=== PATIENT | female | born 1945 | race Caucasian/White ===

== ENCOUNTER → 2017-08-08 13:13 | Outpatient (CLI) | payer MEDICARE, OTHER, SELFPAY ==
--- NOTE | 2017-08-08 13:45 | MRI_ITS ---
STUDY: MRI LUMBAR SPINE WITHOUT CONTRAST REASON FOR EXAM: Female, 71 years old. Low back pain radiating into the left hip TECHNIQUE: Standardized fat and water weighted pulse sequences were obtained in the sagittal and axial planes. COMPARISON: None FINDINGS: T12-L1: Normal endplates. Normal disc height, hydration and morphology. Normal bilateral facet joints. Normal central canal and bilateral lateral recesses. Normal bilateral intervertebral neural foramina. Normal lumbar lordosis. There is no substantial scoliosis. Normal conus medullaris that terminates at the L1 level. L1-2: Bulging annulus with bilateral facet and ligamentum flavum hypertrophy. Mild central canal and bilateral foraminal stenoses. L2-3: Bulging annulus with bilateral facet and ligamentum flavum hypertrophy. Moderate central canal and bilateral foraminal stenoses. L3-4: Bulging annulus and bilateral facet and ligamentum flavum hypertrophy with superimposed left paracentral disc protrusion. Severe left lateral recess stenosis, severe central canal stenosis, and moderate bilateral foraminal stenoses. L4-5: Bulging annulus and bilateral facet and ligamentum flavum hypertrophy. Moderate to severe central canal stenosis with severe left lateral recess stenosis and moderate bilateral foraminal stenoses. L5-S1: Bulging annulus and bilateral facet hypertrophy with moderate bilateral foraminal stenoses. Normal visualized sacral ala. Normal visualized paraspinous soft tissue structures. MRI/Spine Lumbar (Routine) IMPRESSION: Diffuse degenerative disc and facet disease as described. Severe central canal and left lateral recess stenoses at the L3-4 level. Severe left lateral recess stenosis at the L4-5 level. Electronically Signed: Greg Forde MD at 0:36 EDT Tel , Service support ,
--- NOTE | 2017-08-08 14:45 | RAD_ITS ---
STUDY: X-RAY - LUMBAR SPINE REASON FOR EXAM: Female, 71 years old. Stabbing and shooting pain in lower back that radiates down all the way down to the toes on left side, started in April 2017 TECHNIQUE: 5 view(s) of the lumbar spine were obtained. COMPARISON: None FINDINGS: Normal lumbar lordosis. There is no substantial scoliosis. There is a normal alignment of the vertebrae. There are multiple metallic clips in the right upper quadrant. This is consistent for a cholecystectomy. Loss of intervertebral disc height at L5-S1. Vacuum disc phenomenon at L5-S1. Grade 1 anterolisthesis of L4 on L5. There is multilevel endplate spondylosis of the lumbar vertebrae. There is multi-level degenerative disc disease with multi-level disc space narrowing. There are atherosclerotic vascular calcifications. The soft tissue structures are unremarkable. RAD/L/S Spine Min 4 Views IMPRESSION: Degenerative changes of the spine, as detailed above. Grade 1 anterolisthesis of L4 on L5. Electronically Signed: Kashmir Gutiérrez MD at 21:13 EDT , Service support ,
== END ==
PROVIDERS: Family Provider Family Medicine; PCP Family Medicine; Visit Provider Family Medicine
DX: M51.26 Other intervertebral disc displacement, lumbar region (principal)
CPT/HCPCS: 72110; 72148

== ENCOUNTER → 2018-01-22 12:25 | Outpatient (CLI) | payer MEDICARE, OTHER, SELFPAY ==
[2018-01-22 11:03] VITALS: BMI 25.9
--- NOTE | 2018-01-22 12:55 | RAD_ITS ---
STUDY: X-RAY CHEST REASON FOR EXAM: Female, 72 years old. Left-sided anterior lateral chest pain and shortness of breath. TECHNIQUE: PA and lateral views of the chest. COMPARISON: None. FINDINGS: Hyperinflation. Scattered calcified granulomas. No acute abnormality is seen. There is no demonstrated pleural abnormality. Normal size heart. Normal mediastinum and nando. Normal visualized pulmonary arteries. There is atherosclerotic tortuosity of the aortic arch and descending thoracic aorta. There are diffuse degenerative changes of the visualized thoracic spine. Normal visualized ribs, clavicles, and shoulders. Surgical clips are seen in the right upper quadrant most likely representing cholecystectomy. RAD/Chest PA and Lateral IMPRESSION: Hyperinflation. The lungs are clear. Electronically Signed: Parish Gutierrez MD at 13:18 EST Tel [phone], Service support ,
[2018-01-22 14:14] LABS: Anion Gap 5 (5-15); BUN 20 mg/dL (7-18); BUN/Creat Ratio 12.7 RATIO (10-20); Calcium,Total 9.3 mg/dL (8.5-10.1); Chloride 103 mmol/L (98-107); Creatinine, Serum 1.57 mg/dL (0.55-1.02); EST Glomerular Filtration Rate 35 mL/min (>60); Est Glom Filt Rate - Afr Amer 42 mL/min (>60); Glucose 155 mg/dL (74-106); Potassium 3.4 mmol/L (3.5-5.1); Sodium Level 141 mmol/L (136-145)
--- OUTSIDE RECORDS SUMMARY | 2018-03-19 15:51 | XMS RPT_ITS ---
:1945 Author Organization OHIP Care Team Providers Name Role Phone Kapil Kauffman ROD CUP FILLER-C Attending Unavailable Brown, Antonia Referring Unavailable Brown, Antonia Attending Unavailable Brown, Antonia Referring Unavailable Brown, Antonia Attending Unavailable Brown, Antonia Referring Unavailable Brown, Antonia Primary Care Unavailable Lizabeth Hall Attending Unavailable Brown, Antonia Referring Unavailable Brown, Antonia Attending Unavailable Brown, Antonia Referring Unavailable Brown, Antonia Primary Care Unavailable Brown, Antonia Attending Unavailable Brown, Antonia Referring Unavailable Brown, Antonia Primary Care Unavailable Brown, Antonia Attending Unavailable Brown, Antonia Referring Unavailable Brown, Antonia Attending Unavailable Brown, Antonia Referring Unavailable Brown, Antonia Primary Care Unavailable Brown, Antonia Attending Unavailable Brown, Antonia Referring Unavailable Brown, Antonia Primary Care Unavailable Jose Armando Rincon Attending Unavailable Brown, Antonia Referring Unavailable Brown, Antonia Primary Care Unavailable Dallin Cole Attending Unavailable Referred, Self Attending Unavailable Brown, Antonia Primary Care Unavailable ALEXANDR ANTONIA Primary Care Unavailable ALEXANDR ANTONIA Attending Unavailable JOSUE MANNING DO Attending Unavailable ANTONIA STRANGE Primary Care Unavailable PROBLEMS PROBLEMS DATE TYPE CONDITION / CODE ATTENDING STATUS SOURCE 01/26/2018 Unknown S16.1XXA - Strain of Jose Armando Rincon Active [facility] muscle, fascia and Community tendon at neck Hospital level, initial Repository encounter / S16.1XXA(ICD-10) 01/22/2018 Unknown Z87.891 - Personal Antonia Strange Active [facility] history of nicotine Community dependence / Hospital Z87.891(ICD-10) Repository 01/22/2018 Unknown R10.9 - Unspecified Antonia Strange Active [facility] abdominal pain / Community R10.9(ICD-10) Hospital Repository 01/22/2018 Unknown I10 - Essential Antonia Strange Active [facility] (primary) Community hypertension / Hospital I10(ICD-10) Repository 08/19/2017 Unknown 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, lumbar Hospital region / Repository M51.26(ICD-10) 02/21/2017 Admitting Diarrhea, ANTONIA STRANGE Active [facility] Diagnosis unspecified / Foundation R19.7(ICD-10) Repository PROCEDURES PROCEDURES No Procedure Records FoundRESULTS RESULTS EMERGENCY DEPARTMENT Observed: 01/28/2018 Status: F Source: CLIO SUMMARY 12:52 PM [facility] REPOSITORY [facility] Medical Records Department [address] [facility] [place] [address] Emergency Department Summary 01/28/18 1042 MR#: [id number] Acct: [id number] Name: ROSEMARY HELMS Rep #: [id number] : 1945 72 From: Dallin Cole DO PCP: Antonia Strange DO Status: REG ER - ER Visit Summary Date of Service: 01/28/18 Chief Complaint: Tongue swelling History of Present Illness: The patient is a 72 F who presents with swelling of her tongue that began this morning. Patient states she woke up at approximately 3 AM today and felt like she had a sore throat. Patient went back to sleep and woke up again at 5:30 AM today. Patient felt like her tongue was swelling at that time. Patient states she has been having some trouble swallowing due to the swelling of her tongue. Patient denies any shortness of breath however. Patient is able to talk. Patient denies any fevers or chills. Patient had a CT scan with oral and IV contrast done yesterday. Patient denies any prior allergic reactions to CT dye. Physical Examination: Vital signs are stable except for mildly elevated blood pressure 163/75. Patient is afebrile. Patient is in no acute distress. Oral mucosa is pink and moist. There is edema of the right half of the tongue. Oropharynx is clear. Airway is patent. Neck is supple. Trachea is midline. There is no sublingual edema or erythema. There is no lymphadenopathy appreciated. Heart was regular rate and rhythm. Lungs are clear and equal bilaterally. Good respiratory effort noted. Abdomen soft. Bowel sounds are normal. There is no tenderness. Cranial nerves II through XII are intact. There are no focal motor or sensory deficits noted. The remaining physical exam is within normal limits. Emergency Department Course and Treatment: Patient was given Solu-Medrol, Benadryl, and Pepcid IV here. Patient was observed in the emergency department for 2 hours. Swelling has improved. Patient was also given her normal dose of Paxil here in the emergency department. Patient was given a prescription for prednisone. Patient was instructed to follow-up with her primary care physician in 5-7 days. Patient understood and was agreeable with the plan. All questions were answered. Disposition: Discharged home Impression: Angioedema This note was generated with [employer] dictation software. It may contain incorrect words, spelling, and punctuation that were not noted in review of the chart prior to signing ED Disposition - Plan for ED Patient: Disposition: Home or Assisted Living Chief Complaint: Edema Diagnosis: Allergic angioedema Instructions: ED Angioedema Prescriptions: Prednisone [Deltasone] 60 mg PO DAILY #15 tab Referrals: Antonia Strange, DO [Primary Care Provider] - What to do if you have Problems For any increased pain, shortness of breath, bleeding, nausea or vomiting, chest pain, or any unexpected problems, contact your Primary Care Provider. Call [facility] ([phone]) or report to the closest Emergency Room. Call 911 if necessary. 01/28/18 1252 <Electronically signed by Dallin Cole DO> Date Dallin Cole DO Cosigner Signature (If Indicated): Date CC: Antonia Strange DO ABDOMEN WITH ORAL Observed: 01/27/2018 Status: F Source: [place] CONT ONLY 3:03 PM [facility] REPOSITORY [facility] Imaging Services [address] [place] [address] Abdomen WITH ORAL Cont Only MR#: [id number] Acct: [id number] Name: ROSEMARY HELMS Rep #: [id number] : 1945 F 72 From: Lyubov Manning MD PCP: Antonia Strange DO Status: REG CLI Study: Abdomen WITH ORAL Cont Only Date of Exam: 01/27/18 Exam# [id number] Ordering Dr: Antonia Strange DO STUDY: CT ABDOMEN WITHOUT CONTRAST REASON FOR EXAM: Female, 72 years old. Left upper abdominal pain with weight loss and nausea. RADIATION DOSAGE (If Supplied By Facility): CTDIvol = ( 12.61 ) mGy, DLP = ( 388.47 ) mGycm TECHNIQUE: Transaxial images were obtained without intravenous contrast, and without oral contrast. Sagittal and coronal images were reconstructed. Individualized dose optimization techniques were used for this CT. COMPARISON: Prior comparison studies are not available for review at this time. FINDINGS: The visualized lung bases are unremarkable. The visualized portions of the heart are within normal limits. There is hepatomegaly with diffuse hepatic enlargement. Maximum cephalocaudal dimension measures 18.7 cm. There are surgical clips in the gallbladder fossa consistent with a prior cholecystectomy. Normal spleen. There is diffuse atrophy of the pancreas. Normal bilateral adrenal glands. There is moderate cortical atrophy of the right kidney, consistent with chronic medical renal disease. There is hypertrophic enlargement of the left kidney. Normal visualized stomach. There is no evidence for dilated bowel, ascites or pneumoperitoneum. Small bowel has a grossly normal appearance. Stool and/or enteric contrast is visible throughout the colon. There is non-visualization of the appendix. There is diffuse atherosclerotic calcification of the abdominal aorta, without a demonstrated aneurysm. Normal inferior vena cava. Normal retroperitoneum. Normal abdominal wall. The bones are osteopenic. There is mild anterolisthesis at L4-5. There is degenerative disc disease of the lower thoracic spine and L5-S1. Multilevel degenerative arthropathy of the thoracic and lumbar spine. CT/Abdomen WITH ORAL Cont Only IMPRESSION: 1. Hepatomegaly. 2. Sequela of chronic right-sided renal insufficiency. 3. Cholecystectomy. 4. No CT evidence of acute intra-abdominal disease. Electronically Signed: Lyubov Manning MD at 11:41 EST , Service support , CC: Antonia Strange DO Sales Center Associate: Signed URGENT CARE VISIT Observed: 01/26/2018 Status: F Source: CLIO REPORT 1:41 PM [facility] REPOSITORY [facility] [address] [place] [address] OFFICE VISIT Date of Service: 01/26/18 MR#: [id number] Acct: [id number] Name: ROSEMARY HELMS Rep #: [id number] : 1945 Provider: Jose Armando MANDUJANO Age/Sex: 72/F Location: [facility] Status: Signed Intake Vital Signs01/26/18 Body Mass Index (BMI) 25.9 01/26/18 Height 5 ft 4 in Intake Visit Reasons: NECK AND SHOULDER/HEADACHE Allergies No Known Allergies Allergy (Unverified 01/26/18 11:02) Medications hydrochlorothiazide 25 mg tablet 25 mg PO DAILY #90 tab 10/15/17 [Rx Confirmed 01/26/18] paroxetine 30 mg tablet 30 mg PO QAM #90 tab 10/15/17 [Rx Confirmed 01/26/18] amlodipine 5 mg tablet 5 mg PO QDAY #90 tab 10/29/17 [Rx Confirmed 01/26/18] metformin 500 mg tablet 500 mg PO QDAY #90 tab 01/20/18 [Rx Confirmed 01/26/18] lisinopril 20 mg tablet 20 mg PO QDAY #90 tab 01/23/18 [Rx Confirmed 01/26/18] PFSH Medical History History of stomach ulcers (Acute) IBS (irritable bowel syndrome) (Chronic) Hypertension (Chronic) Type 2 diabetes mellitus (Chronic) Pain in left leg (Acute) Diarrhea (Acute) Fatigue (Acute) Limb weakness (Acute) Migraines (Acute) Neck pain (Acute) Ruptured cervical disc (Acute) Shoulder pain (Acute) Surgical History History of cholecystectomy (Acute) Social History Smoking Status: Former smoker how long ago did patient quit smokin alcohol intake: never substance use type: does not use what type of physical activity do you participate in: walking frequency: daily HPI HPI Details: ROSEMARY HELMS, is a 72 F who presents to the office today for complaint of neck pain and headache for the past several days. Patient states that her neck/shoulder pain and headache keep her from a good night sleep due to the pain. She reports that she has not taken anything for the pain due to her history of gastric ulcers with a concern for a recurrent ulcer. She states that her PCP Dr. Strange advised her against taking pain medications or muscle relaxers. Patient does also admit to a great deal of life stress due to taking care of her . She denies any syncopal or near syncopal episodes. She has had no dizziness or intractable headaches. No previous injuries to the neck. No other associated symptoms or alleviating/aggravating factors. ROS Const Constitutional: Positive for headache(s); no chills, fever(s), fatigue or abnormal sleep pattern ENT ENT: Positive for neck pain and headache(s); no nasal discharge, nasal congestion, ear pain, abnormal hearing, dizziness/vertigo or sore throat Resp Respiratory: No shortness of breath or chest congestion Cardio Cardiology: No chest pain at rest, chest pain with exertion or shortness of breath Musc Musculoskeletal: Positive for neck pain; no limited range of motion, abnormal walking, back pain, radiating pain into limb, numbness, tingling or stiffness Skin Skin: No wounds or lesions Neuro Neurology: Positive for headache(s); no behavioral changes, confusion, abnormal hearing, abnormal walking, numbness or tingling Psych Psychiatric: No behavioral changes, No confusion, No abnormal sleep pattern Endo Endocrine: No fatigue Exam Const General: cooperative, healthy appearing [facility] Head: normocephalic, atraumatic Ears: hearing grossly normal bilaterally Nose: external nose normal Face and sinus: face symmetric, normal facial exam Mouth: oral mucosae normal Throat: posterior oropharynx normal Eyes General: appearance normal, both eyes and all related structures Pupils: PERRL Neck Neck: normal visual inspection, no lymphadenopathy, tender Resp Effort AND Inspection: normal respiratory effort Auscultation: Bilateral: Clear to Auscultation Cardio Palpation: normal PMI Rate: regular rate Rhythm: regular rhythm GI Inspection: normal to inspection Auscultation: normal bowel sounds Skin General: no rashes or lesions noted Neuro General: alert, CN's II-XI intact bilaterally Psych Appearance: grossly normal Mental Status: mental status grossly normal Assessment AND Plan Problems 1. Acute non intractable tension-type headache G44.209 Status Acute 2. Acute muscle stiffness of neck M54.2 Status Acute Plan Patient referred to [facility] point massage therapy for medical massage as well as advised to use heating pad to the neck multiple times daily as tolerated. Patient advised to follow her PCPs recommendation and to withhold from use of pain medications as much as possible and to follow-up with Dr. Strange for further evaluation and treatment in 5-7 days if no better sooner if worse. Patient advised of potential red flags and when appropriate to report to the ED. Patient verbalized understanding and agreement with all the above. Orders Referrals: Coding Level of Care Code Off vis,est,level 3 Diagnoses Acute non intractable tension-type headache G44.209 Headache chronicity pattern: acute headache Intractability: not intractable Acute muscle stiffness of neck M54.2 01/26/18 1341 <Electronically signed by Jose Armando MANDUJANO> Date Jose Armando MANDUJANO Cosigner Signature: Date (if applicable) CC: INTERNAL MEDICINE Observed: 01/22/2018 Status: F Source: [place] OFFICE VISIT 12:37 PM [facility] REPOSITORY [facility] [address] [address] [place] [address] OFFICE VISIT Date of Service: 01/22/18 MR#: [id number] Acct: [id number] Name: ROSEMARY HELMS Rep #: [id number] : 1945 Provider: Antonia Strange DO Age/Sex: 72/F Location: [facility] Status: Signed Intake Vital Signs01/22/18 Height 5 ft 6 in 01/22/18 Weight: 160 lb 6 oz Intake Visit Reasons: FU ER Chief Complaint: 2 WK FU Elevated BP Environmental Aide Required: No Accompanied by: None Is patient in pain?: Yes (chest) Pain scale (1-10): 2 Allergies No Known Allergies Allergy (Unverified 10/31/17 11:13) Medications lisinopril 20 mg tablet 20 mg PO QDAY #90 tab 09/19/17 [Rx Confirmed 10/31/17] hydrochlorothiazide 25 mg tablet 25 mg PO DAILY #90 tab 10/15/17 [Rx Confirmed 10/31/17] paroxetine 30 mg tablet 30 mg PO QAM #90 tab 10/15/17 [Rx Confirmed 10/31/17] amlodipine 5 mg tablet 5 mg PO QDAY #90 tab 10/29/17 [Rx Confirmed 10/31/17] omeprazole 20 mg capsule,delayed release 20 mg PO BID #60 cap 10/31/17 [Rx Confirmed 10/31/17] metformin 500 mg tablet 500 mg PO QDAY #90 tab 01/20/18 [Rx] PFSH Medical History History of stomach ulcers (Acute) IBS (irritable bowel syndrome) (Chronic) Hypertension (Chronic) Type 2 diabetes mellitus (Chronic) Pain in left leg (Acute) Surgical History History of cholecystectomy (Acute) Social History Smoking Status: Former smoker how long ago did patient quit smokin alcohol intake: never substance use type: does not use what type of physical activity do you participate in: walking frequency: daily HPI HPI Chief Complaint: 2 WK FU Elevated BP Details: ROSEMARY HELMS, is a 72 F who presents to the office today for follow-up from an emergency room visit where she was seen for elevated blood pressure more importantly severe epigastric and left upper quadrant pain. On this visit she also complains of chest discomfort more of a pressure to the chest when she touches but not exertional pain the pain is not there all the time and her epigastric pain is quite high. She has lost some weight says the spells come with increasing intensity and they are quite debilitating. She was also significantly hypokalemic in the emergency room and they just gave her 2 tablets of potassium and told her that her kidney function was off and indeed it is as her creatinine was 1.65. ROS Const Constitutional: No body ache, chills, fatigue, fever(s), frequent falls, headache(s), weight change, sleep problems, change in appetite, snoring, excessive sweating or weakness Eyes Eyes: No blurry vision, change in vision, eye pain or light sensitivity ENT ENT: No headache(s), abnormal hearing, ear pain, tinnitus, nasal congestion, nasal discharge, sore throat or neck pain Resp Respiratory: No snoring, cough, shortness of breath or wheezing Cardio Cardiology: Positive for chest pain at rest and lightheadedness; no excessive sweating, chest pain with exertion, shortness of breath, dyspnea on exertion, orthopnea or palpitations Gastro GI: Positive for abdominal pain; no change in bowel habits, diarrhea, constipation, vomiting, nausea/dyspepsia or cramping Genitourinary-Female: No difficulty urinating, burning urination, painful urination, urinary frequency, urinary urgency, urinary incontinence, blood in urine, urinary retention or urinary hesitancy Musc Musculoskeletal: Positive for back pain and muscle weakness (Legs); no neck pain, abnormal walking, joint pain, limited range of motion, numbness or tingling Skin Skin: No redness, dry skin, itching, lesions, wounds or rash Neuro Neurology: No frequent falls, headache(s), weakness, abnormal hearing, abnormal walking, numbness, tingling, abnormal speech, dizziness or memory loss Psych Psychiatric: No change in appetite, No memory loss, Positive for anxiety, Positive for depression, No Thoughts of harming yourself/Others Endo Endocrine: No fatigue, excessive sweating, cold intolerance, increased thirst/drinking, heat intolerance, increased hunger or flushing Aller/Imm Allergy/Immunologic: No wheezing, itchy eyes, seasonal allergy symptoms or hives Daren/Lymp Hematologic/Lymphatic: No easy bleeding, easy bruising or enlarged lymph nodes Exam Const General: healthy appearing, in distress mild Nutritional Appearance: average body habitus Chest Chest palpation AND inspection: normal inspection of the chest, tenderness costochondral junction Resp Effort AND Inspection: normal respiratory effort Auscultation: Bilateral: Clear to Auscultation Cardio Rate: regular rate Rhythm: regular rhythm GI Inspection: normal to inspection Auscultation: normal bowel sounds Percussion: normal to percussion Palpation: no hepatosplenomegaly, tender in the epigastrum and in the LUQ Musc Musculoskeletal: Yes muscle weakness (Legs) Thoracic/Lumbar Spine: thoraco-lumbar ROM limited, straight leg raise negative bilaterally Neuro Cranial Nerves: CN's II-XI intact bilaterally Motor: muscle tone normal throughout Sensory Exam: no sensory deficits noted Assessment AND Plan Problems 1. Hypertension I10 2. History of stomach ulcers Z87.19 3. IBS (irritable bowel syndrome) K58.9 Plan This patient was seen on an emergency room follow-up. She was a little upset with the emergency room as she said nobody actually touched her through the exam however they did do blood work showing she was hypokalemic and having some evidence of chronic kidney disease. She has had upper abdominal pain quite severe she knows she has a history of stomach ulcers and she has been taking NSAIDs which I told her to discontinue. I repeated the blood work to see what her potassium and kidney function was now that she is fully hydrated as she had been vomiting prior to the emergency room visit. Ordered a CT scan of the abdomen because of the severe recurrent epigastric pain but anticipate referring her for an EGD if this is negative. Chest x-ray was done simply because she is a smoker and has a chronic cough and some chest discomfort. Orders Orders: Medications Discontinued: ibuprofen Discontinued Reason: [id number] mg PO Q8H PRN 30 tabs 0RF fever or pain ed by PCP/other physicians Coding Level of Care Code Off vis,est,level 3 Diagnoses Hypertension I10 History of stomach ulcers Z87.19 IBS (irritable bowel syndrome) K58.9 01/22/18 1237 <Electronically signed by Antonia Strange DO> Date Antonia Claudette Alexandr DO Rulaigner Signature: Date (if applicable) CC: BASIC METABOLIC Collected: 01/22/2018 Status: F Source: [place] PROFILE (BMP) 12:37 PM [facility] REPOSITORY TYPE CODE TESTS RESULT OUT OF RANGE REFERENCE UNITS LAB L501.0100 74-106 mg/dL High GLU 155 Result Comment: Fasting Glucose result greater than or equal to 126 mg/dL suggests DIABETES MELLITUS per A.D.A. criteria. Please note revised GLUCOSE reference range effective 2017. LAB L501.1000 7-18 mg/dL High BUN 20 LAB L501.1100 0.55-1.02 mg/dL High CREAT,SERUM 1.57 Result Comment: The validity of the calculated GFR AND GFRAA in patients over 70 years has not been determined. Clinical correlation is essential. LAB L501.1110 >60 mL/min Low EST GFR 35 Result Comment: Non- GFR Calc LAB L501.1115 >60 mL/min Low EST GFR - AA 42 Result Comment: GFR Calc LAB L501.1300 10-20 RATIO Normal BUN/CRE 12.7 LAB L501.2200 8.5-10.1 mg/dL CA Normal 9.3 LAB L501.5300 136-145 mmol/L NA Normal 141 LAB L501.5600 3.5-5.1 mmol/L Low K 3.4 LAB L501.5900 98-107 mmol/L CL Normal 103 LAB L501.6100 21.0-32.0 mmol/L High CO2 33.0 LAB L501.6200 5-15 Normal GAP 5 Performed By: #### L500.2500 #### [facility] [address] [place], [address] CHEST PA AND LATERAL Observed: 01/22/2018 Status: F Source: [facility] 12[facility]32 [facility] Imaging Services [address] [place] [address] Chest PA and Lateral MR#: [id number] Acct: [id number] Name: ROSEMARY HELMS Rep #: [id number] : 1945 F 72 From: Parish Gutierrez MD PCP: Antonia Strange DO Status: REG CLI Study: Chest PA and Lateral Date of Exam: 01/22/18 Exam# [id number] Ordering Dr: Antonia Strange DO STUDY: X-RAY CHEST REASON FOR EXAM: Female, 72 years old. Left-sided anterior lateral chest pain and shortness of breath. TECHNIQUE: PA and lateral views of the chest. COMPARISON: None. FINDINGS: Hyperinflation. Scattered calcified granulomas. No acute abnormality is seen. There is no demonstrated pleural abnormality. Normal size heart. Normal mediastinum and nando. Normal visualized pulmonary arteries. There is atherosclerotic tortuosity of the aortic arch and descending thoracic aorta. There are diffuse degenerative changes of the visualized thoracic spine. Normal visualized ribs, clavicles, and shoulders. Surgical clips are seen in the right upper quadrant most likely representing cholecystectomy. RAD/Chest PA and Lateral IMPRESSION: Hyperinflation. The lungs are clear. Electronically Signed: Parish Gutierrez MD at 13:18 EST Tel [phone], Service support , CC: Antonia Strange DO Sales Center Associate: Signed CBC Collected: 01/16/2018 Status: F Source: [facility] 3:51 PM [facility] REPOSITORY TYPE CODE TESTS RESULT OUT OF REFERENCE UNITS RANGE LAB WBC(LOINC) 4.60-10.80 10 3/mcL High WBC 12.20 LAB RBCCT(LOINC 4.20-5.40 10 6/mcL ) RBC 4.78 LAB HGB(LOINC) 12.0-16.0 G/dL Hgb 14.7 LAB HCT(LOINC) 37.0-47.0 % Hct 43.0 LAB MCV(LOINC) 80.0-94.0 fL MCV 89.9 LAB MCH(LOINC) 27.0-31.2 pg MCH 30.8 LAB MCHC(LOINC) 33.0-37.0 G/dL MCHC 34.3 LAB RDW(LOINC) 11.5-14.5 % RDW 13.5 LAB PLT(LOINC) 130-400 10 3/mcL Platelet 265 LAB MPV(LOINC) 7.4-10.4 fL Low MPV 7.1 Performed By: #### ANEU, ADIFF, CBC #### [address] [address] #### LIP, GFR, TROP, CMP #### [address] [address] .AUTO DIFF Collected: 01/16/2018 Status: F Source: [facility] 3:51 PM [facility] REPOSITORY TYPE CODE TESTS RESULT OUT OF REFERENCE UNITS RANGE LAB JULIANE(LOINC) 37.0-80.0 % Neutrophil % 77.3 LAB LYM(LOINC) 10.0-50.0 % Lymphocyte % 14.8 LAB MON(LOINC) 1.7-13.0 % Monocyte % 7.0 LAB EO(LOINC) 0.0-7.0 % Eosinophil % 0.4 LAB BAS(LOINC) 0.0-2.5 % Basophil % 0.5 LAB ABLYM(LOIN 0.77-3.85 10 3/mcL C) Lymphocyte, 1.80 Absolute LAB ALEJANDRINA(LOINC 0.15-1.00 10 3/mcL ) Monocyte, 0.90 Absolute LAB AEOS(LOINC 0.00-0.40 10 3/mcL ) Eosinophil, 0.00 Absolute LAB ABAS(LOINC 0.00-0.19 10 3/mcL ) Basophil, 0.10 Absolute Performed By: #### ANEU, ADIFF, CBC #### [address] [address] #### LIP, GFR, TROP, CMP #### [address] [address] .NEUABS Collected: 01/16/2018 Status: F Source: [facility] 3:51 PM [facility] REPOSITORY TYPE CODE TESTS RESULT OUT OF REFERENCE UNITS RANGE LAB ANEU(LOINC) 2.85-6.16 10 3/mcL High Neutrophil, 9.40 Absolute Performed By: #### ANEU, ADIFF, CBC #### [address] [address] #### LIP, GFR, TROP, CMP #### [place] [address] TROP Collected: 01/16/2018 Status: F Source: [facility] 3:51 PM [facility] REPOSITORY TYPE CODE TESTS RESULT OUT OF REFERENCE UNITS RANGE LAB TROP(LOINC) 0.000-0.040 ng/mL Troponin <0.020 Result Comment: Troponin I reference range: 0.00-0.040 ng/mL Negative and non-diagnostic. >0.040 ng/mL Consistent with cardiac damage, increased clinical risk and possibility of myocardial infarction. Serial measurements, a rise & fall in test results, clinical history, appropriate symptoms and/or ECG changes may help assess possibility of KS. *Other non-acute coronary syndrome conditions such as CHF, myocarditis, pulmonary emboli, sepsis and cardiac surgery could result in myocardial damage and increased troponin levels. Performed By: #### ANEU, ADIFF, CBC #### [place] [address] #### LIP, GFR, TROP, CMP #### [place] [address] LIP Collected: 01/16/2018 Status: F Source: [facility] 3:51 PM [facility] REPOSITORY TYPE CODE TESTS RESULT OUT OF REFERENCE UNITS RANGE LAB LIP(LOINC) 73-393 U/L Lipase Level 325 Performed By: #### ANEU, ADIFF, CBC #### [place] [address] #### LIP, GFR, TROP, CMP #### [place] [address] CMP Collected: 01/16/2018 Status: F Source: [facility] 3:51 PM [facility] REPOSITORY TYPE CODE TESTS RESULT OUT OF REFERENCE UNITS RANGE LAB GLU(LOINC) 83-110 mg/dL Glucose High Level 130 LAB NA(LOINC) 136-145 mmol/L Low Sodium Level 135 LAB K(LOINC) 3.5-5.1 mmol/L Low Potassium Level 2.8 LAB CL(LOINC) 98-107 mmol/L Low Chloride 94 LAB CO2(LOINC) 23-31 mmol/L CO2 30 LAB EBAL(LOINC mEq/L ) Electrolyte Balance 11.0 LAB BUN(LOINC) 7-18 mg/dL BUN High 28 LAB CRE(LOINC) 0.55-1.02 mg/dL Creatinine High Lvl (s) 1.67 LAB BC(LOINC) 7-27 ratio BUN/Creatinine 17 Ratio LAB CA(LOINC) 8.4-10.2 mg/dL Calcium Lvl 9.3 LAB PROT(LOINC 6.4-8.2 G/dL ) Total Protein 7.5 LAB ALB(LOINC) 3.4-4.8 G/dL Albumin Level 4.0 LAB GLB(LOINC) G/dL Globulin 3.5 LAB AG(LOINC) 1.1-2.5 ratio A/G Ratio 1.1 LAB BILT(LOINC 0.2-1.0 mg/dL ) Bili Total 0.7 LAB AP(LOINC) 40-135 U/L Alk Phos 94 LAB AST(LOINC) 10-40 U/L AST/SGOT 17 LAB ALT(LOINC) 10-35 U/L ALT/SGPT 17 Performed By: #### ANEU, ADIFF, CBC #### [address] [address] #### LIP, GFR, TROP, CMP #### [address] [address] .GFR Collected: 01/16/2018 Status: F Source: [facility] 3:51 PM [facility] REPOSITORY TYPE CODE TESTS RESULT OUT OF REFERENCE UNITS RANGE LAB GFRAA(LOINC ml/min/1.73 ) sqm GFR 37 [place] Result Comment: GFR Population mean for , Non- Americans Ages 20-29 = 116 mL/min/1.73 sq.m. Ages 30-39 = 107 mL/min/1.73 sq.m. Ages 40-49 = 99 mL/min/1.73 sq.m. Ages 50-59 = 93 mL/min/1.73 sq.m. Ages 60-69 = 85 mL/min/1.73 sq.m. Ages 70+ = 75 mL/min/1.73 sq.m. Chronic Kidney Disease: Less than 60 mL/min/1.73 square meters End Stage Renal Disease: Less than 15 mL/min/1.73 square meters LAB GFRNO(LOINC) ml/min/1.73sqm GFR Non- 30 Result Comment: GFR Population mean for , Non- Americans Ages 20-29 = 116 mL/min/1.73 sq.m. Ages 30-39 = 107 mL/min/1.73 sq.m. Ages 40-49 = 99 mL/min/1.73 sq.m. Ages 50-59 = 93 mL/min/1.73 sq.m. Ages 60-69 = 85 mL/min/1.73 sq.m. Ages 70+ = 75 mL/min/1.73 sq.m. Chronic Kidney Disease: Less than 60 mL/min/1.73 square meters End Stage Renal Disease: Less than 15 mL/min/1.73 square meters Performed By: #### ANEU, ADIFF, CBC #### [address] [address] #### LIP, GFR, TROP, CMP #### [place] [address] INTERNAL MEDICINE Observed: 10/31/2017 Status: F Source: [place] OFFICE VISIT 12:12 PM [facility] Internal Medicine [address] [place] [address] [place] [address] OFFICE VISIT Date of Service: 10/31/17 MR#: [id number] Acct: [id number] Name: ROSEMARY HELMS Jose Rep #: [id number] : 1945 Provider: Antonia Strange DO Age/Sex: 72/F Location: [facility] Status: Signed Intake Vital Signs10/31/17 Height 5 ft 6 in 10/31/17 Weight: 166 lb 10/31/17 Body Mass Index (BMI) 26.8 10/31/17 Blood Pressure 172/72 Intake Visit Reasons: 2 WK FU Chief Complaint: 2 WK FU Elevated BP Is patient in pain?: Yes (Back) Pain scale (1-10): 6 Allergies No Known Allergies Allergy (Unverified 10/31/17 11:13) Medications ibuprofen 600 mg tablet 600 mg PO Q8H PRN #30 tab 05/20/17 [Rx Confirmed 10/31/17] metformin 500 mg tablet 500 mg PO QDAY #90 tab 06/25/17 [Rx Confirmed 10/31/17] lisinopril 20 mg tablet 20 mg PO QDAY #90 tab 09/19/17 [Rx Confirmed 10/31/17] hydrochlorothiazide 25 mg tablet 25 mg PO DAILY #90 tab 10/15/17 [Rx Confirmed 10/31/17] paroxetine 30 mg tablet 30 mg PO QAM #90 tab 10/15/17 [Rx Confirmed 10/31/17] amlodipine 5 mg tablet 5 mg PO QDAY #90 tab 10/29/17 [Rx Confirmed 10/31/17] nabumetone 500 mg tablet 500 mg PO BID 10/31/17 [History Confirmed 10/31/17] omeprazole 20 mg capsule,delayed release 20 mg PO BID #60 cap 10/31/17 [Rx Confirmed 10/31/17] [facility] Medical History History of stomach ulcers (Acute) IBS (irritable bowel syndrome) (Chronic) Hypertension (Chronic) Type 2 diabetes mellitus (Chronic) Pain in left leg (Acute) Surgical History History of cholecystectomy (Acute) Social History Smoking Status: Former smoker how long ago did patient quit smokin alcohol intake: never substance use type: does not use what type of physical activity do you participate in: walking frequency: daily HPI HPI Chief Complaint: 2 WK FU Elevated BP Details: ROSEMARY HELMS, is a 72 F who presents to the office today for a recheck on her blood pressure and discussion on her back pain. ROS Const Constitutional: No chills, fatigue, fever(s), frequent falls, malaise, weakness, sleep problems or change in appetite Eyes Eyes: No blurry vision, change in vision, double vision, discharge or visual disturbances ENT ENT: No abnormal hearing, ear pain, ear pressure, tinnitus or dizziness/vertigo Resp Respiratory: No cough, shortness of breath or wheezing Cardio Cardiology: No chest pain at rest, chest pain with exertion, shortness of breath, dyspnea on exertion, generalized swelling, irregular heart rhythm, lightheadedness, orthopnea, fast heart rate or palpitations Gastro GI: No abdominal pain, change in bowel habits, constipation, diarrhea, nausea/dyspepsia or vomiting Genitourinary-Female: No difficulty urinating, burning urination, painful urination, urinary incontinence, urinary frequency, urinary urgency, urinary hesitancy, urinary retention, Frequent nighttime urination/ nocturia, sexual problems, genital lesions, abnormal vaginal bleeding, pelvic pain, vaginal dryness, vaginal odor or Vaginal Itching Musc Musculoskeletal: Positive for back pain and muscle weakness (Legs); no joint pain, joint swelling, limited range of motion, numbness or tingling Skin Skin: No change in skin color, itching, rash or wounds Breast Breast: No breast lump or breast pain Neuro Neurology: No frequent falls, weakness, abnormal hearing, numbness, tingling, unsteady gait/balance, dizziness, loss of vision, memory loss or visual disturbances Psych Psychiatric: No memory loss, No anxiety, No change in appetite, No depression, No Thoughts of harming yourself/Others Endo Endocrine: No fatigue, heat intolerance, increased thirst/drinking, increased hunger or increased urination Aller/Imm Allergy/Immunologic: No wheezing, itchy eyes or seasonal allergy symptoms Daren/Lymp Hematologic/Lymphatic: No easy bleeding, easy bruising or enlarged lymph nodes Exam Const General: healthy appearing, no acute distress Nutritional Appearance: average body habitus Resp Effort AND Inspection: normal respiratory effort Auscultation: Bilateral: Clear to Auscultation Cardio Rate: regular rate Rhythm: regular rhythm Musc Musculoskeletal: Yes muscle weakness (Legs) Thoracic/Lumbar Spine: thoraco-lumbar ROM limited, straight leg raise negative bilaterally Neuro Cranial Nerves: CN's II-XI intact bilaterally Motor: muscle tone normal throughout Sensory Exam: no sensory deficits noted Assessment AND Plan Problems 1. Hypertension I10 2. Pain in left leg M79.605 3. History of stomach ulcers Z87.19 4. Type 2 diabetes mellitus E11.9 Plan Patient was here for blood pressure recheck. Her blood pressure when checked here is in good control and when evaluating her home blood pressure measurements that are also in good control with the exception of one low-pressure that I think was because because of blood pressure cuff failure. She is scheduled to see pain management for an epidural spinal injection her back pain does not seem to be bothering her all that much on physical examination or when she was walking in and out of the office. Follow-up will be in 6 months or as needed. Medications New: Plan Detail Follow Up 6 Months Coding Level of Care Code Off vis,est,level 3 Diagnoses Hypertension I10 Pain in left leg M79.605 History of stomach ulcers Z87.19 Type 2 diabetes mellitus E11.9 10/31/17 1212 <Electronically signed by Antonia Strange DO> Date Antonia Strange DO Cosigner Signature: Date (if applicable) CC: INTERNAL MEDICINE Observed: 10/16/2017 Status: F Source: [facility] OFFICE VISIT 8:33 AM [facility] Internal Medicine [facility] [address] [place] [address] OFFICE VISIT Date of Service: 10/15/17 MR#: [id number] Acct: [id number] Name: ROSEMARY HELMS Rep #: [id number] : 1945 Provider: Antonia Strange DO Age/Sex: 72/F Location: [facility] Status: Signed Intake Vital Signs10/15/17 Height 5 ft 6 in 10/15/17 Weight: 166 lb 10/15/17 Body Mass Index (BMI) 26.8 10/15/17 Blood Pressure 208/83 Intake Visit Reasons: ELEVATED BP Chief Complaint: Elevated BP Is patient in pain?: Yes (L hip) Pain scale (1-10): 6 Allergies No Known Allergies Allergy (Unverified 10/15/17 16:56) Medications ibuprofen 600 mg tablet 600 mg PO Q8H PRN #30 tab 05/20/17 [Rx Confirmed 10/15/17] metformin 500 mg tablet 500 mg PO QDAY #90 tab 06/25/17 [Rx Confirmed 10/15/17] amlodipine 5 mg tablet 5 mg PO QDAY #90 tab 09/09/17 [Rx Confirmed 10/15/17] lisinopril 20 mg tablet 20 mg PO QDAY #90 tab 09/19/17 [Rx Confirmed 10/15/17] hydrochlorothiazide 25 mg tablet 25 mg PO DAILY #90 tab 10/15/17 [Rx Confirmed 10/15/17] paroxetine 30 mg tablet 30 mg PO QAM #90 tab 10/15/17 [Rx Confirmed 10/15/17] PFSH Medical History History of stomach ulcers (Acute) IBS (irritable bowel syndrome) (Chronic) Hypertension (Chronic) Type 2 diabetes mellitus (Chronic) Pain in left leg (Acute) Surgical History History of cholecystectomy (Acute) Social History Smoking Status: Former smoker how long ago did patient quit smokin alcohol intake: never substance use type: does not use what type of physical activity do you participate in: walking frequency: daily HPI HPI Chief Complaint: Elevated BP Details: ROSEMARY HELMS, is a 72 F who presents to the office today for elavated blood pressure ROS Const Constitutional: No chills, fatigue, fever(s), frequent falls, malaise, weakness, sleep problems or change in appetite Eyes Eyes: No blurry vision, change in vision, double vision, discharge or visual disturbances ENT ENT: No abnormal hearing, ear pain, ear pressure, tinnitus or dizziness/vertigo Resp Respiratory: No cough, shortness of breath or wheezing Cardio Cardiology: No chest pain at rest, chest pain with exertion, shortness of breath, dyspnea on exertion, generalized swelling, irregular heart rhythm, lightheadedness, orthopnea, fast heart rate or palpitations Gastro GI: Positive for abdominal pain, nausea/dyspepsia and bloating; no change in bowel habits, constipation, diarrhea or vomiting Genitourinary-Female: No difficulty urinating, burning urination, painful urination, urinary incontinence, urinary frequency, urinary urgency, urinary hesitancy, urinary retention, Frequent nighttime urination/ nocturia, sexual problems, genital lesions, abnormal vaginal bleeding, pelvic pain, vaginal dryness, vaginal odor or Vaginal Itching Musc Musculoskeletal: Positive for joint pain (Hip), back pain and muscle cramps (Legs); no joint swelling, limited range of motion, muscle weakness, numbness or tingling Skin Skin: No change in skin color, itching, rash or wounds Breast Breast: No breast lump or breast pain Neuro Neurology: No frequent falls, weakness, abnormal hearing, numbness, tingling, unsteady gait/balance, dizziness, loss of vision, memory loss or visual disturbances Psych Psychiatric: No memory loss, No anxiety, No change in appetite, No depression, No Thoughts of harming yourself/Others Endo Endocrine: No fatigue, heat intolerance, increased thirst/drinking, increased hunger or increased urination Aller/Imm Allergy/Immunologic: No wheezing, itchy eyes or seasonal allergy symptoms Daren/Lymp Hematologic/Lymphatic: No easy bleeding, easy bruising or enlarged lymph nodes Exam Const General: cooperative, healthy appearing Nutritional Appearance: average body habitus Orientation: oriented x3 Neck Neck: normal visual inspection, no lymphadenopathy Resp Effort AND Inspection: normal respiratory effort Auscultation: Bilateral: Clear to Auscultation Cardio Rate: regular rate Rhythm: regular rhythm Musc Musculoskeletal: No muscle weakness Neuro Cranial Nerves: CN's II-XI intact bilaterally Speech: speech normal Extrem General: no clubbing, cyanosis or edema, normal gait Assessment AND Plan Problems 1. Hypertension I10 2. Type 2 diabetes mellitus E11.9 3. Herniated lumbar disc without myelopathy M51.26 Plan This is a patient who is been seen with a herniated disc. She is seeing an orthopedic surgeon Dr. Gilmore and he had placed her on high doses of NSAIDs. Because of this her blood pressure is increased I thought adding a diuretic would probably take care of the fluid overload she is getting because of the NSAID as well as lower some of the blood pressure readings that she is having. She was instructed to do daily blood pressures be rechecked in 2 weeks to see what the effect of the medication is. Medications New: Refilled: Plan Detail Follow Up 2 Weeks Coding Level of Care Code Off vis,est,level 3 Diagnoses Hypertension I10 Type 2 diabetes mellitus E11.9 Herniated lumbar disc without myelopathy M51.26 10/16/17 0833 <Electronically signed by Antonia Strange DO> Date Antonia Strange DO Cosigner Signature: Date (if applicable) CC: L/S SPINE MIN 4 Observed: 08/08/2017 Status: F Source: [place] VIEWS 2:19 PM [facility] REPOSITORY [facility] Imaging Services [address] [place] [address] L/S Spine Min 4 Views MR#: [id number] Acct: [id number] Name: ROSEMARY HELMS Rep #: [id number] : 1945 F 71 From: Kashmir Gutiérrez MD PCP: Antonia Strange DO Status: REG CLI Study: L/S Spine Min 4 Views Date of Exam: 08/08/17 Exam# [id number] Ordering Dr: Antonia Strange DO STUDY: X-RAY - LUMBAR SPINE REASON FOR EXAM: Female, 71 years old. Stabbing and shooting pain in lower back that radiates down all the way down to the toes on left side, started in April 2017 TECHNIQUE: 5 view(s) of the lumbar spine were obtained. COMPARISON: None FINDINGS: Normal lumbar lordosis. There is no substantial scoliosis. There is a normal alignment of the vertebrae. There are multiple metallic clips in the right upper quadrant. This is consistent for a cholecystectomy. Loss of intervertebral disc height at L5-S1. Vacuum disc phenomenon at L5-S1. Grade 1 anterolisthesis of L4 on L5. There is multilevel endplate spondylosis of the lumbar vertebrae. There is multi-level degenerative disc disease with multi-level disc space narrowing. There are atherosclerotic vascular calcifications. The soft tissue structures are unremarkable. RAD/L/S Spine Min 4 Views IMPRESSION: Degenerative changes of the spine, as detailed above. Grade 1 anterolisthesis of L4 on L5. Electronically Signed: Kashmir Gutiérrez MD at 21:13 EDT , Service support , CC: Antonia Strange DO Sales Center Associate: Signed SPINE LUMBAR Observed: 08/08/2017 Status: F Source: [place] (ROUTINE) 1:18 PM [facility] REPOSITORY [facility] Imaging Services [address] [place] [address] Spine Lumbar (Routine) MR#: [id number] Acct: [id number] Name: ROSEMARY HELMS Rep #: [id number] : 1945 F 71 From: Greg Forde MD PCP: Antonia Strange DO Status: REG CLI Study: Spine Lumbar (Routine) Date of Exam: 08/08/17 Exam# [id number] Ordering Dr: Antonia Strange DO STUDY: MRI LUMBAR SPINE WITHOUT CONTRAST REASON FOR EXAM: Female, 71 years old. Low back pain radiating into the left hip TECHNIQUE: Standardized fat and water weighted pulse sequences were obtained in the sagittal and axial planes. COMPARISON: None FINDINGS: T12-L1: Normal endplates. Normal disc height, hydration and morphology. Normal bilateral facet joints. Normal central canal and bilateral lateral recesses. Normal bilateral intervertebral neural foramina. Normal lumbar lordosis. There is no substantial scoliosis. Normal conus medullaris that terminates at the L1 level. L1-2: Bulging annulus with bilateral facet and ligamentum flavum hypertrophy. Mild central canal and bilateral foraminal stenoses. L2-3: Bulging annulus with bilateral facet and ligamentum flavum hypertrophy. Moderate central canal and bilateral foraminal stenoses. L3-4: Bulging annulus and bilateral facet and ligamentum flavum hypertrophy with superimposed left paracentral disc protrusion. Severe left lateral recess stenosis, severe central canal stenosis, and moderate bilateral foraminal stenoses. L4-5: Bulging annulus and bilateral facet and ligamentum flavum hypertrophy. Moderate to severe central canal stenosis with severe left lateral recess stenosis and moderate bilateral foraminal stenoses. L5-S1: Bulging annulus and bilateral facet hypertrophy with moderate bilateral foraminal stenoses. Normal visualized sacral ala. Normal visualized paraspinous soft tissue structures. MRI/Spine Lumbar (Routine) IMPRESSION: Diffuse degenerative disc and facet disease as described. Severe central canal and left lateral recess stenoses at the L3-4 level. Severe left lateral recess stenosis at the L4-5 level. Electronically Signed: Greg Forde MD at 0:36 EDT Tel , Service support , CC: Antonia Strange DO Sales Center Associate: Signed INTERNAL MEDICINE Observed: 05/21/2017 Status: F Source: [place] OFFICE VISIT 8:48 AM [facility] Internal Medicine [facility] [place] [address] [place] [address] OFFICE VISIT Date of Service: 05/20/17 MR#: [id number] Acct: [id number] Name: ROSEMARY HELMS Rep #: [id number] : 1945 Provider: Kapil Kauffman NP Age/Sex: 71/F Location: [facility] Status: Signed with Addenda ADDENDUM by Kapil Kauffman NP on 05/21/17 at 0848 Addendum entered and electronically signed by JAZMYN Brnuo 05/21/17 08:48: Addendum physical exam, patient does have a grade 2 systolic heart murmur heard best at right sternal border HPI Details: ROSEMARY HELMS, is a F who presents to the office today for 05/21/17 0848 <Electronically signed by Kapil ELDRIDGE> Date Kapil Kauffman cc: * Signed Intake Vital Signs05/20/17 Height 5 ft 6 in 05/20/17 Weight: 148 lb 05/20/17 Body Mass Index (BMI) 23.8 05/20/17 Blood Pressure 162/83 05/20/17 Blood Pressure Location Lt brachial Intake Visit Reasons: SCIATIC NERVE PAIN Chief Complaint: left leg pain Is patient in pain?: Yes (left leg pain) Pain scale (1-10): 10 Allergies No Known Allergies Allergy (Unverified 05/20/17 15:29) Medications amlodipine 5 mg tablet 5 mg PO QDAY tab 05/20/17 [History Confirmed 05/20/17] cyclobenzaprine 10 mg tablet 10 mg PO TID PRN #30 tab 05/20/17 [Rx Confirmed 05/20/17] ibuprofen 600 mg tablet 600 mg PO Q8H PRN #30 tab 05/20/17 [Rx Confirmed 05/20/17] lisinopril 20 mg tablet 20 mg PO QDAY 05/20/17 [History Confirmed 05/20/17] metformin 500 mg tablet 500 mg PO QDAY tab 05/20/17 [History Confirmed 05/20/17] paroxetine 30 mg tablet 30 mg PO QAM 05/20/17 [History Confirmed 05/20/17] PFSH Medical History History of stomach ulcers (Acute) IBS (irritable bowel syndrome) (Chronic) Hypertension (Chronic) Type 2 diabetes mellitus (Chronic) Pain in left leg (Acute) Surgical History History of cholecystectomy (Acute) Social History Smoking Status: Former smoker how long ago did patient quit smokin alcohol intake: never substance use type: does not use what type of physical activity do you participate in: walking frequency: daily HPI HPI Chief Complaint: left leg pain Details: ROSEMARY HELMS, is a F who presents to the office today for an acute visit of left low back pain and left thigh pain as well. She has a past medical history of hypertension type 2 diabetes mellitus. She is a patient of Dr. Shen. The patient states that her symptoms of left low back pain and left anterior and posterior thigh pain began shortly after she took a vacation to [place] and did 6 miles of walking per day. After she returned from [place] a week ago, she noticed the pain and has been seen by her chiropractor a couple times for adjustments. The patient states that she has had occurrences of similar pain like this in the past and has been treated with a muscle relaxant which is helped with her symptoms. She denies any numbness or tingling to the extremities. She denies any change in bowel or bladder dysfunction or any other caudal symptoms. She states that the pain is a 10 out of 10 intermittent pain that travels from her left low back to her left thigh which worsens with activity and is alleviated with rest, she has not tried taking any [id number] treatments for this. She denies any other alleviating or aggravating factors. The patient otherwise denies any fever, chills, nausea, vomiting, shortness of breath, chest pain or pressure, palpitations, orthopnea, lower extremity edema, syncope or presyncopal episodes. ROS Const Constitutional: Positive for fatigue and weakness; no body ache, chills, sleep problems, fever(s), change in appetite, snoring, frequent falls, headache(s) or excessive sweating Eyes Eyes: No change in vision, eye pain, light sensitivity or blurry vision ENT ENT: No headache(s), abnormal hearing, ear pain, tinnitus, nasal congestion, sore throat or neck pain Resp Respiratory: No snoring, cough, shortness of breath or wheezing Cardio Cardiology: No excessive sweating, chest pain at rest, chest pain with exertion, shortness of breath, dyspnea on exertion, palpitations, orthopnea or lightheadedness Gastro GI: Positive for diarrhea and nausea/dyspepsia; no abdominal pain, change in bowel habits, constipation, vomiting or cramping Musc Musculoskeletal: Positive for joint pain, back pain, joint swelling and other (left leg pain); no neck pain, abnormal walking, limited range of motion, numbness, tingling or muscle weakness Skin Skin: No redness, dry skin, itching, lesions, wounds or rash Neuro Neurology: Positive for weakness; no frequent falls, headache(s), abnormal hearing, abnormal walking, numbness, tingling, abnormal speech, dizziness or memory loss Psych Psychiatric: No change in appetite, No memory loss, Positive for anxiety, Positive for depression, No Thoughts of harming yourself/Others Endo Endocrine: Positive for fatigue; no excessive sweating, cold intolerance, increased thirst/drinking, heat intolerance, flushing or increased hunger Aller/Imm Allergy/Immunologic: No wheezing, itchy eyes, hives or seasonal allergy symptoms Daren/Lymp Hematologic/Lymphatic: No easy bleeding, easy bruising or enlarged lymph nodes Exam Const General: cooperative, comfortable, no acute distress Nutritional Appearance: average body habitus, well nourished Orientation: alert, oriented x3 Limitations: mental status not altered Resp Effort AND Inspection: normal respiratory effort, able to speak in complete sentences, normal respiratory pattern, symmetric chest movement, no audible wheezes, no cough Auscultation: Bilateral: Clear to Auscultation Cardio Palpation: normal PMI Rate: regular rate Heart Sounds: S1 normal, S2 normal, normal S1 and S2, no click, no gallops, no murmurs, no rubs Musc Musculoskeletal: No joint tenderness, decreased ROM or muscle weakness Other: Tenderness to palpation noted left lower lumbar region, tenderness left anterior and posterior thigh region, negative straight leg test bilaterally, strength intact bilaterally. Sensation intact as well. Neuro General: alert, awake, oriented x3, CN's II-XI intact bilaterally Speech: speech normal Gait: normal gait Motor: muscle tone normal throughout, strength 5/5 throughout Extrem General: normal to inspection, normal gait, no edema, no pedal edema Psych Appearance: grossly normal Mental Status: mental status grossly normal Affect: normal affect Attitude: cooperative Thought Process: normal Assessment AND Plan Problems 1. Low back pain M54.5 2. Muscle strain T14.8XXA Plan The patient's symptoms are consistent with low back pain with a muscle strain extending to her left upper leg/thigh most likely secondary to her repetitive walking that she recently did over her vacation to [place]. Did instruct her that she may continue following up with her chiropractor for adjustments. Will trial conservative therapy at this time of ibuprofen 600 3 times daily with food and a muscle relaxant. Educated patient on how and when to take the medications and potential red flag symptoms that require urgent medical attention. Patient verbalized understanding. Patient to follow-up with our office if her symptoms persist or worsen. No signs of sciatic nerve inflammation at this time. negative SLR Medications New: Plan Detail Follow Up as prev scheduled Coding Level of Care Code Off vis,new,level 3 Diagnoses Low back pain M54.5 Muscle strain T14.8XXA 05/20/17 6672 <Electronically signed by Kapil ELDRIDGE> Date Kapil ELDRIDGE Cosigner Signature: Date (if applicable) CC: Observed: 02/21/2017 Status: F Source: [facility] CDPCR 11:11 AM FOUNDATION REPOSITORY . MICRO - Microbiology PROCEDURE: Clostridium difficile PCR [1 *1] SOURCE: Stool BODY SITE: COLLECTED DATE/TIME: 02/21/2017 11:11 EST RECEIVED DATE/TIME: 02/21/2017 20:59 EST START DATE/TIME: 02/21/2017 20:59 EST FREE TEXT SOURCE: FINAL REPORTS Final Report [] Verified Date/Time/Personnel: 02/22/2017 14:11 EST NEGATIVE. No tcdB gene DNA detected. Negative test results may occur from improper collection, handling or storage of specimen, technical error, or number of organisms below the analytical sensitivity of the test. Interpretive Data 1: Clostridium difficile PCR As with all in vitro diagnostic tests, positive and negative predictive values are highly dependent on prevalence. [facility] C. difficile PCR Assay performance may vary depending on the prevalence and population tested. Performing Locations *1: This test was performed at: [facility], [address] [place] [address], [address] [place] [address] Performed By: #### CDPCR #### [place] [address] ALLERGIES ALLERGIES DATE TYPE / CODE NAME / CODE REACTION SEVERITY SOURCE 01/28/2018 Drug No Known Unknown [facility] Allergy/4160 Allergies/F00 [facility] [address](SNOMED 1210234(RXNOR Repository CT) M) ENCOUNTERS ENCOUNTERS ADMIT/DISCHARGE ACCOUNT NUMBER ADMITTING ENCOUNTER LOCATION SOURCE CLASS 01/29/[id number] [facility] ding:MASS Repository 01/28/2018/01/29/20 [id number] Emergency [address] ding:ED Repository 01/27/[id number] [facility] ding:CT Repository 01/26/2018/01/27/20 [id number] Ambulatory BMSBuilding: [address] Repository 01/22/[id number] [facility] ding:MTLAB Repository 01/22/2018/01/23/20 [id number] Ambulatory BMSBuilding: [place] 18 BMS.[facility] Repository 01/16/2018/01/17/20 [id number] Emergency BBuilding:ER [address] Repository 10/31/2017/11/01/19 [id number] Ambulatory BMSBuilding: [place] 18 BMS.[facility] Repository 10/15/2017/10/16/19 [id number] Ambulatory BMSBuilding: [place] 18 BMS.[facility] Repository 09/09/2017 [id number] Ambulatory BMSBuilding: [place] BMS.[facility] Repository 08/08/[id number] [facility] ding:MRI Repository 07/30/2017/07/31/19 [id number] Ambulatory BMSBuilding: [place] 18 BMS.[facility] Repository 05/20/2017/05/21/19 [id number] Ambulatory BMSBuilding: [place] 18 BMS.[facility] Repository 02/21/2017/02/25/19 [id number] Ambulatory [address] ding:[facility] Repository PAYERS PAYERS ENCOUNTER GUARANTOR PAYER SUBSCRIBER SOURCE 01/29/2018 ROSEMARY [id number] Primary NOT [facility] Insurance:SELF PAY [facility] [id number]: (330) Number: Effective Repository [phone] (HP) Date:2018-01-26 01/28/2018 ROSEMARY [id number] Primary ROSEMARY N ANALIADOB: [place]VISM Insurance[id number] [facility] [address]Bga: (330) Number: Repository [phone] (HP) [id number] Date:2018-01-28 01/28/2018 Secondary ROSEMARY N CLAYDOB: [place] Insurance[facility] [id number] Number: [facility] [id number] Repository Date:9121-69-22[address], [place] [address]TU: 01/28/2018 Tertiary NOT GIVENUNK [place] Insurance:SELF PAY [facility] Number: Effective Repository Date:2018-01-28 01/27/2018 ROSEMARY [id number] Primary ROSEMARY N CLAYDOB: [place] A[place]VISM Insurance:[place]IC[id number] [facility] [address]Sek: (330) Number: Repository [phone] () [id number] Date:2018-01-22 01/27/2018 Secondary ROSEMARY N ANALIADOB: [place] [facility] [id number] Community cy Number: Hospital [id number] Repository Date:8284-44-28BG [address], [place] [address]XQ: 01/27/2018 Tertiary NOT GIVENUNK [place] Insurance:SELF PAY [facility] Number: Effective Repository Date:2018-01-22 01/26/2018 ROSEMARY [id number] Primary ROSEMARY N ANALIADOB: [place] ALEVISM Insurance:MEDICARE [id number] [facility] [address]Rxw: (330) Number: Repository [phone] () [id number] Date:2018-01-26 01/26/2018 Secondary ROSEMARY HELMSDOB: [place] Insurance:[facility] [id number] Community cy Number: Hospital [id number] Repository Date:6390-16-03[address], [place] [address]IS: 01/26/2018 Tertiary NOT GIVENUNK [place] Insurance:SELF PAY [facility] Number: Effective Repository Date:2018-01-26 01/22/2018 ROSEMARY [id number] Primary ROSEMARY N ANALIADOB: [place] ALEVISM Insurance:MEDIC[id number] [facility] [address]Klb: (330) Number: Repository [phone] () [id number] Date:2018-01-22 01/22/2018 Secondary ROSEMARY N ANALIADOB: [place] Insurance:[facility] [id number] Community cy Number: Hospital [id number] Repository Date:9778-46-70KW [address], [place] [address]RW: 01/22/2018 Tertiary NOT GIVENUNK [place] Insurance:SELF PAY [facility] Number: Effective Repository Date:2018-01-22 01/22/2018 ROSEMARY [id number] Primary ROSEMARY GALLEGOSB: [place] Insurance:[place] [id number] [facility] [address]Sbk: (330) Number: Repository [phone] () [id number] Date:2018-01-19 01/22/2018 Secondary ROSEMARY HELMSDOB: [place] Insurance:[facility] [id number] Community cy Number: Hospital [id number] Repository Date:5758-69-20BU [address], [place] [address]MF: 01/22/2018 Tertiary NOT GIVENUNK [place] Insurance:SELF PAY [facility] Number: Effective Repository Date:2018-01-22 01/16/2018 ROSEMARYJOHN HELMSB: Primary ROSEMARY HELMSDOB: [facility] [id number] Insurance:MEDICARE [id number] [place] [address] [facility] [place] Repository [place], [place] Number: [place], [place] [address]Rxz: [phone] [id number]: Date:2018-01-16 [phone] ()Tel: [phone] (HP) (WP) Name:[facility] 000-0000 (WP) Administrators 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 ()Tel: [phone]) [phone], [place] 000-0000 () [address]GS: 10/31/2017 ROSEMARY Jose [id number] Primary ROSEMARY N CLAYDOB: [place] Insurance:MEDICARE [id number] [facility] [address]Vet: (330) Number: Repository [phone] () [id number] Date:2017-10-15 10/31/2017 Secondary ROSEMARY N CLAYDOB: [place] Insurance:[facility] [id number] Community cy Number: Hospital [id number] Repository Date:8390-58-70QX [address], [place] [address]YE: 10/31/2017 Tertiary NOT GIVENUNK [place] Insurance:SELF PAY [facility] Number: Effective Repository Date:2017-10-31 10/15/2017 ROSEMARY N [id number] Primary ROSEMARY N CLAYDOB: [place] Insurance:[place]ARE [id number] [facility] [address]Vvm: (330) Number: Repository [phone] () [id number] Date:2017-10-14 10/15/2017 Secondary ROSEMARY N CLAYDOB: [place] Insurance:[facility] [id number] Community cy Number: Hospital [id number] Repository Date:2946-64-95XB [address], [place] [address]RS: 10/15/2017 Tertiary NOT GIVENUNK [place] Insurance:SELF PAY [facility] Number: Effective Repository Date:2017-10-15 09/09/2017 ROSEMARY N [id number] Primary ROSEMARY N CLAYDOB: [place] Insurance:MEDICARE [id number] [facility] [address]Gal: (330) Number: Repository [phone] () [id number] Date:2017-08-15 09/09/2017 Secondary ROSEMARYJOHN HELMSDOB: [place] Insurance:[place] [id number] [facility] cy Number: Hospital [id number] Repository Date:1242-06-19VF [address], [place] [address]ZZ: 09/09/2017 Tertiary NOT GIVENUNK [place] Insurance:SELF PAY [facility] Number: Effective Repository Date:2017-08-15 08/08/2017 ROSEMARY [id number] Primary ROSEMARY N ANALIADOB: [place]LEVISM Insurance:MEDICARE [id number] [address]Djf: (330) Number: Repository [phone] () [id number] Date:2017-08-04 08/08/2017 Secondary ROSEMARY HELMSDOB: [place] Insurance:[place] [id number] Community cy Number: Hospital [id number] Repository Date:5688-54-39RS [address], [place] [address]PW: 08/08/2017 Tertiary NOT GIVENUNK [place] Insurance:SELF PAY [facility] Number: Effective Repository Date:2017-08-04 07/30/2017 ROSEMARY [id number] Primary ROSEMARY HELMSDOB: [place] ALEVISM Insurance:MEDICARE [id number] [address]Ayg: (330) Number: Repository [phone] () [id number] Date:2017-05-20 07/30/2017 Secondary ROSEMARY ANALIADOB: [place] Insurance:[place] [id number] Community cy Number: Hospital [id number] Repository Date:3544-14-08PR [address], [place] [address]SV: 07/30/2017 Tertiary NOT GIVENUNK [place] Insurance:SELF PAY [facility] Number: Effective Repository Date:2017-06-09 05/20/2017 ROSEMARY [id number] Primary ROSEMARY ANALIADOB: [place] Insurance:MEDICARE [id number] [place] PART A [facility] [address]Fnd: (330) Number: Repository [phone] () [id number] Date:2017-05-19 05/20/2017 Secondary ROSEMARY GALLEGOSB: [place] [id number] [facility] [id number] Repository Date:8664-50-11MKZ SERVICE [id number] [place], [place] [address]KD: [phone] 05/20/2017 Tertiary NOT GIVENUNK [place] Insurance:SELF PAY [facility] Number: Effective Repository Date:2017-05-20 02/21/2017 ROSEMARY GALLEGOSB: Primary ROSEMARY GALLEGOSB: [facility] Insurance:MEDICARE [id number] [place] [address] [facility] Number: 52 [address] Repository [place], [place] [id number] [place], [place] [address]Fro: (330) Date:2017-02-21Tel: [id number] [phone] ()Tel: [phone] Name:PCGS () (WP) Administrators LLCPO 000-0000 (WP) [address] [place] [address]DP: 02/21/2017 Secondary ROSEMARY HELMSB: [facility] Insurance:CHAMPVAPoli [id number] [place] [address] Number: 52 A[address] Repository [id number] [place], [place] Date:2017-02-2186109Uav: [phone] 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
== END ==
PROVIDERS: Family Provider Family Medicine; PCP Family Medicine; Referring Provider Family Medicine; Visit Provider Family Medicine
DX: I10 Essential (primary) hypertension (principal); Z87.891 Personal history of nicotine dependence
CPT/HCPCS: 36415; 71046; 80048

== ENCOUNTER → 2018-01-27 15:00 | Outpatient (CLI) | payer MEDICARE, OTHER, SELFPAY ==
[2018-01-22 11:03] VITALS: BMI 25.9
[2018-01-26 11:05] VITALS: BMI 25.9
--- NOTE | 2018-01-27 15:02 | CT_ITS ---
STUDY: CT ABDOMEN WITHOUT CONTRAST REASON FOR EXAM: Female, 72 years old. Left upper abdominal pain with weight loss and nausea. RADIATION DOSAGE (If Supplied By Facility): CTDIvol = ( 12.61 ) mGy, DLP = ( 388.47 ) mGycm TECHNIQUE: Transaxial images were obtained without intravenous contrast, and without oral contrast. Sagittal and coronal images were reconstructed. Individualized dose optimization techniques were used for this CT. COMPARISON: Prior comparison studies are not available for review at this time. FINDINGS: The visualized lung bases are unremarkable. The visualized portions of the heart are within normal limits. There is hepatomegaly with diffuse hepatic enlargement. Maximum cephalocaudal dimension measures 18.7 cm. There are surgical clips in the gallbladder fossa consistent with a prior cholecystectomy. Normal spleen. There is diffuse atrophy of the pancreas. Normal bilateral adrenal glands. There is moderate cortical atrophy of the right kidney, consistent with chronic medical renal disease. There is hypertrophic enlargement of the left kidney. Normal visualized stomach. There is no evidence for dilated bowel, ascites or pneumoperitoneum. Small bowel has a grossly normal appearance. Stool and/or enteric contrast is visible throughout the colon. There is non-visualization of the appendix. There is diffuse atherosclerotic calcification of the abdominal aorta, without a demonstrated aneurysm. Normal inferior vena cava. Normal retroperitoneum. Normal abdominal wall. The bones are osteopenic. There is mild anterolisthesis at L4-5. There is degenerative disc disease of the lower thoracic spine and L5-S1. Multilevel degenerative arthropathy of the thoracic and lumbar spine. CT/Abdomen WITH ORAL Cont Only IMPRESSION: 1. Hepatomegaly. 2. Sequela of chronic right-sided renal insufficiency. 3. Cholecystectomy. 4. No CT evidence of acute intra-abdominal disease. Electronically Signed: Lyubov Nelson MD at 11:41 EST , Service support ,
== END ==
PROVIDERS: Family Provider Family Medicine; PCP Family Medicine; Referring Provider Family Medicine; Visit Provider Family Medicine
DX: R10.9 Unspecified abdominal pain (principal)
CPT/HCPCS: 74150

== ENCOUNTER 2018-01-28 10:26 | Emergency (ER) | payer MEDICARE, OTHER, SELFPAY ==
[2018-01-26 11:05] VITALS: BMI 25.9
[2018-01-28 10:30] VITALS: BP 163/75; PULSE 103; RESP 19; TEMP 36.4; O2SAT 96; BMI 26.1
--- NOTE | 2018-01-28 10:42 | ED.VISSUMM ---
- ER Visit Summary Date of Service: 01/28/18 Chief Complaint: Tongue swelling History of Present Illness: The patient is a 72 F who presents with swelling of her tongue that began this morning. Patient states she woke up at approximately 3 AM today and felt like she had a sore throat. Patient went back to sleep and woke up again at 5:30 AM today. Patient felt like her tongue was swelling at that time. Patient states she has been having some trouble swallowing due to the swelling of her tongue. Patient denies any shortness of breath however. Patient is able to talk. Patient denies any fevers or chills. Patient had a CT scan with oral and IV contrast done yesterday. Patient denies any prior allergic reactions to CT dye. Physical Examination: Vital signs are stable except for mildly elevated blood pressure 163/75. Patient is afebrile. Patient is in no acute distress. Oral mucosa is pink and moist. There is edema of the right half of the tongue. Oropharynx is clear. Airway is patent. Neck is supple. Trachea is midline. There is no sublingual edema or erythema. There is no lymphadenopathy appreciated. Heart was regular rate and rhythm. Lungs are clear and equal bilaterally. Good respiratory effort noted. Abdomen soft. Bowel sounds are normal. There is no tenderness. Cranial nerves II through XII are intact. There are no focal motor or sensory deficits noted. The remaining physical exam is within normal limits. Emergency Department Course and Treatment: Patient was given Solu-Medrol, Benadryl, and Pepcid IV here. Patient was observed in the emergency department for 2 hours. Swelling has improved. Patient was also given her normal dose of Paxil here in the emergency department. Patient was given a prescription for prednisone. Patient was instructed to follow-up with her primary care physician in 5-7 days. Patient understood and was agreeable with the plan. All questions were answered. Disposition: Discharged home Impression: Angioedema This note was generated with [employer] dictation software. It may contain incorrect words, spelling, and punctuation that were not noted in review of the chart prior to signing ED Disposition - Plan for ED Patient: Disposition: Home or Assisted Living Chief Complaint: Edema Diagnosis: Allergic angioedema Instructions: ED Angioedema Prescriptions: Prednisone [Deltasone] 60 mg PO DAILY #15 tab Referrals: Tavo Strange DO [Primary Care Provider] -
--- NOTE | 2018-01-28 10:46 | ED.DCSUM_ITS ---
- ER Visit Summary Date of Service: 01/28/18 Chief Complaint: Tongue swelling History of Present Illness: The patient is a 72 F who presents with swelling of her tongue that began this morning. Patient states she woke up at approximately 3 AM today and felt like she had a sore throat. Patient went back to sleep and woke up again at 5:30 AM today. Patient felt like her tongue was swelling at that time. Patient states she has been having some trouble swallowing due to the swelling of her tongue. Patient denies any shortness of breath however. Patient is able to talk. Patient denies any fevers or chills. Patient had a CT scan with oral and IV contrast done yesterday. Patient denies any prior a llergic reactions to CT dye. Physical Examination: Vital signs are stable except for mildly elevated blood pressure 163/75. Patient is afebrile. Patient is in no acute distress. Oral mucosa is pink and moist. There is edema of the right half of the tongue. Oropharynx is clear. Airway is patent. Neck is supple. Trachea is midline. There is no sublingual edema or erythema. There is no lymphadenopathy appreciated. Heart was regular rate and rhythm. Lungs are clear and equal bilaterally. Good respiratory effort noted. Abdomen soft. Bowel sounds are normal. There is no tenderness. Cranial nerves II through XII are intact. There are no focal motor or sensory deficits noted. The remaining physical exam is within normal limits. Emergency Department Course and Treatment: Patient was given Solu-Medrol, Benadryl, and Pepcid IV here. Patient was observed in the emergency department for 2 hours. Swelling has improved. Patient was also given her normal dose of Paxil here in the emergency department. Patient was given a prescription for prednisone. Patient was instructed to follow-up with her primary care physician in 5-7 days. Patient understood and was agreeable with the plan. All questions were answered. Disposition: Discharged home Impression: Angioedema This note was generated with [employer] dictation software. It may contain incorrect words, spelling, and punctuation that were not noted in review of the chart prior to signing ED Disposition - Plan for ED Patient: Disposition: Home or Assisted Living Chief Complaint: Edema Diagnosis: Allergic angioedema Instructions: ED Angioedema Prescriptions: Prednisone [Deltasone] 60 mg PO DAILY #15 tab Referrals: Tavo Strange DO [Primary Care Provider] -
[2018-01-28] MEDS: DiphenhydrAMINE 50 MG/ML Syringe 25 MG IV (10:50)
[2018-01-28] MEDS: MethylPREDNISolone 125 MG/2 ML Vial IV (10:50)
[2018-01-28 11:33] VITALS: BP 157/79; PULSE 85; RESP 16; O2SAT 97
--- NOTE | 2018-01-28 11:34 | ED.RN ---
CALLED PTS AND GAVE HIM A UPDATE ON PTS CONDITION PER PT REQUEST.
[2018-01-28] MEDS: PARoxetine 10 MG Tablet 30 MG PO (12:12)
[2018-01-28 12:13] VITALS: BP 134/75; PULSE 90; RESP 19; O2SAT 95
[2018-01-28 12:57] VITALS: BP 105/74; PULSE 61; RESP 15; O2SAT 98
== END 2018-01-28 12:59 | disposition home or self-care (01) ==
PROVIDERS: Emergency Provider Emergency Medicine; Family Provider Family Medicine; PCP Family Medicine
DX: T78.3XXA Angioneurotic edema, initial encounter (principal); M54.2 Cervicalgia; R51 Headache; E11.9 Type 2 diabetes mellitus without complications; I10 Essential (primary) hypertension; F41.9 Anxiety disorder, unspecified; Z72.0 Tobacco use; Z79.899 Other long term (current) drug therapy; Z79.84 Long term (current) use of oral hypoglycemic drugs; Z79.52 Long term (current) use of systemic steroids
CPT/HCPCS: 99285; A4216; J3490

== ENCOUNTER → 2018-09-24 13:51 | Outpatient (CLI) | payer MEDICARE, OTHER, SELFPAY ==
[2018-09-24 13:12] VITALS: BMI 26.6
[2018-09-24 14:26] LABS: Absolute Lymphocyte Count 1.98 X10^3/uL (0.83-4.51); Absolute Neutrophil Count 6.5 X10^3/uL (2.0-7.7); Basophil# 0.04 X10^3/uL; Basophil% 0.4 % (0-1); Eosinophil# 0.07 X10^3/uL; Eosinophils% 0.8 % (0-5); Hematocrit 40.5 % (37-47); Hemoglobin 13.7 g/dL (12.0-15.0); Lymphocyte # 1.98 X10^3/ul (4.0); Lymphocyte % 21.6 % (19-41); Mean Corp Hgb Conc 33.8 g/dL (32-36); Mean Corpuscular Hgb 32.7 pg (27.0-32.0); Mean Corpuscular Volume 96.7 fL (81-99); Mean Platelet Vol. 8.7 fl (6.2-12.0); Monocyte# 0.55 X10^3/uL; NRBC Flagged by Analyzer 0 % (0-5); Neutrophil % 70.8 % (47-70); Platelet Count 215 K/mm3 (150-450); RBC Distribution Width CV 12.9 % (11.6-14.6); RBC Distribution Width SD 46.2 fl (35.1-43.9); Red Blood Count 4.19 M/mm3 (4.2-5.4); White Blood Count 9.2 K/mm3 (4.4-11.0)
[2018-09-24 14:31] LABS: Prothrombin Time (Protime)PT. 12.5 SECONDS (11.7-14.9)
== END ==
PROVIDERS: Family Provider Family Medicine; PCP Family Medicine; Referring Provider Family Medicine; Visit Provider Family Medicine
DX: R23.3 Spontaneous ecchymoses (principal)
CPT/HCPCS: 36415; 85025; 85610

== ENCOUNTER → 2019-09-29 13:34 | Outpatient (CLI) | payer MEDICARE, OTHER, SELFPAY ==
[2019-09-29 13:09] VITALS: BMI 26.6
[2019-09-29 15:40] LABS: AST(SGOT) 16 U/L (15-37); Alanine Aminotransfer ALT/SGPT 21 U/L (13-56); Albumin, Serum 3.8 g/dL (3.2-5.0); Alkaline Phosphatase 105 U/L (45-117); Anion Gap 5 (5-15); BUN 19 mg/dL (7-18); BUN/Creat Ratio 10.6 RATIO (10-20); Calcium,Total 9.6 mg/dL (8.5-10.1); Chloride 107 mmol/L (98-107); EST Glomerular Filtration Rate 29 mL/min (>60); Est Glom Filt Rate - Afr Amer 36 mL/min (>60); Globulin 3.9 g/dL (2.2-4.2); Glucose 135 mg/dL (74-106); Potassium 3.3 mmol/L (3.5-5.1); Protein, Total 7.7 g/dL (6.4-8.2); Sodium Level 142 mmol/L (136-145)
[2019-09-30 06:37] LABS: SARS-COV-2 TOTAL ABS Nonreactive (Nonreactive)
== END ==
PROVIDERS: PCP Family Medicine; Referring Provider Family Medicine; Visit Provider Family Medicine
DX: R55 Syncope and collapse (principal)
CPT/HCPCS: 36415; 80053; 86769

== ENCOUNTER → 2020-02-09 10:53 | Outpatient (CLI) | payer MEDICARE, OTHER, SELFPAY ==
[2019-11-03 16:03] VITALS: BMI 26.6
--- NOTE | 2020-02-09 10:55 | ECHOD_ITS ---
Reason For Study: Murmur Procedure This was a 2D Doppler, Color Flow transthoracic echocardiogram. Exam performed in department. Left Ventricle Normal LV size. The estimated ejection fraction is 70 %. Unable to assess diastolic dysfunction. No regional wall motion abnormalities noted. Right Ventricle Normal RV size. Normal systolic function. Atria Normal left atrium. Normal right atrium. No doppler evidence for ASD. Mitral Valve There is moderate to severe mitral annular calcification. There is no mitral valve stenosis. No mitral valve insufficiency. Tricuspid Valve There is no tricuspid stenosis. Unable to estimate RV systolic pressure due to inadequate jet, pulmonary artery pressure probably normal. Aortic Valve Trisinus/trileaflet aortic valve. Mild diffuse aortic valve thickening. Mild aortic stenosis. Trivial aortic valve insufficiency. Pulmonic Valve There is no pulmonic valvular stenosis. No pulmonic valve insufficiency. Great Vessels Normal aortic root. Pericardium/Pleural No pericardial effusion. MMode/2D Measurements & Calculations LVIDd: 4.2 cm IVSd: 1.2 cm LVOT diam: 2.0 cm LVIDs: 2.4 cm LVPWd: 1.1 cm LVOT area: 3.3 cm2 RVDd: 3.2 cm FS: 43.8 % Ao root diam: 3.7 cm LAV(MOD-bp): 54.7 ml LA A4 area: 19.9 cm2 LAV(MOD-bp) Indexed: 29.6 ml/m2 LAV(MOD-sp2): 35.9 ml LAV(MOD-sp4): 67.9 ml LA dimension(2D): 3.6 cm RA A4 area: 12.2 cm2 Doppler Measurements & Calculations MV E max bjorn: 91.2 cm/sec Lat Peak E' Bjorn: 3.2 cm/sec Med Peak E' Bjorn: 4.0 cm/sec MV A max bjorn: 161.9 cm/sec E/E' lat: 28.8 E/E' med: 22.8 MV E/A: 0.56 MV V2 max: 179.7 cm/sec MV P1/2t max bjorn: 116.0 cm/sec Ao V2 max: 251.7 cm/sec MV max P.9 mmHg MV P1/2t: 91.0 msec Ao max P.4 mmHg MV V2 mean: 101.6 cm/sec MV dec slope: 373.6 cm/sec2 Ao V2 mean: 168.5 cm/sec MV mean P.6 mmHg MVA(P1/2t): 2.4 cm2 Ao mean P.8 mmHg MV V2 VTI: 38.3 cm Ao V2 VTI: 52.9 cm MVA(VTI): 2.8 cm2 DOREEN(I,D): 2.0 cm2 DOREEN(V,D): 1.9 cm2 LV V1 max: 143.4 cm/sec SV(LVOT): 107.6 ml PA V2 max: 100.0 cm/sec LV V1 max P.3 mmHg LV V1 mean P.8 mmHg LV V1 mean: 103.9 cm/sec LV V1 VTI: 32.7 cm Interpretation Summary The estimated ejection fraction is 70 %. Unable to assess diastolic dysfunction. Mild aortic stenosis. Trivial aortic valve insufficiency. Ordering Physician: Tavo Strange Referring Physician: Tavo Strange Performed By: Amy Espino RDCS
== END ==
PROVIDERS: PCP Family Medicine; Referring Provider Family Medicine; Visit Provider Family Medicine
DX: R01.1 Cardiac murmur, unspecified (principal)
CPT/HCPCS: 93306

== ENCOUNTER → 2020-03-13 14:49 | Outpatient (CLI) | payer MEDICARE, OTHER, SELFPAY ==
[2019-11-03 16:03] VITALS: BMI 26.6
--- NOTE | 2020-03-13 14:52 | RAD_ITS ---
STUDY: X-RAY - SACRUM/COCCYX REASON FOR EXAM: Female, 74 years old. PAIN X4 YRS S/P FALL TECHNIQUE: 3 view(s) of the sacrum and coccyx were obtained. COMPARISON: None. FINDINGS: Normal bilateral sacroiliac joints. Normal visualized sacral ala and fused sacral bodies. Normal sacrococcygeal junction with a normal angulation. Normal coccygeal segments. The presacral soft tissue structures are unremarkable. RAD/Sacrum-Coccyx min 2 Views IMPRESSION: Normal x-rays of the sacrum and coccyx. Electronically Signed: Max Wright MD at 15:08 EST Tel , Service support ,
--- NOTE | 2020-03-13 14:52 | RAD_ITS ---
STUDY: X-RAY - LUMBAR SPINE REASON FOR EXAM: Female, 74 years old. PAIN X4 YRS S/P FALL TECHNIQUE: 2 view(s) of the lumbar spine were obtained. COMPARISON: 08/08/2017 FINDINGS: Normal lumbar lordosis. There is no substantial scoliosis. 5 mm of anterolisthesis of L4 on L5 which is unchanged. There is multilevel endplate spondylosis of the lumbar vertebrae. There is multi-level degenerative disc disease with multi-level disc space narrowing. The soft tissue structures are unremarkable. RAD/Lumbar Spine 2 or 3 Views IMPRESSION: Mild diffuse degenerative disc disease with 5 mm of anterolisthesis of L4 on L5. Electronically Signed: Max Wright MD at 15:08 EST Tel , Service support ,
== END ==
PROVIDERS: PCP Family Medicine; Referring Provider Anesthesiology Pain Medicine; Visit Provider Anesthesiology Pain Medicine
DX: Z04.3 Encounter for examination and observation following other accident (principal); M54.9 Dorsalgia, unspecified
CPT/HCPCS: 72100; 72220

== ENCOUNTER → 2020-03-20 11:01 | Outpatient (CLI) | payer MEDICARE, OTHER, SELFPAY ==
[2019-11-03 16:03] VITALS: BMI 26.6
--- NOTE | 2020-03-20 11:26 | EKG12_ITS ---
Test Reason : Blood Pressure : / mmHG Vent. Rate : 075 BPM Atrial Rate : 075 BPM P-R Int : 136 ms QRS Dur : 086 ms QT Int : 384 ms P-R-T Axes : 052 059 074 degrees QTc Int : 428 ms Normal sinus rhythm Normal ECG Confirmed by SUREKHA RUTH, SUZANNA ([id number]), supervising editor news reel AFUA PALACIOS ([id number]) on 03/21/2020 10:55:49 AM Referred By: Aura Berger Confirmed By:SUZANNA IRBY MD
--- NOTE | 2020-03-20 11:45 | RAD_ITS ---
STUDY: X-RAY CHEST REASON FOR EXAM: Female, 74 years old. blood pressure instability, back pain -- no chest complaints TECHNIQUE: PA and lateral views of the chest. COMPARISON: 01/22/2018 FINDINGS: The lungs are clear and expanded. There is no demonstrated pleural abnormality. Normal size heart. Normal mediastinum and nando. Normal visualized pulmonary arteries. Normal visualized aortic arch and descending thoracic aorta. Normal visualized thoracic spine. Normal visualized ribs, clavicles, and shoulders. There is no demonstrated abnormality of the visualized soft tissue structures of the upper abdomen. RAD/Chest PA and Lateral IMPRESSION: Normal x-ray examination of the chest. Electronically Signed: Mxa Wright MD at 16:53 EST Tel , Service support ,
[2020-03-20 12:43] LABS: Absolute Lymphocyte Count 1.74 X10^3/uL (0.83-4.51); Absolute Neutrophil Count 3.8 X10^3/uL (2.0-7.7); Basophil# 0.05 X10^3/uL; Basophil% 0.8 % (0-1); Eosinophil# 0.05 X10^3/uL; Eosinophils% 0.8 % (0-5); Hematocrit 43.2 % (37-47); Lymphocyte # 1.74 X10^3/ul (4.0); Lymphocyte % 28.7 % (19-41); Mean Corp Hgb Conc 32.4 g/dL (32-36); Mean Corpuscular Hgb 30.8 pg (27.0-32.0); Mean Corpuscular Volume 94.9 fL (81-99); Mean Platelet Vol. 9.7 fl (6.2-12.0); Monocyte# 0.45 X10^3/uL; Monocyte% 7.4 % (0-10); NRBC Flagged by Analyzer 0 % (0-5); Neutrophil # 3.75 X10^3/uL (2.7-7.7); Platelet Count 208 K/mm3 (150-450); RBC Distribution Width CV 12.8 % (11.6-14.6); RBC Distribution Width SD 44.8 fl (35.1-43.9); Red Blood Count 4.55 M/mm3 (4.2-5.4); White Blood Count 6.1 K/mm3 (4.4-11.0)
[2020-03-20 14:01] LABS: ALB/GLOB Ratio 0.9 RATIO (0.9-2.4); AST(SGOT) 17 U/L (15-37); Alanine Aminotransfer ALT/SGPT 15 U/L (13-56); Albumin, Serum 3.5 g/dL (3.2-5.0); Alkaline Phosphatase 113 U/L (45-117); Anion Gap 9 (5-15); BUN 22 mg/dL (7-18); BUN/Creat Ratio 14.5 RATIO (10-20); Calcium,Total 9.5 mg/dL (8.5-10.1); Chloride 104 mmol/L (98-107); Creatinine, Serum 1.52 mg/dL (0.55-1.02); EST Glomerular Filtration Rate 36 mL/min (>60); Est Glom Filt Rate - Afr Amer 43 mL/min (>60); Glucose 112 mg/dL (74-106); Potassium 4.1 mmol/L (3.5-5.1); Protein, Total 7.5 g/dL (6.4-8.2); Sodium Level 138 mmol/L (136-145); Thyroid Stim Hormone (TSH) 1.85 uIU/mL (0.358-3.74)
== END ==
PROVIDERS: PCP Family Medicine; Referring Provider Internal Medicine; Visit Provider Internal Medicine
DX: I35.0 Nonrheumatic aortic (valve) stenosis (principal); R01.1 Cardiac murmur, unspecified; I10 Essential (primary) hypertension; I99.8 Other disorder of circulatory system; M79.641 Pain in right hand; M79.642 Pain in left hand
CPT/HCPCS: 36415; 71046; 80053; 84443; 85025; 93005

== ENCOUNTER → 2020-05-16 10:56 | Outpatient (CLI) | payer MEDICARE, OTHER, SELFPAY ==
[2020-05-16 09:52] VITALS: BMI 26.8
== END ==
PROVIDERS: PCP Family Medicine; Visit Provider Internal Medicine
DX: M79.605 Pain in left leg (principal)
CPT/HCPCS: 93971

== ENCOUNTER → 2020-09-29 14:01 | Outpatient (CLI) | payer MEDICARE, OTHER, SELFPAY ==
[2020-09-13 13:21] VITALS: BMI 26.8
--- NOTE | 2020-09-29 14:03 | ART_ITS ---
Reason For Study: Decreased Pulses Procedure A bilateral lower extremity continuous wave Doppler with analog waveform analysis,segmental pressures,and ankle brachial indexes without exercise. Left Segmental Pressures Left brachial= 125mmHg. Left thigh = 75mmHg. Left calf = 86mmHg. Left posterior tibial artery = 71mmHg. Left dorsalis pedis artery = 61mmHg. Right Segmental Pressures Right brachial= 131mmHg. Right thigh = 122mmHg. Right calf = 124mmHg. Right posterior tibial artery = 62mmHg. Right dorsalis pedis artery = 109mmHg. Right digit = 26 mmHg. Indices The right ankle brachial index by the posterior tibial artery is 0.47. The right ankle brachial index by the dorsalis pedis is 0.83. The left ankle brachial index by the posterior tibial artery is 0.54. The left ankle brachial index by the dorsalis pedis is 0.47. VL/Lower Ext Art Exam w/o Exercis Interpretation Summary Moderately severe bilateral lower extremity arterial occlusive disease. Based u haylee borderline ankle- brachial indices and monophasic waveforms located at the right posterior tibial and left posterior tibial and dorsalis pedis waveforms the degree of occlusive disease would be cl oser to severe. Abnormal right digital brachial index at 0.2. Left digital brachial index Not o btained secondary to flattened waveform Ordering Physician: Tavo Strange Referring Physician: Tavo Strange Performed By: Vandana Alicea RDCS/RVT
== END ==
PROVIDERS: PCP Family Medicine; Referring Provider Family Medicine; Visit Provider Family Medicine
DX: I73.9 Peripheral vascular disease, unspecified (principal)
CPT/HCPCS: 93923

== ENCOUNTER → 2020-12-26 14:52 | Outpatient (CLI) | payer MEDICARE, OTHER, SELFPAY ==
[2020-12-26 16:34] LABS: BUN 24 mg/dL (7-18); Creatinine, Serum 1.66 mg/dL (0.55-1.02); EST Glomerular Filtration Rate 32 mL/min (>60); Est Glom Filt Rate - Afr Amer 39 mL/min (>60)
== END ==
PROVIDERS: PCP Family Medicine; Visit Provider Surgery Vascular Surgery
DX: I70.213 Atherosclerosis of native arteries of extremities with intermittent claudication, bilateral legs (principal); I77.1 Stricture of artery; I10 Essential (primary) hypertension; E11.9 Type 2 diabetes mellitus without complications; I83.811 Varicose veins of right lower extremity with pain; M79.89 Other specified soft tissue disorders; M79.604 Pain in right leg; K76.9 Liver disease, unspecified; F41.8 Other specified anxiety disorders; Z87.891 Personal history of nicotine dependence
CPT/HCPCS: 36415; 82565; 84520

== ENCOUNTER → 2020-12-29 13:21 | Outpatient (CLI) | payer MEDICARE, OTHER, SELFPAY ==
--- NOTE | 2020-12-29 13:27 | CT_ITS ---
STUDY: CTA OF THE ABDOMINAL AORTA AND BILATERAL LOWER EXTREMITIES REASON FOR EXAM: Female, 75 years old. STRICTURE OF ARTERY RADIATION DOSAGE (If Supplied By Facility): CTDIvol = ( 6.76 ) mGy, DLP = ( 1142.99 ) mGycm TECHNIQUE: Axial CT angiography multi-detector data acquisition was obtained from the dome of the liver to the level of the ankles following intravenous administration of IV 75mL Isovue-370. Axial images and MIP images were reconstructed from the axial data set. Post-processing of the angiographic images was performed, with multiplanar reformation and 3D reconstruction. Individualized dose optimization techniques were used for this CT. TECHNICAL QUALITY: Good COMPARISON: None. Descriptors of Narrowing: None (0%) Mild (< 50%) Moderate (50-70%) Severe (70-90%) Subtotal/Total Occlusion (90-100%) Non-Evaluable (technically non-diagnostic FINDINGS: The patient is status post cholecystectomy. Coronary artery calcification. Calcified fibroid uterus. Abdominal aorta: Atherosclerotic calcific plaques. Celiac and superior mesenteric arteries: Atherosclerotic plaque at the origin of the superior mesenteric artery and celiac artery. Inferior mesenteric artery: No demonstrated narrowing. Right renal artery(arteries): No demonstrated narrowing. Left renal artery(arteries): No demonstrated narrowing. Right common iliac artery: Nonstenotic atherosclerotic plaques. Right external iliac artery: Nonstenotic atherosclerotic plaques. Right internal iliac artery: No demonstrated narrowing. Left common iliac artery: Nonstenotic atherosclerotic plaques. Left external iliac artery: Nonstenotic atherosclerotic plaques. Left internal iliac artery: No demonstrated narrowing. RIGHT LOWER EXTREMITY Right common femoral artery: Atherosclerotic plaque formation. There is evidence of stenosis. Right profundus femoris: No demonstrated narrowing. Right superficial femoral: Scattered nonocclusive atherosclerotic plaques. Right popliteal artery: Scattered nonocclusive atherosclerotic plaques. Right tibioperoneal trunk: Atherosclerotic plaques in the midportion of the tibioperoneal trunk. Right anterior tibial artery: Occlusion in its proximal portion. Right posterior tibial artery: No demonstrated narrowing. Right peroneal artery: No demonstrated narrowing. LEFT LOWER EXTREMITY Left common femoral artery: Atherosclerotic plaques. Left profundus femoris: No demonstrated narrowing. Left superficial femoral: Occlusion of the superficial femoral artery at its origin. Left popliteal artery: Reconstitution of the distal portion of the superficial femoral artery. The popliteal artery is patent. Left tibioperoneal trunk: No demonstrated narrowing. Left anterior tibial artery: Nonvisualization. Left posterior tibial artery: No demonstrated narrowing. Left peroneal artery: No demonstrated narrowing. 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 Electronically Signed: Parish Gutierrez MD at 14:37 EDT , Service support ,
== END ==
PROVIDERS: PCP Family Medicine; Referring Provider Surgery Vascular Surgery; Visit Provider Surgery Vascular Surgery
DX: I70.213 Atherosclerosis of native arteries of extremities with intermittent claudication, bilateral legs (principal); I77.1 Stricture of artery; I10 Essential (primary) hypertension; E11.9 Type 2 diabetes mellitus without complications; I83.811 Varicose veins of right lower extremity with pain; M79.89 Other specified soft tissue disorders; M79.604 Pain in right leg; F41.8 Other specified anxiety disorders; K76.9 Liver disease, unspecified; Z87.891 Personal history of nicotine dependence
CPT/HCPCS: 75635; Q9967

== ENCOUNTER → 2022-01-10 | Outpatient (CLI) | payer MEDICARE, OTHER, SELFPAY ==
--- NOTE | 2022-01-10 12:46 | ART_ITS ---
Reason For Study: PVD Procedure A bilateral lower extremity continuous wave Doppler with analog waveform analysis,segmental pressures,and ankle brachial indexes without exercise. Left Segmental Pressures Left brachial= 154mmHg. Left thigh = 79mmHg. Left calf = 80mmHg. Left posterior tibial artery = 66mmHg. Left dorsalis pedis artery = 72mmHg. The left dorsalis pedis waveforms are monophasic. The left posterior tibial artery waveforms are monophasic. Right Segmental Pressures Right brachial= 154mmHg. Right thigh = 77mmHg. Right calf = 81mmHg. Right posterior tibial artery = 55mmHg. Right dorsalis pedis artery = 81mmHg. The right dorsalis pedis waveforms are monophasic. The right posterior tibial artery waveforms are monophasic. Indices The right ankle brachial index by the dorsalis pedis is 0.53. The right ankle brachial index by the posterior tibial artery is 0.43. The left ankle brachial index by the dorsalis pedis is 0.47. The left ankle brachial index by the posterior tibial artery is 0.43. . Preliminary report to nurse mancia. VL/Lower Ext Art Exam w/o Exercis Interpretation Summary Right HUBERT 0.53, moderate arterial insufficiency. Doppler/PVR waveforms of the r ight leg reveal jhnad-efavp-ewvwcwud femoral disease Left HUBERT 0.47, severe arterial insufficiency. Doppler/PVR waveforms of the left leg reveal aorto- iliac-proximal femoral disease Ordering Physician: Dallin Knutson Referring Physician: Addison Strange M.D. Performed By: Sari Howard RVT
--- NOTE | 2022-01-10 12:46 | CDU_ITS ---
Reason For Study: Carotid bruit Rt. Velocities/BP Lt. Velocities/BP Prox CCA 101.4/11.3 cm/sec. Prox CCA 66.4/14.5 cm/sec. Mid CCA 88.3/11.3 cm/sec. Mid CCA 83.4/18.2 cm/sec. Dist CCA 67.4/15.7 cm/sec. Dist CCA 81.5/16.3 cm/sec. Prox ICA 200.4/42.2 cm/sec. Bulb, 134.6/35.8 cm/sec. Mid ICA 154/26.1 cm/sec. Prox ICA 141.2/22.6 cm/sec. Dist ICA 69.6/21.2 cm/sec. Mid ICA 101.6/22.6 cm/sec. Rt. ICA/CCA = 2.27. Dist ICA 71.6/15.1 cm/sec. Prox ECA 210.7/31.9 cm/sec. Lt. ICA/CCA = 1.73. Rt. Vert. 20.1/5.2 cm/sec. Prox ECA 185.1/11.6 cm/sec. Lt. Vert. 48.3/13.9 cm/sec. Right Extracranial There is homogeneous, smooth atherosclerotic plaque noted in the right common carotid artery. There is heterogeneous, irregular atherosclerotic plaque noted in the right internal carotid artery. There is heterogeneous, irregular atherosclerotic plaque noted in the right external carotid artery. Antegrade flow is noted in the right vertebral artery. Left Extracranial There is heterogeneous, irregular atherosclerotic plaque noted in the left common carotid artery. There is heterogeneous, irregular atherosclerotic plaque noted in the left internal carotid artery. There is heterogeneous, irregular atherosclerotic plaque noted in the left external carotid artery. Antegrade flow is noted in the left vertebral artery. Procedure Carotid Duplex 99856. This is a Carotid Duplex examination using B-mode, color flow and specral Doppler. Exam performed in department. VL/Carotid Duplex Ultrasound Interpretation Summary Moderate (50-69%) stenosis right extracranial internal carotid. Moderate (50-69%) stenosis left extracranial internal carotid. Patent and antegrade vertebrals bilaterally. Ordering Physician: Dallin Knutson Referring Physician: Addison Strange M.D. Performed By: Sari Howard RVT
[2022-01-10 12:53] LABS: ALB/GLOB Ratio 0.9 RATIO (0.9-2.4); AST(SGOT) 20 U/L (15-37); Alanine Aminotransfer ALT/SGPT 22 U/L (13-56); Albumin, Serum 3.6 g/dL (3.2-5.0); Alkaline Phosphatase 118 U/L (45-117); Anion Gap 7 (5-15); BUN 32 mg/dL (7-18); BUN/Creat Ratio 18.5 RATIO (10-20); Calcium,Total 9.5 mg/dL (8.5-10.1); Chloride 104 mmol/L (98-107); Cholesterol 163 mg/dL (200); Creatinine, Serum 1.73 mg/dL (0.55-1.02); EST Glomerular Filtration Rate 31 mL/min (>60); Est Glom Filt Rate - Afr Amer 37 mL/min (>60); Glucose 139 mg/dL (74-106); High Density Lipoprotein 76 mg/dL; Potassium 4.3 mmol/L (3.5-5.1); Protein, Total 7.6 g/dL (6.4-8.2); Sodium Level 138 mmol/L (136-145); Triglycerides 87 mg/dL; Very Low Density Lipoprotein 17 mg/dL (5-40)
== END | disposition home or self-care (01) ==
LOC: CVS 11:00
PROVIDERS: PCP Family Medicine; Referring Provider Surgery Trauma Surgery; Visit Provider Surgery Trauma Surgery
DX: I73.9 Peripheral vascular disease, unspecified (principal); E11.9 Type 2 diabetes mellitus without complications; R55 Syncope and collapse
CPT/HCPCS: 36415; 80053; 80061; 93880; 93923

== ENCOUNTER → 2022-02-05 | Outpatient (CLI) | payer MEDICARE, OTHER, SELFPAY ==
[2022-02-05 17:08] LABS: Albumin, Serum 3.7 g/dL (3.2-5.0); BUN 50 mg/dL (7-18); BUN/Creat Ratio 25.9 RATIO (10-20); Calcium,Total 9.2 mg/dL (8.5-10.1); Chloride 109 mmol/L (98-107); Creatinine, Serum 1.93 mg/dL (0.55-1.02); EST Glomerular Filtration Rate 27 mL/min (>60); Est Glom Filt Rate - Afr Amer 33 mL/min (>60); Glucose 104 mg/dL (74-106); Phosphorus 4.7 mg/dL (2.5-4.9); Potassium 5.1 mmol/L (3.5-5.1); Sodium Level 139 mmol/L (136-145)
== END | disposition home or self-care (01) ==
LOC: BIMLAB 14:49
PROVIDERS: PCP Family Medicine; Referring Provider Family Medicine; Visit Provider Family Medicine
DX: N18.30 Chronic kidney disease, stage 3 unspecified (principal)
CPT/HCPCS: 36415; 80069

== ENCOUNTER 2022-02-22 11:58 | Emergency (ER) | payer MEDICARE, OTHER, SELFPAY ==
[2022-02-22 11:59] VITALS: BP 130/73; PULSE 106; RESP 16; TEMP 36.8; O2SAT 95; BMI 24.5
--- NOTE | 2022-02-22 12:05 | EKG12_ITS ---
Test Reason : Blood Pressure : / mmHG Vent. Rate : 104 BPM Atrial Rate : 104 BPM P-R Int : 118 ms QRS Dur : 080 ms QT Int : 348 ms P-R-T Axes : -17 059 083 degrees QTc Int : 457 ms Sinus tachycardia with Premature atrial complexes Otherwise normal ECG Confirmed by QUYEN RUTH, MAYURI ([id number]), publishing editor SUDARSHAN DAVIES ([id number]) on 02/26/2022 10:50:17 AM Referred By: PRECIOUS Confirmed By:MAYURI NAPIER MD
[2022-02-22 14:00] VITALS: BP 124/78; PULSE 66; RESP 16; O2SAT 99
[2022-02-22 14:23] LABS: Hematocrit 41.8 % (37-47); Hemoglobin 14.3 g/dL (12.0-15.0); Mean Corp Hgb Conc 34.2 g/dL (32-36); Mean Corpuscular Hgb 31.7 pg (27.0-32.0); Mean Corpuscular Volume 92.7 fL (81-99); Platelet Count 218 K/mm3 (150-450); RBC Distribution Width CV 12.6 % (11.6-14.6); RBC Distribution Width SD 43.1 fl (35.1-43.9); Red Blood Count 4.51 M/mm3 (4.2-5.4); White Blood Count 8.2 K/mm3 (4.4-11.0)
[2022-02-22] MEDS: 0.9% Normal Saline 1,000 ML 1000 ML IV (14:24)
[2022-02-22] MEDS: Morphine 2 MG/ML Syringe IV (14:24)
[2022-02-22 14:35] LABS: ALB/GLOB Ratio 0.7 RATIO (0.9-2.4); AST(SGOT) 31 U/L (15-37); Alanine Aminotransfer ALT/SGPT 31 U/L (13-56); Albumin, Serum 3.2 g/dL (3.2-5.0); Alkaline Phosphatase 94 U/L (45-117); Anion Gap 5 (5-15); BUN 29 mg/dL (7-18); BUN/Creat Ratio 18.7 RATIO (10-20); Calcium,Total 9.4 mg/dL (8.5-10.1); Chloride 98 mmol/L (98-107); Creatinine, Serum 1.55 mg/dL (0.55-1.02); EST Glomerular Filtration Rate 35 mL/min (>60); Est Glom Filt Rate - Afr Amer 42 mL/min (>60); Estimated Creatinine Clearance 29.36 ml/min; Globulin 4.3 g/dL (2.2-4.2); Glucose 188 mg/dL (74-106); Potassium 3.5 mmol/L (3.5-5.1); Protein, Total 7.5 g/dL (6.4-8.2); Sodium Level 134 mmol/L (136-145)
[2022-02-22 14:35] LABS: Mucous, Urine 0 SEEN /hpf (<or=2+)
[2022-02-22 14:45] LABS: Color, Urine Yellow (Yellow); Glucose, Dipstick Normal (Normal); Ketone-Dipstick Negative (Negative); Leukocyte Esterase-Dipstick 25 /ul (Negative); Nitrite-Dipstick Negative (Negative); Occult Blood-Urine 10 /ul (Negative); Protein-Dipstick 30 mg/dl (Negative); Urine Bilirubin Dipstick Negative (Negative); Urine Clarity Sl. Cloudy (Clear); Urine Urobilinogen 1 mg/dl (Normal)
[2022-02-22 14:53] LABS: Bacteria 1+ /hpf (None Seen); Red Blood Cells-Urine 0-5 SEEN /hpf (0-5); Squamous Epithelial Cells - UA 5-10 SEEN /hpf (5-10); White Blood Cells 0-5 SEEN /hpf (0-5)
--- NOTE | 2022-02-22 15:25 | EDS_ITS ---
HPI History of Present Illness Chief Complaint: Back Informant: patient Onset/Context/Timing Onset: Weeks (1) Context: Gradual Onset Timing: Continuous Quality: Hurting Location: Generalized Worsened by: Nothing Relieved by: Nothing Narrative Narrative: Patient presents with body aches that have been getting worse over the past week. Patient describes her pain as hurting. Patient states it is all over. Patient states nothing makes it better and nothing makes it worse. Patient states she has been having some chest pain with this. Patient states her recently and she is under a lot of stress. Patient thinks that most of her pain is related to her stress. Patient states her primary care physician prescribed her Valium which has not been helping. Patient denies any fevers or chills. [facility] Medical History (Updated 02/22/22 @ 15:[address] Dallin Cole, ) Cataracts, bilateral Diarrhea Fatigue History of stomach ulcers Hypertension IBS (irritable bowel syndrome) Limb weakness Migraines Neck pain Pain in left leg Retinal tear of left eye Ruptured cervical disc Shoulder pain Syncope and collapse Type 2 diabetes mellitus Home Medications omeprazole 20 mg capsule,delayed release 20 mg PO DAILY #90 caps 12/24/19 [Rx Last Taken Unknown] metformin 500 mg tablet 500 mg PO QDAY #90 tabs 11/22/20 [Rx Last Taken Unknown] blood sugar diagnostic #50 ea 05/30/21 [Rx Last Taken Unknown] blood-glucose meter #1 ea 05/30/21 [Rx Last Taken Unknown] lisinopril 20 mg tablet 20 mg PO DAILY #90 tabs 10/31/21 [Rx Last Taken Unknown] atorvastatin 40 mg tablet 40 mg PO QHS #90 tabs 12/20/21 [Rx Last Taken Unknown] cilostazol 100 mg tablet 100 mg PO BID #60 tabs 12/20/21 [Rx Last Taken Unknown] triamterene 37.5 mg-hydrochlorothiazide 25 mg capsule 1 cap PO DAILY #90 caps 12/25/21 [Rx Last Taken Unknown] paroxetine HCl 30 mg tablet (Paxil) 30 mg PO QAM #90 tabs 02/07/22 [Rx Last Taken Unknown] diazepam 5 mg tablet 5 mg PO Q8H PRN muscle spasm #30 tabs 02/20/22 [Rx Last Taken Unknown] Allergy/AdvReac Type Severity Reaction Status Date / Time Iodinated Contrast Media Allergy Severe tongue Verified 02/22/22 11:59 [Iodinated Contrast- Oral swelled and IV Dye] Surgical History History of cholecystectomy Social History Smoking Status: Current every day smoker tobacco type: cigarettes alcohol intake: never substance use type: does not use what type of physical activity do you participate in: walking frequency: daily ROS ROS ED Constitutional Constitutional ED: Denies chills or fever(s) Eyes Eyes: Denies blurry vision or change in vision ENT ENT ED: Denies rhinorrhea or sore throat Cardiovascular Cardiovascular: Reports chest pain; Denies palpitations Respiratory/Chest Respiratory/Chest: Denies cough or dyspnea Gastrointestinal Gastrointestinal: Denies nausea or vomiting Genitourinary Genitourinary ED: Denies dysuria or hematuria Musculoskeletal Musculoskeletal: Reports back pain, myalgias and neck pain Integumentary Denies abscess or rash Neurologic Neurologic: Reports headache(s); Denies weakness Allergic/Immunologic Allergic/Immunologic ED: Denies mouth swelling or urticaria EXAM Physical Exam Const Vital Signs: 02/22/22 11:59 02/22/22 14:00 Temperature 98.3 F Temperature Source Temporal Pulse Rate 106 H 66 Respiratory Rate 16 16 Blood Pressure 130/73 H 124/78 H Blood Pressure Mean 92 93 Pulse Ox 95 99 Oxygen Delivery Method Room Air Room Air Positive well nourished and well developed General Appearance ED: well developed HEENT Reports moist mucous membranes Neck supple and no JVD Resp normal respiratory effort and clear to auscultation bilaterally Cardio regular rate, regular rhythm and no murmurs GI normal to inspection, nondistended, normoactive bowel sounds and non-tender Palpation: soft Extremity normal to inspection General Extremety ED: Negative for edema or tenderness General Extremity: Negative for edema Neuro oriented x3, CN's II-XII intact bilaterally and no sensory deficits noted Sensorium / Orientation: alert Motor Exam: strength 5/5 throughout Psych mental status grossly normal Skin no rashes or lesions noted MDM MDM MDM Narrative Medical decision making narrative: Patient was given IV fluids and morphine here. CBC was within normal limits. Comprehensive metabolic profile shows a BUN of 29 creatinine 1.55. These are consistent with prior results. Glucose was slightly elevated at 188. Urinalysis does not show any evidence of urinary tract infection or hematuria. Patient is feeling slightly better on reevaluation. Patient was advised of her findings. Patient was instructed to drink plenty of fluids. Patient was instructed to take Tylenol as needed for any pain or fevers. Patient was instructed to follow-up with her primary care physician in 5 to 7 days for reevaluation. Patient understood and was agreeable with the plan. All questions were answered. Lab Data Attestation: I reviewed the patient's lab results. Labs: Laboratory Results - last 24 hr 02/22/22 02/22/22 02/22/22 14:12 14:12 14:20 WBC 8.2 RBC 4.51 Hgb 14.3 Hct 41.8 MCV 92.7 MCH 31.7 MCHC 34.2 RDW Std Deviation 43.1 RDW Coeff of Cherise 12.6 Plt Count 218 MPV 9.0 Sodium 134 L Potassium 3.5 Chloride 98 Carbon Dioxide 31.0 Anion Gap 5 BUN 29 H Creatinine 1.55 H Estim Creat Clear Calc 29.36 Est GFR (MDRD) Af Amer 42 L Est GFR (MDRD) Non-Af 35 L BUN/Creatinine Ratio 18.7 Glucose 188 H Calcium 9.4 Total Bilirubin 0.80 AST 31 ALT 31 Alkaline Phosphatase 94 Total Protein 7.5 Albumin 3.2 Globulin 4.3 H Albumin/Globulin Ratio 0.7 L Urine Color Yellow Urine Clarity Sl. Cloudy Urine pH 5.0 Ur Specific [place] 1.020 Urine Protein 30 H Urine Glucose (UA) Normal Urine Ketones Negative Urine Occult Blood 10 H Urine Nitrite Negative Urine Bilirubin Negative Urine Urobilinogen 1 H Ur Leukocyte Esterase 25 H Urine RBC 0-5 SEEN Urine WBC 0-5 SEEN Ur Squamous Epith Cells 5-10 SEEN Urine Bacteria 1+ Urine Mucus 0 SEEN Discharge Plan Triage Chief Complaint: Back ED Provider: Dallin Cole Dx/Rx/DC Orders Clinical Impression: Myalgia, CKD (chronic kidney disease) stage 3, GFR 30-59 ml/min Instructions: ED Myalgias Prescriptions: No Action (DME) blood sugar diagnostic Strip See Rx Instructions .ROUTE .MEDSUPPLY Qty: 50 2RF Rx Instructions: USE DIRECTED TO CHECK BLOOD GLUCOSE ONCE DAILY FOR TYPE 2 DM (DME) blood-glucose meter Misc See Rx Instructions .ROUTE .MEDSUPPLY Qty: 1 0RF Rx Instructions: USE TO CHECK BLOOD GLUCOSE ONCE DAILY FOR TYPE 2 DM atorvastatin 40 mg tablet 40 mg PO QHS Qty: 90 3RF cilostazol 100 mg tablet 100 mg PO BID Qty: 60 5RF diazepam 5 mg tablet 5 mg PO Q8H PRN (Reason: muscle spasm) Qty: 30 1RF omeprazole 20 mg capsule,delayed release(DR/EC) 20 mg PO DAILY Qty: 90 1RF metformin 500 mg tablet 500 mg PO QDAY Qty: 90 1RF lisinopril 20 mg tablet 20 mg PO DAILY Qty: 90 3RF triamterene-hydrochlorothiazid 37.5-25 mg capsule 1 cap PO DAILY Qty: 90 0RF paroxetine HCl [Paxil] 30 mg tablet 30 mg PO QAM Qty: 90 3RF Primary Care Provider: Tavo Strange Referrals: Tavo Strange DO [Primary Care Provider] - 3-5 Days Disposition Disposition: Home, Self Care
== END 2022-02-22 15:49 | disposition home or self-care (01) ==
PROVIDERS: Emergency Provider Emergency Medicine; PCP Family Medicine; Visit Provider Emergency Medicine
DX: N18.30 Chronic kidney disease, stage 3 unspecified (principal); E11.65 Type 2 diabetes mellitus with hyperglycemia; E11.22 Type 2 diabetes mellitus with diabetic chronic kidney disease; I12.9 Hypertensive chronic kidney disease with stage 1 through stage 4 chronic kidney disease, or unspecified chronic kidney disease
CPT/HCPCS: 80053; 81001; 85027; 93005; 99284; J7030; A4216

== ENCOUNTER → 2022-03-14 | Outpatient (CLI) | payer MEDICARE, OTHER, SELFPAY ==
[2022-03-14 16:21] LABS: Erythrocyte Sedimentation Rate 27 mm/hr (0-30)
== END | disposition home or self-care (01) ==
LOC: BIMLAB 14:24
PROVIDERS: PCP Family Medicine; Visit Provider Family Medicine
DX: M35.3 Polymyalgia rheumatica (principal)
CPT/HCPCS: 36415; 85652

== ENCOUNTER → 2022-03-27 | Outpatient (CLI) | payer MEDICARE, OTHER, SELFPAY ==
[2022-03-27 16:41] LABS: Erythrocyte Sedimentation Rate 6 mm/hr (0-30)
== END | disposition home or self-care (01) ==
LOC: BIMLAB 14:03
PROVIDERS: PCP Family Medicine; Referring Provider Family Medicine; Visit Provider Family Medicine
DX: M35.3 Polymyalgia rheumatica (principal)
CPT/HCPCS: 36415; 85652

== ENCOUNTER 2022-10-10 09:20 | Emergency (ER) | payer MEDICARE, OTHER, SELFPAY ==
[2022-10-10 09:22] VITALS: BP 167/99; PULSE 97; RESP 14; TEMP 36.5; O2SAT 95; BMI 22.8
--- NOTE | 2022-10-10 10:17 | VDLE_ITS ---
Reason For Study: RLE Pain RIGHT LEFT GSV is normal. CFV is compressible, spontaneous, phasic, CFV is compressible, spontaneous, phasic, competent, and demonstrates normal competent and demonstrates normal augmentation. augmentation. FV is compressible, spontaneous, phasic, competent and demonstrates normal augmentation. POP V is compressible, spontaneous, phasic, competent and demonstrates normal augmentation. T/P Trunk is compressible. PTV is compressible. RT PerV is compressible. Incidental finding: Rt WIRING TECHNICIAN shows heterogenous irregular plaque with a PSV of 274.2 cm/s Rt SFA shows extensive heterogenous irregular plaque. Unable to acquire pulsed wave or color doppler information within the vessel. Artery appears to be occluded. Procedure This is a venous duplex using B-mode, color flow and spectral Doppler. Exam performed portable in ED. The exam was diagnostic. A preliminary report was called and/or faxed to [facility] - RN. VL/Venous Duplex US, Unilateral Interpretation Summary Deep veins of the right lower extremity are patent and compressible segmentally . There is no evidence of right lower extremity deep vein thrombosis. Valvular competence caleb ears intact within the proximal deep venous system on the right . The right great saphenous vein a ppears patent and compressible segmentally. The left common femoral vein is patent and compressib le . Incidental note is made of extensive atherosclerotic plaque in the right common femoral artery and superficial femoral artery. Systolic velocities within the right common femoral artery are elevated, suggestive of luminal stenosis. The right superficial femoral artery appears to be occlude d. Ordering Physician: Salvador Muller Referring Physician: Tavo Strange Performed By: Parish Holly RVT
--- NOTE | 2022-10-10 10:20 | ED.VIS.LOWEX ---
HPI History of Present Illness Chief Complaint: Lower Extremity Injury Informant: patient Narrative Narrative: 77-year-old female presenting with pain in the right thigh. Patient states that 2 weeks ago she was trimming a langley. She went to break a branch and it caused abrasions to the anterior right lower leg. The next day she woke up pain in the lateral right hip extending down towards the knee. She subsequently has developed a burning pain over the medial aspect of the thigh. Yesterday she noted a erythematous circular lesion which has decreased in size today. She notes that she has now developed for other lesions just distal to this lesion over the anterior medial aspect of the thigh. She denies any leg swelling. She notes pain in the lateral aspect of the hip and thigh is improved. She notes that the skin is very sensitive to touch. She notes that she had chickenpox as a child but has never had shingles. She denies any bug bites. No prior history of DVT. 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 She has not taken anything for pain as she states she was advised not to take anything for pain due to her chronic kidney disease. [facility] and was [facility] here. She is concerned about a DVT. 2 weeks ago she traveled to [place]. [facility] Medical History (Updated 10/10/22 @ 11:[address] Salvador Muller DO) Cataracts, bilateral Diarrhea Fatigue History of stomach ulcers Hypertension IBS (irritable bowel syndrome) Limb weakness Migraines Neck pain Pain in left leg Retinal tear of left eye Ruptured cervical disc Shoulder pain Syncope and collapse Type 2 diabetes mellitus Home Medications blood sugar diagnostic #50 ea 05/30/21 [Rx Last Taken Unknown] blood-glucose meter #1 ea 05/30/21 [Rx Last Taken Unknown] lisinopril 20 mg tablet 20 mg PO DAILY #90 tabs 10/31/21 [Rx Last Taken Unknown] amlodipine 5 mg tablet 5 mg PO QDAY #90 tabs 06/07/22 [Rx Last Taken Unknown] cilostazol 100 mg tablet 100 mg PO BID #60 tabs 06/07/22 [Rx Last Taken Unknown] metformin 500 mg tablet 500 mg PO QDAY #90 tabs 06/07/22 [Rx Last Taken Unknown] omeprazole 20 mg capsule,delayed release 20 mg PO DAILY #90 caps 06/07/22 [Rx Last Taken Unknown] paroxetine HCl 30 mg tablet (Paxil) 30 mg PO QAM #90 tabs 06/07/22 [Rx Last Taken Unknown] triamterene 37.5 mg-hydrochlorothiazide 25 mg capsule 1 cap PO DAILY #90 caps 06/07/22 [Rx Last Taken Unknown] disability placard ##1 08/13/22 [Rx Last Taken Unknown] fezolinetant 45 mg tablet (Veozah) 45 mg PO DAILY #30 tabs 08/13/22 [Rx Last Taken Unknown] prednisone 5 mg tablet 5 mg PO DAILY #90 tabs 08/14/22 [Rx Last Taken Unknown] acyclovir 800 mg tablet 800 mg PO 5X/DAY #35 TABLETS 10/10/22 [Rx Last Taken Unknown] oxycodone-acetaminophen 5 mg-325 mg tablet (Endocet) 1 tab PO TID PRN pain 3 days #9 tabs 10/10/22 [Rx Last Taken Unknown] Allergy/AdvReac Type Severity Reaction Status Date / Time Iodinated Contrast Media Allergy Severe tongue Verified 08/13/22 13:06 [Iodinated Contrast- Oral swelled and IV Dye] Surgical History History of cholecystectomy Social History Smoking Status: Current every day smoker tobacco type: cigarettes alcohol intake: never substance use type: does not use what type of physical activity do you participate in: walking frequency: daily ROS ROS ED Constitutional Constitutional ED: Denies chills, fever(s) or weight loss Eyes Eyes: Denies change in vision or diplopia ENT ENT ED: Denies ear pain, rhinorrhea or sore throat Cardiovascular Cardiovascular: Denies chest pain, orthopnea, palpitations or racing heartbeat Respiratory/Chest Respiratory/Chest: Denies cough, dyspnea or orthopnea Gastrointestinal Gastrointestinal: Denies abdominal pain, diarrhea, nausea or vomiting Genitourinary Genitourinary ED: Denies dysuria, hematuria or urinary frequency Musculoskeletal Musculoskeletal: Reports other Details: Right thigh leg pain ; Denies arthralgias or myalgias Integumentary Reports rash; Denies abscess or Abrasions Neurologic Neurologic: Reports paresthesias; Denies headache(s) or weakness Psychiatric Psychiatric: Denies anxiety, depression, suicidal ideation or suicidal thoughts Endocrine Endocrinology: Denies polydipsia, polyphagia or polyuria Allergic/Immunologic Allergic/Immunologic ED: Denies mouth swelling, tongue swelling or urticaria EXAM Physical Exam Const Vital Signs: 10/10/22 09:22 Temperature 97.7 F L Temperature Source Temporal Pulse Rate 97 Respiratory Rate 14 Blood Pressure 167/99 H Blood Pressure Mean 121 Pulse Ox 95 Oxygen Delivery Method Room Air Positive well nourished and well developed General Appearance ED: well developed HEENT Reports normocephalic, head/scalp atraumatic and moist mucous membranes Eyes PERRL and EOMs intact bilaterally Neck no lymphadenopathy, supple and no JVD Resp normal respiratory effort and clear to auscultation bilaterally Cardio regular rate, regular rhythm and no murmurs GI normal to inspection, nondistended, normoactive bowel sounds and non-tender Palpation: soft Back/Spine no CVA tenderness and normal ROM Extremity Extremity Narrative: Patient has exquisite skin sensitivity over the right medial thigh. Located over the distal third of the medial right thigh are several discrete erythematous lesions with a central small vesicle. The largest lesions of these measures approximately three fourths of a centimeter in diameter. There is no palpable cords. There is no calf tenderness. There is no swelling of the leg. General Extremety ED: Negative for edema General Extremity: Negative for edema Neuro oriented x3 and CN's II-XII intact bilaterally Sensorium / Orientation: alert Motor Exam: strength 5/5 throughout Psych mental status grossly normal Mood & Affect: Negative for depressed or tearful Skin no rashes or lesions noted and no wounds MDM MDM MDM Narrative Medical decision making narrative: Duplex ultrasound was obtained and reviewed by myself. This is negative for DVT. There is evidence of peripheral artery disease. Patient was informed of the results. She notes that she has seen 2 vascular surgeons in the past does not remember their names. She states they placed her on a blood thinner but does not know what it is. She states that she continues to smoke. She describes symptoms of claudication and would like to revisit with a surgeon. I can refer her to one locally. As far as the medial burning thigh pain and lesions I think this very well could be zoster. Placed her on acyclovir as well as a few Percocet. Would advise follow-up with primary care in addition to the vascular surgeon. Patient and her daughter note understanding of the plan. Discharge Plan Triage Chief Complaint: Lower Extremity Injury ED Provider: Salvador Muller Dx/Rx/DC Orders Clinical Impression: Shingles, Peripheral arterial disease, Muscle strain of right thigh Instructions: Shingles (Herpes Zoster), Smoking and PAD Prescriptions: New acyclovir 800 mg tablet 800 mg PO 5X/DAY Qty: 35 0RF oxycodone-acetaminophen [Endocet] 5-325 mg tablet 1 tab PO TID PRN (Reason: pain) 3 Days Qty: 9 0RF No Action (DME) blood sugar diagnostic Strip See Rx Instructions .ROUTE .MEDSUPPLY Qty: 50 2RF Rx Instructions: USE DIRECTED TO CHECK BLOOD GLUCOSE ONCE DAILY FOR TYPE 2 DM (DME) blood-glucose meter Misc See Rx Instructions .ROUTE .MEDSUPPLY Qty: 1 0RF Rx Instructions: USE TO CHECK BLOOD GLUCOSE ONCE DAILY FOR TYPE 2 DM Veozah 45 mg tablet 45 mg PO DAILY Qty: 30 3RF (DME) disability placard 0 .Route .MEDSUPPLY Qty: 1 0RF Rx Instructions: Duration 5 years. lisinopril 20 mg tablet 20 mg PO DAILY Qty: 90 3RF amlodipine 5 mg tablet 5 mg PO QDAY Qty: 90 0RF cilostazol 100 mg tablet 100 mg PO BID Qty: 60 5RF metformin 500 mg tablet 500 mg PO QDAY Qty: 90 1RF omeprazole 20 mg capsule,delayed release(DR/EC) 20 mg PO DAILY Qty: 90 1RF paroxetine HCl [Paxil] 30 mg tablet 30 mg PO QAM Qty: 90 3RF triamterene-hydrochlorothiazid 37.5-25 mg capsule 1 cap PO DAILY Qty: 90 3RF prednisone 5 mg tablet 5 mg PO DAILY Qty: 90 1RF Primary Care Provider: Tavo Strange Referrals: Tavo Strange, DO [Primary Care Provider] - 10-14 Days if not better Dallin Knutson MD [Med Staff - Active Staff] - As soon as possible Disposition Disposition: Home, Self Care
== END 2022-10-10 11:46 | disposition home or self-care (01) ==
LOC: ED 11:36
PROVIDERS: Emergency Provider Emergency Medicine; PCP Family Medicine; Visit Provider Emergency Medicine
DX: E11.51 Type 2 diabetes mellitus with diabetic peripheral angiopathy without gangrene (principal); I73.9 Peripheral vascular disease, unspecified; I10 Essential (primary) hypertension; S76.911A Strain of unspecified muscles, fascia and tendons at thigh level, right thigh, initial encounter; B02.9 Zoster without complications; Z79.899 Other long term (current) drug therapy; Z79.02 Long term (current) use of antithrombotics/antiplatelets; Z79.84 Long term (current) use of oral hypoglycemic drugs; Z90.49 Acquired absence of other specified parts of digestive tract; F17.210 Nicotine dependence, cigarettes, uncomplicated; X58.XXXA Exposure to other specified factors, initial encounter; Y93.H2 Activity, gardening and landscaping
CPT/HCPCS: 93971; 99282

== ENCOUNTER → 2022-11-04 | Outpatient (CLI) | payer OTHER, MEDICARE, SELFPAY ==
[2022-11-04 17:00] LABS: Creatinine, Serum 1.66 mg/dL (0.55-1.02); EST Glomerular Filtration Rate 32 mL/min (>60); Est Glom Filt Rate - Afr Amer 39 mL/min (>60)
== END | disposition home or self-care (01) ==
PROVIDERS: PCP Family Medicine; Visit Provider Surgery Trauma Surgery
DX: I70.219 Atherosclerosis of native arteries of extremities with intermittent claudication, unspecified extremity (principal)
CPT/HCPCS: 36415; 82565

== ENCOUNTER → 2022-11-14 | Outpatient (CLI) | payer OTHER, MEDICARE, SELFPAY ==
--- NOTE | 2022-11-14 14:14 | CT_ITS ---
STUDY: CTA OF THE ABDOMINAL AORTA AND BILATERAL LOWER EXTREMITIES REASON FOR EXAM: Female, 77 years old. Atherosclerosis with claudication bilateral RADIATION DOSAGE (If Supplied By Facility): CTDIvol = ( 8.23 ) mGy, DLP = ( 1116.41 ) mGycm TECHNIQUE: Axial CT angiography multi-detector data acquisition was obtained from the dome of the liver to the ankle joints following intravenous administration of IV 100mL Isovue-370. Axial images and MIP images were reconstructed from the axial data set. Post-processing of the angiographic images was performed, with multiplanar reformation and 3D reconstruction. Individualized dose optimization techniques were used for this CT. TECHNICAL QUALITY: Good COMPARISON: Comparison is made with prior study. #15 2020. Descriptors of Narrowing: None (0%) Mild (< 50%) Moderate (50-70%) Severe (70-90%) Subtotal/Total Occlusion (90-100%) Non-Evaluable (technically non-diagnostic FINDINGS: Coronary artery calcification. Mild degree of increased linear markings at the lung bases suggestive of linear atelectasis and/or scarring. Small hiatal hernia. Fatty infiltration of the liver. The patient is status post cholecystectomy. Atrophy of the right kidney. Abdominal aorta: Nonstenotic atherosclerotic plaque formation of the abdominal aorta. No evidence of aneurysm. Celiac and superior mesenteric arteries: Mild calcific plaque at the origin of the superior mesenteric artery. Inferior mesenteric artery: No demonstrated narrowing. Right renal artery(arteries): No demonstrated narrowing. Left renal artery(arteries): No demonstrated narrowing. Right common iliac artery: Nonstenotic calcific plaques. Right external iliac artery: Nonstenotic calcified plaques. Right internal iliac artery: No demonstrated narrowing. Left common iliac artery: Nonstenotic calcific plaque. Left external iliac artery: Nonstenotic calcific plaques. Left internal iliac artery: No demonstrated narrowing. RIGHT LOWER EXTREMITY Right common femoral artery: Nonstenotic calcific plaques. Right profundus femoris: No demonstrated narrowing. Right superficial femoral: There is occlusion of the superficial femoral artery at its origin. Right popliteal artery: Reconstitution of the popliteal artery just proximal to the knee joint. Scattered calcific plaques. Right tibioperoneal trunk: No demonstrated narrowing. Right anterior tibial artery: No demonstrated narrowing. Right posterior tibial artery: Patency of the posterior tibial artery with focal stenotic plaques throughout its distal portion. Right peroneal artery: Not visualized. LEFT LOWER EXTREMITY Left common femoral artery: No demonstrated narrowing. Left profundus femoris: No demonstrated narrowing. Left superficial femoral: There is occlusion of the superficial femoral artery at its origin. Left popliteal artery: There is reconstitution of the popliteal artery just proximal to its origin. Left tibioperoneal trunk: No demonstrated narrowing. Left anterior tibial artery: Nonvisualization. Left posterior tibial artery: Patent with multiple areas of stenosis. Left peroneal artery: Nonvisualization. CT/CTA Abd w/Runoff W/WO Contrast IMPRESSION: Occlusion of the superficial femoral arteries bilaterally with reconstitution of the popliteal artery just proximal to its origin. Poor runoff bilaterally. Electronically Signed: Parish Gutierrez MD at 12:37 EDT ,
== END | disposition home or self-care (01) ==
LOC: CT 14:13
PROVIDERS: PCP Family Medicine; Referring Provider Surgery Trauma Surgery; Visit Provider Surgery Trauma Surgery
DX: I73.9 Peripheral vascular disease, unspecified (principal); I25.10 Atherosclerotic heart disease of native coronary artery without angina pectoris; Z90.49 Acquired absence of other specified parts of digestive tract; K44.9 Diaphragmatic hernia without obstruction or gangrene; N26.1 Atrophy of kidney (terminal); J98.11 Atelectasis
CPT/HCPCS: 75635; Q9967

== ENCOUNTER → 2022-12-20 | Outpatient (CLI) | payer MEDICARE, OTHER, SELFPAY ==
--- NOTE | 2022-12-20 10:36 | STRESSREP_ITS ---
Stress Test Report Date: 12/20/2022 Procedure: Pharmacologic stress nuclear imaging study Indications: Preop evaluation Consent: Per the patient Procedure: The patient underwent pharmacologic (Regadenoson 0.4mg ) evaluation with a peak heart rate of 114 beats per minute (79%predicted maximal heart rate) and a peak blood pressure of 180/84 mmHg. The baseline ECG demonstrated sinus. The peak pharmacologic ECG demonstrated sinus tachycardia with no ischemic changes. There were no cardiac dysrhythmias pretest, during pharmacologic infusion, or recovery. There was no complaint of chest discomfort during pharmacologic infusion or recovery. The patient was injected with 10.0 millicuries of technetium 99m Cardiolite and subsequently rest SPECT Cardiolite nuclear imaging was obtained in the horizontal long, vertical long, and short axis views. The patient underwent pharmacologic (Regadenoson) evaluation. The patient was injected with 35.0 millicuries of technetium 99m Cardiolite and subsequently stress SPECT Cardiolite nuclear imaging was obtained in the horizontal long, vertical long, and short axis views. A gated Cardiolite study at peak stress was obtained. The examination was stopped secondary to completion of protocol. Rest and stress SPECT Cardiolite nuclear imaging status post realignment, normalization, and attenuation correction demonstrate no fixed or reversible perfusion defects. There is end systolic thickening and brightening. The gated Cardiolite study demonstrates myocardial thickening and inward wall motion. The reported LVEF is 78%. Impression: 1. Pharmacologic (Regadenoson) evaluation 2. Peak pharmacologic ECG with no ischemic changes. 3. There were no cardiac dysrhythmias pretest, during pharmacologic infusion, or recovery. 5. Rest and stress SPECT Cardiolite nuclear imaging demonstrate relative uniform tracer uptake and myocardial perfusion appearing within normal limits. 6. The gated Cardiolite study reports an LVEF of 78%. This note was generated with [employer] software. It may contain incorrect words, spelling, and punctuation that were not noted in checking the note before signing.
== END | disposition home or self-care (01) ==
PROVIDERS: PCP Family Medicine; Referring Provider Surgery Trauma Surgery; Visit Provider Surgery Trauma Surgery
DX: Z01.810 Encounter for preprocedural cardiovascular examination (principal); Z01.818 Encounter for other preprocedural examination
CPT/HCPCS: 78452; 93017; A9500; A4216; J2785

== ENCOUNTER 2023-01-14 12:28 | Inpatient (IN) | payer MEDICARE, OTHER, SELFPAY ==
--- NOTE | 2023-01-06 09:20 | EKG12_ITS ---
Test Reason : PREOP Blood Pressure : / mmHG Vent. Rate : 070 BPM Atrial Rate : 070 BPM P-R Int : 132 ms QRS Dur : 086 ms QT Int : 418 ms P-R-T Axes : 043 059 088 degrees QTc Int : 451 ms Normal sinus rhythm Normal ECG Confirmed by CARISSA UGALDE ([id number]), society editor SUDARSHAN DAVIES ([id number]) on 01/06/2023 11:25:01 AM Referred By: Dallin Knutson Confirmed By:CARISSA UGALDE
[2023-01-06 10:30] LABS: Hematocrit 40.8 % (37-47); Hemoglobin 13.4 g/dL (12.0-15.0); Mean Corp Hgb Conc 32.8 g/dL (32-36); Mean Corpuscular Volume 97.4 fL (81-99); Mean Platelet Vol. 9.4 fl (6.2-12.0); Platelet Count 195 K/mm3 (150-450); RBC Distribution Width CV 13.9 % (11.6-14.6); RBC Distribution Width SD 49.9 fl (35.1-43.9); Red Blood Count 4.19 M/mm3 (4.2-5.4); White Blood Count 6.8 K/mm3 (4.4-11.0)
[2023-01-06 10:48] LABS: Anion Gap 5 (5-15); BUN 28 mg/dL (7-18); BUN/Creat Ratio 18.7 RATIO (10-20); Chloride 106 mmol/L (98-107); EST Glomerular Filtration Rate 36 mL/min (>60); Est Glom Filt Rate - Afr Amer 43 mL/min (>60); Glucose 111 mg/dL (74-106); Potassium 4.1 mmol/L (3.5-5.1); Sodium Level 139 mmol/L (136-145)
[2023-01-06 11:07] LABS: Hemoglobin A1c 6.7 % (3.8-5.6)
--- NOTE | 2023-01-13 | PLAQ_PTH ---
PATIENT: ROSEMARY HELMS LOC: ICU U#:[id number] AGE/SX: 77/F ROOM: [place] [address] RE01/14/[address]: Dr. Dallin Knutson MD : 1945 BED: 1 DIS: 01/15/2023 SPEC #: [id number] RECD: 01/14/23 13:41 STATUS: SOUNaldo REQ #: [id number] JEFFREY: 01/13/23 00:[address]: Dallin Knutson DEPT: SURGICAL PATHOLOGY RECD BY: Rhiannon Braun ENTERED: 01/14/23 13:41 SP TYPE: PLAQUE OTHR DR: Dr. Tavo Strange, DO Tissues: PLAQUE Procedures: Decalcification bone/plaque Surgery Specimen Level III HEADER OPERATION: Endarterectomy right femoral artery PRE-OP DIAGNOSIS: Right femoral artery plaque TISSUE SUBMITTED: Right femoral artery plaque MICROSCOPIC DIAGNOSIS Right femoral artery plaque, endarterectomy: Severe calcific atherosclerotic plaque consistent with stenosis. AM:riri 01/22/2023 GROSS DESCRIPTION Received in fixative is one container labeled with the patient's name and designated right femoral plaque. The specimen consists of multiple irregular fragments of gritty, yellow-chavez plaque-like material that in aggregate measure 4.0 x 2.0 x 1.0 cm. Beef Cattle Farm Worker portions are submitted in one cassette after decalcification. / AM:riri 01/14/2023 TC:5 CPT: 70689, 31101
[2023-01-14] VITALS (18 sets, daily range): BP systolic 65–151; BP diastolic 33–75; PULSE 71–101; RESP 10–22; TEMP 36.2–36.3; O2SAT 92–100; BMI 24.5
[2023-01-14] MEDS: Lactated Ringers 1,000 ML 15 ML IV (06:14)
[2023-01-14 06:33] LABS: Bedside Glucose 98 mg/dL (74-106)
--- NOTE | 2023-01-14 08:22 | PCM.HP.STD ---
HPI - General HPI Narrative ROSEMARY HELMS, is a 77 F who presents bilateral leg claudication, refractory to conservative tx. [facility] Medical History (Updated 12/31/22 @ 10:29 by Diane Loyola) Alcohol use Anxiety Back pain Cataracts, bilateral Diabetes Diarrhea Fatigue Former smoker Gastric reflux History of echocardiogram History of edema History of pain when walking History of steroid therapy History of stomach ulcers History of stress test History of ulceration Hoarseness Hypertension IBS (irritable bowel syndrome) Ingrowing nail, right great toe Leg cramps Limb weakness Migraines Neck pain Pain in left leg Polio Post-menopausal Retinal tear of left eye Ruptured cervical disc Shoulder pain Syncope and collapse Type 2 diabetes mellitus Wears dentures Home Medications blood sugar diagnostic #50 ea 05/30/21 [Rx Last Taken Unknown] blood-glucose meter #1 ea 05/30/21 [Rx Last Taken Unknown] paroxetine HCl 30 mg tablet (Paxil) 30 mg PO QAM #90 tabs 06/07/22 [Rx Last Taken 01/14/23] triamterene 37.5 mg-hydrochlorothiazide 25 mg capsule 1 cap PO DAILY #90 caps 06/07/22 [Rx Last Taken Unknown] disability placard ##1 08/13/22 [Rx Last Taken Unknown] prednisone 5 mg tablet 5 mg PO DAILY #90 tabs 08/14/22 [Rx Last Taken Unknown] oxycodone-acetaminophen 5 mg-325 mg tablet (Endocet) 1 tab PO TID PRN pain 3 days #9 tabs 10/10/22 [Rx Last Taken Unknown] lisinopril 20 mg tablet 20 mg PO DAILY #90 tabs 10/31/22 [Rx Last Taken Unknown] metformin 500 mg tablet 500 mg PO QDAY #90 tabs 12/11/22 [Rx Last Taken 01/14/23] omeprazole 20 mg capsule,delayed release 20 mg PO DAILY #90 caps 12/11/22 [Rx Last Taken Unknown] ticagrelor 90 mg tablet (Brilinta) 90 mg PO BID #60 tabs 12/11/22 [Rx Last Taken 01/14/23] amlodipine 5 mg tablet 5 mg PO DAILY 12/31/22 [History Last Taken 01/14/23] Allergy/AdvReac Type Severity Reaction Status Date / Time Iodinated Contrast Media Allergy Severe tongue Verified 01/14/23 05:45 [Iodinated Contrast- Oral swelled and IV Dye] Surgical History History of cholecystectomy Social History Smoking Status: Former smoker alcohol intake: never substance use type: does not use what type of physical activity do you participate in: walking frequency: daily ROS Constitutional Constitutional: Denies chills, fever(s), frequent falls, lethargy or weakness Eyes Eyes: Denies blind spots, change in vision or loss of vision ENT HEENT: Denies bleeding gums, hoarseness or sore throat Cardiovascular Cardiovascular: Denies abdominal pain, bluish discoloration of hand/feet, chest pain with activity, claudication, cold extremities, cyanosis, dyspnea on exertion, erythema on extremities, irregular heart rhythm, leg edema, leg ulcers, numbness in extremities or weakness in extremities Respiratory/Chest Respiratory/Chest: Denies cough, excessive phlegm production, shortness of breath at rest, shortness of breath with exertion or wheezing Gastrointestinal Gastrointestinal: Denies anorexia, change in stool character, constipation, diarrhea, melena or rectal bleeding Genitourinary Genitourinary: Denies dysuria or hematuria Musculoskeletal Musculoskeletal: Denies abnormal gait Integumentary Integumentary: Reports other Details: ; Denies erythema, non-healing lesions or wounds Neurologic Neurologic: Denies abnormal speech, focal weakness, headache(s), loss of vision, numbness, paresthesias or sensory deficit Hematologic/Lymphatic Hematologic/Lymphatic: Denies easy bleeding, easy bruising or lymphadenopathy Vital Signs Vital Signs Vital Signs: 01/14/23 05:58 01/14/23 05:58 Temperature 97.3 F L Temperature Source Temporal Pulse Rate 76 Respiratory Rate 16 Respiratory Pattern Normal Blood Pressure 151/75 H Blood Pressure Mean 100 Blood Pressure Source Monitor Blood Pressure Position Semi-Fowlers Blood Pressure Location Left Arm Pulse Ox 100 Oxygen Delivery Method Room Air Weight Weight: 152 lb 1.903 oz Body Mass Index (BMI) 24.5 Physical Exam Const alert, oriented x3, no apparent distress and healthy appearing General Appearance: cooperative; Negative for combative or lethargic Orientation / Consciousness: awake Exam Limitations: no limitations HEENT Head and Scalp: normocephalic and atraumatic Eyes EOMs intact bilaterally General Eye: normal appearance of both eyes Neck full ROM, no lymphadenopathy, thyroid normal and No no carotid bruits General: trachea midline; Negative for lymphadenopathy or tenderness Thyroid: thyroid normal Lymph Lymphatic: Negative for no lymphadenopathy noted Resp normal respiratory effort, no use of accessory muscles and clear to auscultation bilaterally Effort and Inspection: Negative for labored, stridor or audible wheezes Cardio regular rate, regular rhythm and no murmurs Peripheral Pulses: brachial pulses present, radial pulses present, femoral pulses present, popliteal pulses present, posterior tibial pulses present and dorsalis pedis pulses present GI non-tender and non-distended; Negative for hepatosplenomegaly Back/Spine Cervical Spine: cervical ROM normal Extremity full ROM, normal capillary refill and no clubbing, cyanosis or edema Skin no rashes or lesions noted and no wounds Neuro oriented x3, CN's II-XII intact bilaterally, no focal motor deficits and no sensory deficits noted Psych thought process normal, cooperative, affect normal, speech normal and activity/motor behavior normal Results Lab / Micro Data 01/06/23 09:46 01/06/23 09:46 Labs: Laboratory Results - last 24 hr 01/14/23 06:09: POC Glucose 98 Assessment & Plan Assessment/Plan (1) 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
--- NOTE | 2023-01-14 12:38 | PCM.OPRPT ---
Report of Operation Date of Procedure: 01/14/23 Pre-Operative Diagnosis: atherosclerosis with rest pain right lower extremity, claudication left lower extremity Post-Operative Diagnosis: same Surgery/Procedure Performed:: right common femoral endarterectomy, modifier 22 aortogram, bilateral external iliac stents IVUS aorta, bilateral common iliac arteries, bilateral external iliac arteries right sartorius flap Surgeon: Dallin Knutson Type of Anesthesia: General Estimated Blood Loss (mL): 200 Description of Procedure: HPI: Patient is a 77-year-old female with progressive bilateral lower extremity atherosclerosis initially short distance claudication now with nocturnal rest pain in the right lower extremity. She had a previous CT scan which revealed highly diseased right common femoral artery into the profunda and SFA origins as well as diseased external iliacs bilaterally. She also has occluded SFA bilateral the hope is that with fixing her inflow that she will get out of rest pain and improve her claudication and potentially no further intervention. She is taken now for right femoral endarterectomy with bilateral external iliac stents. Given the extent of endarterectomy performed a modifier 22 will be applied as the common femoral artery down onto the secondary branch of the profunda had to be endarterectomized and patch placed. Also given the extensive dissection and her status as a diabetic and smoker a sartorius flap will be performed. Description of procedure: Upon obtaining informed consent and verification correct patient procedure site patient taken to the Nail Assembly Machine Operator where she was placed under general anesthesia. She was in position prepped and draped in usual sterile fashion and timeout was performed. Oblique incision was made over the common femoral artery and Bovie electrocautery was dissect down through subcutaneous tissue. Self-retaining retractors put in position and further dissection was carried down to the femoral sheath. The femoral sheath was then incised vertically up to the inguinal ligament. The inguinal ligament was freed along its inferior edge along better cephalad retraction. Sharp dissection was used to dissect free the common femoral artery up onto the distal external iliac artery above the lateral and medial circumflex vessels. Once a soft portion of the vessel was identified a right angle used to place a vessel loop. We then carried our dissection distally down onto the superficial femoral artery which was highly calcified and had appearance of acute thrombus visualized on the proximal segment. We dissected down distally several centimeters and a right angle used to place a vessel loop. Finally sharp dissection used to dissect free the profundofemoral artery several centimeters onto the performed on to tertiary branches before vessel without significant plaque was identified. A right angle was used to place a vessel loop and the patient was then heparinized and allowed circulate for 3 minutes. The distal external iliac artery, SFA, and profunda and its branches were occluded with Vesseloops. A longitudinal arteriotomy was created with 11 blade and extended with Hopkins scissors up to the external iliac artery beyond the area of plaque and then distally down on the profunda and ultimately a vessel lumen without significant plaque was encountered. We then performed an endarterectomy with a freer elevator with satisfactory endpoint distally onto the profunda. We then extended our arteriotomy down onto the superficial femoral artery in order to clear the origin of plaque. There was indeed subacute thrombus within the proximal superficial femoral artery beyond the area of high-grade stenosis from the calcified plaque. This was extracted and the lumen flushed with heparinized saline. The SFA arteriotomy was then repaired with 7-0 Prolene in a running fashion up to the bifurcation. A bovine pericardial patch was brought in the field and secured in position from the profunda up onto the common femoral and into the external iliac with a 5-0 Prolene in a running fashion. Prior to completing suture line the vessels were backbled and after completing suture line clamps removed and satisfactory stasis was noted. The proximal segment of patent SFA was then utilized for access with a micropuncture or sheath through which hand-injection iliofemoral angiogram was performed revealing position within the true lumen and the location of the proximal leading edge of the plaque from the endarterectomy. Bentson wire was then advanced in the micropuncture sheath exchanged for a KMP catheter in an attempt to navigate around the end of the proximal plaque. Ultimately using the KMP and a angled Glidewire were able to navigate in the true lumen traversing the iliac arteries into the aorta. The catheter was exchanged for a short 6 Nigerian sheath which was advanced into position in the common iliac artery. Using Omni Flush catheter and Bentson wire we navigated the contralateral iliac system and then exchanged the catheter and short 6 Nigerian sheath for a 6 Nigerian 40 Balkan sheath which was advanced and positioned in the contralateral external iliac artery. KMP catheter was then advanced and the Bentson wire exchanged for a BMW 014 wire over which in a intravascular ultrasound was advanced and recorded pullback of the left external iliac artery, left common iliac artery was performed. Revealed vessel disease from essentially the iliac bifurcation down to just above the acetabulum with multiple tandem lesions greater than 50% and reference vessel of 7.5 mm. A Cook Zilver PTX 8 x 100 was then advanced in position and deployed. This was then postdilated with a 7 x 80 angioplasty balloon inflated to nominal then deflated withdrawn. Completion angiogram revealed satisfactory stent expansion with brisk contrast transit no extravasation or dissection. Next the long 6 Nigerian sheath exchanged for short 6 Nigerian sheath and again intravascular sound probe was used to perform recorded pullback of the aorta, right common iliac, right external neck artery which confirmed that the majority of severe disease in the external carotid with only mild common iliac artery disease. Again reference vessel sizes were obtained with multiple tandem segments of greater than 50% stenosis. A Cook Zilver PTX 8 x 80 was then advanced in position deployed and postdilated to 7 x 80 angioplasty balloon. Completion angiogram confirmed satisfactory stent expansion no extravasation dissection and brisk contrast transit. The sheath was then withdrawn and the arteriotomy repaired. The patient was then reversed with protamine and attention turned to the sartorius flap. Dissection carried laterally over to below the anterior superior iliac spine and the fascia incised. Bovie dissection used to mobilize the lateral edge and sartorius up to the ASIS or was then freed also on its medial edge and then divided from its insertion. This was then mobilized with further dissection laterally until we could be transposed over the femoral vessels without tension. The vessel was then inspected for hemostasis and evaluated Doppler with patent low resistance signal in the profunda. Floseal topical hemostatic was then applied and the sartorius flap at anchored in position with a 2-0 Vicryl interrupted suture. The incision was then closed with 3-0 Vicryl, 4 Monocryl, Dermabond and Prevena for the skin. Patient then awake from anesthesia taken to the intensive care unit for hemodynamic and vascular monitoring. Grafts/Implants Used: right external iliac 8x80 Zilver PTX, left external iliac 8x100 zilver PTX
[2023-01-14] MEDS: 0.45% Normal Saline 1,000 ML 100 ML IV ×2 (14:01→23:47)
[2023-01-14] MEDS: Acetaminophen 500 MG Tablet 1000 MG PO ×2 (14:28→21:41)
[2023-01-14] MEDS: Insulin Lispro 100 UNIT/ML INSULN.PEN SC ×2 (16:56→21:42)
[2023-01-14] MEDS: Cefazolin 1 GM/50 ML BAG IV (16:57)
[2023-01-14 16:58] LABS: Bedside Glucose 182 mg/dL (74-106)
[2023-01-14 19:36] LABS: ACT Activated Clotting Time 275 sec (74-137)
[2023-01-14 19:37] LABS: ACT Activated Clotting Time 209 sec (74-137)
[2023-01-14 19:38] LABS: ACT Activated Clotting Time 233 sec (74-137)
[2023-01-14 19:38] LABS: ACT Activated Clotting Time 209 sec (74-137)
[2023-01-14 19:39] LABS: ACT Activated Clotting Time 221 sec (74-137)
[2023-01-14] MEDS: 0.9% Normal Saline (500mL Bag) 500 ML 999 ML IV (21:42)
[2023-01-14] MEDS: TICAGRELOR 90 MG TABLET PO (21:42)
[2023-01-14] MEDS: 0.9% Saline Lock 10 ML Syringe IV (21:43)
[2023-01-14 22:16] LABS: Bedside Glucose 153 mg/dL (74-106)
[2023-01-15] VITALS (13 sets, daily range): BP systolic 91–112; BP diastolic 52–70; PULSE 70–85; RESP 10–18; TEMP 36–36.9; O2SAT 90–98; BMI 25.2
[2023-01-15] MEDS: Cefazolin 1 GM/50 ML BAG IV (02:14)
[2023-01-15 04:15] LABS: Absolute Lymphocyte Count 1.32 X10^3/uL (0.83-4.51); Absolute Neutrophil Count 7.7 X10^3/uL (2.0-7.7); Basophil# 0.02 X10^3/uL; Basophil% 0.2 % (0-1); Eosinophil# 0.02 X10^3/uL; Eosinophils% 0.2 % (0-5); Hemoglobin 10.5 g/dL (12.0-15.0); Lymphocyte # 1.32 X10^3/ul (0.83-4.51); Lymphocyte % 13.5 % (19-41); Mean Corp Hgb Conc 31.8 g/dL (32-36); Mean Corpuscular Hgb 31.9 pg (27.0-32.0); Mean Corpuscular Volume 100.3 fL (81-99); Mean Platelet Vol. 8.9 fl (6.2-12.0); Monocyte# 0.65 X10^3/uL; Monocyte% 6.7 % (0-10); NRBC Flagged by Analyzer 0 % (0-5); Neutrophil # 7.69 X10^3/uL (2.7-7.7); Neutrophil % 78.9 % (47-70); Platelet Count 156 K/mm3 (150-450); RBC Distribution Width CV 14.3 % (11.6-14.6); RBC Distribution Width SD 51.9 fl (35.1-43.9); Red Blood Count 3.29 M/mm3 (4.2-5.4); White Blood Count 9.8 K/mm3 (4.4-11.0)
[2023-01-15 04:27] LABS: Anion Gap 9 (5-15); BUN 28 mg/dL (7-18); BUN/Creat Ratio 16.6 RATIO (10-20); Calcium,Total 7.8 mg/dL (8.5-10.1); Chloride 106 mmol/L (98-107); Creatinine, Serum 1.69 mg/dL (0.55-1.02); EST Glomerular Filtration Rate 31 mL/min (>60); Est Glom Filt Rate - Afr Amer 38 mL/min (>60); Estimated Creatinine Clearance 26.51 ml/min; Glucose 99 mg/dL (74-106); Potassium 3.8 mmol/L (3.5-5.1); Sodium Level 139 mmol/L (136-145)
[2023-01-15] MEDS: Acetaminophen 500 MG Tablet 1000 MG PO (05:23)
[2023-01-15] MEDS: Enoxaparin 40 MG/0.4 ML Syringe SC (07:40)
[2023-01-15] MEDS: TICAGRELOR 90 MG TABLET PO (07:40)
[2023-01-15] MEDS: predniSONE 5 MG Tablet PO (07:40)
[2023-01-15] MEDS: metFORMIN HCl 500 MG Tablet PO (07:40)
[2023-01-15] MEDS: PARoxetine 10 MG Tablet 30 MG PO (07:41)
[2023-01-15] MEDS: Triamterene 37.5MG/Hctz 25MG Capsule 1 CAP PO (07:42)
[2023-01-15 07:59] LABS: Bedside Glucose 66 mg/dL (74-106)
--- NOTE | 2023-01-15 08:59 | WOUNDNOTE ---
Was asked to assess the Prevena VAC to the right groin d/t the VAC being loud. leak alarm going off. pt states it was noisy all night. applied drape to the groin crease. good seal noted. pt denies further needs at this time.
[2023-01-15] MEDS: Pantoprazole Sodium 20 MG Tablet PO (10:22)
[2023-01-15 12:39] LABS: Bedside Glucose 163 mg/dL (74-106)
--- NOTE | 2023-01-15 12:45 | CASEMGMT ---
RN?CM?MECHANICAL ENGINEERING PROFESSOR?CM?to room to meet with patient for initial transition planning/care coordination?assessment.?RN?CM?introduced self and role at [facility].? Pt voices understanding and consents to?assessment?at this time.? Pt sitting up in chair in room in no distress at this time. Dtr, Myesha, present and pt agreeable to her remaining in room during assessment. ? Pt is A/O at this time and answers all questions appropriately.?? Care providers, pharmacy, and demographics verified/updated at this time. PCP: Dr Tavo Strange Specialists: Dr Richardson-vascular. Engineering Test Specialist Preferred [facility]acy: [facility] (Pt stated preferred to get new Rx's from [facility] retail pharmacy @ discharge, if possible. MICHELLE MONTANO placed call to them and is not contracted w/[facility] pharmacy. Pt made aware and states to send any new Rx's to [facility]) Insurance: [facility], [employer]. Prescription Benefit:?. Pt currently on Brilinta. She states she was on this prior to coming to the hospital and has this medication @ home already. Living Will/HPOA:?Has both LW and HCPOA, who is her daughter, Myesha MCGRATHOK: Dtr/JASON Myesha. Elizabeth Ordonez Living Arrangements: Lives alone in one-story home w/2 steps to enter. Independent w/ADL's and IADL's and manages her own medications. Transportation:?Pt states drives self and states no transportation concerns at this time.?Myesha will take her home @ discharge. DME: ?Pt has a functioning glucometer w/supplies. ?Pt states no need for further DME at this time.? HHC/SNF: No hx of either. Denies needs and no needs identified. Pt wishes to return home and states has no concerns with going home at time of discharge.??CM?to follow for any discharge planning/needs.? Pt and dtr voice no further concerns/needs at this time.? PLAN:??Home DGiarebecca BSN?RN?CM
--- NOTE | 2023-01-15 13:21 | DS.PCM_ITS ---
Providers Date of Admission: 01/14/23 Primary Care Physician: Dr. Tavo Strange, DO Reason For Visit: Right Femoral Endarterectomy, Bilateral Iliac Sten Diagnosis Discharge Diagnosis (1) Atherosclerosis of [place] arteries of extremities with rest pain, right leg: Status: Chronic Code(s): I70.221 - Atherosclerosis of [place] arteries of extremities with rest pain, right leg Plan: -right femoral endart, bilateral iliac stents Medications at Discharge Home Medications blood sugar diagnostic #50 ea 05/30/21 blood-glucose meter #1 ea 05/30/21 paroxetine HCl 30 mg tablet (Paxil) 30 mg PO QAM #90 tabs 06/07/22 triamterene 37.5 mg-hydrochlorothiazide 25 mg capsule 1 cap PO DAILY #90 caps 06/07/22 disability placard ##1 08/13/22 prednisone 5 mg tablet 5 mg PO DAILY #90 tabs 08/14/22 lisinopril 20 mg tablet 20 mg PO DAILY #90 tabs 10/31/22 metformin 500 mg tablet 500 mg PO QDAY #90 tabs 12/11/22 omeprazole 20 mg capsule,delayed release 20 mg PO DAILY #90 caps 12/11/22 ticagrelor 90 mg tablet (Brilinta) 90 mg PO BID #60 tabs 12/11/22 amlodipine 5 mg tablet 5 mg PO DAILY 12/31/22 oxycodone 5 mg tablet 5 mg PO Q8H PRN Pain Score 4-10 5 days #15 tabs 01/15/23 Hospital Course Operations - (right femoral endarterectomy, bilateral iliac stents, right sartorius flap ) Summary of Care Provided Hospital Course: Mrs. Haji presented on 01/14 for elective revascularization of her bilateral lower extremities and underwent right femoral endarterectomy, bilateral iliac stents. She tolerated the procedure well and was admitted to the ICU post op for hemodynamic and vascular monitoring. Overnight she had some mild hypotension that responded to IVF and her antihypertensives were held. On POD # 1 she was doing well, with improved BP, adeaute pain control, ambulating, voiding and tolerating diet. She was then discharged to home 01/15 in stable condition. Physical Exam Const alert, oriented x3, no apparent distress and healthy appearing General Appearance: cooperative; Negative for combative or lethargic Orientation / Consciousness: awake Exam Limitations: no limitations HEENT Head and Scalp: normocephalic and atraumatic Eyes EOMs intact bilaterally General Eye: normal appearance of both eyes Neck full ROM, no lymphadenopathy, thyroid normal and No no carotid bruits General: trachea midline; Negative for lymphadenopathy or tenderness Thyroid: thyroid normal Lymph Lymphatic: Negative for no lymphadenopathy noted Resp normal respiratory effort, no use of accessory muscles and clear to auscultation bilaterally Effort and Inspection: Negative for labored, stridor or audible wheezes Cardio regular rate, regular rhythm and no murmurs Peripheral Pulses: brachial pulses present, radial pulses present, femoral pulses present, popliteal pulses present, posterior tibial pulses present and dorsalis pedis pulses present GI non-tender and non-distended; Negative for hepatosplenomegaly Back/Spine Cervical Spine: cervical ROM normal Extremity full ROM, normal capillary refill and no clubbing, cyanosis or edema Skin no rashes or lesions noted and no wounds Neuro oriented x3, CN's II-XII intact bilaterally, no focal motor deficits and no sensory deficits noted Psych thought process normal, cooperative, affect normal, speech normal and activity/motor behavior normal Weight / BMI Weight Weight: 157 lb 3.033 oz Body Mass Index (BMI) 25.2 ABG / Lab / Microbiology Data 01/15/23 04:09 01/15/23 04:09 Laboratory: Laboratory Results - last 24 hr 01/14/23 09:15: Activated Clotting Time 275 H 01/14/23 09:45: Activated Clotting Time 209 H 01/14/23 10:20: Activated Clotting Time 233 H 01/14/23 10:50: Activated Clotting Time 209 H 01/14/23 11:30: Activated Clotting Time 221 H 01/14/23 16:41: POC Glucose 182 H 01/14/23 21:40: POC Glucose 153 H 01/15/23 04:09: WBC 9.8, RBC 3.29 L, Hgb 10.5 L, Hct 33.0 L, MCV 100.3 H, MCH 31.9, MCHC 31.8 L, RDW Std Deviation 51.9 H, RDW Coeff of Cherise 14.3, Plt Count 156, MPV 8.9, Immature Gran % (Auto) 0.500, Neut % (Auto) 78.9 H, Lymph % (Auto) 13.5 L, [place] % (Auto) 6.7, Eos % (Auto) 0.2, Baso % (Auto) 0.2, Absolute Neuts (auto) 7.7, Absolute Lymphs (auto) 1.32, Nucleated RBC % 0, Sodium 139, Potassium 3.8, Chloride 106, Carbon Dioxide 24.0, Anion Gap 9, BUN 28 H, Creatinine 1.69 H, Estim Creat Clear Calc 26.51, Est GFR (MDRD) Af Amer 38 L, Est GFR (MDRD) Non-Af 31 L, BUN/Creatinine Ratio 16.6, Glucose 99, Calcium 7.8 L 01/15/23 07:41: POC Glucose 66 L 01/15/23 12:07: POC Glucose 163 H D/C Instructions Discharge Diet: No restrictions Discharge Activity: - June shower in (days): 2 Lifting Restricted to (Lbs): 20 Lifting Restrictions: no lifting > 20 lbs for 3 weeks Call your doctor if your incision/area has: Sudden Increased Bleeding, Increased Pain/ Swelling, Increased Redness and Foul Smelling Discharge Remove Dressing in: 1 week Cleanse incision/area with: Soap & Water Meaningful Use Info Meaningful Use Diagnoses (Choose all that apply): None applicable Discharge Plan Admission Admit Date/Time: 01/14/23 12:28 Attending Provider: Dallin Knutson Primary Care Provider: Tavo Strange Discharge Orders/Prescriptions Prescriptions: New oxycodone 5 mg Tablet 5 mg PO Q8H PRN (Reason: Pain Score 4-10) 5 Days Qty: 15 0RF Continued (DME) blood sugar diagnostic Strip See Rx Instructions .ROUTE .MEDSUPPLY Qty: 50 2RF Rx Instructions: USE DIRECTED TO CHECK BLOOD GLUCOSE ONCE DAILY FOR TYPE 2 DM (DME) blood-glucose meter [facility] See Rx Instructions .ROUTE .MEDSUPPLY Qty: 1 0RF Rx Instructions: USE TO CHECK BLOOD GLUCOSE ONCE DAILY FOR TYPE 2 DM (DME) disability placard 0 .Route .MEDSUPPLY Qty: 1 0RF Rx Instructions: Duration 5 years. Brilinta 90 mg tablet 90 mg PO BID Qty: 60 2RF paroxetine HCl [Paxil] 30 mg tablet 30 mg PO QAM Qty: 90 3RF triamterene-hydrochlorothiazid 37.5-25 mg capsule 1 cap PO DAILY Qty: 90 3RF prednisone 5 mg tablet 5 mg PO DAILY Qty: 90 1RF metformin 500 mg tablet 500 mg PO QDAY Qty: 90 1RF omeprazole 20 mg capsule,delayed release(DR/EC) 20 mg PO DAILY Qty: 90 1RF Held amlodipine 5 mg tablet 5 mg PO DAILY Hold Instructions: Resume on 01/16/23. When blood pressure improves on home checks lisinopril 20 mg tablet 20 mg PO DAILY Qty: 90 3RF Hold Instructions: Resume on 01/16/23. When blood pressure improves on home checks Discontinued oxycodone-acetaminophen [Endocet] 5-325 mg tablet 1 tab PO TID PRN (Reason: pain) 3 Days Qty: 9 0RF Referrals / Follow Up: Tavo Strange, [Primary Care Provider] - Disposition Disposition (needs filled in before D/C Order can be placed): Home, Self Care
[2023-01-15 15:32] LABS: Bedside Glucose 95 mg/dL (74-106)
[2023-01-15 15:32] LABS: Bedside Glucose 55 mg/dL (74-106)
== END 2023-01-15 14:30 | disposition home or self-care (01) | DRG 254 ==
LOC: SDC 12:45 → ICU 12:45
PROVIDERS: Anesthesiology; Admitting Provider Surgery Trauma Surgery; PCP Family Medicine; Referring Provider Surgery Trauma Surgery; Visit Provider Surgery Trauma Surgery
PROC: 047H34Z Dilation of Right External Iliac Artery with Drug-eluting Intraluminal Device, Percutaneous Approach (ICD-10-PCS; principal; 2023-01-14 07:10)
DX: I70.221 Atherosclerosis of native arteries of extremities with rest pain, right leg (principal); E11.51 Type 2 diabetes mellitus with diabetic peripheral angiopathy without gangrene; I70.212 Atherosclerosis of native arteries of extremities with intermittent claudication, left leg; I10 Essential (primary) hypertension; I95.81 Postprocedural hypotension; Z87.891 Personal history of nicotine dependence
CPT/HCPCS: 15738; 34812; 35371; 36200; 36415; 37221; 37252; 37253; 75625; 80048; 82962; 83036; 85025; 85027; 85347; 86850; 86900; 86901; 88304; 88311; 93005; 94668; 97802; 99252; 99406; A4648; C1753; C1769; C1874; C1894; J7040; J7050; J7120; Q9967; A4216; C1725; C1757; G0463; J2405

== ENCOUNTER → 2023-01-24 | Outpatient (CLI) | payer MEDICARE, OTHER, SELFPAY ==
--- NOTE | 2023-01-24 10:20 | ADUL_ITS ---
Reason For Study: S/P right femoral endarectomy, new swelling Right Velocities RN PRODUCTION, 0.76 x 0.78 cm. RN PRODUCTION, 96.6 cm/sec. SFA prox, 0.58 x 0.58 cm. SFA prox, No flow. CFV and FV are compressible with normal venous flow noted. Large nonvascularized structure noted in the right groin. No Pseudoaneurysm noted. Preliminary report given to Nelda MANDUJANO. VL/US Art Duplex Unilat Lower Ext Interpretation Summary Patent femoral vessels with no pseudoaneurysm or fistula identified. Seroma visualized superficial to vessels, 3.26 x 8.32 cm Ordering Physician: Nelda Mancilla Referring Physician: Addison Strange M.D. Performed By: Sari Howard RVT
== END | disposition home or self-care (01) ==
LOC: CVS 10:20
PROVIDERS: PCP Family Medicine; Referring Provider Surgery Trauma Surgery; Visit Provider Surgery Trauma Surgery
DX: I70.221 Atherosclerosis of native arteries of extremities with rest pain, right leg (principal)
CPT/HCPCS: 93926

== ENCOUNTER → 2023-02-11 | Outpatient (CLI) | payer MEDICARE, OTHER, SELFPAY ==
[2023-02-11 12:18] LABS: Erythrocyte Sedimentation Rate 4 mm/hr (0-30)
[2023-02-11 12:21] LABS: Absolute Lymphocyte Count 1.33 X10^3/uL (0.83-4.51); Absolute Neutrophil Count 3.9 X10^3/uL (2.0-7.7); Basophil# 0.06 X10^3/uL; Eosinophil# 0.08 X10^3/uL; Eosinophils% 1.4 % (0-5); Hematocrit 38.2 % (37-47); Hemoglobin 12.5 g/dL (12.0-15.0); Lymphocyte # 1.33 X10^3/ul (0.83-4.51); Lymphocyte % 22.6 % (19-41); Mean Corp Hgb Conc 32.7 g/dL (32-36); Mean Corpuscular Volume 97.7 fL (81-99); Mean Platelet Vol. 9.4 fl (6.2-12.0); Monocyte# 0.54 X10^3/uL; Monocyte% 9.2 % (0-10); NRBC Flagged by Analyzer 0 % (0-5); Neutrophil # 3.86 X10^3/uL (2.7-7.7); Neutrophil % 65.5 % (47-70); Platelet Count 212 K/mm3 (150-450); RBC Distribution Width CV 13.4 % (11.6-14.6); RBC Distribution Width SD 47.8 fl (35.1-43.9); Red Blood Count 3.91 M/mm3 (4.2-5.4); White Blood Count 5.9 K/mm3 (4.4-11.0)
== END | disposition home or self-care (01) ==
LOC: BIMLAB 10:00
PROVIDERS: PCP Family Medicine; Referring Provider Family Medicine; Visit Provider Family Medicine
DX: M35.3 Polymyalgia rheumatica (principal); M79.605 Pain in left leg
CPT/HCPCS: 36415; 85025; 85652

== ENCOUNTER 2023-02-28 10:51 | Emergency (ER) | payer MEDICARE, OTHER, SELFPAY ==
[2023-02-28 10:53] VITALS: BP 127/81; PULSE 99; RESP 20; TEMP 37.2; O2SAT 95
[2023-02-28 10:54] VITALS: BMI 25.6
--- NOTE | 2023-02-28 11:23 | EX.ED.VIS.UR ---
HPI HPI - URI History of Present Illness Chief Complaint: Sore Throat Detail of Chief Complaint: URI symptoms. Family member with same. Informant: patient Onset/Context/Timing Onset: Days Context: Gradual Onset Timing: Continuous Current Severity: Mild Maximum Severity: Mild Associated Symptoms Associated Symptoms: Positive for Myalgias, Diarrhea and Nonproductive cough Narrative Narrative: 77-year-old female has a nonproductive cough mild sore throat for the last 3 days. Started on Friday. Mild loose stools. Headache and chills. No vomiting. No shortness of breath. Family member with recent similar symptoms. Prior similar symptoms: Yes Recent Illness/Hospitalization: No ROS ROS ED ROS Narrative Nonproductive cough. Body aches. Sore throat. Review of Systems ROS Unobtainable: Denies due to encephalopathy Constitutional Constitutional ED: Reports chills, fever(s) and subjective Eyes Eyes: Denies blurry vision ENT ENT ED: Reports sore throat; Denies ear pain or rhinorrhea Cardiovascular Cardiovascular: Denies chest pain or palpitations Respiratory/Chest Respiratory/Chest: Reports cough Gastrointestinal Gastrointestinal: Reports diarrhea; Denies abdominal pain, nausea or vomiting Genitourinary Genitourinary ED: Denies dysuria or hematuria Musculoskeletal Musculoskeletal: Reports myalgias; Denies arthralgias Integumentary Denies abscess Neurologic Neurologic: Denies headache(s) Psychiatric Psychiatric: Denies anxiety Endocrine Endocrinology: Denies cold intolerance Hematologic/Lymphatic Hematologic/Lymphatic: Denies easy bleeding, easy bruising or lymphadenopathy Allergic/Immunologic Allergic/Immunologic ED: Denies mouth swelling, tongue swelling or urticaria [facility] Medical History Alcohol use Anxiety Back pain Cataracts, bilateral Diabetes Diarrhea Fatigue Former smoker Gastric reflux History of echocardiogram History of edema History of pain when walking History of steroid therapy History of stomach ulcers History of stress test History of ulceration Hoarseness Hypertension IBS (irritable bowel syndrome) Ingrowing nail, right great toe Leg cramps Limb weakness Migraines Neck pain Pain in left leg Pol[place] Post-menopausal Retinal tear of left eye Ruptured cervical disc Shoulder pain Syncope and collapse Type 2 diabetes mellitus Wears dentures Home Medications blood sugar diagnostic #50 ea 05/30/21 [Rx Last Taken Unknown] blood-glucose meter #1 ea 05/30/21 [Rx Last Taken Unknown] paroxetine HCl 30 mg tablet (Paxil) 30 mg PO QAM #90 tabs 06/07/22 [Rx Last Taken 01/14/23] triamterene 37.5 mg-hydrochlorothiazide 25 mg capsule 1 cap PO DAILY #90 caps 06/07/22 [Rx Last Taken Unknown] disability placard ##1 08/13/22 [Rx Last Taken Unknown] lisinopril 20 mg tablet 20 mg PO DAILY #90 tabs 10/31/22 [Rx Last Taken Unknown] metformin 500 mg tablet 500 mg PO QDAY #90 tabs 12/11/22 [Rx Last Taken 01/14/23] omeprazole 20 mg capsule,delayed release 20 mg PO DAILY #90 caps 12/11/22 [Rx Last Taken Unknown] amlodipine 5 mg tablet 5 mg PO DAILY 12/31/22 [History Last Taken 01/14/23] amlodipine 5 mg tablet 5 mg PO DAILY #90 tabs 02/25/23 [Rx Last Taken Unknown] ticagrelor 90 mg tablet (Brilinta) 90 mg PO BID #60 tabs 02/26/23 [Rx Last Taken Unknown] Allergy/AdvReac Type Severity Reaction Status Date / Time Iodinated Contrast Media Allergy Severe tongue Verified 02/28/23 10:53 [Iodinated Contrast- Oral swelled and IV Dye] Family History no significant family his Surgical History History of cholecystectomy Social History household members: none Smoking Status: Former smoker alcohol intake: never substance use type: does not use what type of physical activity do you participate in: walking frequency: daily EXAM Physical Exam Narrative Exam Narrative: Well-appearing 77-year-old female. Vital signs stable afebrile. Pulse ox 95% on room air no signs hypoxia. H EENT exam atraumatic. Pupils round reactive light. Moist mucous membranes. Posterior pharynx unremarkable. Upper dentures in place. No lower dentures at this time. TMs normal bilaterally. Neck nontender. No lymphadenopathy. No meningismus. Trachea midline. Lungs clear to auscultation bilaterally. Heart regular rhythm no murmur. Rate about 95. Back nontender. Moving all 4 extremities. Nontender no edema. Normal strength. Neurologically awake and alert. Abdomen soft, nontender, normal bowel sounds without peritoneal signs. Const Vital Signs: 02/28/23 10:53 Temperature 99 F Temperature Source Temporal Pulse Rate 99 Respiratory Rate 20 H Blood Pressure 127/81 H Blood Pressure Mean 96 Pulse Ox 95 Oxygen Delivery Method Room Air Positive well nourished and well developed; Negative for obese, cachectic or contractures General Appearance ED: well developed and NAD; Negative for cachectic, contractures, cyanotic, diaphoretic or pallor Nutritional Appearance: Negative for cachectic or obese HEENT Reports moist mucous membranes; Denies dry mucous membranes normocephalic and atraumatic; Negative for scalp tenderness Face and Sinus: Negative for sinus tenderness Mouth ED: No dry mucous membranes Mouth: No dry mucous membranes Teeth and Gingiva: Negative for caries Throat: posterior oropharynx normal; Negative for tonsils abnormal or posterior oropharynx abnormal Eyes PERRL and EOMs intact bilaterally General Eye ED: Negative for pale conjunctiva or scleral icterus Neck no lymphadenopathy, supple, no meningeal signs and no JVD General: Negative for anterior neck swelling, lymphadenopathy or other Resp normal respiratory effort and clear to auscultation bilaterally Effort and Inspection: Negative for retractions Auscultation: Negative for rales, rhonchi or wheezes Cardio S1 normal heart sound, S2 normal heart sound and no murmurs Rate: regular rate Rhythm: regular rhythm GI non-tender, non-distended and no masses Inspection: Negative for abdominal distention Auscultation: normoactive bowel sounds Palpation: soft; Negative for tender or guarding Back/Spine no CVA tenderness and normal ROM General Back: Negative for CVA tenderness Cervical Spine: Negative for cervical spine tenderness Thoracic Spine / Upper Back: Negative for thoracic spinal tenderness Lumbar Spine / Lower Back: Negative for lumbar spinal tenderness Sacrum: Negative for tenderness Extremity normal to inspection and full ROM General Extremety ED: Negative for cyanosis or tenderness General Extremity: Negative for cyanosis Neuro oriented x3 and CN's II-XII intact bilaterally Sensorium / Orientation: alert, oriented to person, oriented to place and oriented to time; Negative for orientation impaired, lethargic or stuporous Sensory Exam: No sensory level loss detected Motor Exam: strength 5/5 throughout Psych mental status grossly normal Appearance: Negative for other Attitude: No agitated Mood & Affect: Negative for depressed, anxious or tearful Skin General Skin Exam: Negative for jaundice or pallor Lesions: no lesions Rashes: no rashes and No rashes noted Trauma: Negative for abrasion or laceration MDM MDM MDM Narrative Medical decision making narrative: 77-year-old female with viral URI symptoms. We discussed testing she deferred at this time. She does not need a chest x-ray her lungs are clear. Rest her exam is benign. Fluids and rest. Tylenol. Follow-up if not improving. Patient and family are comfortable with the plan. History & Record Review Discussion w/independent historian: Patient Additional record(s) reviewed:: Prior inpatient record, Prior outpatient record, Prior ED visit and Prior labs Discharge Plan Triage Chief Complaint: Sore Throat ED Provider: Larry Valencia Dx/Rx/DC Orders Clinical Impression: Viral syndrome Instructions: ED Viral Syndrome (Adult) Prescriptions: No Action (DME) blood sugar diagnostic Strip See Rx Instructions .ROUTE .MEDSUPPLY Qty: 50 2RF Rx Instructions: USE DIRECTED TO CHECK BLOOD GLUCOSE ONCE DAILY FOR TYPE 2 DM (DME) blood-glucose meter Misc See Rx Instructions .ROUTE .MEDSUPPLY Qty: 1 0RF Rx Instructions: USE TO CHECK BLOOD GLUCOSE ONCE DAILY FOR TYPE 2 DM (DME) disability placard 0 .Route .MEDSUPPLY Qty: 1 0RF Rx Instructions: Duration 5 years. amlodipine 5 mg tablet 5 mg PO DAILY Hold Instructions: Resume on 01/16/23. When blood pressure improves on home checks paroxetine HCl [Paxil] 30 mg tablet 30 mg PO QAM Qty: 90 3RF triamterene-hydrochlorothiazid 37.5-25 mg capsule 1 cap PO DAILY Qty: 90 3RF lisinopril 20 mg tablet 20 mg PO DAILY Qty: 90 3RF Hold Instructions: Resume on 01/16/23. When blood pressure improves on home checks metformin 500 mg tablet 500 mg PO QDAY Qty: 90 1RF omeprazole 20 mg capsule,delayed release(DR/EC) 20 mg PO DAILY Qty: 90 1RF amlodipine 5 mg tablet 5 mg PO DAILY Qty: 90 1RF Brilinta 90 mg tablet 90 mg PO BID Qty: 60 0RF Primary Care Provider: Tavo Strange Referrals: Tavo Strange, DO [Primary Care Provider] - 1 Week if not improving Activity Restrictions/Additional Instructions: Plenty of fluids and rest. Tylenol for body aches and fevers. Follow-up with your doctor if not improving. Disposition Disposition: Home, Self Care
== END 2023-02-28 11:34 | disposition home or self-care (01) ==
LOC: ED 11:34
PROVIDERS: Emergency Provider Emergency Medicine; PCP Family Medicine; Visit Provider Emergency Medicine
DX: B34.9 Viral infection, unspecified (principal); E11.9 Type 2 diabetes mellitus without complications; Z87.891 Personal history of nicotine dependence; I10 Essential (primary) hypertension; F41.9 Anxiety disorder, unspecified; Z79.899 Other long term (current) drug therapy; Z79.84 Long term (current) use of oral hypoglycemic drugs; K21.9 Gastro-esophageal reflux disease without esophagitis
CPT/HCPCS: 99282

== ENCOUNTER → 2023-03-12 | Outpatient (CLI) | payer MEDICARE, OTHER, SELFPAY ==
--- OUTSIDE RECORDS SUMMARY | 2023-03-12 15:34 | XMS RPT_ITS | CCD ---
Author Name Unknown Address [address] [place] [address] Organization [facility] Results Test Name Value Interpretation Reference Range Facil ity Summary Purpose Family History No Family History Records Found Advance Directives No Advanced Directives Records Found Additional Source Comments INFORMATION SOURCE (unrecogn ized section and content) FOR RECORDS PERTAINING TO PATIENTS WHO ARE OR HAVE BEEN ENROLLED IN A CHEMICAL DEPENDENCY/SUBSTANCEABUSE PROGRAM, SOME INFORMATION MAY BE OMITTED. This clinical summary was aggregated from multiple sources. Caution should be exercised in using it in the provision of clinical care. This summary normalizes information from multiple sources, and as a consequence, information in this document may materially change the coding, format and clinical context of patient data. In addition, data may be omitted in some cases. CLINICAL DECISIONS SHOULD BE BASED ON THE PRIMARY CLINICAL RECORDS. [employer] provides no warranty or guarantee of the accuracy or completeness of information in this document.
== END | disposition home or self-care (01) ==
PROVIDERS: PCP Family Medicine; Visit Provider Family Medicine
DX: J20.9 Acute bronchitis, unspecified (principal); J42 Unspecified chronic bronchitis
CPT/HCPCS: 87631

== ENCOUNTER → 2023-03-24 | Outpatient (CLI) | payer MEDICARE, OTHER, SELFPAY ==
--- NOTE | 2023-03-24 14:31 | ART_ITS ---
Reason For Study: S/P BLE Iliac Stents Procedure A bilateral lower extremity continuous wave Doppler with analog waveform analysis,segmental pressures,and ankle brachial indexes without exercise. Left Segmental Pressures Left brachial= 123mmHg. Left thigh = 98mmHg. Left calf = 72mmHg. Left posterior tibial artery = 63mmHg. Left dorsalis pedis artery = 60mmHg. Left digit = 24 mmHg. The left posterior tibial artery waveforms are monophasic. The left dorsalis pedis waveforms are monophasic. Right Segmental Pressures Right brachial= 115mmHg. Right thigh = 70mmHg. Right calf = 75mmHg. Right dorsalis pedis artery = 46mmHg. Unable to acquire WALL TAPER and Digit pressure. Absent waveform/pulse. The right dorsalis pedis waveforms are monophasic. Indices The right ankle brachial index by the posterior tibial artery is Absent. The right ankle brachial index by the dorsalis pedis is 0.37. The right digital-brachial index is Absent. The left ankle brachial index by the posterior tibial artery is 0.51. The left ankle brachial index by the dorsalis pedis is 0.49. The left digital-brachial index is 0.20. VL/Lower Ext Art Exam w/o Exercis Interpretation Summary Right HUBERT 0.37, severe arterial insufficiency. Doppler/PVR waveforms and segmen manuel pressures reveal [id number] femoral, infrapopliteal disease Left HUBERT 0.51, moderate arterial insufficiency. Doppler/PVR waveforms and segme ntal pressures reveal [id number] femoral, distal SFA/popliteal disease Ordering Physician: Nelda Mancilla Referring Physician: Addison Strange M.D. Performed By: Parish Holly RVT
--- OUTSIDE RECORDS SUMMARY | 2023-03-24 14:52 | XMS RPT_ITS | CCD ---
Author Name Unknown Address [address] [place] [address] Organization [facility] Results Test Name Value Interpretation [...] BE BASED ON THE PRIMARY CLINICAL RECORDS. Se[employer]. provides no warranty or guarantee of the accuracy or completeness of information in this document.
== END | disposition home or self-care (01) ==
LOC: CVS 14:29
PROVIDERS: PCP Family Medicine; Referring Provider Physician Assistant; Visit Provider Physician Assistant
DX: I73.9 Peripheral vascular disease, unspecified (principal)
CPT/HCPCS: 93923

== ENCOUNTER → 2023-04-28 | Outpatient (CLI) | payer MEDICARE, OTHER, SELFPAY ==
--- NOTE | 2023-04-28 14:54 | CT_ITS ---
CT angiogram of the abdominal aorta with bilateral lower extremity runoff with 3-dimensional reconstructions, with MIP reconstructions Clinical history: s/p R fem endary, bilat iliac stents Technique: Multiple helical CT images were obtained from the domes the diaphragms to level of feet after intravenous administration of iodinated contrast with transaxial, coronal and sagittal multiplanar reconstructions. On a separate workstation, 3-dimensional reconstructions were obtained of the arterial vasculature using volume rendering technique and maximal intensity projection technique as per departmental protocol. This CT exam has been performed using low dose vendor recommended protocols to limit radiation exposure to As Low As Reasonably Achievable. RADIATION DOSAGE (If Supplied By Facility): CTDIvol = ( 6.74 ) mGy, DLP = ( 1409.91 ) mGycm COMPARISON: Prior study dated: 11/14/2022 FINDINGS: ABDOMEN / PELVIS: Mild hepatic steatosis.. The visualized portions of the spleen and pancreas appear to be within normal limits. Status post cholecystectomy.. Atrophic right kidney. No evidence of hydronephrosis.. Distended stomach. No evidence of bowel obstruction. Unremarkable appendix. Mild diverticulosis without evidence of acute diverticulitis.. No pelvic mass is seen.. VASCULAR STRUCTURES: Atherosclerotic calcifications of the abdominal aorta without evidence of aneurysm.. Mild atherosclerotic calcifications at the origin of the SMA and celiac axis unchanged. Unremarkable left renal artery. Small right renal artery. There appears to be good opacification and patency noted of the inferior mesenteric artery. ARTERIAL STRUCTURES OF THE RIGHT LOWER EXTREMITY: Common iliac artery: New iliac stent extending from the proximal right common iliac artery to the origin of the right common femoral artery. External iliac artery: Stent is seen. Atherosclerotic calcifications distally. Internal iliac arteries: Diffuse atherosclerotic calcifications with mild to moderate spinal stenosis.. Common femoral artery: Patent with no significant stenosis. Superficial femoral arteries: Persistent occlusion of the superficial femoral artery from its origin. Popliteal artery: Reconstituted popliteal artery with scattered calcifications unchanged. Anterior tibial artery: The visualized anterior tibial artery scattered areas of significant narrowing. The dorsalis pedis artery is patent. Posterior tibial artery: Appears patent with good opacification. Peroneal artery: Not visualized. ARTERIAL STRUCTURES OF THE LEFT LOWER EXTREMITY: Common iliac artery: Left common iliac stent new since the previous exam appears to be patent. External iliac artery: Stent extends to the external iliac artery. Internal iliac arteries: Atherosclerotic calcifications with significant stenosis distally. Common femoral artery: Atherosclerotic calcifications and moderate stenosis. Superficial femoral arteries: Occluded left superficial femoral artery from its origin reconstituted distally just proximal to the popliteal artery. Popliteal artery: Atherosclerotic calcifications with moderate stenosis.. Anterior tibial artery: Visualization of the anterior tibial artery to the level of the dorsalis pedis. Posterior tibial artery: Only visualized proximally. Peroneal artery: Not visualized.. CT/CTA Abd w/Runoff W/WO Contrast IMPRESSION: 1. Status post bilateral iliac and right common femoral stents. 2. 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 3. Single vessel runoff to each lower leg as described above. Electronically Signed: Hiren Sanchez MD at 9:43 EST ,
[2023-04-28 16:58] LABS: CREATININE FINGERSTICK 1.6 mg/dL (0.55-1.02)
== END | disposition home or self-care (01) ==
LOC: CT 14:52
PROVIDERS: PCP Family Medicine; Referring Provider Physician Assistant; Visit Provider Physician Assistant
DX: I70.219 Atherosclerosis of native arteries of extremities with intermittent claudication, unspecified extremity (principal)
CPT/HCPCS: 75635; Q9967

== ENCOUNTER 2023-05-28 08:56 | Day surgery (SDC) | payer MEDICARE, OTHER, SELFPAY ==
[2023-05-15 09:25] VITALS: BMI 25.9
[2023-05-15 09:43] LABS: Hematocrit 35.8 % (37-47); Hemoglobin 11.9 g/dL (12.0-15.0); Mean Corp Hgb Conc 33.2 g/dL (32-36); Mean Corpuscular Hgb 30.4 pg (27.0-32.0); Mean Corpuscular Volume 91.3 fL (81-99); Mean Platelet Vol. 8.9 fl (6.2-12.0); Platelet Count 253 K/mm3 (150-450); RBC Distribution Width CV 13.2 % (11.6-14.6); RBC Distribution Width SD 43.8 fl (35.1-43.9); Red Blood Count 3.92 M/mm3 (4.2-5.4); White Blood Count 7.4 K/mm3 (4.4-11.0)
[2023-05-15 09:51] LABS: Anion Gap 9 (5-15); BUN 25 mg/dL (7-18); BUN/Creat Ratio 13.4 RATIO (10-20); Calcium,Total 9.6 mg/dL (8.5-10.1); Chloride 105 mmol/L (98-107); Creatinine, Serum 1.86 mg/dL (0.55-1.02); EST Glomerular Filtration Rate 28 mL/min (>60); Est Glom Filt Rate - Afr Amer 34 mL/min (>60); Estimated Creatinine Clearance 26.32 ml/min; Glucose 341 mg/dL (74-106); Potassium 4.5 mmol/L (3.5-5.1); Sodium Level 136 mmol/L (136-145)
--- NOTE | 2023-05-15 11:47 | NURSING ---
0930- Pt. arrived to facility for scheduled procedure with Dr. Knutson. Upon medication review Pt reported that she took her prescribed Metformin, MD notified. MD awaited results of creatinine and GFR. GFR results were 28ml/min and creatinine 1.86 mg/dL. MD cancelled procedure. RN notified and educated patient regarding need to reschedule. RN notified MD office that she needs to be rescheduled for a later date. RN educated patient on what medications not to take morning of procedure when rescheduled.
--- NOTE | 2023-05-28 11:58 | OP.PCM_ITS ---
Report of Operation Date of Procedure: 05/28/23 Pre-Operative Diagnosis: atherosclerosis platinum arteries with claudication, rig ht lower extremity Post-Operative Diagnosis: same Surgery/Procedure Performed:: aortogram, RLE runoff IVUS right common femoral, external iliac, common iliac Surgeon: Dallin Knutson Type of Anesthesia: Local and Sedation,Conscious Estimated Blood Loss (mL): 7 Description of Procedure: HPI: Patient is a 77-year-old female with lifestyle limiting lower extremity claudication bilaterally worse on the right than on the left. She previous underwent a right common femoral endarterectomy, profundoplasty, external iliac artery stenting. This temporarily improved her symptoms however she has had worsening claudication. Imaging suggested that her previous vascular interventions were intact however she did have a long SFA popliteal occlusion with distal popliteal reconstitution. She is taken now for angiogram with possible intervention. The tibial vessels were poorly visualized so in addition to revascularization efforts we will further assess the infrapopliteal vessels. Description of procedure: Upon obtaining form consent and verification correct patient procedure site patient was taken to the [facility] where she was positioned prepped and draped in usual sterile fashion. Time was performed and conscious sedation administered Versed and fentanyl. Skin overlying the left common femoral artery was anesthetized 1% lidocaine vessel accessed with a micropuncture needle wire and under ultrasound guidance. This was exchanged out for micropuncture sheath routine injection iliofemoral angiogram performed revealed satisfactory placement no extravasation dissection. Through the micropuncture sheath a Bentson wire is advanced into the abdominal aorta and the micro sheath exchanged for a short 6 Peruvian sheath. Through the 6 [place]uvian sheath and Omni Flush catheter advanced into the aorta and digital subtraction aortogram pelvic angiogram was performed. We then navigated into the contralateral iliac system advancing our cath into the distal external leg artery. From this position sequential subtraction angiography the right lower extremity is performed. Through the Omni Flush catheter a Bentson wire was advanced in the short 6 [place]uvian sheath exchanged out for a 6 [place]uvian Ansell sheath advanced in the position in the distal contralateral iliac artery. Patient was then heparinized and allowed to circulate for 3 minutes. Through the 6 [place]uvian sheath utilizing various combinations of wires and catheters we attempted to engage the proximal SFA and initiate crossing of the lesion. There was significant hard plaque which did not permit initiation of lesion crossing despite multiple efforts. Escalating wire stiffness we have made further efforts with no success. There was poor visualization of the iliac artery superficial to the previous stent so a 6 [place]uvian intravascular ultrasound probe was advanced over the wire and recorded pullback performed of the right common femoral, right external carotid, right common iliac artery. This revealed no stenosis at the leading edge of the stent so no intervention of the iliac was performed. A long 6 [place]uvian sheath and exchanged out for a short 6 [place]uvian sheath and a minx closure device deployed followed by 2 minutes of manual pressure. Patient was then taken the recovery room with anticipated discharged home. Radiograph interpretation: Aorta normal caliber with no stenosis mild scattered atherosclerosis. Left common and external iliac arteries patent with mild scattered atherosclerosis but no stenosis. Previous left external iliac artery stent patent left common femoral artery patent mild atherosclerosis but no stenosis. Profundofemoral artery normal caliber stenosis at origin. SFA occluded just beyond its ostia. Right common and external iliac arteries patent with no significant atherosclerosis or stenosis. Prior right external iliac artery stent patent. Right common femoral artery prior endarterectomy widely patent with no restenosis. Profundofemoral artery widely patent prior endarterectomy with no significant stenosis. Superficial femoral artery occlusion at ostia with reconstitution of the distal popliteal artery. Tibioperoneal trunk patent with no significant atherosclerosis or stenosis, posterior tibial artery occluded proximally with reconstitution at ankle, peroneal artery large-caliber vessel patent to the ankle where it terminated and gave rise to collateral branch to the anterior tibial at the ankle. Anterior tibial artery disease small caliber vessel proximally with occlusion in the mid lower leg.
== END 2023-05-28 15:48 | disposition home or self-care (01) ==
PROVIDERS: PCP Family Medicine; Referring Provider Family Medicine; Visit Provider Surgery Trauma Surgery
DX: I70.221 Atherosclerosis of native arteries of extremities with rest pain, right leg (principal); E11.9 Type 2 diabetes mellitus without complications; I70.213 Atherosclerosis of native arteries of extremities with intermittent claudication, bilateral legs; K21.9 Gastro-esophageal reflux disease without esophagitis; I10 Essential (primary) hypertension; Z87.891 Personal history of nicotine dependence; Z90.49 Acquired absence of other specified parts of digestive tract
CPT/HCPCS: 36200; 36245; 36415; 37252; 37253; 75625; 75710; 76937; 80048; 85027; 99152; 99153; C1760; C1769; C1894; J7040; Q9967; C1887

== ENCOUNTER → 2023-06-03 | Outpatient (CLI) | payer MEDICARE, OTHER, SELFPAY ==
--- NOTE | 2023-06-03 10:04 | VDLE_ITS ---
Reason For Study: PRE-OP BPG RIGHT LEFT GSV Prox Thigh - 0.60cm x 0.67cm GSV Prox Thigh - 0.53cm x 0.56cm GSV Mid Thigh- 0.61cm x 0.62cm GSV Mid Thigh- 0.53cm x 0.59cm GSV Dist Thigh - 0.57cm x 0.63cm GSV Dist Thigh - 0.52cm x 0.52cm GSV KNEE - 0.59cm x 0.64cm GSV KNEE - 0.46cm x 0.50cm GSV Prox Calf - 0.22cm x 0.25cm GSV Prox Calf - 0.43cm x 0.49cm GSV Mid Calf - 0.19cm x 0.23cm GSV Mid Calf - 0.22cm x 0.25cm GSV Dist Calf - 0.23cm x 0.29cm GSV Dist Calf - 0.19cm x 0.24cm ASV Prox Calf - 0.33cm x 0.36cm ASV Prox Calf - 0.32cm x 0.34cm ASV Mid Calf - 0.42cm x 0.44cm SSV Prox Calf - 0.11cm x 0.13cm SSV Prox Calf - 0.23cm x 0.24cm SSV Mid Calf - 0.24cm x 0.28cm SSV Mid Calf - 0.26cm x 0.30cm SSV Dist Calf - 0.22cm x 0.25cm SSV Dist Calf - 0.21cm x 0.25cm GSV/ASV/SSV appear patent and compressible. GSV/ASV/SSV appear patent and compressible. Procedure This is a venous duplex using B-mode, color flow and spectral Doppler. Exam performed in department. The exam was diagnostic. Patient was scanned in reverse Trendelenburg position during reflux assessment. VL/Saphenous Vein Mapping, Bilat Interpretation Summary Right great saphenous vein patent with measurements above. Accessory saphenous vein noted with measuremnts above Left great saphenous vein patent with measurements above. Accessory saphenous v ein noted with measuremnts above Right small saphenous vein patent with measurements above. Left small saphenous vein patent with measurements above. Ordering Physician: Nelda Mancilla Referring Physician: Tavo Strange Performed By: Parish Holly RVT
== END | disposition home or self-care (01) ==
LOC: CVS 10:03
PROVIDERS: PCP Family Medicine; Referring Provider Physician Assistant; Visit Provider Physician Assistant
DX: M79.605 Pain in left leg (principal); Z48.812 Encounter for surgical aftercare following surgery on the circulatory system; I70.219 Atherosclerosis of native arteries of extremities with intermittent claudication, unspecified extremity
CPT/HCPCS: 93970

== ENCOUNTER 2023-06-17 05:27 | Inpatient (IN) | payer MEDICARE, OTHER, SELFPAY ==
[2023-06-16 13:17] LABS: Hemoglobin A1c 7.4 % (3.8-5.6)
[2023-06-17] VITALS (20 sets, daily range): BP systolic 86–175; BP diastolic 44–122; PULSE 84–106; RESP 11–18; TEMP 36.2–37.2; O2SAT 92–99; BMI 26.9
[2023-06-17] MEDS: Lactated Ringers 1,000 ML 15 ML IV ×2 (06:14→16:31)
[2023-06-17 06:53] LABS: Bedside Glucose 155 mg/dL (74-106)
--- NOTE | 2023-06-17 07:33 | HP.PCM_ITS ---
History and Physical Allergies Iodinated Contrast Media [Iodinated Contrast- Oral and IV Dye] Allergy (Severe, Verified 06/11/23 10:45) tongue swelled Medications blood sugar diagnostic #50 ea 05/30/21 [Rx Confirmed 06/11/23] blood-glucose meter #1 ea 05/30/21 [Rx Confirmed 06/11/23] paroxetine HCl 30 mg tablet (Paxil) 30 mg PO QAM #90 tabs 06/07/22 [Rx Confirmed 06/11/23] triamterene 37.5 mg-hydrochlorothiazide 25 mg capsule 1 cap PO DAILY #90 caps 06/07/22 [Rx Confirmed 06/11/23] disability placard ##1 08/13/22 [Rx Confirmed 06/11/23] lisinopril 20 mg tablet 20 mg PO DAILY #90 tabs 10/31/22 [Rx Confirmed 06/11/23] metformin 500 mg tablet 500 mg PO QDAY #90 tabs 12/11/22 [Rx Confirmed 06/11/23] omeprazole 20 mg capsule,delayed release 20 mg PO DAILY #90 caps 12/11/22 [Rx Confirmed 06/11/23] amlodipine 5 mg tablet 5 mg PO DAILY #90 tabs 02/25/23 [Rx Confirmed 06/11/23] prednisone 10 mg tablet 10 mg PO DIRECTED #12 tabs 03/12/23 [Rx Confirmed 06/11/23] clopidogrel 75 mg tablet (Plavix) 75 mg PO DAILY #30 tabs 03/21/23 [Rx Confirmed 06/11/23] cilostazol 100 mg tablet 100 mg PO BID #60 tabs 05/06/23 [Rx Confirmed 06/11/23] nitroglycerin 2 % transdermal ointment (Nitro-Bid) 1 inch transdermal BID #30 grams 05/06/23 [Rx Confirmed 06/11/23] diphenhydramine HCl 50 mg capsule 50 mg PO ONCE #1 cap 05/15/23 [Rx Confirmed 06/11/23] prednisone 50 mg tablet 50 mg PO Q6H 3 doses #3 tabs 05/15/23 [Rx Confirmed 06/11/23] tramadol 50 mg tablet 50 mg PO Q6H PRN PRN pain 14 days #56 tabs 06/04/23 [Rx Confirmed 06/11/23] PFSH Medical History Alcohol use Anxiety Back pain Cataracts, bilateral Diabetes Diarrhea Fatigue Former smoker Gastric reflux History of echocardiogram History of edema History of pain when walking History of steroid therapy History of stomach ulcers History of stress test History of ulceration Hoarseness Hypertension IBS (irritable bowel syndrome) Ingrowing nail, right great toe Leg cramps Limb weakness Migraines Neck pain Pain in left leg [place] Post-menopausal Retinal tear of left eye Ruptured cervical disc Shoulder pain Syncope and collapse Type 2 diabetes mellitus Wears dentures Surgical History History of cholecystectomy Social History household members: none Smoking Status: Former smoker alcohol intake: never substance use type: does not use what type of physical activity do you participate in: walking frequency: daily HPI HPI HPI: ROSEMARY HELMS, is a 77 F who presents to the office today for follow-up after diagnostic angiogram on 05/28/23. The angiogram was performed secondary to her lifestyle-limiting claudication R>L. She previously had R common femoral endarterectomy, profundoplasty, and external iliac artery stenting which only temporarily improved her symptoms. Imaging prior to the angiogram had shown these interventions to be intact, but also showed a known SFA/pop occlusion with distal popliteal reconstitution and poorly visualized the tibial vessels. Angiogram confirmed widely patent R femoral artery and profundofemoral artery without re-stenosis, SFA occlusion with reconstitution of the distal popliteal artery, patent TP trunk, PT occluded proximally with reconsitution at the ankle, patent peroneal, and some stenosis of the AT. The SFA/pop lesion was not able to be crossed so no intervention was achieved. Patient reports that her LLE has continued to worsen and is now present at times of rest, especially at night. She cannot lie flat in bed, she has to sleep in a chair so her leg can dangle. She is having difficulty managing the pain. She is taking pletal and tramadol as prescribed to manage. She tried the nitro paste for her toes but it didn't seem to help. She does get some relief with heat ap plication. She does not have any wounds or areas of skin breakdown. No issues at the groin access site. ROS General General: Yes weight change and weakness; No appetite, fatigue, colon cancer or breast cancer HEENT HEENT: No difficulty swallowing, eye injury, eye surgery, swollen glands or hoarseness Endo Endocrine: Yes diabetes mellitus; No thyroid disease, thyroid cancer, Hair loss, heat intolerance or cold intolerance Skin Skin: No rash or changing moles Musc Musculoskeletal: Yes back problems; No arthritis, rheumatoid arthritis, gout or joint pain Cardio Cardiovascular: Yes murmur and high blood pressure; No pacemaker, heart disease, atrial fibrillation, heart attack, heart stent, palpitations, shortness of breat with exertion or chest pain Psych Psychiatric: Yes anxiety; No depression or hearing voices Resp Respiratory: No shortness of breath, No sleep apnea, No cough, No COPD, No asthma, No emphysema and No wheezing Gastro Gastrointestinal: No abdominal pain, No nausea or vomiting, No diarrhea, No constipation, No blood in stool, No acid reflux, No hemorrhoids, No ulcers, No gallbladder problem and No black,tarry stools Daren Hematologic: Yes blood thinners, No blood disorders, No bleeding, No anemia and No blood clots Neuro Neurologic: No system reviewed and no additional complaints, except as documented, No as per HPI, No abnormal gait, No abnormal hearing, No abnormal movements, No abnormal speech, No behavioral changes, Yes burning sensations, No confusion, No convulsions, Yes disequilibrium, Yes dizziness, No localized weakness, No frequent falls, No headache(s), No lack of coordination, No loss of vision, No memory loss, Yes numbness, No other visual disturbances, Yes radicular pain, No restless legs, No sensory deficit, No syncope, Yes tingling, No tremor(s), Yes weakness and No other Exam Const General: cooperative, healthy appearing, comfortable, no acute distress and well developed Nutritional Appearance: well nourished Orientation: alert, awake and oriented x3 [facility] Head: normocephalic and atraumatic Ears: hearing grossly normal bilaterally Nose: external nose normal Eyes General: appearance normal, both eyes and all related structures EOM: EOM intact bilaterally Neck Neck: normal visual inspection and trachea midline Resp Effort & Inspection: normal respiratory effort, able to speak in complete sentences, symmetric chest movement, no audible wheezes, not labored, no stridor and no use of accessory muscles Cardio Rate: regular rate Rhythm: regular rhythm Pulses: brachial pulses present and radial pulses present Skin General: no rashes or lesions noted Wounds: no wounds Neuro Cranial Nerves: CN's II-XI intact bilaterally and EOM intact bilaterally Speech: speech normal Gait: normal gait Motor: strength 5/5 throughout Sensory Exam: no sensory deficits noted Extremities Pulses: Absent: Right Dorsalis Pedis Pulse (monophasic), Left Dorsalis Pedis Pulse (monophasic), Right Posterior Tibial Pulse (monophasic) and Left Posterior Tibial Pulse (monophasic) Lower Extremity Edema: None: Left and Trace: Right Additional Details: Dependent rubor noted to the R toes/dorsum of the foot. Psych Appearance: grossly normal and well kempt Mental Status: mental status grossly normal Mood: congruent mood Speech and Movement: speech and movement normal Thought Content: normal Judgment: judgment good Coding Level of Care Code Off vis,est,level 3 Diagnoses Atherosclerosis of [place] arteries of extremities with rest pain, right leg I70.221 Assessment and Plan Assessment and Plan (1) Atherosclerosis of [place] arteries of extremities with rest pain, right leg: Status: Chronic -right fem-pop bypass
[2023-06-17] MEDS: Cefazolin 2 GM in 0.9% Normal Saline (100mL Bag) 100 ML IV (07:40)
[2023-06-17] MEDS: Heparin 10,000 UNITS/10 ML Vial 10000 UNITS (08:22)
[2023-06-17] MEDS: Heparin Injection (Vial) 5,000 UNIT/ML VIAL 5000 UNIT (08:22)
[2023-06-17 15:09] LABS: ACT Activated Clotting Time 232 sec (74-137)
[2023-06-17 15:09] LABS: ACT Activated Clotting Time 238 sec (74-137)
[2023-06-17 15:10] LABS: ACT Activated Clotting Time 220 sec (74-137)
[2023-06-17 15:10] LABS: ACT Activated Clotting Time 238 sec (74-137)
--- NOTE | 2023-06-17 15:10 | OP.PCM_ITS ---
Report of Operation Date of Procedure: 06/17/23 Pre-Operative Diagnosis: atherosclerosis with rest pain, right lower extremity Post-Operative Diagnosis: same Surgery/Procedure Performed:: right femoral-peroneal bypass with non-reversed GSV Surgeon: Dallin Knutson Type of Anesthesia: General Estimated Blood Loss (mL): 250 Description of Procedure: HPI: Patient is a 77-year-old female with atherosclerosis and rest pain the right lower extremity. She previously underwent femoral endarterectomy and iliac stenting with temporary resolution of her rest pain however she had worsening symptoms over the last several months. Imaging revealed more extensive occlusion of her SFA popliteal vessels which previously had only short segment occlusion. After failed endovascular efforts she is taken now for femoral-popliteal bypass with saphenous vein. Description of procedure: Upon obtaining informed consent and verification correct patient procedure site patient taken to the operating where she was placed under general anesthesia. She was then positioned prepped and draped in you sterile fashion a time was performed. The previous oblique incision was opened above electrocautery to dissect through the subcutaneous tissue and self- retaining retractor put in position. Further dissection carried down to the sartorius muscle that had previously been transposed over the femoral vessels. This was then freed along its medial edge and retracted laterally. Sharp dissection used dissect free the common femoral artery. There was very intense scar surrounding the entirety of the vessel which created significant delay in dissecting successfully. Ultimately were able to side dissected free proximally enough to clamp above the bifurcation and perform anastomosis. Dissection carried down onto the proximal SFA and profunda until there was adequate room for distal clamp. Next longitudinal incision made in the calf 2 fingerbreadths medial to the tibia and Bovie electrocautery was dissect down through subcutaneous tissue. Care was taken to identify and protect the saphenous vein which we plan to use for bypass. Dissection was then carried down to the fascia the fascia incised. Retractors then put deeper in the wound and the gastrocnemius muscle retracted posteriorly. Sharp dissection was then used to dissect down to the popliteal vessels. Upon counting the popliteal artery there was more significant atherosclerotic burden than expected based on angio and CT imaging. The vessel was dissected free proximal and distal and despite this we are unable to find a position that afforded a soft target for anastomosis. We then extended our incision distally and carried our dissection down onto the tibioperoneal trunk and ultimately on the peroneal artery which was noted to be her dominant runoff to the foot. The proximal peroneal artery was then dissected free circumferentially and a right angle used to place Vesseloops. Next the great saphenous vein was harvested via skip incisions along the thigh and into the distal calf. Once a satisfactory length of vein had been exposed to the side branches were ligated with silk ties and divided. A tunneler was then used to tunnel from the calf incision to the femoral incision the patient was then heparinized allowed to circulate for 3 minutes. Further heparin dosing was then performed based on ACT results. The saphenous vein was then ligated distally with silk ties and then extracted through the skip incisions up to the femoral incision. The saphenofemoral junction was then crossclamped and the vein divided beyond the clamp and placed in heparinized saline. Saphenofemoral junction oversewn with 5-0 Prolene in running fashion. Next the saphenous vein was then flushed with heparinized saline and sidebranches reinforced as needed. Given the size of the vein comparative to the target vessels a nonreversed orientation was selected with plans to tunnel anatomically. The common femoral artery was then occluded proximal and distal and longitudinal arteriotomy created 11 blade extended with Hopkins scissors. The vein was then beveled to match the arteriotomy and anastomosis performed using 6-0 Prolene in running fashion. After completing the suture line clamps removed and satisfactory stasis was noted. There is a bounding pulse into the bypass graft which was then clamped at its origin and then marked to maintain orientation. A valvulotome was then advanced from the distal end of the bypass and then pulled through for 2 passes after which time there was brisk pulsatile flow through the bypass and out the outflow. The conduit was then secured to the tunneler and pulled through to the distal incision. The peroneal artery was then occluded with Vesseloops longitudinal arteriotomy was created with 11 blade and extended with Hopkins scissors. Vein was then cut to length and beveled to match the arteriotomy after which a 7-0 Prolene was used to perform the anastomosis. Prior to completing the anastomosis the vessels back flushed and after completing the anastomosis satisfactory stasis was noted. There is a palpable pulse in the bypass graft and into the outflow vessel. The vessels were interrogated Doppler and found to be patent with low resistance signal both in the bypass in the peroneal artery distally. Heparin was then reversed with protamine and the incisions were then closed. The calf and groin incision closed with 2-0 Vicryl, 3-0 Vicryl, 4-0 Monocryl and Dermabond for the skin. The vein harvest sites were then closed with 3-0 Vicryl and 4-0 Monocryl then Dermabond. Patient was then awakened anesthesia taken recovery room with dissipate admission to the intensive care unit and vascular monitoring.
[2023-06-17 16:41] LABS: Bedside Glucose 245 mg/dL (74-106)
[2023-06-17] MEDS: 0.9% Normal Saline (500mL Bag) 500 ML 999 ML IV (16:57)
[2023-06-17] MEDS: Albumin Human 25% (100 mL) 25 GM/100 ML BAG IV ×2 (17:03→18:06)
[2023-06-17] MEDS: oxyCODONE 5 MG Tablet PO (18:13)
[2023-06-17] MEDS: 0.45% Normal Saline 1,000 ML 100 ML IV (18:20)
[2023-06-17] MEDS: Acetaminophen 500 MG Tablet 1000 MG PO (21:31)
[2023-06-17] MEDS: HEPARIN/D5w 25,000 UNITS 25,000 UNITS/250 ML IV.SOLN. 5 UNITS CONT INF (21:32)
[2023-06-17] MEDS: TICAGRELOR 90 MG TABLET PO (21:32)
[2023-06-17] MEDS: Cilostazol 50 MG Tablet 100 MG PO (21:32)
[2023-06-17] MEDS: Insulin Lispro 100 UNIT/ML INSULN.PEN SC (21:33)
[2023-06-17] MEDS: 0.9% Saline Lock 10 ML Syringe IV (21:33)
[2023-06-17] MEDS: HYDROmorphone 1 MG/ML Syringe IV (21:46)
[2023-06-17 21:51] LABS: International Normalized Ratio 1.2; Prothrombin Time (Protime)PT. 14.9 SECONDS (11.7-14.9)
[2023-06-17 21:52] LABS: Partial Thromboplast Time 26.4 Seconds (24.1-36.2)
[2023-06-18] VITALS (33 sets, daily range): BP systolic 83–141; BP diastolic 42–66; PULSE 83–113; RESP 12–20; TEMP 36.6–37.1; O2SAT 91–100; BMI 29.0
[2023-06-18] MEDS: 0.45% Normal Saline 1,000 ML 100 ML IV ×2 (04:15→15:15)
[2023-06-18] MEDS: oxyCODONE 5 MG Tablet PO ×2 (04:25→17:19)
[2023-06-18] MEDS: Acetaminophen 500 MG Tablet 1000 MG PO ×3 (06:19→20:06)
[2023-06-18 06:33] LABS: Partial Thromboplast Time 32.2 Seconds (24.1-36.2)
[2023-06-18 06:42] LABS: Absolute Lymphocyte Count 1.18 X10^3/uL (0.83-4.51); Absolute Neutrophil Count 3.9 X10^3/uL (2.0-7.7); Basophil# 0.02 X10^3/uL; Basophil% 0.3 % (0-1); Eosinophil# 0.01 X10^3/uL; Eosinophils% 0.2 % (0-5); Hematocrit 24.1 % (37-47); Hemoglobin 7.7 g/dL (12.0-15.0); Lymphocyte # 1.18 X10^3/ul (0.83-4.51); Lymphocyte % 20.5 % (19-41); Mean Corpuscular Hgb 30.6 pg (27.0-32.0); Mean Corpuscular Volume 95.6 fL (81-99); Mean Platelet Vol. 9.6 fl (6.2-12.0); Monocyte# 0.66 X10^3/uL; Monocyte% 11.5 % (0-10); NRBC Flagged by Analyzer 0 % (0-5); Neutrophil # 3.88 X10^3/uL (2.7-7.7); Neutrophil % 67.3 % (47-70); Platelet Count 159 K/mm3 (150-450); RBC Distribution Width SD 49.1 fl (35.1-43.9); Red Blood Count 2.52 M/mm3 (4.2-5.4); White Blood Count 5.8 K/mm3 (4.4-11.0)
[2023-06-18 06:46] LABS: Anion Gap 5 (5-15); BUN 26 mg/dL (7-18); BUN/Creat Ratio 14.2 RATIO (10-20); Calcium,Total 8.1 mg/dL (8.5-10.1); Chloride 109 mmol/L (98-107); Creatinine, Serum 1.83 mg/dL (0.55-1.02); EST Glomerular Filtration Rate 29 mL/min (>60); Est Glom Filt Rate - Afr Amer 34 mL/min (>60); Estimated Creatinine Clearance 28.22 ml/min; Glucose 135 mg/dL (74-106); Potassium 4.3 mmol/L (3.5-5.1); Sodium Level 138 mmol/L (136-145)
[2023-06-18] MEDS: HYDROmorphone 1 MG/ML Syringe IV ×5 (08:04→23:37)
[2023-06-18 08:32] LABS: Bedside Glucose 178 mg/dL (74-106)
--- NOTE | 2023-06-18 08:36 | PCM.PN.SRG ---
Subjective Subjective Patient is seen resting in bed this morning. She complains of pain at the incision sites and some in her buttock. She feels like she has some increased congestion/cough this morning. Her Hgb is 7.7 this AM. Last labs were in April and it was 11.9 at that time. Her BP remain on the low side, she denies any lightheadedness, palpitations, CP. She has not yet been OOB. Objective Data Objective Data Vital Signs: Vital Signs Temp Pulse Resp BP Pulse Ox O2 Del Method O2 Flow Rate 97.8 F 93 19 H 101/49 L 95 Nasal Cannula 2 06/18/23 08:00 06/18/23 08:00 06/18/23 08:00 06/18/23 08:00 06/18/23 08:00 06/18/23 08:00 06/18/23 08:00 Oxygen Flow Rate (L/min) 2 Oxygen Delivery Method Nasal Cannula Weight: 180 lb 8.937 oz Body Mass Index (BMI) 29.0 Intake & Output: Intake and Output for Last 24 Hours 06/16/23 06/17/23 06/18/23 23:59 23:59 23:59 Intake Total 3057.50 / 3057.50 1111.67 / 1111.67 Output Total 475 / 475 650 / 650 Balance 2582.50 / 2582.50 461.67 / 461.67 Lab / Micro Data 06/18/23 04:00 06/18/23 04:00 Labs: Laboratory Results - last 24 hr 06/16/23 12:14: Blood Type Cancelled, A1 Antigen Typing Cancelled, Rho(D) Type Cancelled, Antibody Screen Cancelled, Crossmatch See Detail 06/17/23 12:33: Activated Clotting Time 238 H 06/17/23 13:03: Activated Clotting Time 220 H 06/17/23 13:38: Activated Clotting Time 232 H 06/17/23 14:13: Activated Clotting Time 238 H 06/17/23 16:18: POC Glucose 245 H 06/17/23 21:20: PT 14.9, INR 1.2, APTT 26.4 06/17/23 21:27: POC Glucose 178 H 06/18/23 04:00: WBC 5.8, RBC 2.52 L, Hgb 7.7 L, Hct 24.1 L, MCV 95.6, MCH 30.6, MCHC 32.0, RDW Std Deviation 49.1 H, RDW Coeff of Cherise 14.0, Plt Count 159, MPV 9.6, Immature Gran % (Auto) 0.200, Neut % (Auto) 67.3, Lymph % (Auto) 20.5, Bullock % (Auto) 11.5 H, Eos % (Auto) 0.2, Baso % (Auto) 0.3, Absolute Neuts (auto) 3.9, Absolute Lymphs (auto) 1.18, Nucleated RBC % 0, APTT 32.2, Sodium 138, Potassium 4.3, Chloride 109 H, Carbon Dioxide 24.0, Anion Gap 5, BUN 26 H, Creatinine 1.83 H, Estim Creat Clear Calc 28.22, Est GFR (MDRD) Af Amer 34 L, Est GFR (MDRD) Non-Af 29 L, BUN/Creatinine Ratio 14.2, Glucose 135 H, Calcium 8.1 L Physical Exam Const oriented x3 and no apparent distress Resp normal respiratory effort Cardio regular rate and regular rhythm Extremity Extremity Narrative: R groin incision site with Prevena vacuum dressing intact and maintaining seal. No significant swelling or ecchymosis appreciated. RLE incision site with dry dressing C/D/I. MISA wrap in place. Good R PT and DP doppler signals. R foot is warm and pink. Assessment & Plan Assessment/Plan (1) Atherosclerosis of [place] arteries of extremities with rest pain, right leg: PLAN: With Hgb 7.7, will transfuse 1 unit PRBC today. Will recheck Hgb this afternoon. Will plan to continue heparin and low-dose through the day and anticipate increasing to therapeutic dose tomorrow as long as Hgb stable. Start incentive spirometer. Plan to get up to the chair and ambulate with nursing today.
[2023-06-18 08:38] LABS: Bedside Glucose 110 mg/dL (74-106)
[2023-06-18] MEDS: PARoxetine 10 MG Tablet 30 MG PO (09:33)
[2023-06-18] MEDS: Cilostazol 50 MG Tablet 100 MG PO ×2 (09:33→20:06)
[2023-06-18] MEDS: Pantoprazole Sodium 20 MG Tablet PO (09:33)
[2023-06-18] MEDS: TICAGRELOR 90 MG TABLET PO ×2 (09:33→20:06)
--- NOTE | 2023-06-18 10:34 | CASEMGMT ---
MICHELLE MONTANO Assessment Face to Face with patient for initial transition planning/care coordination assessment. MICHELLE MONTANO introduced self and role at [facility], pt voices understanding. Pt is A&Ox4 and is resting comfortably in bed and is calm. Pt daughter (Elizabeth) at bedside. Care providers, pharmacy, and demographics verified. Admitting dx: Right Fem-Pop Bypass LACE Strata: 2 PCP: Tavo Strange Specialists: Obinna Knutson [facility]. Insurance: [facility] A/B, [employer] Prescription Benefit: Yes LNOK: Myesha Gonzalez (ISSA), Elizabeth Fuentes (ISSA) Living Arrangements: Pt lives alone in a single story home with a BM with HR with 2 steps to enter ADLs/IADLs: Ind Transportation: Self, Daughters DME: Working [employer] with enough supplies. Walker and cane but does not use. Pt also has a W/C that she will use in the community at times. Shower GB. BP Cuff. Pulse Ox. Pt is currently on 2L of O2. Will follow for potential home needs. HHC/SNF: Denies history or needs Pt?s goal: Home with family support Plan: Pt refused PT this morning d/t pain. Pt states that she is normally ind and is refusing HHC or OP therapy at this time. Pt states that she plans on DC home with no needs once medically ready with family support. Pt daughter states that she lives close and will be able to help the pt at home if needed. CM to follow for safe DC home from [facility]. Aroldo Nelson RN, CM
[2023-06-18 11:00] LABS: Partial Thromboplast Time 27.1 Seconds (24.1-36.2)
[2023-06-18 13:20] LABS: Bedside Glucose 130 mg/dL (74-106)
[2023-06-18 15:34] LABS: Hemoglobin 8.7 g/dL (12.0-15.0)
[2023-06-18] MEDS: Insulin Lispro 100 UNIT/ML INSULN.PEN SC ×2 (17:30→20:07)
[2023-06-18 17:46] LABS: Bedside Glucose 181 mg/dL (74-106)
[2023-06-18 17:46] LABS: Partial Thromboplast Time 29.9 Seconds (24.1-36.2)
--- NOTE | 2023-06-18 17:54 | NURSING ---
Zapata removed at 1745 06/18/23
[2023-06-18 20:30] LABS: Bedside Glucose 172 mg/dL (74-106)
[2023-06-18] MEDS: 0.9% Saline Lock 10 ML Syringe IV (23:37)
[2023-06-19] VITALS (24 sets, daily range): BP systolic 87–129; BP diastolic 46–85; PULSE 89–112; RESP 15–23; TEMP 36.6–37.4; O2SAT 93–100; BMI 30.2
[2023-06-19 00:11] LABS: Partial Thromboplast Time 34.3 Seconds (24.1-36.2)
[2023-06-19] MEDS: 0.45% Normal Saline 1,000 ML 100 ML IV ×3 (01:24→21:29)
[2023-06-19 03:24] LABS: Hematocrit 26.6 % (37-47); Hemoglobin 8.6 g/dL (12.0-15.0); Mean Corp Hgb Conc 32.3 g/dL (32-36); Mean Corpuscular Hgb 29.8 pg (27.0-32.0); Mean Platelet Vol. 8.8 fl (6.2-12.0); Platelet Count 157 K/mm3 (150-450); RBC Distribution Width CV 15.3 % (11.6-14.6); RBC Distribution Width SD 51.4 fl (35.1-43.9); Red Blood Count 2.89 M/mm3 (4.2-5.4); White Blood Count 7.2 K/mm3 (4.4-11.0)
[2023-06-19 03:39] LABS: Anion Gap 4 (5-15); BUN 24 mg/dL (7-18); BUN/Creat Ratio 14.9 RATIO (10-20); Calcium,Total 7.9 mg/dL (8.5-10.1); Chloride 110 mmol/L (98-107); Creatinine, Serum 1.61 mg/dL (0.55-1.02); EST Glomerular Filtration Rate 33 mL/min (>60); Est Glom Filt Rate - Afr Amer 40 mL/min (>60); Estimated Creatinine Clearance 32.07 ml/min; Glucose 185 mg/dL (74-106); Potassium 4.2 mmol/L (3.5-5.1); Sodium Level 137 mmol/L (136-145)
[2023-06-19] MEDS: 0.9% Saline Lock 10 ML Syringe IV (05:32)
[2023-06-19] MEDS: Acetaminophen 500 MG Tablet 1000 MG PO ×3 (05:32→21:55)
[2023-06-19] MEDS: Ondansetron 4 MG/2 ML Vial IV (05:33)
[2023-06-19 05:42] LABS: Partial Thromboplast Time 35.6 Seconds (24.1-36.2)
[2023-06-19] MEDS: HYDROmorphone 1 MG/ML Syringe IV (06:43)
[2023-06-19] MEDS: Insulin Lispro 100 UNIT/ML INSULN.PEN SC ×4 (08:07→21:55)
[2023-06-19 08:27] LABS: Bedside Glucose 197 mg/dL (74-106)
--- NOTE | 2023-06-19 08:58 | PN.SURG_ITS ---
Subjective Subjective Patient is resting in bed this morning. She reports that her foot pain remains resolved. Still with soreness along the incision sites and some burning pain in her thigh just distal to the groin incision. She has no other complaints today. She remains on supplemental O2 5L this morning. She is not on home O2. She re ports she has been using the incentive spirometer. Her Hgb this morning is 8.6, stable from 8.7 yesterday afternoon. No signs of bleeding on the low dose heparin to this point. Patient seen again in the afternoon. Still answering questions appropriately. Her daughter does report that she has had some lapses where it seems that she is hallucinating, seeing bubbles that aren't there, etc. She did receive a higher dose of dilaudid overnight/this morning. Nursing also reports that she had abdominal pain ovenight. She denies any abdominal pain now. She reports she has passed gas. Nursing reports she has not had any bowel movements. Objective Data Objective Data Vital Signs: Vital Signs Temp Pulse Resp BP Pulse Ox O2 Del Method O2 Flow Rate 98.3 F 105 H 18 115/62 96 Nasal Cannula 5 06/19/23 08:00 06/19/23 08:00 06/19/23 08:00 06/19/23 08:00 06/19/23 08:00 06/19/23 08:00 06/19/23 08:00 Oxygen Flow Rate (L/min) 5 Oxygen Delivery Method Nasal Cannula Weight: 187 lb 2.759 oz Body Mass Index (BMI) 30.2 Intake & Output: Intake and Output for Last 24 Hours 06/17/23 06/18/23 06/19/23 23:59 23:59 23:59 Intake Total 3057.50 / 3057.50 2112.67 / 2112.67 1000 / 1000 Output Total 475 / 475 1600 / 1600 800 / 800 Balance 2582.50 / 2582.50 512.67 / 512.67 200 / 200 Lab / Micro Data 06/19/23 13:05 06/19/23 03:10 Labs: Laboratory Results - last 24 hr 06/16/23 12:14: Blood Type Cancelled, A1 Antigen Typing Cancelled, Rho(D) Type Cancelled, Antibody Screen Cancelled, Crossmatch See Detail 06/18/23 10:30: APTT 27.1 06/18/23 13:01: POC Glucose 130 H 06/18/23 15:20: Hgb 8.7 L 06/18/23 17:21: POC Glucose 181 H 06/18/23 17:25: APTT 29.9 06/18/23 20:05: POC Glucose 172 H 06/18/23 23:30: APTT 34.3 06/19/23 03:10: WBC 7.2, RBC 2.89 L, Hgb 8.6 L, Hct 26.6 L, MCV 92.0, MCH 29.8, MCHC 32.3, RDW Std Deviation 51.4 H, RDW Coeff of Cherise 15.3 H, Plt Count 157, MPV 8.8, Sodium 137, Potassium 4.2, Chloride 110 H, Carbon Dioxide 23.0, Anion Gap 4 L, BUN 24 H, Creatinine 1.61 H, Estim Creat Clear Calc 32.07, Est GFR (MDRD) Af Amer 40 L, Est GFR (MDRD) Non-Af 33 L, BUN/Creatinine Ratio 14.9, Glucose 185 H, Calcium 7.9 L 06/19/23 05:25: APTT 35.6 06/19/23 08:06: POC Glucose 197 H Physical Exam Const oriented x3 and no apparent distress Resp normal respiratory effort Cardio regular rate and regular rhythm Extremity Extremity Narrative: R groin incision site with Prevena vacuum dressing intact and maintaining seal. No significant swelling or ecchymosis appreciated. RLE incision site with dry dressing C/D/I. MISA wrap in place. Good R PT and DP doppler signals. R foot is warm and pink. Assessment & Plan Assessment/Plan (1) Atherosclerosis of [place] arteries of extremities with rest pain, right leg: PLAN: Hgb stable this morning at 8.6. Will increase to therapeutic heparin. Will recheck Hgb this afternoon. Wean O2 as tolerated. Discussed with patient that goal today is to transition to primarily oral pain medications which we can titrate as needed. Added bowel regimen. Will monitor. She is encouraged to work with PT today. She remains agreeable to discharge to rehab if that is what is best for her.
--- NOTE | 2023-06-19 09:29 | CASEMGMT ---
Pt was seen by therapy and the pt did not do as well as she had hoped. Therapy is recommending SNF. This RN CM to pt room at this time regarding DC planning. Pt states that she is willing to go to a SNF for further rehab and would like a list of options. SW updated and to follow for now.
[2023-06-19] MEDS: Cilostazol 50 MG Tablet 100 MG PO ×2 (09:33→21:55)
[2023-06-19] MEDS: amLODIPine 5 MG Tablet PO (09:33)
[2023-06-19] MEDS: Pantoprazole Sodium 20 MG Tablet PO (09:33)
[2023-06-19] MEDS: TICAGRELOR 90 MG TABLET PO ×2 (09:34→21:54)
[2023-06-19] MEDS: PARoxetine 10 MG Tablet 30 MG PO (09:34)
[2023-06-19] MEDS: Lisinopril 20 MG Tablet PO (09:34)
--- NOTE | 2023-06-19 11:03 | CASEMGMT ---
JAZLYN was informed therapy is recommending halfway facility. This JAZLYN and JAZLYN Baker met with patient and her daughter Elizabeth. Introduced self and role at [facility]. Patient and Elizabeth stated that they are discussing options. SW told them what Medicare covers for home health. Both would like to see how patient does over the next day or so. SW left a list of halfway facility providers including quality and resource use data and consistent with patient?s preferred geographic region, medical needs, and insurance network were provided from the [facility] Guide. SW explained if they have any questions to contact JAZLYN. JAZLYN will check back. Chelsye Piper MSW DONA
[2023-06-19] MEDS: Triamterene 37.5MG/Hctz 25MG Capsule 1 CAP PO (11:27)
[2023-06-19] MEDS: oxyCODONE 5 MG Tablet 10 MG PO ×2 (13:20→18:12)
[2023-06-19] MEDS: Polyethylene Glycol 3350 17 GM PACKET PO (13:21)
[2023-06-19] MEDS: HEPARIN/D5w 25,000 UNITS 25,000 UNITS/250 ML IV.SOLN. 12 UNITS CONT INF (13:40)
[2023-06-19 13:52] LABS: Bedside Glucose 173 mg/dL (74-106)
--- NOTE | 2023-06-19 14:13 | CASEMGMT ---
JAZLYN received a voice mail from patient's daughter Elizabeth. Elizabeth said patient would like to go to [place]. JAZLYN asked Ashley to please send a referral. JAZLYN also called patient's daughter Elizabeth and let her know a referral was being made. Chelsey CARCAMO
[2023-06-19 14:23] LABS: Hemoglobin 8.7 g/dL (12.0-15.0)
--- NOTE | 2023-06-19 14:39 | CASEMGMT ---
Addendum entered by Ashley Delvalle 06/20/23 13:29: Patient has been accepted by [facility]. SW updated. Ashley Delvalle, Discharge Planning Asst. Original Note: Discharge Planning Referral sent via [facility] to [facility]. Ashley Delvalle, Discharge Planning Asst.
[2023-06-19 17:23] LABS: Partial Thromboplast Time 71.7 Seconds (24.1-36.2)
[2023-06-19 17:55] LABS: Bedside Glucose 212 mg/dL (74-106)
[2023-06-19 21:30] LABS: Bedside Glucose 176 mg/dL (74-106)
[2023-06-19] MEDS: Docusate Sodium 100 MG Capsule PO (21:55)
[2023-06-19 22:55] LABS: Partial Thromboplast Time 78.3 Seconds (24.1-36.2)
[2023-06-20] VITALS (14 sets, daily range): BP systolic 101–147; BP diastolic 39–66; PULSE 93–107; RESP 12–22; TEMP 35.7–36.9; O2SAT 92–100; BMI 30.4
[2023-06-20 05:53] LABS: Hematocrit 23.9 % (37-47); Hemoglobin 7.8 g/dL (12.0-15.0); Mean Corp Hgb Conc 32.6 g/dL (32-36); Mean Corpuscular Hgb 30.4 pg (27.0-32.0); Mean Platelet Vol. 9.3 fl (6.2-12.0); Platelet Count 147 K/mm3 (150-450); RBC Distribution Width CV 14.7 % (11.6-14.6); RBC Distribution Width SD 49.9 fl (35.1-43.9); Red Blood Count 2.57 M/mm3 (4.2-5.4); White Blood Count 5.1 K/mm3 (4.4-11.0)
[2023-06-20 06:03] LABS: Partial Thromboplast Time 81.7 Seconds (24.1-36.2)
[2023-06-20] MEDS: Acetaminophen 500 MG Tablet 1000 MG PO ×3 (06:12→20:11)
[2023-06-20] MEDS: 0.9% Saline Lock 10 ML Syringe IV (06:13)
[2023-06-20] MEDS: HEPARIN/D5w 25,000 UNITS 25,000 UNITS/250 ML IV.SOLN. 11 UNITS CONT INF (06:38)
[2023-06-20] MEDS: 0.45% Normal Saline 1,000 ML 100 ML IV (06:38)
[2023-06-20 08:15] LABS: Bedside Glucose 181 mg/dL (74-106)
[2023-06-20] MEDS: Furosemide 20 MG/2 ML VIAL IV (08:47)
[2023-06-20] MEDS: Insulin Lispro 100 UNIT/ML INSULN.PEN SC ×4 (08:48→20:13)
[2023-06-20] MEDS: Lisinopril 20 MG Tablet PO (08:52)
[2023-06-20] MEDS: amLODIPine 5 MG Tablet PO (08:52)
[2023-06-20] MEDS: Triamterene 37.5MG/Hctz 25MG Capsule 1 CAP PO (08:52)
[2023-06-20] MEDS: Cilostazol 50 MG Tablet 100 MG PO ×2 (08:52→20:10)
[2023-06-20] MEDS: Pantoprazole Sodium 20 MG Tablet PO (08:52)
[2023-06-20] MEDS: TICAGRELOR 90 MG TABLET PO ×2 (08:52→20:09)
[2023-06-20] MEDS: PARoxetine 10 MG Tablet 30 MG PO (08:52)
[2023-06-20 11:44] LABS: Bedside Glucose 221 mg/dL (74-106)
--- NOTE | 2023-06-20 12:36 | CASEMGMT ---
Still awaiting [facility] response as to whether or not they will accept patient. Chelsey Piper PERSONALIZATION SPECIALIST DONA
[2023-06-20 12:38] LABS: Partial Thromboplast Time 64.6 Seconds (24.1-36.2)
--- NOTE | 2023-06-20 14:03 | CASEMGMT ---
[facility] accepted patient. JAZLYN notified DELBERT Lutz. Patient will have another lab drawn and if that is okay patient will go today. JAZLYN notified RN. SW went to notify patient, but she was sleeping. JAZLYN called patient's daughter Elizabeth. JAZLYN explained [facility] accepted patient. There is a lab being drawn and if that is okay then patient will go today. JAZLYN told Elizabeth SW will keep her updated. Plan: [facility] under skilled level of care. Chelsey Piper TURNING LATHE TENDERAnand CARCAMO
[2023-06-20 14:47] LABS: Hemoglobin 9.9 g/dL (12.0-15.0)
[2023-06-20] MEDS: Senna/Docusate Sodium 1 Tablet 2 TABLET PO (14:53)
[2023-06-20] MEDS: Docusate Sodium 100 MG Capsule PO (14:54)
[2023-06-20] MEDS: Polyethylene Glycol 3350 17 GM PACKET PO (14:54)
--- NOTE | 2023-06-20 14:55 | PCM.PN.SRG ---
Subjective Subjective Patient was seen up to the chair this morning and again this afternoon. She is drowsy but alert, oriented, and answering questions appropriately. She relates that she has not been sleeping well over the last several days. She still has not had a bowel movement but reports she is passing gas and she denies any abdominal pain. She does have expected pain along the incisions but she has been able to manage today mostly with Tylenol and avoiding oxycodone. She has not had any dilaudid since early yesterday morning. She has been weaned off of supplemental O2. Her BPs have been stable. Objective Data Objective Data Vital Signs: Vital Signs Temp Pulse Resp BP Pulse Ox O2 Del Method O2 Flow Rate 97.8 F 105 H 16 128/56 H 98 Room Air 2 06/20/23 11:22 06/20/23 13:40 06/20/23 13:40 06/20/23 13:40 06/20/23 13:40 06/20/23 13:40 06/20/23 06:00 Oxygen Flow Rate (L/min) 2 Oxygen Delivery Method Room Air Weight: 188 lb 4.396 oz Body Mass Index (BMI) 30.4 Intake & Output: Intake and Output for Last 24 Hours 06/18/23 06/19/23 06/20/23 23:59 23:59 23:59 Intake Total 2112.67 / 2112.67 3349.92 / 3349.92 1273.81 / 1273.81 Output Total 1600 / 1600 1100 / 1250 1500 / 1500 Balance 512.67 / 512.67 2249.92 / 2099.92 -226.19 / -226.19 Lab / Micro Data 06/20/23 14:34 06/19/23 03:10 Labs: Laboratory Results - last 24 hr 06/19/23 16:25: APTT 71.7 H 06/19/23 17:31: POC Glucose 212 H 06/19/23 21:11: POC Glucose 176 H 06/19/23 22:30: APTT 78.3 H 06/20/23 05:40: WBC 5.1, RBC 2.57 L, Hgb 7.8 L, Hct 23.9 L, MCV 93.0, MCH 30.4, MCHC 32.6, RDW Std Deviation 49.9 H, RDW Coeff of Cherise 14.7 H, Plt Count 147 L, MPV 9.3, APTT 81.7 H 06/20/23 07:56: POC Glucose 181 H 06/20/23 08:41: Blood Type O NEGATIVE, Antibody Screen NEGATIVE, Crossmatch See Detail 06/20/23 11:12: POC Glucose 221 H 06/20/23 12:15: APTT 64.6 H 06/20/23 14:34: Hgb 9.9 L Physical Exam Const oriented x3 and no apparent distress HEENT normocephalic, hearing grossly normal bilaterally, external ears normal and external nose normal Eyes EOMs intact bilaterally General Eye: normal appearance of both eyes Neck General: normal visual inspection and trachea midline Resp normal respiratory effort Cardio regular rate and regular rhythm GI soft to palpation and non-tender Extremity Extremity Narrative: R groin incision site with Prevena vacuum dressing intact and maintaining seal. No significant swelling or ecchymosis appreciated. RLE incision sites with surgical glue intact. No dehiscence, drainage, erythema, focal swelling, or warmth. Good R PT and DP doppler signals. R foot is warm and pink. Neuro oriented x3, CN's II-XII intact bilaterally, moves all extremities and no focal motor deficits Speech: speech normal Psych mental status grossly normal Appearance: grossly normal Attitude: calm and engaged Activity / Motor Behavior: appropriate eye contact Speech: normal speech Mood & Affect: euthymic mood Assessment & Plan Assessment/Plan (1) Atherosclerosis of [place] arteries of extremities with rest pain, right leg: PLAN: Hgb had dropped to 7.8 this morning which is likely secondary to a combination of acute blood loss anemia secondary to recent surgery and dilutional. She received 1 unit of PRBC. Her Hgb this afternoon had improved to 9.9. No signs of bleeding or hematoma at surgical sites. Will transition from heparin to Xarelto 20mg daily. She has been weaned off of O2 and stable on room air since this morning. Her pain is well controlled on PO meds. She remains constipated but + flatulence and no abdominal pain or TTP. Will continue bowel regimen. She was accepted to a rehab facility. She is medically stable for discharge today. Discussed with both patient and her daughter Elizabeth (via phone) and both are comfortable with discharge today.
--- NOTE | 2023-06-20 15:15 | DS.PCM_ITS ---
Providers Date of Admission: 06/17/23 Primary Care Physician: Dr. Tavo Strange, DO Reason For Visit: Right Fem-Pop Bypass Diagnosis Discharge Diagnosis (1) Atherosclerosis of [place] arteries of extremities with rest pain, right leg: Status: Chronic Code(s): I70.221 - Atherosclerosis of [place] arteries of extremities with rest pain, right leg Plan: Hgb had dropped to 7.8 this morning which is likely secondary to a combination of acute blood loss anemia secondary to recent surgery and dilutional. She rec eived 1 unit of PRBC. Her Hgb this afternoon had improved to 9.9. No signs of bleeding or hematoma at surgical sites. Will transition from heparin to Xarelto 20mg daily. She has been weaned off of O2 and stable on room air since this morning. Her pain is well controlled on PO meds. She remains constipated but + flatulence and no abdominal pain or TTP. Will continue bowel regimen. She was accepted to a rehab facility. She is medically stable for discharge today. Discussed with both patient and her daughter Elizabeth (via phone) and both are comfortable with discharge today. Medications at Discharge Home Medications blood sugar diagnostic #50 ea 05/30/21 blood-glucose meter #1 ea 05/30/21 paroxetine HCl 30 mg tablet (Paxil) 30 mg PO QAM ANXIETY #90 tabs 06/07/22 triamterene 37.5 mg-hydrochlorothiazide 25 mg capsule 1 cap PO DAILY HTN #90 caps 06/07/22 disability placard ##1 08/13/22 lisinopril 20 mg tablet 20 mg PO DAILY HTN #90 tabs 10/31/22 metformin 500 mg tablet 500 mg PO QDAY DIABETES #90 tabs 12/11/22 omeprazole 20 mg capsule,delayed release 20 mg PO DAILY GERD #90 caps 12/11/22 amlodipine 5 mg tablet 5 mg PO DAILY HEART #90 tabs 02/25/23 cilostazol 100 mg tablet 100 mg PO BID ANTIPLATELET #60 tabs 05/06/23 ticagrelor 90 mg tablet (Brilinta) 90 mg PO BID BLOOD THINNER 06/13/23 acetaminophen 500 mg capsule 500 mg PO Q6H pain 7 days #28 caps 06/20/23 oxycodone 5 mg tablet 5 mg PO Q6H PRN pain 5 days #20 tabs 06/20/23 polyethylene glycol 3350 17 gram/dose oral powder (Miralax) 17 g PO BID PRN constipation 14 days #476 grams 06/20/23 rivaroxaban 20 mg tablet (Xarelto) 20 mg PO DAILY #30 tabs 06/20/23 sennosides 8.6 mg-docusate sodium 50 mg tablet (Stool Softener-Stimulant Laxative) 2 tab PO DAILY 14 days #14 tabs 06/20/23 Hospital Course Operations - (R femoral-peroneal bypass with nonreversed GSV) Summary of Care Provided Hospital Course: Ms. Delmy Haji is a 77-year-old female who underwent right femoral peroneal bypass with nonreversed GSV on 06/17/2023 for right lower extremity atherosclerosis with rest pain. She tolerated the procedure well. Postoperatively, she was routinely admitted to the ICU for ongoing hemodynamic and vascular status monitoring. Since surgery, she has had resolution of her right lower extremity rest pain. Her right DP and PT signals are much improved after surgery and her foot was noted to be warm and pink. She does have expected pain at the right groin incision site and at the incision sites along the medial aspect of her right thigh and right calf. She also reports a burning sensation in her right thigh which is consistent with cutaneous nerve damage secondary to the incisions. At this time, her pain is well-controlled with scheduled Tylenol and as needed oxycodone. Initially, patient was receiving Dilaudid for pain ma nagement and this did seem to induce hallucinations. These resolved with discontinuation of Dilaudid. Today, patient is alert, oriented, answering questions appropriately. She is urinating without any difficulty. She is passing gas but has yet to have a bowel movement; she is on a bowel regimen and is not having any abdominal pain or tenderness. She was noted to have anemia secondary to acute blood loss from surgery with hemoglobin down to 7.6 on postop day 1. She received 1 unit of packed red blood cells on postop day 1 and hemoglobin improved to 8.7. On postop day 3 hemoglobin was noted to have dropped again to 7.8 and this was felt to still be partially secondary to blood loss from surgery but also likely delusional. IV fluids were held and another unit of packed red blood cells were given and hemoglobin did improve to 9.9. She has not had any signs or symptoms of bleeding or hematoma formation at the surgical sites. No bloody stools or bloody urine. She was slowly transitioned from a low-dose of heparin to a therapeutic dose of heparin without significant fluctuation in hemoglobin. She was then transitioned to Xarelto 20 mg p.o. daily for ongoing anticoagulation in addition to her antiplatelet agent. Patient was evaluated by PT and OT who recommended additional therapy at discharge and patient was agreeable to a rehab facility. She was accepted at [facility]. She is medically stable for discharge to [facility] rehab facility today. She has outpatient follow-up scheduled on July 07 at 11 AM. Physical Exam Const oriented x3 and no apparent distress HEENT normocephalic, hearing grossly normal bilaterally, external ears normal and external nose normal Eyes EOMs intact bilaterally General Eye: normal appearance of both eyes Neck General: normal visual inspection and trachea midline Resp normal respiratory effort Cardio regular rate and regular rhythm GI soft to palpation and non-tender Extremity Extremity Narrative: R groin incision site with Prevena vacuum dressing intact and maintaining seal. No significant swelling or ecchymosis appreciated. RLE incision sites with surgical glue intact. No dehiscence, drainage, erythema, focal swelling, or warmth. Good R PT and DP doppler signals. R foot is warm and pink. Neuro oriented x3, CN's II-XII intact bilaterally, moves all extremities and no focal motor deficits Speech: speech normal Psych mental status grossly normal Appearance: grossly normal Attitude: calm and engaged Activity / Motor Behavior: appropriate eye contact Speech: normal speech Mood & Affect: euthymic mood Weight / BMI Weight Weight: 188 lb 4.396 oz Body Mass Index (BMI) 30.4 ABG / Lab / Microbiology Data 06/20/23 14:34 06/19/23 03:10 Laboratory: Laboratory Results - last 24 hr 06/19/23 16:25: APTT 71.7 H 06/19/23 17:31: POC Glucose 212 H 06/19/23 21:11: POC Glucose 176 H 06/19/23 22:30: APTT 78.3 H 06/20/23 05:40: WBC 5.1, RBC 2.57 L, Hgb 7.8 L, Hct 23.9 L, MCV 93.0, MCH 30.4, MCHC 32.6, RDW Std Deviation 49.9 H, RDW Coeff of Cherise 14.7 H, Plt Count 147 L, MPV 9.3, APTT 81.7 H 06/20/23 07:56: POC Glucose 181 H 06/20/23 08:41: Blood Type O NEGATIVE, Antibody Screen NEGATIVE, Crossmatch See Detail 06/20/23 11:12: POC Glucose 221 H 06/20/23 12:15: APTT 64.6 H 06/20/23 14:34: Hgb 9.9 L D/C Instructions Discharge Diet: Carb Control Diet May shower in (days): 1 Weight Bearing Status: Weight bearing as tolerated Lifting Restricted to (Lbs): 20 Lifting Restrictions: Do not lift greater than 20 pounds for 3 weeks Call your doctor if your incision/area has: Sudden Increased Bleeding, Increased Pain/ Swelling and Foul Smelling Discharge Call your doctor if you observe: Fever of 101 or Higher and Uncontrolled pain Additional Instructions: The right groin incision is covered by a Prevena vacuum dressing. This so far has been maintaining good seal. This should remain in place for 7 days postoperatively if possible. If it is no longer maintaining seal or if it is alarming and this cannot be stopped then it is okay to remove it early as needed. To remove this dressing (1) hold down the power button until a long beep and the greenlight disappears (2) disconnect the tubing by twisting the white connectors apart (3) the purple foam should begin to puff up once the tubing is disconnected (4) once the foam has puffed up you may peel the dressing off and throw this in the entire unit away. In addition to the right groin incision there are 2 long incisions along the medial aspect of the right thigh and right calf. All of these incisions have been closed with skin glue. The skin glue will continue to protect them over the coming weeks. The skin glue will peel/flake off on its own over the next few weeks. Please do not pick at it or attempt to remove it. Otherwise, the incisions may be left open to air. You may shower tomorrow. It is okay for soap and water to rinse over the incision sites. Be sure to pat gently to dry. Do not submerge the incision sites in water such as with a bath, swimming, etc. for at least 3 weeks or until the incisions are fully healed. Do not lift greater than 20 pounds for 3 weeks. Otherwise activity as tolerated and working with PT/OT is strongly encouraged. It is normal to experience some increased swelling, warmth, and redness in your leg after surgery due to the now increased blood flow. To manage swelling, advise elevating your leg at times of rest and applying an Flex wrap for compression. Should the swelling/redness suddenly get worse or you develop pain please contact the office right away. You have been prescribed Xarelto 20 mg tablet to be taken by mouth once daily. This is a blood thinner. Please monitor for any signs of bleeding such as blo laura stool or blood in the urine. Please continue to take Brilinta as prescribed. You have been prescribed oxycodone 5 mg tablet to be taken by mouth every 6 hours as needed for pain. Do not take this in combination with any other prescription pain medications without checking with our office and/or your primary care or other prescribing provider. You may take this in addition to Tylenol. I recommend taking Tylenol on a scheduled basis and taking the oxycodone only as needed. Oxycodone is an opioid pain medication so it can worsen constipation. While you are taking this medication, I advise remaining on a bowel regimen with MiraLAX and or bisacodyl/senna which has been prescribed. You are scheduled for follow-up in the office on 07/08/2023 at 11 AM. If you need to reschedule this appointment or have any other questions or concerns please contact the office at . Please Follow Up With: Nelda Mancilla PA When: 07/08/2023 Meaningful Use Info Meaningful Use Meaningful Use Diagnoses (Choose all that apply): None applicable Ischemic Stroke Statin Dosing Therapy Reference: STATIN DOSE THERAPY REFERENCE: * Patients > 75 years receive moderate or high dose statin therapy. * Patients 75 years or YOUNGER should receive HIGH intensity statin dose unless contraindicated. You will be required to document reason for non-treatment if statin daily dose does not meet guidelines. HIGH DOSE STATIN THERAPY DAILY Atorvastatin > than or = to 40 mg Rosuvastatin > than or = to 20 mg Amlodipine + Atorvastatin > than or = to 2.5/40 mg Ezetimibe + Simvastatin 10/80 mg Simvastatin 80mg Discharge Plan Admission Admit Date/Time: 06/17/23 05:27 Primary Reason for Your Visit: R femoral-peroneal bypass Attending Provider: Dallin Knutson Primary Care Provider: Tavo Strange Consulting Providers: Dallin Beebe Instructions Additional Instructions / Restrictions: The right groin incision is covered by a Prevena vacuum dressing. This so far has been maintaining good seal. This should remain in place for 7 days postoperatively if possible. If it is no longer maintaining seal or if it is alarming and this cannot be stopped then it is okay to remove it early as needed. To remove this dressing (1) hold down the power button until a long beep and the greenlight disappears (2) disconnect the tubing by twisting the white connectors apart (3) the purple foam should begin to puff up once the tubing is disconnected (4) once the foam has puffed up you may peel the dressing off and throw this in the entire unit away. In addition to the right groin incision there are 2 long incisions along the medial aspect of the right thigh and right calf. All of these incisions have been closed with skin glue. The skin glue will continue to protect them over the coming weeks. The skin glue will peel/flake off on its own over the next few weeks. Please do not pick at it or attempt to remove it. Otherwise, the incisions may be left open to air. You may shower tomorrow. It is okay for soap and water to rinse over the incision sites. Be sure to pat gently to dry. Do not submerge the incision sites in water such as with a bath, swimming, etc. for at least 3 weeks or until the incisions are fully healed. Do not lift greater than 20 pounds for 3 weeks. Otherwise activity as tolerated and working with PT/OT is strongly encouraged. It is normal to experience some increased swelling, warmth, and redness in your leg after surgery due to the now increased blood flow. To manage swelling, advise elevating your leg at times of rest and applying an Flex wrap for compression. Should the swelling/redness suddenly get worse or you develop pain please contact the office right away. You have been prescribed Xarelto 20 mg tablet to be taken by mouth once daily. This is a blood thinner. Please monitor for any signs of bleeding such as bloody stool or blood in the urine. Please continue to take Brilinta as prescribed. You have been prescribed oxycodone 5 mg tablet to be taken by mouth every 6 h ours as needed for pain. Do not take this in combination with any other prescription pain medications without checking with our office and/or your primary care or other prescribing provider. You may take this in addition to Tylenol. I recommend taking Tylenol on a scheduled basis and taking the o xycodone only as needed. Oxycodone is an opioid pain medication so it can worsen constipation. While you are taking this medication, I advise remaining on a bowel regimen with MiraLAX and or bisacodyl/senna which has been prescribed. You are scheduled for follow-up in the office on 07/08/2023 at 11 AM. If you need to reschedule this appointment or have any other questions or concerns please contact the office at . Discharge Orders/Prescriptions Prescriptions: New sennosides-docusate sodium [Stool Softener-Stimulant Laxat] 8.6-50 mg Tablet 2 tab PO DAILY 14 Days Qty: 14 0RF Xarelto 20 mg tablet 20 mg PO DAILY Qty: 30 5RF Rx Instructions: must administer with evening meal polyethylene glycol 3350 [Miralax] 17 gram/dose powder 17 g PO BID PRN (Reason: constipation) 14 Days Qty: 476 0RF oxycodone 5 mg tablet 5 mg PO Q6H PRN (Reason: pain) 5 Days Qty: 20 0RF Continued (DME) blood sugar diagnostic Strip See Rx Instructions .ROUTE .MEDSUPPLY Qty: 50 2RF Rx Instructions: USE DIRECTED TO CHECK BLOOD GLUCOSE ONCE DAILY FOR TYPE 2 DM (DME) blood-glucose meter [facility] See Rx Instructions .ROUTE .MEDSUPPLY Qty: 1 0RF Rx Instructions: USE TO CHECK BLOOD GLUCOSE ONCE DAILY FOR TYPE 2 DM (DME) disability placard 0 .Route .MEDSUPPLY Qty: 1 0RF Rx Instructions: Duration 5 years. cilostazol 100 mg tablet 100 mg PO BID Qty: 60 1RF Brilinta 90 mg tablet 90 mg PO BID paroxetine HCl [Paxil] 30 mg tablet 30 mg PO QAM Qty: 90 3RF triamterene-hydrochlorothiazid 37.5-25 mg capsule 1 cap PO DAILY Qty: 90 3RF lisinopril 20 mg tablet 20 mg PO DAILY Qty: 90 3RF Hold Instructions: Resume on 01/16/23. When blood pressure improves on home checks metformin 500 mg tablet 500 mg PO QDAY Qty: 90 1RF omeprazole 20 mg capsule,delayed release(DR/EC) 20 mg PO DAILY Qty: 90 1RF amlodipine 5 mg tablet 5 mg PO DAILY Qty: 90 1RF Changed acetaminophen 500 mg capsule 500 mg PO Q6H 7 Days Qty: 28 0RF Discontinued Nitro-Bid 2 % ointment 1 inch transdermal BID Qty: 30 0RF Rx Instructions: rub into affected area prednisone 50 mg tablet 50 mg PO Q6H Qty: 3 0RF Rx Instructions: administer 13 hr, 7 hr, and 1 hr before time of procedure diphenhydramine HCl 50 mg capsule 50 mg PO ONCE Qty: 1 0RF Rx Instructions: Take 1 hour before scheduled procedure tramadol 50 mg tablet 50 mg PO Q6H PRN PRN (Reason: pain) 14 Days Qty: 56 0RF Referrals / Follow Up: Tavo Strange DO [Primary Care Provider] - Disposition Disposition (needs filled in before D/C Order can be placed): Inpatient Rehab Unit/Facility
[2023-06-20] MEDS: Rivaroxaban 20 MG Tablet PO (15:25)
--- NOTE | 2023-06-20 15:45 | PCM.TXEXTCAR ---
Diet Diet Order/Speech Therapy: 06/18/23 12:21 Diet: Regular - General Is pt able to select menu?: Yes Wound(s) right groin: Wound Type: Surgical Incision (Prevena vacuum dressing in place; incision closed with skin glue) right leg: Wound Type: Surgical Incision (incisions closed with skin glue, okay to leave open to air) Therapies Weight Bearing: Full weight bearing Extremity Affected:: Right Lower Physical Therapy: Eval and Treat Occupational Therapy: Eval and Treat Problem/Diagnosis (1) Atherosclerosis of [place] arteries of extremities with rest pain, right leg: Status: Chronic Code(s): I70.221 - Atherosclerosis of [place] arteries of extremities with rest pain, right leg Plan: Hgb had dropped to 7.8 this morning which is likely secondary to a combination of acute blood loss anemia secondary to recent surgery and dilutional. She received 1 unit of PRBC. Her Hgb this afternoon had improved to 9.9. No signs of bleeding or hematoma at surgical sites. Will transition from heparin to Xarelto 20mg daily. She has been weaned off of O2 and stable on room air since this morning. Her pain is well controlled on PO meds. She remains constipated but + flatulence and no abdominal pain or TTP. Will continue bowel regimen. She was accepted to a rehab facility. She is medically stable for discharge today. Discussed with both patient and her daughter Elizabeth (via phone) and both are comfortable with discharge today. Allergies/Procedures Done in Hospital Allergies Iodinated Contrast Media [Iodinated Contrast- Oral and IV Dye] Allergy (Severe, Verified 06/17/23 06:07) tongue swelled Type of Care/Length of Stay Estimated LOS: Convalescent Care Less Than 30 days Type of Care Needed: Skilled Rehab Potential: Good Prognosis: Good Additional Orders/Day of Discharge Day of Discharge: 06/20/23 Dietary and Speech Recommendations Dietitian Recommendations/Changes: recommend advance diet as tolerated to CHO controlled Follow Up Care Please Follow Up With: Nelda Mancilla PA When: 07/08/23 Discharge Plan Admission Admit Date/Time: 06/17/23 05:27 Primary Reason for Your Visit: R femoral-peroneal bypass Attending Provider: Dallin Knutson Primary Care Provider: Tavo Strange Consulting Providers: Dallin Beebe Instructions Additional Instructions / Restrictions: The right groin incision is covered by a Prevena vacuum dressing. This so far has been maintaining good seal. This should remain in place for 7 days postoperatively if possible. If it is no longer maintaining seal or if it is alarming and this cannot be stopped then it is okay to remove it early as needed. To remove this dressing (1) hold down the power button until a long beep and the greenlight disappears (2) disconnect the tubing by twisting the white connectors apart (3) the purple foam should begin to puff up once the tubing is disconnected (4) once the foam has puffed up you may peel the dressing off and throw this in the entire unit away. In addition to the right groin incision there are 2 long incisions along the medial aspect of the right thigh and right calf. All of these incisions have been closed with skin glue. The skin glue will continue to protect them over the coming weeks. The skin glue will peel/flake off on its own over the next few weeks. Please do not pick at it or attempt to remove it. Otherwise, the incisions may be left open to air. You may shower tomorrow. It is okay for soap and water to rinse over the incision sites. Be sure to pat gently to dry. Do not submerge the incision sites in water such as with a bath, swimming, etc. for at least 3 weeks or until the incisions are fully healed. Do not lift greater than 20 pounds for 3 weeks. Otherwise activity as tolerated and working with PT/OT is strongly encouraged. It is normal to experience some increased swelling, warmth, and redness in your leg after surgery due to the now increased blood flow. To manage swelling, advise elevating your leg at times of rest and applying an Flex wrap for compression. Should the swelling/redness suddenly get worse or you develop pain please contact the office right away. You have been prescribed Xarelto 20 mg tablet to be taken by mouth once daily. This is a blood thinner. Please monitor for any signs of bleeding such as bloody stool or blood in the urine. Please continue to take Brilinta as prescribed. You have been prescribed oxycodone 5 mg tablet to be taken by mouth every 6 hours as needed for pain. Do not take this in combination with any other prescription pain medications without checking with our office and/or your primary care or other prescribing provider. You may take this in addition to Tylenol. I recommend taking Tylenol on a scheduled basis and taking the oxycodone only as needed. Oxycodone is an opioid pain medication so it can worsen constipation. While you are taking this medication, I advise remaining on a bowel regimen with MiraLAX and or bisacodyl/senna which has been prescribed. You are scheduled for follow-up in the office on 07/08/2023 at 11 AM. If you need to reschedule this appointment or have any other questions or concerns please contact the office at . Discharge Orders/Prescriptions Prescriptions: New sennosides-docusate sodium [Stool Softener-Stimulant Laxat] 8.6-50 mg Tablet 2 tab PO DAILY 14 Days Qty: 14 0RF Xarelto 20 mg tablet 20 mg PO DAILY Qty: 30 5RF Rx Instructions: must administer with evening meal polyethylene glycol 3350 [Miralax] 17 gram/dose powder 17 g PO BID PRN (Reason: constipation) 14 Days Qty: 476 0RF oxycodone 5 mg tablet 5 mg PO Q6H PRN (Reason: pain) 5 Days Qty: 20 0RF Continued (DME) blood sugar diagnostic Strip See Rx Instructions .ROUTE .MEDSUPPLY Qty: 50 2RF Rx Instructions: USE DIRECTED TO CHECK BLOOD GLUCOSE ONCE DAILY FOR TYPE 2 DM (DME) blood-glucose [place] [facility] [place] Instructions .ROUTE .MEDSUPPLY Qty: 1 0RF Rx Instructions: USE TO CHECK BLOOD GLUCOSE ONCE DAILY FOR TYPE 2 DM (DME) disability placard 0 .Route .MEDSUPPLY Qty: 1 0RF Rx Instructions: Duration 5 years. cilostazol 100 mg tablet 100 mg PO BID Qty: 60 1RF Brilinta 90 mg tablet 90 mg PO BID paroxetine HCl [Paxil] 30 mg tablet 30 mg PO QAM Qty: 90 3RF triamterene-hydrochlorothiazid 37.5-25 mg capsule 1 cap PO DAILY Qty: 90 3RF lisinopril 20 mg tablet 20 mg PO DAILY Qty: 90 3RF Hold Instructions: Resume on 01/16/23. When blood pressure improves on home checks metformin 500 mg tablet 500 mg PO QDAY Qty: 90 1RF omeprazole 20 mg capsule,delayed release(DR/EC) 20 mg PO DAILY Qty: 90 1RF amlodipine 5 mg tablet 5 mg PO DAILY Qty: 90 1RF Changed acetaminophen 500 mg capsule 500 mg PO Q6H 7 Days Qty: 28 0RF Discontinued Nitro-Bid 2 % ointment 1 inch transdermal BID Qty: 30 0RF Rx Instructions: rub into affected area prednisone 50 mg tablet 50 mg PO Q6H Qty: 3 0RF Rx Instructions: administer 13 hr, 7 hr, and 1 hr before time of procedure diphenhydramine HCl 50 mg capsule 50 mg PO ONCE Qty: 1 0RF Rx Instructions: Take 1 hour before scheduled procedure tramadol 50 mg tablet 50 mg PO Q6H PRN PRN (Reason: pain) 14 Days Qty: 56 0RF Referrals / Follow Up: Tavo Strange DO [Primary Care Provider] - Disposition Disposition (needs filled in before D/C Order can be placed): Inpatient Rehab Unit/Facility
--- NOTE | 2023-06-20 16:02 | CASEMGMT ---
[facility] Transport was set up for 830. They had no earlier availability. SW called patient's daughter Elizabeth and let her know this information. Phone number for report is [phone] and fax is [phone]. Plan: d/c to [facility] under skilled level of care. Chelsey Piper SENIOR RUBY DEVELOPERAnand CARCAMO
--- NOTE | 2023-06-20 16:06 | CASEMGMT ---
Discharge Planning Physicians will transport patient by wheelchair at 8:30p. SW updated. Call placed to patients daughter with instructions on where to enter hospital. Ashley Delvalle, Discharge Planning Asst.
[2023-06-20 16:35] LABS: Bedside Glucose 197 mg/dL (74-106)
[2023-06-20] MEDS: oxyCODONE 5 MG Tablet 10 MG PO (20:09)
[2023-06-20 20:37] LABS: Bedside Glucose 201 mg/dL (74-106)
== END 2023-06-20 23:56 | DRG 253 ==
LOC: ACINP 05:31 → ICU 15:47
PROVIDERS: Anesthesiology; Physician Assistant; Admitting Provider Surgery Trauma Surgery; PCP Family Medicine; Referring Provider Surgery Trauma Surgery; Visit Provider Surgery Trauma Surgery
PROC: 041K09M Bypass Right Femoral Artery to Peroneal Artery with Autologous Venous Tissue, Open Approach (ICD-10-PCS; principal; 2023-06-17 07:00)
DX: I70.221 Atherosclerosis of native arteries of extremities with rest pain, right leg (principal); D62 Acute posthemorrhagic anemia; E11.9 Type 2 diabetes mellitus without complications; I10 Essential (primary) hypertension; Z87.891 Personal history of nicotine dependence; Z79.84 Long term (current) use of oral hypoglycemic drugs
CPT/HCPCS: 36415; 80048; 82962; 83036; 85018; 85025; 85027; 85347; 85610; 85730; 86850; 86900; 86901; 86920; 86922; 94668; 97162; 97166; 97530; 97535; 97802; 99252; A4648; J7040; J7120; P9016; P9047; A4216; G0463; J1940; J2405

== ENCOUNTER 2023-07-22 05:32 | Inpatient (IN) | payer MEDICARE, OTHER, SELFPAY ==
[2023-07-22] VITALS (20 sets, daily range): BP systolic 95–177; BP diastolic 59–102; PULSE 89–110; RESP 10–16; TEMP 36.3–37.1; O2SAT 91–99; BMI 26.6; BMI 27.7
[2023-07-22] MEDS: Lactated Ringers 1,000 ML 15 ML IV ×4 (06:31→14:35)
[2023-07-22 07:05] LABS: Bedside Glucose 203 mg/dL (74-106)
--- NOTE | 2023-07-22 07:30 | PLAQ_PTH ---
PATIENT: ROSEMARY HELMS LOC: ICU U#:[id number] AGE/SX: 77/F ROOM: [place] [address] RE07/22/[address]: Dr. Dallin Knutson MD : 1945 BED: 1 DIS: 07/25/2023 SPEC #: [id number] RECD: 07/22/23 16:00 STATUS: JASON REMabel #: [id number] JEFFREY: 07/22/23 07:[address]: Dallin Knutson DEPT: SURGICAL PATHOLOGY RECD BY: Heather Argueta ENTERED: 07/23/23 10:42 SP TYPE: PLAQUE OTHR DR: Dr. Tavo Strange, DO Tissues: PLAQUE Procedures: Decalcification bone/plaque Surgery Specimen Level III HEADER OPERATION: Left fem-pop bypass PRE-OP DIAGNOSIS: Atherosclerosis of [place] arteries of extremities with rest pain, left leg TISSUE SUBMITTED: Left femoral plaque MICROSCOPIC DIAGNOSIS Left femoral plaque, endarterectomy: Calcified atheromatous plaque consistent with serve stenosis. AM/ 07/28/2023 GROSS DESCRIPTION Received in fixative is one container labeled with the patient's name and designated Left femoral plaque. The specimen consists of multiple irregular fragments of yellow gritty plaque like material measuring in aggregate 2.5 x 2.0 x 0.2cm. The specimen is totally submitted in two cassettes after decalcification. NELLY/ 07/23/2023 TC:5 CPT:89632,76830
--- NOTE | 2023-07-22 07:34 | PCM.HP.BLA ---
History and Physical Chief Complaint: post OP Is patient in pain?: Yes Allergies Iodinated Contrast Media (Iodinated Contrast- Oral and IV Dye) Allergy (Severe, Verified 07/08/23 11:06) tongue swelled Medications ?Medication ?Instructions ?Recorded ?Confirmed ?Type blood sugar diagnostic #50 ea 05/30/21 07/08/23 Rx blood-glucose meter #1 ea 05/30/21 07/08/23 Rx paroxetine HCl 30 mg tablet (Paxil) 30 mg PO QAM ANXIETY #90 tabs 06/07/22 07/08/23 Rx triamterene 37.5 1 cap PO DAILY HTN #90 caps 06/07/22 07/08/23 Rx mg-hydrochlorothiazide 25 mg capsule disability placard ##1 08/13/22 07/08/23 Rx metformin 500 mg tablet 500 mg PO QDAY DIABETES #90 tabs 12/11/22 07/08/23 Rx omeprazole 20 mg capsule,delayed 20 mg PO DAILY GERD #90 caps 12/11/22 07/08/23 Rx release amlodipine 5 mg tablet 5 mg PO DAILY HEART #90 tabs 02/25/23 07/08/23 Rx cilostazol 100 mg tablet 100 mg PO BID ANTIPLATELET #60 tabs 05/06/23 07/08/23 Rx oxycodone 5 mg tablet 5 mg PO Q6H PRN pain 5 days #20 06/20/23 07/08/23 Rx tabs clopidogrel 75 mg tablet (Plavix) 75 mg PO DAILY BLOOD THINNER #90 07/02/23 07/08/23 Rx tabs acetaminophen 500 mg capsule 500 mg PO Q6H PRN PRN pain 07/07/23 07/08/23 History lisinopril 20 mg tablet 20 mg PO DAILY PRN PRN HTN 07/07/23 07/08/23 History rivaroxaban 20 mg tablet (Xarelto) 20 mg PO QHS PVD 07/07/23 07/08/23 History Subjective Details: Delmy Haji is a 77 y/o female who presents to the office today for an initial postoperative visit. She had R femoral-peroneal bypass with nonreversed GSV on 06/17/23. At discharge, she went to [facility] inpatient rehab for about a week and did very well. When she went home from there, she had HH PT for just 2 visits before she was discharged. She has been walking well, not requiring a cane or walker as she was previously. She has had resolution of her rest pain and claudication in the RLE. She does note persistent burning pain in her R thigh especially. She does have RLE edema. She has not noted any drainage from any of the incision sites. She does continue to have LLE rest pain/claudication. She does still report general fatigue after days when she has been up and active. Initially, after discharge from the rehab facility there was a short period where she had not been taking the antiplatelet/anticoagulants due to cost concerns. Did switch her from Brilinta to Plavix and then her daughter has signed her up for copay assistance through the store sales consultant for the Xarelto. She has since been taking Xarelto and Plavix as prescribed. Objective Details: A&Ox3, NAD RRR Nonlabored respirations RLE with 1+ edema. R groin and medial thigh/calf incisions are all well-healed. Still with good signals in the bypass and at the R PT/DP. Coding Level of Care Code Global Post Op Diagnoses Atherosclerosis of [place] arteries of extremities with rest pain, right leg I70.221 Atherosclerosis of [place] arteries of extremities with rest pain, left leg I70.222 [facility] Medical History (Updated 07/09/23 @ 12:11 by DELBERT Brown) Wears dentures Post-menopausal Anxiety Alcohol use Ingrowing nail, right great toe Diabetes Back pain History of ulceration Gastric reflux Former smoker Hoarseness Leg cramps History of pain when walking History of edema History of echocardiogram History of stress test Polio Retinal tear of left eye Cataracts, bilateral Syncope and collapse Ruptured cervical disc Neck pain Limb weakness Diarrhea Migraines Fatigue Shoulder pain History of stomach ulcers IBS (irritable bowel syndrome) Hypertension Type 2 diabetes mellitus Pain in left leg Surgical History (Updated 06/13/23 @ 15:08 by Ivett Gonsalves) Hx of endarterectomy History of cholecystectomy Social History household members: none Smoking Status: Former smoker alcohol intake: never substance use type: does not use what type of physical activity do you participate in: walking frequency: daily Assessment and Plan (No Qualifiers) Assessment and Plan (1) Atherosclerosis of [place] arteries of extremities with rest pain, right leg: Status: Chronic (2) Atherosclerosis of [place] arteries of extremities with rest pain, left leg: Status: Acute Plan -left fem-pop
[2023-07-22] MEDS: Cefazolin 2 GM in 0.9% Normal Saline (100mL Bag) 100 ML IV (07:51)
[2023-07-22] MEDS: Heparin Injection (Vial) 5,000 UNIT/ML VIAL 5000 UNIT (08:20)
[2023-07-22] MEDS: Heparin 10,000 UNITS/10 ML Vial 10000 UNITS (08:20)
--- NOTE | 2023-07-22 09:46 | PCM.PRE.AN2 ---
[facility] Medical History (Updated 07/09/23 @ 12:11 by DELBERT Brown) Wears dentures Post-menopausal Anxiety Alcohol use Ingrowing nail, right great toe Diabetes Back pain History of ulceration Gastric reflux Former smoker Hoarseness Leg cramps History of pain when walking History of edema History of echocardiogram History of stress test Polio Retinal tear of left eye Cataracts, bilateral Syncope and collapse Ruptured cervical disc Neck pain Limb weakness Diarrhea Migraines Fatigue Shoulder pain History of stomach ulcers IBS (irritable bowel syndrome) Hypertension Type 2 diabetes mellitus Pain in left leg Home Medications ?Medication ?Instructions ?Recorded ?Last Taken ?Type blood sugar diagnostic #50 ea 05/30/21 Unknown Rx blood-glucose meter #1 ea 05/30/21 Unknown Rx paroxetine HCl 30 mg tablet (Paxil) 30 mg PO QAM ANXIETY #90 tabs 06/07/22 07/22/23 Rx triamterene 37.5 1 cap PO DAILY HTN #90 caps 06/07/22 07/22/23 04:30 Rx mg-hydrochlorothiazide 25 mg capsule disability placard ##1 08/13/22 Unknown Rx metformin 500 mg tablet 500 mg PO QDAY DIABETES #90 tabs 12/11/22 06/16/23 Rx omeprazole 20 mg capsule,delayed 20 mg PO DAILY GERD #90 caps 12/11/22 07/22/23 Rx release amlodipine 5 mg tablet 5 mg PO DAILY HEART #90 tabs 02/25/23 07/22/23 04:30 Rx cilostazol 100 mg tablet 100 mg PO BID ANTIPLATELET #60 tabs 05/06/23 07/21/23 Rx oxycodone 5 mg tablet 5 mg PO Q6H PRN pain 5 days #20 06/20/23 Unknown Rx tabs clopidogrel 75 mg tablet (Plavix) 75 mg PO DAILY BLOOD THINNER #90 07/02/23 07/21/23 Rx tabs acetaminophen 500 mg capsule 500 mg PO Q6H PRN PRN pain 07/07/23 Unknown History lisinopril 20 mg tablet 20 mg PO DAILY PRN PRN HTN 07/07/23 Unknown History rivaroxaban 20 mg tablet (Xarelto) 20 mg PO QHS PVD 07/07/23 07/21/23 History Allergy/AdvReac Type Severity Reaction Status Date / Time Iodinated Contrast Media Allergy Severe tongue Verified 07/22/23 06:00 (Iodinated Contrast- Oral swelled and IV Dye) Surgical History (Updated 06/13/23 @ 15:08 by Ivett Gonsalves) Hx of endarterectomy History of cholecystectomy Social History household members: none Smoking Status: Former smoker alcohol intake: never substance use type: does not use what type of physical activity do you participate in: walking frequency: daily Pre-Assessment* Anesthesia History 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 When Was Last Pacemaker Check Airway/Respiratory Assessment Respiratory Assessment - machinist/machine builder: Respiratory Tract Infection Hx - machinist/machine builder Hx Respiratory Tract Infection No 07/07/23 10:57 STOP Sleep Apnea STOP Sleep Apnea - machinist/machine builder: STOP Sleep Apnea - machinist/machine builder Hx Hypertension Yes: MED TAPERED DOWN FOR 07/07/23 10:57 HYPOTENSION CURRENTLY Hx Sleep Apnea No 07/07/23 10:57 CPAP BIPAP Do you snore loudly (louder No 07/07/23 10:57 than talking or can be heard Do you often feel tired/ Yes 07/07/23 10:57 fatigued/ sleepy during daytime? Has anyone observed you stop No 07/07/23 10:57 breathing during sleep? STOP Results Positive 07/07/23 10:57 Tobacco Use History Tobacco Use History - machinist/machine builder: Tobacco Use Histor - machinist/machine builder Tobacco Use Smoking Status Former smoker 07/07/23 10:57 Hx Tobacco Use Yes 07/07/23 10:57 Years Smoking Packs Smoked per Day Smoking Cessation Date was Yes - quit smoking within 15 07/07/23 10:57 within the last 15 years years Hx Smoking Cessation Date 12/09/22 07/07/23 10:57 Hx Smoking Cessation Counseling /Reproduction History /Reproductive History - machinist/machine builder: /Reproductive Hx- machinist/machine builder Hx Now No 07/07/23 10:57 Gestational Age (in weeks): EDC: Hx Hx Para Hx Section SAB No 07/07/23 10:57 Hematologic Medial History Hematologic Hx - machinist/machine builder: 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 Specify any problems Hx of Preganancy in last 3 No 07/07/23 10:57 Months Nurse Filling Out Transfusion DSCHRIBER 07/07/23 10:57 & Questions: Date: 07/07/23 07/07/23 10:57 Time: 10:59 07/07/23 10:57 Patient unable to answer at this time (ie. confused, unrespo PONV PONV - machinist/machine builder: PONV - machinist/machine builder Female Yes 07/07/23 10:57 HX of Motion Sickness No 07/07/23 10:57 HX of N/V After Surgery No 07/07/23 10:57 Non-Smoker Yes 07/07/23 10:57 Duration of Surgery greater Yes 07/07/23 10:57 than 60 minutes Number of Risk Factors 3 07/07/23 10:57 PONV Score Moderate Risk 07/07/23 10:57 Assessment & Plan Anesthesia* Anesthesia Assessment Anesthesia Assessment: Discussed sedation and/or anesthesia options, risks, benefits, and alternatives with patient/parents/legal guardian. Questions invited. The patient/parents/legal guardian/POA seems to understand and agrees to proceed with anesthesia plan. Reviewed the physical assessment, medical history, allergy history and patient home medications list prior to surgery/procedure/anesthetic and documented any changes. Performed airway and anesthesia risk assessments. Anesthesia focused assessment* Height & Weight: Anesthesia: Height & Weight Height 1.68 m 07/22/23 06:03 Weight: 75 kg 07/22/23 06:03 Body Mass Index (BMI) 26.6 07/22/23 06:03 Temperature: 98.8 F Pulse Rate: 93 Blood Pressure: 177/82 Respiratory Rate: 16 Pulse Ox: 99 Active Medications: Current Medications Generic Name Dose Route Start Last Admin Trade Name Mateoq PRN Reason Stop Dose Admin Lactated Ringer's 1,000 mls @ 15 mls/hr 07/22/23 06:00 07/22/23 06:31 IV 15 mls/hr .Q48H KHUSHI Administration Review of Systems (Anesthesia) ROS Narrative System reviewed and no additional complaints, except as documented. Focused labs Focused Pre-Anesthesia Labs: Laboratory Tests 06/20/23 06/20/23 07/22/23 12:15 14:34 06:08 Hgb 9.9 L APTT 64.6 H POC Glucose 203 H
--- NOTE | 2023-07-22 10:12 | PCM.PRE.AN2 ---
[facility] Medical History (Updated 07/09/23 @ 12:11 by DELBERT Brown) Wears dentures Post-menopausal Anxiety Alcohol use Ingrowing nail, right great toe Diabetes Back pain History of ulceration Gastric reflux Former smoker Hoarseness Leg cramps History of pain when walking History of edema History of echocardiogram History of stress test Polio Retinal tear of left eye Cataracts, bilateral Syncope and collapse Ruptured cervical disc Neck pain Limb weakness Diarrhea Migraines Fatigue Shoulder pain History of stomach ulcers IBS (irritable bowel syndrome) Hypertension Type 2 diabetes mellitus Pain in left leg Home Medications ?Medication ?Instructions ?Recorded ?Last Taken ?Type blood sugar diagnostic #50 ea 05/30/21 Unknown Rx blood-glucose meter #1 ea 05/30/21 Unknown Rx paroxetine HCl 30 mg tablet (Paxil) 30 mg PO QAM ANXIETY #90 tabs 06/07/22 07/22/23 Rx triamterene 37.5 1 cap PO DAILY HTN #90 caps 06/07/22 07/22/23 04:30 Rx mg-hydrochlorothiazide 25 mg capsule disability placard ##1 08/13/22 Unknown Rx metformin 500 mg tablet 500 mg PO QDAY DIABETES #90 tabs 12/11/22 06/16/23 Rx omeprazole 20 mg capsule,delayed 20 mg PO DAILY GERD #90 caps 12/11/22 07/22/23 Rx release amlodipine 5 mg tablet 5 mg PO DAILY HEART #90 tabs 02/25/23 07/22/23 04:30 Rx cilostazol 100 mg tablet 100 mg PO BID ANTIPLATELET #60 tabs 05/06/23 07/21/23 Rx oxycodone 5 mg tablet 5 mg PO Q6H PRN pain 5 days #20 06/20/23 Unknown Rx tabs clopidogrel 75 mg tablet (Plavix) 75 mg PO DAILY BLOOD THINNER #90 07/02/23 07/21/23 Rx tabs acetaminophen 500 mg capsule 500 mg PO Q6H PRN PRN pain 07/07/23 Unknown History lisinopril 20 mg tablet 20 mg PO DAILY PRN PRN HTN 07/07/23 Unknown History rivaroxaban 20 mg tablet (Xarelto) 20 mg PO QHS PVD 07/07/23 07/21/23 History Allergy/AdvReac Type Severity Reaction Status Date / Time Iodinated Contrast Media Allergy Severe tongue Verified 07/22/23 06:00 (Iodinated Contrast- Oral swelled and IV Dye) Surgical History (Updated 06/13/23 @ 15:08 by Ivett Gonsalves) Hx of endarterectomy History of cholecystectomy Social History household members: none Smoking Status: Former smoker alcohol intake: never substance use type: does not use what type of physical activity do you participate in: walking frequency: daily Pre-Assessment* Anesthesia History 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 When Was Last Pacemaker Check Airway/Respiratory Assessment Respiratory Assessment - housekeeper/laundry assistant: Respiratory Tract Infection Hx - housekeeper/laundry assistant Hx Respiratory Tract Infection No 07/07/23 10:57 STOP Sleep Apnea STOP Sleep Apnea - housekeeper/laundry assistant: STOP Sleep Apnea - housekeeper/laundry assistant Hx Hypertension Yes: MED TAPERED DOWN FOR 07/07/23 10:57 HYPOTENSION CURRENTLY Hx Sleep Apnea No 07/07/23 10:57 CPAP BIPAP Do you snore loudly (louder No 07/07/23 10:57 than talking or can be heard Do you often feel tired/ Yes 07/07/23 10:57 fatigued/ sleepy during daytime? Has anyone observed you stop No 07/07/23 10:57 breathing during sleep? STOP Results Positive 07/07/23 10:57 Tobacco Use History Tobacco Use History - housekeeper/laundry assistant: Tobacco Use Histor - housekeeper/laundry assistant Tobacco Use Smoking Status Former smoker 07/07/23 10:57 Hx Tobacco Use Yes 07/07/23 10:57 Years Smoking Packs Smoked per Day Smoking Cessation Date was Yes - quit smoking within 15 07/07/23 10:57 within the last 15 years years Hx Smoking Cessation Date 12/09/22 07/07/23 10:57 Hx Smoking Cessation Counseling /Reproduction History /Reproductive History - housekeeper/laundry assistant: /Reproductive Hx- housekeeper/laundry assistant Hx Now No 07/07/23 10:57 Gestational Age (in weeks): EDC: Hx Hx Para Hx Section SAB No 07/07/23 10:57 Hematologic Medial History Hematologic Hx - housekeeper/laundry assistant: 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 Specify any problems Hx of Preganancy in last 3 No 07/07/23 10:57 Months Nurse Filling Out Transfusion DSCHRIBER 07/07/23 10:57 & Questions: Date: 07/07/23 07/07/23 10:57 Time: 10:59 07/07/23 10:57 Patient unable to answer at this time (ie. confused, unrespo PONV PONV - housekeeper/laundry assistant: PONV - housekeeper/laundry assistant Female Yes 07/07/23 10:57 HX of Motion Sickness No 07/07/23 10:57 HX of N/V After Surgery No 07/07/23 10:57 Non-Smoker Yes 07/07/23 10:57 Duration of Surgery greater Yes 07/07/23 10:57 than 60 minutes Number of Risk Factors 3 07/07/23 10:57 PONV Score Moderate Risk 07/07/23 10:57 Assessment & Plan Anesthesia* Anesthesia Assessment Anesthesia Assessment: Discussed sedation and/or anesthesia options, risks, benefits, and alternatives with patient/parents/legal guardian. Questions invited. The patient/parents/legal guardian/POA seems to understand and agrees to proceed with anesthesia plan. Reviewed the physical assessment, medical history, allergy history and patient home medications list prior to surgery/procedure/anesthetic and documented any changes. Performed airway and anesthesia risk assessments. Anesthesia focused assessment* Height & Weight: Anesthesia: Height & Weight Height 1.68 m 07/22/23 06:03 Weight: 75 kg 07/22/23 06:03 Body Mass Index (BMI) 26.6 07/22/23 06:03 Temperature: 98.8 F Pulse Rate: 93 Blood Pressure: 177/82 Respiratory Rate: 16 Pulse Ox: 99 Active Medications: Current Medications Generic Name Dose Route Start Last Admin Trade Name Mateoq PRN Reason Stop Dose Admin Lactated Ringer's 1,000 mls @ 15 mls/hr 07/22/23 06:00 07/22/23 06:31 IV 15 mls/hr .Q48H KHUSHI Administration Review of Systems (Anesthesia) ROS Narrative System reviewed and no additional complaints, except as documented. Focused labs Focused Pre-Anesthesia Labs: Laboratory Tests 06/20/23 06/20/23 07/22/23 12:15 14:34 06:08 Hgb 9.9 L APTT 64.6 H POC Glucose 203 H
--- NOTE | 2023-07-22 14:12 | PCM.OPRPT ---
Report of Operation Date of Procedure: 07/22/23 Pre-Operative Diagnosis: atherosclerosis of [place] vessel with rest pain left lower extremity Post-Operative Diagnosis: same Surgery/Procedure Performed:: left common femoral endarterectomy left femoral-above knee popliteal bypass with reversed great saphenous vein left sartorius flap Surgeon: Dallin Knutson Estimated Blood Loss (mL): 600 Description of Procedure: HPI: Patient is a 77-year-old female with atherosclerosis and worsening claudication and now with early rest pain particularly nocturnal rest pain. She has previously undergone a left iliac artery stenting which did not significantly improve her symptoms. She has a flush occlusion of her superficial femoral artery origin which is densely calcified with reconstitution of the above-knee popliteal artery with minimally diseased popliteal down to its trifurcation. She does have scattered tibial level disease with small caliber vessels. In order to improve her perfusion pressure distally she is taken now for a femoral-popliteal bypass with great saphenous vein. Description of procedure: Upon obtaining informed consent verification correct patient procedure site patient was taken to the operating room where she was placed under general anesthesia. She was then positioned prepped and draped in usual sterile fashion a time was performed. Ultrasound used to miguel the great saphenous vein coursed along the medial thigh and calf. Oblique incision was made over the common femoral and Bovie electrocautery was dissect down through the subcutaneous tissue. Subtending retractors then put in position further dissection carried down to the femoral sheath. The femoral sheath was incised vertically up to the inguinal ligament which was freed along its inferior border and retracted cephalad. Sharp dissection used to dissect free the common femoral artery and it was noted to have significant calcified plaque in the mid to distal vessel contiguous with the SFA lesion. The hope was that we will be able to perform our bypass without need for endarterectomy however given the appearance of the vessel was clear that this would be necessary. Given the need for endarterectomy a modifier 22 was applied for the additional 1 hour of operative time for endarterectomy and patch placement. Dissection carried proximally up to the distal external iliac artery above the area of palpable and visible plaque. Vessels then dissected free circumferentially and a running was placed Vesseloops on the medial lateral branch as well as the distal external leg artery. Dissection carried down to the superficial femoral artery and running was placed vessel. Next dissection was carried onto the profunda secondary branches primarily was present laterally. Next a longitudinal incision was created over the medial aspect of the thigh in the groove between the adductor muscles and the sartorius muscle. Bovie electrocautery was then used to dissect down through subcutaneous tissue and self-retaining tractors in position. Dissection carried down to the fascia and the fascia incised and then blunt dissection and Bovie dissection utilized to dissect down to the neurovascular bundle. Popliteal artery was soft and free of any significant plaque at this location. Sharp dissection was dissected free of the vessel proximal and distal and a running was placed vessel loop. Next the saphenous vein was harvested via skip incisions with side branches ligated with silk ties and divided. Once a satisfactory length of saphenous vein was dissected free a tunneler was then used to tunnel from the popliteal incision to the femoral incision. The patient was then heparinized allowed to circulate for 3 minutes. Femoral vessels then occluded with Vesseloops and longitudinal arteriotomy created 11 blade extended Hopkins scissors from the proximal common femoral artery down onto the main profunda trunk. We then performed her endarterectomy with a freer elevator with satisfactory endpoint distally onto the profunda and we then performed an eversion endarterectomy of the proximal SFA to cleared of any significant calcified plaque should any endovascular efforts be undertaken at a later date. Bovine pericardial patch was then secured in position using a 5-0 Prolene in running fashion. Prior to include suture line vessels were backbled and after completing suture line clamps removed and satisfactory stasis was noted. There is palpable pulse across the area of endarterectomy in the patent low resistance signal in the profundofemoral artery. Next the saphenous vein was ligated at the proximal calf with silk ties and then divided and then extracted from the skip incisions up to the saphenofemoral junction. The saphenofemoral junction was then clamped with a Celine clamp and then divided. The saphenofemoral junction stump was then oversewn with 5-0 Prolene and the clamp removed with satisfactory stasis noted. The saphenous vein was then flushed with heparinized saline and sidebranches reinforced as needed with Prolene suture. After we had satisfactory vein preparation we then oriented in the reverse fashion. The common femoral artery was then occluded with Vesseloops and longitudinal arteriotomy created in the patch and then extended with Hopkins scissors. The vein was then beveled to match the arteriotomy and anastomosis performed using a 6-0 Prolene running fashion. After completing suture line the clamps were removed and satisfactory stasis was noted. There is palpable brisk flow through the bypass and all sidebranches were noted to be hemostatic. Next the vein was marked to maintain orientation was secured to the tunneler and pulled through to the distal incision. Popliteal artery then occluded with Vesseloops and longitudinal arteriotomy was created 11 blade extended with Hopkins scissors. The vein was then cut the length and beveled to match the arteriotomy and anastomosis performed using a 6-0 Prolene running fashion. Prior to bleeding suture line the vessels were backbled and graft flushed. After complete suture line clamps removed satisfactory stasis was noted. There is a palpable pulse in the popliteal artery beyond the anastomosis and a satisfactory Doppler signal both in the distal bypass graft and the popliteal artery distally. Heparin was then reversed with protamine and the incision inspected for hemostasis. Floseal and Surgicel were then placed primarily around the proximal common femoral artery and the patch suture line as well as an the vein harvest sites. Given the patient's diabetic status and extensive dissection proximally a sartorius flap was felt to be justified in order to decrease risk for significant deeper level infection. Dissection was then carried laterally over to the sartorius muscle and the fascia incised longitudinally. Dissection was carried up to the anterior superior iliac spine where we sartorius inserted. This was then dissected free circumferentially and taken down with Bovie electrocautery. The muscle was then dissected along its lateral edge and then reflected and transposed over the femoral vessels and patch. This was then secured in position with interrupted 2-0 Vicryl. The incisions were then closed with 3-0 Vicryl, 4 Monocryl and Dermabond for the skin. At the conclusion the patient was taken to the recovery room prior to admission to the intensive care unit for hemodynamic and vascular monitoring. Again modifier 22 applied for the necessary time spent performing the femoral endarterectomy adding approximately 1 hour to the operative time.
[2023-07-22 14:20] LABS: Bedside Glucose 219 mg/dL (74-106)
[2023-07-22 14:20] LABS: Bedside Glucose 257 mg/dL (74-106)
[2023-07-22 14:20] LABS: Bedside Glucose 195 mg/dL (74-106)
[2023-07-22 14:20] LABS: Bedside Glucose 175 mg/dL (74-106)
--- NOTE | 2023-07-22 15:20 | SUR.PHASEI ---
per anesthesia; see charting anesthesia doc, ancef re dosed in OR at 1151 2gm.
[2023-07-22] MEDS: oxyCODONE 5 MG Tablet PO ×2 (16:57→23:04)
[2023-07-22] MEDS: 0.45% Normal Saline 1,000 ML 100 ML IV (16:58)
[2023-07-22 17:31] LABS: Bedside Glucose 266 mg/dL (74-106)
[2023-07-22] MEDS: HEPARIN/D5w 25,000 UNITS 25,000 UNITS/250 ML IV.SOLN. 5 UNITS CONT INF (19:51)
[2023-07-22] MEDS: 0.9% Saline Lock 10 ML Syringe IV (19:52)
[2023-07-22 20:25] LABS: International Normalized Ratio 1.1; Partial Thromboplast Time 25.5 Seconds (24.1-36.2); Prothrombin Time (Protime)PT. 14.1 SECONDS (11.7-14.9)
[2023-07-22] MEDS: Acetaminophen 500 MG Tablet 1000 MG PO (21:32)
[2023-07-22] MEDS: Docusate Sodium 100 MG Capsule PO (21:33)
[2023-07-22 21:56] LABS: Hematocrit 26.9 % (37-47); Hemoglobin 8.6 g/dL (12.0-15.0); Mean Corpuscular Hgb 30.2 pg (27.0-32.0); Mean Corpuscular Volume 94.4 fL (81-99); Mean Platelet Vol. 8.7 fl (6.2-12.0); Platelet Count 200 K/mm3 (150-450); RBC Distribution Width CV 14.7 % (11.6-14.6); RBC Distribution Width SD 50.3 fl (35.1-43.9); Red Blood Count 2.85 M/mm3 (4.2-5.4); White Blood Count 9.3 K/mm3 (4.4-11.0)
[2023-07-22 22:07] LABS: Bedside Glucose 219 mg/dL (74-106)
[2023-07-22] MEDS: Insulin Lispro 100 UNIT/ML INSULN.PEN SC (22:19)
[2023-07-23] VITALS (27 sets, daily range): BP systolic 113–167; BP diastolic 55–118; PULSE 87–111; RESP 11–21; TEMP 36.1–36.9; O2SAT 90–99; BMI 27.6
[2023-07-23] MEDS: 0.45% Normal Saline 1,000 ML 100 ML IV ×3 (02:12→22:33)
[2023-07-23] MEDS: HYDROmorphone 1 MG/ML Syringe IV ×3 (02:46→20:34)
[2023-07-23 05:24] LABS: Partial Thromboplast Time 38.2 Seconds (24.1-36.2)
[2023-07-23 05:32] LABS: Absolute Lymphocyte Count 1.82 X10^3/uL (0.83-4.51); Absolute Neutrophil Count 3.5 X10^3/uL (2.0-7.7); Basophil# 0.02 X10^3/uL; Basophil% 0.3 % (0-1); Eosinophil# 0.01 X10^3/uL; Eosinophils% 0.2 % (0-5); Hematocrit 24.5 % (37-47); Hemoglobin 7.7 g/dL (12.0-15.0); Lymphocyte # 1.82 X10^3/ul (0.83-4.51); Lymphocyte % 29.6 % (19-41); Mean Corp Hgb Conc 31.4 g/dL (32-36); Mean Corpuscular Hgb 29.8 pg (27.0-32.0); Mean Platelet Vol. 9.5 fl (6.2-12.0); Monocyte# 0.79 X10^3/uL; Monocyte% 12.8 % (0-10); NRBC Flagged by Analyzer 0 % (0-5); Neutrophil # 3.49 X10^3/uL (2.7-7.7); Neutrophil % 56.8 % (47-70); Platelet Count 181 K/mm3 (150-450); RBC Distribution Width CV 14.8 % (11.6-14.6); RBC Distribution Width SD 50.5 fl (35.1-43.9); Red Blood Count 2.58 M/mm3 (4.2-5.4); White Blood Count 6.2 K/mm3 (4.4-11.0)
[2023-07-23 05:44] LABS: Anion Gap 8 (5-15); BUN 28 mg/dL (7-18); BUN/Creat Ratio 13.1 RATIO (10-20); Calcium,Total 8.1 mg/dL (8.5-10.1); Chloride 104 mmol/L (98-107); Creatinine, Serum 2.13 mg/dL (0.55-1.02); EST Glomerular Filtration Rate 24 mL/min (>60); Est Glom Filt Rate - Afr Amer 29 mL/min (>60); Estimated Creatinine Clearance 23.65 ml/min; Glucose 167 mg/dL (74-106); Potassium 4.9 mmol/L (3.5-5.1); Sodium Level 136 mmol/L (136-145)
[2023-07-23] MEDS: Acetaminophen 500 MG Tablet 1000 MG PO ×3 (05:59→21:15)
[2023-07-23] MEDS: metFORMIN HCl 500 MG Tablet PO (07:24)
[2023-07-23] MEDS: PARoxetine 10 MG Tablet 30 MG PO (07:24)
[2023-07-23] MEDS: Triamterene 37.5MG/Hctz 25MG Capsule 1 CAP PO (07:25)
[2023-07-23] MEDS: Docusate Sodium 100 MG Capsule PO ×2 (07:25→21:15)
[2023-07-23] MEDS: amLODIPine 5 MG Tablet PO (07:25)
[2023-07-23] MEDS: Clopidogrel Bisulfate 75 MG Tablet PO (07:25)
[2023-07-23] MEDS: Pantoprazole Sodium 20 MG Tablet PO (07:26)
[2023-07-23 07:46] LABS: Bedside Glucose 139 mg/dL (74-106)
[2023-07-23] MEDS: oxyCODONE 5 MG Tablet 10 MG PO ×3 (07:47→19:28)
--- NOTE | 2023-07-23 09:12 | PN.SURG_ITS ---
Subjective Subjective Delmy was seen resting in bed this morning. She complains primarily of pain at the L groin incision site. She also complains of a headache/neck pain which she has had for several days. She does not have any other complaints. Objective Data Objective Data Vital Signs: Vital Signs Temp Pulse Resp BP Pulse Ox O2 Del Method O2 Flow Rate 97.9 F 87 19 H 142/61 H 93 Room Air 2 07/23/23 08:00 07/23/23 08:00 07/23/23 08:00 07/23/23 08:00 07/23/23 08:00 07/23/23 08:00 07/23/23 07:00 Oxygen Flow Rate (L/min) 2 Oxygen Delivery Method Room Air Weight: 171 lb 4.787 oz Body Mass Index (BMI) 27.6 Intake & Output: Intake and Output for Last 24 Hours 07/21/23 07/22/23 07/23/23 23:59 23:59 23:59 Intake Total 3140 / 3240 1173.33 / 1173.33 Output Total 290 / 340 220 / 220 Balance 2850 / 2900 953.33 / 953.33 Lab / Micro Data 07/23/23 04:35 07/23/23 04:35 Labs: Laboratory Results - last 24 hr 07/22/23 07:54: POC Glucose 175 H 07/22/23 10:09: POC Glucose 195 H 07/22/23 11:57: POC Glucose 219 H 07/22/23 14:00: POC Glucose 257 H 07/22/23 16:57: POC Glucose 266 H 07/22/23 19:45: PT 14.1, INR 1.1, APTT 25.5 07/22/23 21:36: POC Glucose 219 H 07/22/23 21:45: WBC 9.3, RBC 2.85 L, Hgb 8.6 L, Hct 26.9 L, MCV 94.4, MCH 30.2, MCHC 32.0, RDW Std Deviation 50.3 H, RDW Coeff of Cherise 14.7 H, Plt Count 200, MPV 8.7 07/23/23 04:35: WBC 6.2, RBC 2.58 L, Hgb 7.7 L, Hct 24.5 L, MCV 95.0, MCH 29.8, MCHC 31.4 L, RDW Std Deviation 50.5 H, RDW Coeff of Cherise 14.8 H, Plt Count 181, MPV 9.5, Immature Gran % (Auto) 0.300, Neut % (Auto) 56.8, Lymph % (Auto) 29.6, [place] % (Auto) 12.8 H, Eos % (Auto) 0.2, Baso % (Auto) 0.3, Absolute Neuts (auto) 3.5, Absolute Lymphs (auto) 1.82, Nucleated RBC % 0, APTT 38.2 H, Sodium 136, Potassium 4.9, Chloride 104, Carbon Dioxide 24.0, Anion Gap 8, BUN 28 H, C reatinine 2.13 H, Estim Creat Clear Calc 23.65, Est GFR (MDRD) Af Amer 29 L, Est GFR (MDRD) Non-Af 24 L, BUN/Creatinine Ratio 13.1, Glucose 167 H, Calcium 8.1 L 07/23/23 07:20: POC Glucose 139 H 07/23/23 08:03: Crossmatch See Detail Physical Exam Const alert, oriented x3 and no apparent distress General Appearance: cooperative HEENT normocephalic, head/scalp atraumatic, hearing grossly normal bilaterally, external ears normal and external nose normal Eyes EOMs intact bilaterally General Eye: normal appearance of both eyes Neck General: normal visual inspection and trachea midline Resp normal respiratory effort, no retractions and no use of accessory muscles Effort and Inspection: able to speak in complete sentences; Negative for labored, stridor or audible wheezes Cardio regular rate and regular rhythm Extremity Extremity Narrative: L groin with prevena vac dressing in place, maintaining good seal. Good L DP/PT pulses. L foot is warm. R DP with palpable pulse. Neuro oriented x3, CN's II-XII intact bilaterally, moves all extremities, no focal motor deficits and no sensory deficits noted Speech: speech normal Psych mental status grossly normal Appearance: grossly normal Attitude: calm and engaged Activity / Motor Behavior: appropriate eye contact Speech: normal speech Judgement: judgement good Assessment & Plan Assessment/Plan (1) Atherosclerosis of [place] arteries of extremities with rest pain, left leg: PLAN: Plan She is POD#1 from L fem endart, sartorius flap, L fem-pop bypass. Her LLE doppler signals are improved from prior to surgery. Hgb decreased from 8.6 preop to 7.7 this morning. Will transfuse 1 unit PRBC. Continue heparin for now and plan to transition to Xarelto 20mg as tolerated to protect bypass. Increased to oxycodone 10mg PRN to hopefully allow for better pain control on oral med and limit dilaudid; after last procedure she had some confusion/hallucinations with more frequent use of dilaudid. Okay to d/c [facility]. PT/OT and case management are consulted. She required acute rehab after prior similar surgery in the [facility].
--- NOTE | 2023-07-23 09:16 | CASEMGMT ---
MICHELLE MONTANO Assessment Face to Face with patient for initial transition planning/care coordination assessment. MICHELLE MONTANO introduced self and role at [facility], pt voices understanding. Pt is A&Ox4 and is resting comfortably in bed and is calm. Care providers, pharmacy, and demographics verified. Admitting dx: Lt Femoral Popliteal Bypass LACE Strata: 2 PCP: Tavo Strange Specialists: Obinna Knutson [facility] Insurance: [facility] A/B, Prescription Benefit: Yes LNOK: Myesha Gonzalez (Daughter), Elizabeth Hsuager (Daughter) Living Arrangements: Pt currently lives alone in a single story home with a BM with handrails and 2 steps to enter the house. Pt states that she is planning on moving to [place] with her daughter Myesha in the beginning of August ADLs/IADLs: Ind with ADLs. Requires assistance with some IADLs. Pt states that her daughter Elizabeth comes everyday to help with things such as laundry. Transportation: Normally self but has been needing to take pain medications. Pt daughter Elizabeth Drives her. Pt daughter lives 10 minutes away from the pt DME: Working [employer] and supplies. Walker, Trace, W/C, shower GB, BP Cuff, Pulse Ox HHC/SNF: Pt was recently DC from [facility] then was DC from there after about a week and was set up with [facility] after. Pt is unsure of the agency but states that she was discontinued from their services Pt?s goal: [facility] Plan: Pt states that she had a great experience at [facility] and would like to return there once medically ready. PT is pending at this time (to help see if the pt will qualify). SW updated and aware. CM/SW to follow pt progression in the hospital in regard to safe DC from [facility]. Aroldo Nelson RN, CM
--- NOTE | 2023-07-23 13:27 | NURSING ---
Urinary catheter removed at this time, patient tolerated well.
[2023-07-23 13:47] LABS: Hematocrit 25.4 % (37-47); Hemoglobin 8.2 g/dL (12.0-15.0)
--- NOTE | 2023-07-23 14:32 | CASEMGMT ---
Social Work SW met with pt and dgt Myesha to discuss discharge plan and introduced self and role of SW. Pt stating that she lives home alone and after last surgery of this type she completed rehab at [facility] prior to returning home. A list of SNF providers including quality and resource use data and consistent with the patient?s preferred geographic region, medical needs, and insurance network were provided from the [employer] Guide. Pt requesting to go to [facility] again for short term rehab. SW spoke with pt regarding progress with therapy and pt feels she will definitely need rehab and cannot return home alone. DC cashier assistant updated and to send referral to [facility]. EDEL Velez
--- NOTE | 2023-07-23 15:07 | CASEMGMT ---
Addendum entered by Ashley Delvalle 07/24/23 13:39: [facility] accepted. SW updated. Ashley Delvalle DC Planning Asst. Original Note: Discharge Planning Referral faxed to [facility] with fax confirmation rec'd. Ashley Delvalle DC Planning Asst.
[2023-07-23] MEDS: 0.9% Saline Lock 10 ML Syringe IV (19:30)
[2023-07-23 22:05] LABS: Bedside Glucose 182 mg/dL (74-106)
[2023-07-23 22:06] LABS: Bedside Glucose 170 mg/dL (74-106)
[2023-07-24] VITALS (28 sets, daily range): BP systolic 114–158; BP diastolic 53–98; PULSE 84–104; RESP 10–22; TEMP 36.4–36.6; O2SAT 89–98; BMI 28.0
[2023-07-24] MEDS: HYDROmorphone 1 MG/ML Syringe IV ×2 (03:25→12:27)
[2023-07-24] MEDS: 0.9% Saline Lock 10 ML Syringe IV (03:26)
[2023-07-24] MEDS: Acetaminophen 500 MG Tablet 1000 MG PO ×3 (05:32→20:51)
[2023-07-24 05:33] LABS: Absolute Lymphocyte Count 1.97 X10^3/uL (0.83-4.51); Absolute Neutrophil Count 5.5 X10^3/uL (2.0-7.7); Basophil# 0.03 X10^3/uL; Basophil% 0.4 % (0-1); Eosinophil# 0.05 X10^3/uL; Eosinophils% 0.6 % (0-5); Hematocrit 26.7 % (37-47); Hemoglobin 8.5 g/dL (12.0-15.0); Lymphocyte # 1.97 X10^3/ul (0.83-4.51); Lymphocyte % 23.4 % (19-41); Mean Corp Hgb Conc 31.8 g/dL (32-36); Mean Corpuscular Volume 94.3 fL (81-99); Mean Platelet Vol. 9.2 fl (6.2-12.0); Monocyte# 0.88 X10^3/uL; Monocyte% 10.4 % (0-10); NRBC Flagged by Analyzer 0 % (0-5); Neutrophil # 5.47 X10^3/uL (2.7-7.7); Neutrophil % 64.8 % (47-70); Platelet Count 186 K/mm3 (150-450); RBC Distribution Width SD 50.7 fl (35.1-43.9); Red Blood Count 2.83 M/mm3 (4.2-5.4); White Blood Count 8.4 K/mm3 (4.4-11.0)
[2023-07-24 05:43] LABS: Partial Thromboplast Time 36.5 Seconds (24.1-36.2)
[2023-07-24 05:47] LABS: Anion Gap 6 (5-15); BUN 25 mg/dL (7-18); BUN/Creat Ratio 13.5 RATIO (10-20); Calcium,Total 8.2 mg/dL (8.5-10.1); Chloride 103 mmol/L (98-107); Creatinine, Serum 1.85 mg/dL (0.55-1.02); EST Glomerular Filtration Rate 28 mL/min (>60); Est Glom Filt Rate - Afr Amer 34 mL/min (>60); Estimated Creatinine Clearance 27.44 ml/min; Glucose 190 mg/dL (74-106); Sodium Level 134 mmol/L (136-145)
[2023-07-24] MEDS: oxyCODONE 5 MG Tablet 10 MG PO ×2 (07:50→16:14)
[2023-07-24] MEDS: Docusate Sodium 100 MG Capsule PO ×2 (07:50→20:51)
[2023-07-24] MEDS: amLODIPine 5 MG Tablet PO (07:52)
[2023-07-24] MEDS: Clopidogrel Bisulfate 75 MG Tablet PO (07:52)
[2023-07-24] MEDS: Polyethylene Glycol 3350 17 GM PACKET PO (07:52)
[2023-07-24] MEDS: Pantoprazole Sodium 20 MG Tablet PO (07:52)
[2023-07-24] MEDS: metFORMIN HCl 500 MG Tablet PO (07:52)
[2023-07-24] MEDS: Triamterene 37.5MG/Hctz 25MG Capsule 1 CAP PO (07:53)
[2023-07-24] MEDS: PARoxetine 10 MG Tablet 30 MG PO (07:53)
[2023-07-24] MEDS: HEPARIN/D5w 25,000 UNITS 25,000 UNITS/250 ML IV.SOLN. 11 UNITS CONT INF (07:58)
[2023-07-24] MEDS: 0.45% Normal Saline 1,000 ML 100 ML IV ×2 (07:58→16:44)
--- NOTE | 2023-07-24 08:49 | PCM.PN.SRG ---
Subjective Subjective She reports pain overall better today than yesterday, though still with a lot of pain at the groin incision with position changes, getting into/out of bed. She has been walking very well with PT. She also complains of pain in her bilateral knees, slightly worse in the L knee. Her MISA wraps are a bit tight above both knees. She otherwise does not have any complaints or concerns. Objective Data Objective Data Vital Signs: Vital Signs Temp Pulse Resp BP Pulse Ox O2 Del Method O2 Flow Rate 97.9 F 84 14 138/72 H 92 Room Air 2 07/24/23 06:00 07/24/23 08:00 07/24/23 08:30 07/24/23 08:00 07/24/23 08:30 07/24/23 08:30 07/24/23 08:00 FiO2 94 07/24/23 02:00 Oxygen Flow Rate (L/min) 2 Oxygen Delivery Method Room Air Weight: 174 lb 2.643 oz Body Mass Index (BMI) 28.0 Intake & Output: Intake and Output for Last 24 Hours 07/22/23 07/23/23 07/24/23 23:59 23:59 23:59 Intake Total 3140 / 3240 3317.66 / 3317.66 1173.67 / 1173.67 Output Total 290 / 340 570 / 570 0 / 0 Balance 2850 / 2900 2747.66 / 2747.66 1173.67 / 1173.67 Lab / Micro Data 07/24/23 14:10 07/24/23 05:20 Labs: Laboratory Results - last 24 hr 07/23/23 08:03: Blood Type O NEGATIVE, Antibody Screen NEGATIVE, Crossmatch See Detail 07/23/23 13:32: Hgb 8.2 L, Hct 25.4 L 07/23/23 16:37: POC Glucose 170 H 07/23/23 21:11: POC Glucose 182 H 07/24/23 05:20: WBC 8.4, RBC 2.83 L, Hgb 8.5 L, Hct 26.7 L, MCV 94.3, MCH 30.0, MCHC 31.8 L, RDW Std Deviation 50.7 H, RDW Coeff of Cherise 15.0 H, Plt Count 186, MPV 9.2, Immature Gran % (Auto) 0.400, Neut % (Auto) 64.8, Lymph % (Auto) 23.4, [place] % (Auto) 10.4 H, Eos % (Auto) 0.6, Baso % (Auto) 0.4, Absolute Neuts (auto) 5.5, Absolute Lymphs (auto) 1.97, Nucleated RBC % 0, APTT 36.5 H, Sodium 134 L, Potassium 4.0, Chloride 103, Carbon Dioxide 25.0, Anion Gap 6, BUN 25 H, Creatinine 1.85 H, Estim Creat Clear Calc 27.44, Est GFR (MDRD) Af Amer 34 L, Est GFR (MDRD) Non-Af 28 L, BUN/Creatinine Ratio 13.5, Glucose 190 H, Calcium 8.2 L Physical Exam Const alert, oriented x3 and no apparent distress General Appearance: cooperative HEENT normocephalic, head/scalp atraumatic, hearing grossly normal bilaterally, external ears normal and external nose normal Eyes EOMs intact bilaterally General Eye: normal appearance of both eyes Neck General: normal visual inspection and trachea midline Resp normal respiratory effort, no retractions and no use of accessory muscles Effort and Inspection: able to speak in complete sentences; Negative for labored, stridor or audible wheezes Cardio regular rate and regular rhythm Extremity Extremity Narrative: L groin with prevena vac dressing in place, maintaining good seal. Good L DP/PT pulses. L foot is warm and pink. L medial leg incisions with post-op mepilex dressings intact with no strike-through or bleeding visible underneath. R DP with palpable pulse. MISA wraps on both sides were a bit tight above and below the knee, both knees sightly swollen with no associated redness/warmth/tenderness to palpation. No calf swelling, tenderness to palpation. Neuro oriented x3, CN's II-XII intact bilaterally, moves all extremities, no focal motor deficits and no sensory deficits noted Speech: speech normal Psych mental status grossly normal Appearance: grossly normal Attitude: calm and engaged Activity / Motor Behavior: appropriate eye contact Speech: normal speech Judgement: judgement good Assessment & Plan Assessment/Plan (1) Atherosclerosis of [place] arteries of extremities with rest pain, left leg: PLAN: Plan She is POD#2 from L fem endart, sartorius flap, L fem-pop bypass. Her LLE doppler signals are stable and improved from prior to surgery. Hgb did drop to 7.9 with full dose heparin. No signs of bleeding. She is ambulating well without any orthostatic symptoms. Will continue to monitor. Will continue with heparin for now. If Hgb remains overall stable will transition to Xarelto tomorrow. She has not yet had a bowel movement, but passing flatus. No abdominal pain. She is on a bowel regimen. She has been accepted to acute rehab at [place], anticipate discharge tomorrow.
[2023-07-24 11:26] LABS: Bedside Glucose 163 mg/dL (74-106)
--- NOTE | 2023-07-24 14:01 | CASEMGMT ---
Social Work [facility] has accepted pt and she can discharge on Friday if medically ready. SW met with pt and updated and pt is agreeable and appreciative of dc plan. Nursing updated. Plan: [facility] skilled rehab unit, can accept on Friday EDEL Velez
[2023-07-24 14:42] LABS: Hemoglobin 7.9 g/dL (12.0-15.0)
[2023-07-24 14:56] LABS: Partial Thromboplast Time 64.3 Seconds (24.1-36.2)
[2023-07-24 15:24] LABS: Bedside Glucose 169 mg/dL (74-106)
[2023-07-24 21:07] LABS: Hematocrit 25.8 % (37-47); Hemoglobin 8.4 g/dL (12.0-15.0)
[2023-07-24 21:16] LABS: Bedside Glucose 172 mg/dL (74-106)
[2023-07-24 21:18] LABS: Partial Thromboplast Time 54.6 Seconds (24.1-36.2)
[2023-07-25] VITALS (14 sets, daily range): BP systolic 117–161; BP diastolic 57–85; PULSE 88–100; RESP 12–20; TEMP 35.9–36.1; O2SAT 92–98; BMI 28.1
[2023-07-25] MEDS: 0.45% Normal Saline 1,000 ML 100 ML IV (02:44)
[2023-07-25 04:51] LABS: Partial Thromboplast Time 97.8 Seconds (24.1-36.2)
[2023-07-25] MEDS: Acetaminophen 500 MG Tablet 1000 MG PO ×2 (05:57→12:38)
[2023-07-25] MEDS: HEPARIN/D5w 25,000 UNITS 25,000 UNITS/250 ML IV.SOLN. 10 UNITS CONT INF (06:41)
[2023-07-25] MEDS: Docusate Sodium 100 MG Capsule PO (08:21)
[2023-07-25] MEDS: Triamterene 37.5MG/Hctz 25MG Capsule 1 CAP PO (08:21)
[2023-07-25] MEDS: Pantoprazole Sodium 20 MG Tablet PO (08:21)
[2023-07-25] MEDS: Clopidogrel Bisulfate 75 MG Tablet PO (08:21)
[2023-07-25] MEDS: amLODIPine 5 MG Tablet PO (08:21)
[2023-07-25] MEDS: metFORMIN HCl 500 MG Tablet PO (08:21)
[2023-07-25] MEDS: Polyethylene Glycol 3350 17 GM PACKET PO (08:21)
[2023-07-25] MEDS: PARoxetine 10 MG Tablet 30 MG PO (08:21)
[2023-07-25 08:44] LABS: Bedside Glucose 154 mg/dL (74-106)
[2023-07-25] MEDS: oxyCODONE 5 MG Tablet 10 MG PO ×2 (09:00→15:08)
--- NOTE | 2023-07-25 09:51 | PN.SURG_ITS ---
Subjective Subjective She still has a lot of incisional site pain (particularly at the groin incision and incision near the knee) with positional change like getting into/out of bed/chair, with walking she really has minimal pain. She describes the pain as primarily burning in nature. Oral pain medications are providing adequate control. No other complaints. She has not had a bowel movement, but has been passing gas and is without any abdominal pain/distention. Her Hgb improved to 8.4. No signs of bleeding. Objective Data Objective Data Vital Signs: Vital Signs Temp Pulse Resp BP Pulse Ox O2 Del Method O2 Flow Rate 96.9 F L 88 13 138/74 H 98 Room Air 2 07/25/23 08:00 07/25/23 09:00 07/25/23 09:00 07/25/23 09:00 07/25/23 09:00 07/25/23 09:00 07/24/23 15:00 FiO2 94 07/24/23 02:00 Oxygen Flow Rate (L/min) 2 Oxygen Delivery Method Room Air Weight: 174 lb 6.17 oz Body Mass Index (BMI) 28.1 Intake & Output: Intake and Output for Last 24 Hours 07/23/23 07/24/23 07/25/23 23:59 23:59 23:59 Intake Total 3317.66 / 3317.66 2203.98 / 2203.98 1090.73 / 1090.73 Output Total 570 / 570 0 / 0 800 / 800 Balance 2747.66 / 2747.66 2203.98 / 2203.98 290.73 / 290.73 Lab / Micro Data 07/24/23 20:55 07/24/23 05:20 Labs: Laboratory Results - last 24 hr 07/24/23 11:06: POC Glucose 163 H 07/24/23 14:10: Hgb 7.9 L, APTT 64.3 H 07/24/23 15:02: POC Glucose 169 H 07/24/23 20:50: POC Glucose 172 H 07/24/23 20:55: Hgb 8.4 L, Hct 25.8 L, APTT 54.6 H 07/25/23 04:25: APTT 97.8 H* 07/25/23 08:17: POC Glucose 154 H Physical Exam Const alert, oriented x3 and no apparent distress General Appearance: cooperative HEENT normocephalic, head/scalp atraumatic, hearing grossly normal bilaterally, external ears normal and external nose normal Eyes EOMs intact bilaterally General Eye: normal appearance of both eyes Neck General: normal visual inspection and trachea midline Resp normal respiratory effort, no retractions and no use of accessory muscles Effort and Inspection: able to speak in complete sentences; Negative for labored, stridor or audible wheezes Cardio regular rate and regular rhythm Extremity Extremity Narrative: L groin with prevena vac dressing in place, maintaining good seal. Good L DP/PT pulses. L foot is warm and pink. L medial leg incisions with post-op mepilex dressings intact with no strike- through or bleeding visible underneath. R DP with palpable pulse. Neuro oriented x3, CN's II-XII intact bilaterally, moves all extremities, no focal motor deficits and no sensory deficits noted Speech: speech normal Psych mental status grossly normal Appearance: grossly normal Attitude: calm and engaged Activity / Motor Behavior: appropriate eye contact Speech: normal speech Judgement: judgement good Assessment & Plan Assessment/Plan (1) Atherosclerosis of [place] arteries of extremities with rest pain, left leg: PLAN: Plan She is POD#3 from L fem endart, sartorius flap, L fem-pop bypass. Her LLE doppler signals remain stable and improved from prior to surgery. Her L foot pain is resolved. Now just with pain along the incisions in the groin and the knee, overall well controlled with oral pain medications. Hgb improved to 8.4. Will transition from heparin to Xarelto 20mg daily today. Will discharge to [facility] today.
--- NOTE | 2023-07-25 09:58 | PCM.DC.SUM ---
Providers Date of Admission: 07/22/23 Primary Care Physician: Dr. Tavo Strange, DO Reason For Visit: left Fem-Pop Bypass Diagnosis Discharge Diagnosis (1) Atherosclerosis of [place] arteries of extremities with rest pain, left leg: Status: Acute Code(s): I70.222 - Atherosclerosis of [place] arteries of extremities with rest pain, left leg Plan She is POD#3 from L fem endart, sartorius flap, L fem-pop bypass. Her LLE doppler signals remain stable and improved from prior to surgery. Her L foot pain is resolved. Now just with pain along the incisions in the groin and the knee, overall well controlled with oral pain medications. Hgb improved to 8.4. Will transition from heparin to Xarelto 20mg daily today. Will discharge to [facility] today. Medications at Discharge Home Medications blood sugar diagnostic #50 ea 05/30/21 blood-glucose meter #1 ea 05/30/21 paroxetine HCl 30 mg tablet (Paxil) 30 mg PO QAM ANXIETY #90 tabs 06/07/22 triamterene 37.5 mg-hydrochlorothiazide 25 mg capsule 1 cap PO DAILY HTN #90 caps 06/07/22 disability placard ##1 08/13/22 metformin 500 mg tablet 500 mg PO QDAY DIABETES #90 tabs 12/11/22 omeprazole 20 mg capsule,delayed release 20 mg PO DAILY GERD #90 caps 12/11/22 amlodipine 5 mg tablet 5 mg PO DAILY HEART #90 tabs 02/25/23 cilostazol 100 mg tablet 100 mg PO BID ANTIPLATELET #60 tabs 05/06/23 clopidogrel 75 mg tablet (Plavix) 75 mg PO DAILY BLOOD THINNER #90 tabs 07/02/23 acetaminophen 500 mg capsule 500 mg PO Q6H PRN PRN pain 07/07/23 lisinopril 20 mg tablet 20 mg PO DAILY PRN PRN HTN 07/07/23 rivaroxaban 20 mg tablet (Xarelto) 20 mg PO QHS PVD 07/07/23 docusate sodium 100 mg capsule 100 mg PO BID 7 days #0 caps 07/25/23 oxycodone 5 mg tablet 10 mg (2 x 5 mg) PO Q8H PRN PRN Pain Score 4-10 4 days #24 tabs 07/25/23 Hospital Course Operations - (L fem endart, sartorius flap, L fem-pop bypass) Summary of Care Provided Hospital Course: Delmy Haji is a 77 y/o female who presented on 07/22/23 for planned L fem endart, sartorius flap, L fem-pop bypass. She tolerated the surgery well and was routinely admitted to the ICU for ongoing monitoring postoperatively. Following surgery, her L pedal signals have been significantly improved. Her L foot rest pain has resolved. She has expected incisional site pain which has been well controlled with oral pain medication regimen. On POD#1 her Hgb did drop to 7.7 due to expected acute blood loss anemia from surgery. She received 1 unit PRBC. Her Hgb did improve to 8.5 and has been overall stable since on therapeutic heparin so she has transitioned to Xarelto. She will be continued on Xarelto 20mg daily, Plavix 75mg daily, and ASA 81mg daily as an outpatient. She has been urinating without any difficulty. She has not had a bowel movement but has been passing a lot of gas by report and is not having any abdominal pain/distention. She is receiving opioid medication for pain control. Will continue bowel regimen as an outpatient. She has been doing well with therapy here, but further therapy was recommended so she will be going to [facility]. She is medically stable for discharge today with planned outpatient follow-up in the office on 08/14/23. Physical Exam Const alert, oriented x3 and no apparent distress General Appearance: cooperative HEENT normocephalic, head/scalp atraumatic, hearing grossly normal bilaterally, external ears normal and external nose normal Eyes EOMs intact bilaterally General Eye: normal appearance of both eyes Neck General: normal visual inspection and trachea midline Resp normal respiratory effort, no retractions and no use of accessory muscles Effort and Inspection: able to speak in complete sentences; Negative for labored, stridor or audible wheezes Cardio regular rate and regular rhythm Extremity Extremity Narrative: L groin with prevena vac dressing in place, maintaining good seal. Good L DP/PT pulses. L foot is warm and pink. L medial leg incisions with post-op mepilex dressings intact with no strike-through or bleeding visible underneath. R DP with palpable pulse. Neuro oriented x3, CN's II-XII intact bilaterally, moves all extremities, no focal motor deficits and no sensory deficits noted Speech: speech normal Psych mental status grossly normal Appearance: grossly normal Attitude: calm and engaged Activity / Motor Behavior: appropriate eye contact Speech: normal speech Judgement: judgement good Weight / BMI Weight Weight: 174 lb 6.17 oz Body Mass Index (BMI) 28.1 ABG / Lab / Microbiology Data 07/24/23 20:55 07/24/23 05:20 Laboratory: Laboratory Results - last 24 hr 07/24/23 11:06: POC Glucose 163 H 07/24/23 14:10: Hgb 7.9 L, APTT 64.3 H 07/24/23 15:02: POC Glucose 169 H 07/24/23 20:50: POC Glucose 172 H 07/24/23 20:55: Hgb 8.4 L, Hct 25.8 L, APTT 54.6 H 07/25/23 04:25: APTT 97.8 H* 07/25/23 08:17: POC Glucose 154 H D/C Instructions Discharge Diet: No restrictions Weight Bearing Status: Weight bearing as tolerated Lifting Restricted to (Lbs): 20 Lifting Restrictions: Do not lift greater than 20 pounds for 3 weeks Call your doctor if your incision/area has: Sudden Increased Bleeding, Increased Pain/ Swelling and Foul Smelling Discharge Call your doctor if you observe: Fever of 101 or Higher, Coldness, Increased Pain and Uncontrolled pain Remove Dressing in: 4 days Additional Instructions: You have a Prevena vacuum dressing over the L groin incision site. This may be removed in 4 days (on 07/29/23). If it is no longer able to maintain seal or otherwise malfunctions, it may be removed sooner. To remove, you will need to: (1) Turn off the unit by pressing the Power Button (2) Find the white connectors along the tubing and twist them to disconnect (3) Allow the purple foam to puff up (4) Gently peel off the adhesive dressing (5) Throw the entire unit away. If you have any questions/concerns about this, please call the office at . You have adhesive dressings over the incision sites down the inside of your left leg. These dressings may also be removed in 4 days. These are just adhesive, so just gently peel them off to remove. All of your incision sites have been closed with skin glue which will continue to protect them even after the above dressings have been removed. You do not need to keep them covered otherwise, just keep the areas clean and dry. You may shower. It is okay for soap and water to rinse over the incision sites. Pat gently to dry well. Do not submerge the incision sites such as to take a bath, go swimming, etc for 3 weeks. Do not lift greater than 20 pounds for 3 weeks. Otherwise, please proceed with activity as tolerated. You have been prescribed oxycodone 10mg tablets to be taken as needed for pain. Do not take this medication in combination with any other prescription pain medications. You are scheduled for a follow-up visit in the office on 08/14/2023 at 11:30. Please Follow Up With: Nelda Mancilla PA When: 08/14/23 Meaningful Use Info Meaningful Use Meaningful Use Diagnoses (Choose all that apply): None applicable Ischemic Stroke Statin Dosing Therapy Reference: STATIN DOSE THERAPY REFERENCE: * Patients > 75 years receive moderate or high dose statin therapy. * Patients 75 years or YOUNGER should receive HIGH intensity statin dose unless contraindicated. You will be required to document reason for non-treatment if statin daily dose does not meet guidelines. HIGH DOSE STATIN THERAPY DAILY Atorvastatin > than or = to 40 mg Rosuvastatin > than or = to 20 mg Amlodipine + Atorvastatin > than or = to 2.5/40 mg Ezetimibe + Simvastatin 10/80 mg Simvastatin 80mg Discharge Plan Admission Admit Date/Time: 07/22/23 05:32 Primary Reason for Your Visit: L femoral endarterectomy, L femoral-popliteal bypass Attending Provider: Dallin Knutson Primary Care Provider: Tavo Strange Discharge Orders/Prescriptions Prescriptions: New docusate sodium 100 mg Capsule 100 mg PO BID 7 Days Qty: 0 0RF oxycodone 5 mg Tablet 10 mg PO Q8H PRN PRN (Reason: Pain Score 4-10) 4 Days Qty: 24 0RF Rx Instructions: Take 1-2 tablets every 8 hours as needed for pain. Continued (DME) blood sugar diagnostic Strip See Rx Instructions .ROUTE .MEDSUPPLY Qty: 50 2RF Rx Instructions: USE DIRECTED TO CHECK BLOOD GLUCOSE ONCE DAILY FOR TYPE 2 DM (DME) blood-glucose meter Mis See Rx Instructions .ROUTE .MEDSUPPLY Qty: 1 0RF Rx Instructions: USE TO CHECK BLOOD GLUCOSE ONCE DAILY FOR TYPE 2 DM (DME) disability placard 0 .Route .MEDSUPPLY Qty: 1 0RF Rx Instructions: Duration 5 years. cilostazol 100 mg tablet 100 mg PO BID Qty: 60 1RF lisinopril 20 mg tablet 20 mg PO DAILY PRN PRN (Reason: HTN) acetaminophen 500 mg capsule 500 mg PO Q6H PRN PRN (Reason: pain) Xarelto 20 mg tablet 20 mg PO QHS Rx Instructions: must administer with evening meal paroxetine HCl [Paxil] 30 mg tablet 30 mg PO QAM Qty: 90 3RF triamterene-hydrochlorothiazid 37.5-25 mg capsule 1 cap PO DAILY Qty: 90 3RF metformin 500 mg tablet 500 mg PO QDAY Qty: 90 1RF omeprazole 20 mg capsule,delayed release(DR/EC) 20 mg PO DAILY Qty: 90 1RF amlodipine 5 mg tablet 5 mg PO DAILY Qty: 90 1RF clopidogrel [Plavix] 75 mg tablet 75 mg PO DAILY Qty: 90 3RF Discontinued oxycodone 5 mg tablet 5 mg PO Q6H PRN (Reason: pain) 5 Days Qty: 20 0RF Referrals / Follow Up: Tavo Strange DO [Primary Care Provider] - Disposition Disposition (needs filled in before D/C Order can be placed): Residential Facility
--- NOTE | 2023-07-25 10:42 | TREXTCAR_ITS ---
Diet Diet Order/Speech Therapy: 07/22/23 16:48 Diet: Regular - General Food consistency:: Regular Liquid Consistency:: Regular/Thin Is pt able to select menu?: Yes Diet Comments: no milk; give coffee and bottled water on trays Wound(s) left groin: Wound Type: Surgical Incision left leg: Wound Type: Surgical Incision Therapies Weight Bearing: Weight bearing as tolerated Physical Therapy: Eval and Treat Occupational Therapy: Eval and Treat Problem/Diagnosis (1) Atherosclerosis of [place] arteries of extremities with rest pain, left leg: Status: Acute Code(s): I70.222 - Atherosclerosis of [place] arteries of extremities with rest pain, left leg Plan She is POD#3 from L fem endart, sartorius flap, L fem-pop bypass. Her LLE doppler signals remain stable and improved from prior to surgery. Her L foot pain is resolved. Now just with pain along the incisions in the groin and the knee, overall well controlled with oral pain medications. Hgb improved to 8.4. Will transition from heparin to Xarelto 20mg daily today. Will discharge to [facility] today. Allergies/Procedures Done in Hospital Allergies Iodinated Contrast Media (Iodinated Contrast- Oral and IV Dye) Allergy (Severe, Verified 07/22/23 06:00) tongue swelled Type of Care/Length of Stay Estimated LOS: Convalescent Care Less Than 30 days Type of Care Needed: Skilled Rehab Potential: Good Prognosis: Good Additional Orders/Day of Discharge Day of Discharge: 07/25/23 Dietary and Speech Recommendations Dietitian Recommendations/Changes: Will continue liberalized regular diet for now; restrict carbohydrates as needed if blood glucose rises. Change diet as needed to 1800 calorie, consistent carbohydrate when appetite improves and/or if blood glucose rises. Follow Up Care Please Follow Up With: Nelda Mancilla PA When: 08/14/2023 Discharge Plan Admission Admit Date/Time: 07/22/23 05:32 Primary Reason for Your Visit: L femoral endarterectomy, L femoral-popliteal bypass Attending Provider: Dallin Knutson Primary Care Provider: Tavo Strange Instructions Additional Instructions / Restrictions: You have a Prevena vacuum dressing over the L groin incision site. This may be removed in 4 days (on 07/29/23). If it is no longer able to maintain seal or otherwise malfunctions, it may be removed sooner. To remove, you will need to: (1) Turn off the unit by pressing the Power Button (2) Find the white connectors along the tubing and twist them to disconnect (3) Allow the purple foam to puff up (4) Gently peel off the adhesive dressing (5) Throw the entire unit away. If you have any questions/concerns about this, please call the office at . You have adhesive dressings over the incision sites down the inside of your left leg. These dressings may also be removed in 4 days. These are just adhesive, so just gently peel them off to remove. All of your incision sites have been closed with skin glue which will continue to protect them even after the above dressings have been removed. You do not need to keep them covered otherwise, just keep the areas clean and dry. You may shower. It is okay for soap and water to rinse over the incision sites. Pat gently to dry well. Do not submerge the incision sites such as to take a bath, go swimming, etc for 3 weeks. Do not lift greater than 20 pounds for 3 weeks. Otherwise, please proceed with activity as tolerated. You have been prescribed oxycodone 10mg tablets to be taken as needed for pain. Do not take this medication in combination with any other prescription pain medications. You are scheduled for a follow-up visit in the office on 08/14/2023 at 11:30. Discharge Orders/Prescriptions Prescriptions: New docusate sodium 100 mg Capsule 100 mg PO BID 7 Days Qty: 0 0RF oxycodone 5 mg Tablet 10 mg PO Q8H PRN PRN (Reason: Pain Score 4-10) 4 Days Qty: 24 0RF Rx Instructions: Take 1-2 tablets every 8 hours as needed for pain. Continued (DME) blood sugar diagnostic Strip See Rx Instructions .ROUTE .MEDSUPPLY Qty: 50 2RF Rx Instructions: USE DIRECTED TO CHECK BLOOD GLUCOSE ONCE DAILY FOR TYPE 2 DM (DME) blood-glucose meter Mis See Rx Instructions .ROUTE .MEDSUPPLY Qty: 1 0RF Rx Instructions: USE TO CHECK BLOOD GLUCOSE ONCE DAILY FOR TYPE 2 DM (DME) disability placard 0 .Route .MEDSUPPLY Qty: 1 0RF Rx Instructions: Duration 5 years. cilostazol 100 mg tablet 100 mg PO BID Qty: 60 1RF lisinopril 20 mg tablet 20 mg PO DAILY PRN PRN (Reason: HTN) acetaminophen 500 mg capsule 500 mg PO Q6H PRN PRN (Reason: pain) Xarelto 20 mg tablet 20 mg PO QHS Rx Instructions: must administer with evening meal paroxetine HCl [Paxil] 30 mg tablet 30 mg PO QAM Qty: 90 3RF triamterene-hydrochlorothiazid 37.5-25 mg capsule 1 cap PO DAILY Qty: 90 3RF metformin 500 mg tablet 500 mg PO QDAY Qty: 90 1RF omeprazole 20 mg capsule,delayed release(DR/EC) 20 mg PO DAILY Qty: 90 1RF amlodipine 5 mg tablet 5 mg PO DAILY Qty: 90 1RF clopidogrel [Plavix] 75 mg tablet 75 mg PO DAILY Qty: 90 3RF Discontinued oxycodone 5 mg tablet 5 mg PO Q6H PRN (Reason: pain) 5 Days Qty: 20 0RF Referrals / Follow Up: Tavo Strange DO [Primary Care Provider] - Disposition Disposition (needs filled in before D/C Order can be placed): Custodial Facility
[2023-07-25] MEDS: Rivaroxaban 20 MG Tablet PO (10:56)
[2023-07-25 11:18] LABS: Bedside Glucose 160 mg/dL (74-106)
--- NOTE | 2023-07-25 12:13 | CASEMGMT ---
Discharge Planning Discharge orders and signed med list faxed to both [facility] and [facility] with fax confirmations rec'd for both. Physicians will transport patient by wheelchair at 2p. Nursing, SW, patient, and her daughter (Elizabeth) updated. Ashley Delvalle DC Planning Asst.
== END 2023-07-25 15:30 | disposition skilled nursing facility (03) | DRG 253 ==
LOC: ACINP 05:35 → ICU 08:36
PROVIDERS: Physician Assistant; Admitting Provider Surgery Trauma Surgery; PCP Family Medicine; Visit Provider Surgery Trauma Surgery
PROC: 041L09L Bypass Left Femoral Artery to Popliteal Artery with Autologous Venous Tissue, Open Approach (ICD-10-PCS; principal; 2023-07-22 07:00)
DX: E11.51 Type 2 diabetes mellitus with diabetic peripheral angiopathy without gangrene (principal); D62 Acute posthemorrhagic anemia; I70.222 Atherosclerosis of native arteries of extremities with rest pain, left leg; I10 Essential (primary) hypertension; Z79.82 Long term (current) use of aspirin; Z79.01 Long term (current) use of anticoagulants; Z79.02 Long term (current) use of antithrombotics/antiplatelets; Z79.899 Other long term (current) drug therapy; Z95.820 Peripheral vascular angioplasty status with implants and grafts; Z87.891 Personal history of nicotine dependence
CPT/HCPCS: 80048; 82962; 85014; 85018; 85025; 85027; 85610; 85730; 86850; 86900; 86901; 86920; 86922; 88304; 88311; 94762; 97162; 97166; 97530; 97535; 97802; 99252; A4648; J7040; J7120; P9016; A4216; G0463; J2405

== ENCOUNTER 2023-07-26 23:29 | Observation (INO) | payer MEDICARE, OTHER, SELFPAY ==
[2023-07-26 23:30] VITALS: BP 107/59; PULSE 92; RESP 17; TEMP 36.4; O2SAT 98
--- NOTE | 2023-07-26 23:49 | EDS_ITS ---
HPI History of Present Illness Chief Complaint: Lower Extremity Injury Informant: patient and family Narrative Narrative: She is POD#4 from L fem endart, sartorius flap, L fem-pop bypass with Dr. Knutson. Patient at [facility] for rehab. Apparently there was some mixup in the pain medication orders which seem to have gotten straightened out. Patient notes continued significant pain in the left leg which she describes as burning. She is on Xarelto and Plavix. Importantly there was concern for possible DVT of the leg. Patient received her normal dose of oxycodone prior to arrival. Family states that her pain seems more improved now. Family states that she was crying on the phone.. [facility] Medical History Wears dentures Post-menopausal Anxiety Alcohol use Ingrowing nail, right great toe Diabetes Back pain History of ulceration Gastric reflux Former smoker Hoarseness Leg cramps History of pain when walking History of edema History of echocardiogram History of stress test Polio Retinal tear of left eye Cataracts, bilateral Syncope and collapse Ruptured cervical disc Neck pain Limb weakness Diarrhea Migraines Fatigue Shoulder pain History of stomach ulcers IBS (irritable bowel syndrome) Hypertension Type 2 diabetes mellitus Pain in left leg Home Medications ?Medication ?Instructions ?Recorded ?Last Taken ?Type blood sugar diagnostic #50 ea 05/30/21 Unknown Rx blood-glucose meter #1 ea 05/30/21 Unknown Rx paroxetine HCl 30 mg tablet (Paxil) 30 mg PO QAM ANXIETY #90 tabs 06/07/22 07/22/23 Rx triamterene 37.5 1 cap PO DAILY HTN #90 caps 06/07/22 07/22/23 04:30 Rx mg-hydrochlorothiazide 25 mg capsule disability placard ##1 08/13/22 Unknown Rx metformin 500 mg tablet 500 mg PO QDAY DIABETES #90 tabs 12/11/22 06/16/23 Rx omeprazole 20 mg capsule,delayed 20 mg PO DAILY GERD #90 caps 12/11/22 07/22/23 Rx release amlodipine 5 mg tablet 5 mg PO DAILY HEART #90 tabs 02/25/23 07/22/23 04:30 Rx cilostazol 100 mg tablet 100 mg PO BID ANTIPLATELET #60 tabs 05/06/23 07/21/23 Rx clopidogrel 75 mg tablet (Plavix) 75 mg PO DAILY BLOOD THINNER #90 07/02/23 07/21/23 Rx tabs acetaminophen 500 mg capsule 500 mg PO Q6H PRN PRN pain 07/07/23 Unknown History lisinopril 20 mg tablet 20 mg PO DAILY PRN PRN HTN 07/07/23 Unknown History rivaroxaban 20 mg tablet (Xarelto) 20 mg PO QHS PVD 07/07/23 07/21/23 History docusate sodium 100 mg capsule 100 mg PO BID 7 days #0 caps 07/25/23 Unknown Rx oxycodone 5 mg tablet 10 mg (2 x 5 mg) PO Q8H PRN PRN 07/25/23 Unknown Rx Pain Score 4-10 4 days #24 tabs Allergy/AdvReac Type Severity Reaction Status Date / Time Iodinated Contrast Media Allergy Severe tongue Verified 07/26/23 23:29 (Iodinated Contrast- Oral swelled and IV Dye) Surgical History Hx of endarterectomy History of cholecystectomy Social History household members: none Smoking Status: Former smoker alcohol intake: never substance use type: does not use what type of physical activity do you participate in: walking frequency: daily ROS ROS ED Constitutional Constitutional ED: Denies chills, fever(s) or weight loss Eyes Eyes: Denies change in vision or diplopia ENT ENT ED: Denies ear pain, rhinorrhea or sore throat Cardiovascular Cardiovascular: Denies chest pain, orthopnea, palpitations or racing heartbeat Respiratory/Chest Respiratory/Chest: Denies cough, dyspnea or orthopnea Gastrointestinal Gastrointestinal: Denies abdominal pain, diarrhea, nausea or vomiting Genitourinary Genitourinary ED: Denies dysuria, hematuria or urinary frequency Musculoskeletal Musculoskeletal: Reports other Details: Left leg pain ; Denies arthralgias or myalgias Integumentary Denies abscess or rash Neurologic Neurologic: Denies headache(s) or weakness Psychiatric Psychiatric: Denies anxiety, depression, suicidal ideation or suicidal thoughts Endocrine Endocrinology: Denies polydipsia, polyphagia or polyuria Allergic/Immunologic Allergic/Immunologic ED: Denies mouth swelling, tongue swelling or urticaria EXAM Physical Exam Const Vital Signs: 06/01/24 23:30 Temperature 97.6 F L Temperature Source Temporal Pulse Rate 92 Respiratory Rate 17 Blood Pressure 107/59 L Blood Pressure Mean 75 Pulse Ox 98 Oxygen Delivery Method Room Air Positive well nourished and well developed General Appearance ED: well developed HEENT Reports normocephalic, head/scalp atraumatic and moist mucous membranes Eyes PERRL and EOMs intact bilaterally Neck full ROM, no lymphadenopathy, supple and no JVD Resp normal respiratory effort and clear to auscultation bilaterally Cardio regular rate and regular rhythm Cardio Narrative: 2 out of 6 systolic murmur GI normal to inspection, nondistended, normoactive bowel sounds and non-tender Palpation: soft Back/Spine no CVA tenderness and normal ROM Extremity normal to inspection General Extremety ED: Negative for edema General Extremity: Negative for edema Neuro oriented x3 and CN's II-XII intact bilaterally Neuro Narrative: Patient appears in no acute distress. She is slurring her words. She has some nonlinear thinking getting confused easily. Family states that the oxycodone is working. Sensorium / Orientation: alert Motor Exam: strength 5/5 throughout Psych mental status grossly normal Mood & Affect: Negative for depressed or tearful Skin no rashes or lesions noted Skin Narrative: Healing surgical incisions appear without complication. The left leg appears to be normal color compared to the right. There is swelling diffusely of the leg but more particularly of the thigh. The foot and leg are warm but not hot. No significant erythema. MDM MDM MDM Narrative Medical decision making narrative: Differential diagnosis includes but not limited to electrolyte disturbance DVT acute arterial thrombosis critical anemia uncontrolled postoperative pain/neuropathic pain infection Patient's hemoglobin 7.7 which is about where she has been postoperatively. Electrolytes are within normal limits. White count 5.3. Platelet count of 217. Clinically based on the exam I doubt that it is DVT. The calf is nontender no palpable cords the leg and foot itself are not swollen. She is already on Xarelto as well as clopidogrel gel. I spoke with Dr. Knutson directly regarding the patient. She will be discharged back. I do not think she needs to be set up with a duplex ultrasound at this time. Continue appropriate dosing of her oxycodone. The patient should picked and removed some of her postoperative dressings. Will redress this appropriately. After exiting interviewing the patient and her family they then informed nursing they wish to speak with the patient advocate because there is no way that the patient can care for herself at home. At no point prior to the exit interview or during the exit interview they tell me that they signed her out AMA from [facility]. At no point did they mention that the patient needed to be readmitted. Patient is now crying speaking to someone on the speaker phone. I spoke again with Dr. Knutson and then the hospitalist and we will admit the patient observation for transfer to rehab facility. History & Record Review Discussion w/independent historian: Patient and Family Lab Data Attestation: I reviewed the patient's lab results. Labs: Laboratory Results - last 24 hr 07/27/23 00:15 WBC 5.3 RBC 2.50 L Hgb 7.7 L Hct 24.0 L MCV 96.0 MCH 30.8 MCHC 32.1 RDW Std Deviation 54.4 H RDW Coeff of Cherise 15.9 H Plt Count 217 MPV 9.2 Immature Gran % (Auto) 1.500 H Neut % (Auto) 57.6 Lymph % (Auto) 25.4 [place] % (Auto) 12.8 H Eos % (Auto) 1.9 Baso % (Auto) 0.8 Absolute Neuts (auto) 3.1 Absolute Lymphs (auto) 1.35 Nucleated RBC % 0.4 Sodium 135 L Potassium 4.3 Chloride 102 Carbon Dioxide 24.0 Anion Gap 9 BUN 29 H Creatinine 1.90 H Est GFR (MDRD) Af Amer 33 L Est GFR (MDRD) Non-Af 27 L BUN/Creatinine Ratio 15.3 Glucose 179 H Calcium 9.1 Discharge Plan Triage Chief Complaint: Lower Extremity Injury ED Provider: Salvador Muller Dx/Rx/DC Orders Clinical Impression: Post-operative pain, Anemia, PVD (peripheral vascular disease) Instructions: ED Post Op Wound Check, Pain Prescriptions: No Action (DME) blood sugar diagnostic Strip See Rx Instructions .ROUTE .MEDSUPPLY Qty: 50 2RF Rx Instructions: USE DIRECTED TO CHECK BLOOD GLUCOSE ONCE DAILY FOR TYPE 2 DM (DME) blood-glucose meter Misc See Rx Instructions .ROUTE .MEDSUPPLY Qty: 1 0RF Rx Instructions: USE TO CHECK BLOOD GLUCOSE ONCE DAILY FOR TYPE 2 DM (DME) disability placard 0 .Route .MEDSUPPLY Qty: 1 0RF Rx Instructions: Duration 5 years. cilostazol 100 mg tablet 100 mg PO BID Qty: 60 1RF lisinopril 20 mg tablet 20 mg PO DAILY PRN PRN (Reason: HTN) acetaminophen 500 mg capsule 500 mg PO Q6H PRN PRN (Reason: pain) Xarelto 20 mg tablet 20 mg PO QHS Rx Instructions: must administer with evening meal docusate sodium 100 mg Capsule 100 mg PO BID 7 Days Qty: 0 0RF oxycodone 5 mg Tablet 10 mg PO Q8H PRN PRN (Reason: Pain Score 4-10) 4 Days Qty: 24 0RF Rx Instructions: Take 1-2 tablets every 8 hours as needed for pain. paroxetine HCl [Paxil] 30 mg tablet 30 mg PO QAM Qty: 90 3RF triamterene-hydrochlorothiazid 37.5-25 mg capsule 1 cap PO DAILY Qty: 90 3RF metformin 500 mg tablet 500 mg PO QDAY Qty: 90 1RF omeprazole 20 mg capsule,delayed release(DR/EC) 20 mg PO DAILY Qty: 90 1RF amlodipine 5 mg tablet 5 mg PO DAILY Qty: 90 1RF clopidogrel [Plavix] 75 mg tablet 75 mg PO DAILY Qty: 90 3RF Primary Care Provider: Tavo Strange Referrals: Tavo Strange DO [Primary Care Provider] - Dallin Knutson MD [Med Staff - Active Staff] - Keep [facility] appointment Print Language: Turkish Disposition Disposition: Home, Self Care
[2023-07-27] VITALS (9 sets, daily range): BP systolic 92–153; BP diastolic 53–91; PULSE 67–95; RESP 15–18; TEMP 36.4–37; O2SAT 95–99; BMI 27.6; BMI 26.1; BMI 27.0
[2023-07-27 00:40] LABS: Anion Gap 9 (5-15); BUN 29 mg/dL (7-18); BUN/Creat Ratio 15.3 RATIO (10-20); Calcium,Total 9.1 mg/dL (8.5-10.1); Chloride 102 mmol/L (98-107); EST Glomerular Filtration Rate 27 mL/min (>60); Est Glom Filt Rate - Afr Amer 33 mL/min (>60); Glucose 179 mg/dL (74-106); Potassium 4.3 mmol/L (3.5-5.1); Sodium Level 135 mmol/L (136-145)
[2023-07-27 00:49] LABS: Absolute Lymphocyte Count 1.35 X10^3/uL (0.83-4.51); Absolute Neutrophil Count 3.1 X10^3/uL (2.0-7.7); Basophil# 0.04 X10^3/uL; Basophil% 0.8 % (0-1); Eosinophils% 1.9 % (0-5); Hemoglobin 7.7 g/dL (12.0-15.0); Lymphocyte # 1.35 X10^3/ul (0.83-4.51); Lymphocyte % 25.4 % (19-41); Mean Corp Hgb Conc 32.1 g/dL (32-36); Mean Corpuscular Hgb 30.8 pg (27.0-32.0); Mean Platelet Vol. 9.2 fl (6.2-12.0); Monocyte# 0.68 X10^3/uL; Monocyte% 12.8 % (0-10); NRBC Flagged by Analyzer 0.4 % (0-5); Neutrophil # 3.06 X10^3/uL (2.7-7.7); Neutrophil % 57.6 % (47-70); Platelet Count 217 K/mm3 (150-450); RBC Distribution Width CV 15.9 % (11.6-14.6); RBC Distribution Width SD 54.4 fl (35.1-43.9); White Blood Count 5.3 K/mm3 (4.4-11.0)
--- NOTE | 2023-07-27 02:07 | HP.PCM.HOS_ITS ---
HPI - General General Date of Admission: 07/27/23 Date of Service: 07/27/23 Chief Complaint: Intractable LLE pain. HPI Narrative The patient is a 77 y/o F w/ PMHx: Anxiety and Depression, GERD w/ Hx gastric ulcer, Former tobacco use, Hx Kaden, IBS, HTN, HLD, Diabetes mellitus type II, PAD status post previous right femoral peroneal bypass with nonreversed GSV and now s/p recent 07/22/23 left common femoral endarterectomy, left femoral-above knee popliteal bypass with reversed great saphenous vein left sartorius flap per Dr. Knutson who presents to the [facility] ED on 07/27/23 with history of intractable left lower extremity pain following recent intervention primarily secondary to not receiving appropriate pain regimen at her skilled facility per her and her family reports noting that despite several discussions the pain medication was never changed and given this family brought to the ED for evaluation. Patient was given at her skilled facility finally she notes just prior to her transition to the ED for evaluation oxycodone 10 mg p.o. x 1 and following this her pain did improve significantly. Discussed the situation at length and at this point patient has been signed out of the recent skilled facility therefore planned admission to [facility] but she is not averse to going back to that facility as long as the oral pain regimen remains the same as in the hospital. She notes that the pain following this most recent procedure was initially more tolerable over the first 2 days however it is now been severe with altered pain regimen upon transition to the skilled facility which is less than previous. She rates the pain 10 out of 10 with dull aching, throbbing and sharp stabbing when it is not being treated appropriately. Workup in the ED included T97.6, heart 92, BP 107/59, respiratory rate 17, 98% on room air, CBC with WBC 5.3, hemoglobin 7.7, MCV 96, platelet 217 with increased immature granulocytes, BMP with sodium 135, BUN/creatinine 29/1.90, GFR 27, glucose 179. ED discussed case with her surgeon Dr. Knutson and her postoperative pain was discussed at length and given pain control on appropriate now increased dose of oxycodone plan had been to transition back to the facility unfortunately patient had as noted signed out AMA from the [facility] re[facility] thus requested she be admitted for placement. [facility] Medical History Wears dentures Post-menopausal Anxiety Alcohol use Ingrowing nail, right great toe Diabetes Back pain History of ulceration Gastric reflux Former smoker Hoarseness Leg cramps History of pain when walking History of edema History of echocardiogram History of stress test Polio Retinal tear of left eye Cataracts, bilateral Syncope and collapse Ruptured cervical disc Neck pain Limb weakness Diarrhea Migraines Fatigue Shoulder pain History of stomach ulcers IBS (irritable bowel syndrome) Hypertension Type 2 diabetes mellitus Pain in left leg Home Medications ?Medication ?Instructions ?Recorded ?Last Taken ?Type blood sugar diagnostic #50 ea 05/30/21 Unknown Rx blood-glucose meter #1 ea 05/30/21 Unknown Rx paroxetine HCl 30 mg tablet (Paxil) 30 mg PO QAM ANXIETY #90 tabs 06/07/22 07/22/23 Rx triamterene 37.5 1 cap PO DAILY HTN #90 caps 06/07/22 07/22/23 04:30 Rx mg-hydrochlorothiazide 25 mg capsule disability placard ##1 08/13/22 Unknown Rx metformin 500 mg tablet 500 mg PO QDAY DIABETES #90 tabs 12/11/22 06/16/23 Rx omeprazole 20 mg capsule,delayed 20 mg PO DAILY GERD #90 caps 12/11/22 07/22/23 Rx release amlodipine 5 mg tablet 5 mg PO DAILY HEART #90 tabs 02/25/23 07/22/23 04:30 Rx cilostazol 100 mg tablet 100 mg PO BID ANTIPLATELET #60 tabs 05/06/23 07/21/23 Rx clopidogrel 75 mg tablet (Plavix) 75 mg PO DAILY BLOOD THINNER #90 07/02/23 07/21/23 Rx tabs acetaminophen 500 mg capsule 500 mg PO Q6H PRN PRN pain 07/07/23 Unknown History lisinopril 20 mg tablet 20 mg PO DAILY PRN PRN HTN 07/07/23 Unknown History rivaroxaban 20 mg tablet (Xarelto) 20 mg PO QHS PVD 07/07/23 07/21/23 History docusate sodium 100 mg capsule 100 mg PO BID 7 days #0 caps 07/25/23 Unknown Rx oxycodone 5 mg tablet 10 mg (2 x 5 mg) PO Q8H PRN PRN 07/25/23 Unknown Rx Pain Score 4-10 4 days #24 tabs Allergy/AdvReac Type Severity Reaction Status Date / Time Iodinated Contrast Media Allergy Severe tongue Verified 07/26/23 23:29 (Iodinated Contrast- Oral swelled and IV Dye) adopted (Patient does not know her maternal or paternal family history.) Surgical History (Updated 07/27/23 @ 02:[address] Kenzie Hernandez MD) Hx of endarterectomy History of cholecystectomy Social History household members: none Smoking Status: Former smoker alcohol intake: never substance use type: does not use what type of physical activity do you participate in: walking frequency: daily ROS ROS Narrative Admission Review of Systems: CONSTITUTIONAL: No weight loss, fever, chills, + weakness or fatigue. HEENT: Eyes: No visual loss, blurred vision, double vision or yellow sclerae. Ears, Nose, Throat: No hearing loss, sneezing, congestion, runny nose or sore throat. SKIN: No rash or itching, lesions, wounds except + very staged ecchymoses likely from recent IVs and lab draws as well as left lower extremity status post recent surgical intervention with dressing in place and VAC to the left groin with no marked output in the canister. CARDIOVASCULAR: No chest pain, chest pressure or chest discomfort, palpitations, edema, orthopnea, syncopal events. RESPIRATORY: No shortness of breath, cough or sputum, wheezing, hemoptysis. GASTROINTESTINAL: No anorexia, nausea, vomiting or diarrhea, abdominal pain, melena, BRBPR. GENITOURINARY: No dysuria, frequency, urgency or retention. NEUROLOGICAL: No headache, dizziness, syncope, paralysis, ataxia, numbness or tingling in the extremities, focal weakness, change in bowel or bladder control, seizure. MUSCULOSKELETAL: + muscle, back pain, joint pain or stiffness. HEMATOLOGIC: + Chronic anemia with easy bleeding/bruising. LYMPHATICS: No enlarged nodes. No history of splenectomy. PSYCHIATRIC: + History of anxiety and depression. ENDOCRINOLOGIC: No reports of sweating, cold or heat intolerance. No polyuria or polydipsia. ALLERGIES: No history of asthma, hives, eczema or rhinitis. Vital Signs Vital Signs Vital Signs: 07/26/23 23:30 Temperature 97.6 F L Temperature Source Temporal Pulse Rate 92 Respiratory Rate 17 Blood Pressure 107/59 L Blood Pressure Mean 75 Pulse Ox 98 Oxygen Delivery Method Room Air Weight Weight: 171 lb 1.259 oz Body Mass Index (BMI) 27.6 Physical Exam Narrative Physical Examination: General: Awake, alert, oriented x 3 and cooperative, seated upright in the ED bed, very tearful and angry, frustrated with her pain and with various aspects of healthcare per her and her family report not listening to her pain regimen needs. Skin: Normal color, normal turgor, no icterus, no cyanosis except for occasional very staged ecchymoses likely from lab draws, left lower extremity with dressing in place with no drainage as well as left groin with VAC in place with appropriate suction with no periwound erythema noted. HEENT: AT/NC, EOMI, PERRLA, mildly dry MM, no carotid bruits or JVD noted. Lungs: CTA bilaterally, moderate effort, mild decrease BL bases, no rales, ronchi or wheezing. Heart: Regular rate and rhythm; no gallop, rub audible. Abdomen: Soft, overweight, NTTP, ND, distant normal BS, no appreciated HSM. Extremities: No cyanosis, no clubbing, no marked peripheral edema, see skin. Neurological: Patient awake, alert, oriented as noted, cognitive function intact; pupils equally reactive to light and accommodation, cranial nerves grossly normal, moving all 4 extremities except expected limitation left lower extremity given recent surgery and initial intractable pain upon presentation although she notes it is improved, strength accordingly moderately to severely globally decreased. Psychiatric: Affect appears tearful, frustrated appropriately so, does have underlying anxiety and depression. Results Lab / Micro Data 07/27/23 00:15 07/27/23 00:15 Labs: Laboratory Results - last 24 hr 07/27/23 00:15: WBC 5.3, RBC 2.50 L, Hgb 7.7 L, Hct 24.0 L, MCV 96.0, MCH 30.8, MCHC 32.1, RDW Std Deviation 54.4 H, RDW Coeff of Cherise 15.9 H, Plt Count 217, MPV 9.2, Immature Gran % (Auto) 1.500 H, Neut % (Auto) 57.6, Lymph % (Auto) 25.4, M sherri % (Auto) 12.8 H, Eos % (Auto) 1.9, Baso % (Auto) 0.8, Absolute Neuts (auto) 3.1, Absolute Lymphs (auto) 1.35, Nucleated RBC % 0.4, Sodium 135 L, Potassium 4.3, Chloride 102, Carbon Dioxide 24.0, Anion Gap 9, BUN 29 H, Creatinine 1.90 H , Est GFR (MDRD) Af Amer 33 L, Est GFR (MDRD) Non-Af 27 L, BUN/Creatinine Ratio 15.3, Glucose 179 H, Calcium 9.1 Assessment & Plan Assessment/Plan (1) Post-operative pain: PLAN: Plan The patient is a 77 y/o F w/ PMHx: Anxiety and Depression, GERD w/ Hx gastric ulcer, Former tobacco use, Hx Kaden, IBS, HTN, HLD, Diabetes mellitus type II, PAD status post previous right femoral peroneal bypass with nonreversed GSV and now s/p recent 07/22/23 left common femoral endarterectomy, left femoral-above knee popliteal bypass with reversed great saphenous vein left sartorius flap per Dr. Knutson who presents to the [facility] ED on 07/27/23 with history of intractable left lower extremity pain following recent intervention primarily secondary to not receiving appropriate pain regimen at her skilled facility per her and her family reports noting that despite several discussions the pain medication was never changed and given this family brought to the ED for evaluation. #1. Intractable pain left lower extremity status post recent left common femoral endarterectomy, left femoral [id number] popliteal bypass with reversed great saphenous vein with left sartorius flap, adult failure to thrive: Patient transitioned from her current skilled facility placement following operative intervention secondary to uncontrolled pain as she reports she is supposed to be on oxycodone 10 mg every 6 hours as needed but despite several discussions at this facility reportedly she did not have any medication changes and had severe intractable pain when attempting to perform the therapies prompting family to bring her to the ED for evaluation. At this point because patient is signed out at that facility will admit to medical surgical floor, will continue pain regimen as she noted oxycodone 10 mg every 6 hours as needed but if this does not help fully may consider adding other agents including gabapentin or topicals judiciously especially given dressing, will consult wound care, continue PT/OT/case management consultation for assistance with transition to skilled facility. She is willing to go back to the facility she was just accepted to but she wants to assure that the pain medications will be what they have been while at the hospital. She reports that the pain regimen was different at the skilled facility and despite her strong request that it be altered that did not occur. #2. PAD: s/p 06/17/23 R femoral-peroneal bypass with nonreversed GSV, s/p recent 07/22/23 left common femoral endarterectomy, left femoral-above knee popliteal bypass with reversed great saphenous vein with left sartorius flap per Dr. Knutson, will continue current dressing and vac to the L groin with no noted marked output in the cannister. When cannister battery is depleted per discussion with patient and per her report from Vascular surgery will then remove the vac and transition to dressings at that time. Will continue Xarelto, Plavix, cilostazol home regimen in addition to hypertensive regimen, not on statin therapy per current list, unclear of previous intolerance but following closely with vascular surgery. Encourage continued outpatient follow-up as previously arranged. If any concerns arise may certainly consult for evaluation inpatient. #3. Chronic normocytic anemia: Admission hemoglobin 7.7, MCV 96, baseline hemoglobin 7-8 primarily, most recently noted 07/24/2023 hemoglobin 8.4, will continue to trend CBC but if drops further low threshold to transfuse if necessary especially given recent operative intervention. #4. Chronic Kidney Disease Stage IV per GFR trending: Admission BUN/Cr 29/1.90, GFR 27, baseline renal function 1.5-1.8 primarily, repeat BMP in AM. #5. Hypertension: Continue home regimen including lisinopril, amlodipine, triamterene-hydrochlorothiazide, PRN hydralazine. #6. Hyperlipidemia: Not on statin therapy, attempted to clarify especially given underlying PAD history. #7. Diabetes mellitus type II: Hold oral home regimen, ADA diet, accu checks w/ ISS. #8. Anxiety and depression: We will continue patient home paroxetine regimen. #9. GERD with history of gastric ulcer: We will continue patient on PPI. #10. Former tobacco use: Encourage continued tobacco cessation. #11. DVT prophylaxis: Will continue patient home Xarelto regimen. #12. CODE status: Patient medical decision-maker would be her daughter she notes. Discussed CODE status at length including difference between FULL code, DNR-CCA and DNR-CC status. Following discussions about the differences in these status, requested Full Code status. Advanced Care Planning Face to Face Time: 16 minutes. Charges/Coding Visit Charges Inpatient E&M: 72437 Init Hosp L2 Procedures Hospitalists Procedures: 46689 Advncd Care Plan 30 Min
[2023-07-27] MEDS: oxyCODONE 5 MG Tablet 10 MG PO ×4 (04:34→22:39)
[2023-07-27 04:40] LABS: Magnesium 1.4 mg/dL (1.6-2.6)
[2023-07-27 05:59] LABS: Absolute Lymphocyte Count 1.31 X10^3/uL (0.83-4.51); Absolute Neutrophil Count 2.5 X10^3/uL (2.0-7.7); Basophil# 0.03 X10^3/uL; Basophil% 0.7 % (0-1); Eosinophil# 0.09 X10^3/uL; Hematocrit 24.3 % (37-47); Hemoglobin 7.6 g/dL (12.0-15.0); Lymphocyte # 1.31 X10^3/ul (0.83-4.51); Lymphocyte % 28.8 % (19-41); Mean Corp Hgb Conc 31.3 g/dL (32-36); Mean Platelet Vol. 9.2 fl (6.2-12.0); Monocyte# 0.58 X10^3/uL; Monocyte% 12.7 % (0-10); NRBC Flagged by Analyzer 0 % (0-5); Neutrophil # 2.52 X10^3/uL (2.7-7.7); Neutrophil % 55.4 % (47-70); Platelet Count 227 K/mm3 (150-450); RBC Distribution Width CV 15.8 % (11.6-14.6); Red Blood Count 2.53 M/mm3 (4.2-5.4); White Blood Count 4.6 K/mm3 (4.4-11.0)
[2023-07-27 06:28] LABS: ALB/GLOB Ratio 0.7 RATIO (0.9-2.4); AST(SGOT) 18 U/L (15-37); Alanine Aminotransfer ALT/SGPT 19 U/L (13-56); Albumin, Serum 2.6 g/dL (3.2-5.0); Alkaline Phosphatase 101 U/L (45-117); Anion Gap 8 (5-15); BUN 28 mg/dL (7-18); BUN/Creat Ratio 15.8 RATIO (10-20); Calcium,Total 9.2 mg/dL (8.5-10.1); Chloride 103 mmol/L (98-107); Creatinine, Serum 1.77 mg/dL (0.55-1.02); EST Glomerular Filtration Rate 30 mL/min (>60); Est Glom Filt Rate - Afr Amer 36 mL/min (>60); Globulin 3.6 g/dL (2.2-4.2); Glucose 176 mg/dL (74-106); Potassium 3.9 mmol/L (3.5-5.1); Protein, Total 6.2 g/dL (6.4-8.2); Sodium Level 135 mmol/L (136-145)
[2023-07-27 07:40] LABS: Bedside Glucose 159 mg/dL (74-106)
[2023-07-27] MEDS: Cilostazol 50 MG Tablet 100 MG PO ×2 (09:21→21:57)
[2023-07-27] MEDS: Pantoprazole Sodium 20 MG Tablet PO (09:21)
[2023-07-27] MEDS: Clopidogrel Bisulfate 75 MG Tablet PO (09:21)
[2023-07-27] MEDS: PARoxetine 10 MG Tablet 30 MG PO (09:22)
[2023-07-27] MEDS: Acetaminophen 325 MG Tablet 650 MG PO (09:28)
[2023-07-27] MEDS: Magnesium Sulfate 2 GM in Dextrose 5%-Water (100mL Bag) 100 ML IV (10:07)
[2023-07-27] MEDS: 0.9% Saline Lock 10 ML Syringe IV (10:07)
--- NOTE | 2023-07-27 10:30 | EX.PCM.CON.S ---
Assessment & Plan Assessment/Plan (1) Atherosclerosis of [place] arteries of extremities with rest pain, left leg: PLAN: -pain controlled on original regimen -unfortunately signed out from rehab facility -is interested in rehab here at hospital; uncertain if/when insurance will approve HPI Consult Data Date of Consult: 07/27/23 HPI Narrative HPI Narrative: ROSEMARY HELMS, is a 77 F who presents with poorly controlled pain at rehab facility shortly after her arrival there post op from fem-pop bypass 07/21. Patient had been requiring 10 mg oxycodone while in hospital at fairly regular intervals and at the facility she received 5 mg with much longer intervals. Pain primarily over knee cap, also along various incisions though less severe. No foot pain. [facility] Medical History Wears dentures Post-menopausal Anxiety Alcohol use Ingrowing nail, right great toe Diabetes Back pain History of ulceration Gastric reflux Former smoker Hoarseness Leg cramps History of pain when walking History of edema History of echocardiogram History of stress test Polio Retinal tear of left eye Cataracts, bilateral Syncope and collapse Ruptured cervical disc Neck pain Limb weakness Diarrhea Migraines Fatigue Shoulder pain History of stomach ulcers IBS (irritable bowel syndrome) Hypertension Type 2 diabetes mellitus Pain in left leg Home Medications ?Medication ?Instructions ?Recorded ?Last Taken ?Type blood sugar diagnostic #50 ea 05/30/21 Unknown Rx blood-glucose meter #1 ea 05/30/21 Unknown Rx paroxetine HCl 30 mg tablet (Paxil) 30 mg PO QAM ANXIETY #90 tabs 06/07/22 07/22/23 Rx triamterene 37.5 1 cap PO DAILY HTN #90 caps 06/07/22 07/22/23 04:30 Rx mg-hydrochlorothiazide 25 mg capsule disability placard ##1 08/13/22 Unknown Rx metformin 500 mg tablet 500 mg PO QDAY DIABETES #90 tabs 12/11/22 06/16/23 Rx omeprazole 20 mg capsule,delayed 20 mg PO DAILY GERD #90 caps 12/11/22 07/22/23 Rx release amlodipine 5 mg tablet 5 mg PO DAILY HEART #90 tabs 02/25/23 07/22/23 04:30 Rx cilostazol 100 mg tablet 100 mg PO BID ANTIPLATELET #60 tabs 05/06/23 07/21/23 Rx clopidogrel 75 mg tablet (Plavix) 75 mg PO DAILY BLOOD THINNER #90 07/02/23 07/21/23 Rx tabs acetaminophen 500 mg capsule 500 mg PO Q6H PRN PRN pain 07/07/23 Unknown History lisinopril 20 mg tablet 20 mg PO DAILY PRN PRN HTN 07/07/23 Unknown History rivaroxaban 20 mg tablet (Xarelto) 20 mg PO QHS PVD 07/07/23 07/21/23 History docusate sodium 100 mg capsule 100 mg PO BID 7 days #0 caps 07/25/23 Unknown Rx oxycodone 5 mg tablet 10 mg (2 x 5 mg) PO Q8H PRN PRN 07/25/23 Unknown Rx Pain Score 4-10 4 days #24 tabs Allergy/AdvReac Type Severity Reaction Status Date / Time Iodinated Contrast Media Allergy Severe tongue Verified 07/26/23 23:29 (Iodinated Contrast- Oral swelled and IV Dye) Family History adopted Surgical History (Updated 07/27/23 @ 02:[address] Kenzie Hernandez MD) Hx of endarterectomy History of cholecystectomy Social History household members: none Smoking Status: Former smoker alcohol intake: never substance use type: does not use what type of physical activity do you participate in: walking frequency: daily Physical Exam Const alert, oriented x3, no apparent distress and healthy appearing General Appearance: cooperative; Negative for combative or lethargic Orientation / Consciousness: awake Exam Limitations: no limitations HEENT Head and Scalp: normocephalic and atraumatic Eyes EOMs intact bilaterally General Eye: normal appearance of both eyes Neck full ROM, no lymphadenopathy and thyroid normal General: trachea midline; Negative for lymphadenopathy or tenderness Thyroid: thyroid normal Resp normal respiratory effort and no use of accessory muscles Effort and Inspection: Negative for labored, stridor or audible wheezes Cardio regular rate and regular rhythm Cardio Narrative: trace edema bilateral Back/Spine Cervical Spine: cervical ROM normal Extremity full ROM, normal capillary refill and no clubbing, cyanosis or edema Extremity Narrative: dressing intact, no hematoma or surrounding erythema, approp TTP Skin no rashes or lesions noted and no wounds Neuro oriented x3, CN's II-XII intact bilaterally, no focal motor deficits and no sensory deficits noted Psych thought process normal, cooperative, affect normal, speech normal and activity/motor behavior normal Lab / Micro Data 07/27/23 05:38 07/27/23 05:38 Labs: Laboratory Results - last 24 hr 07/27/23 00:15: WBC 5.3, RBC 2.50 L, Hgb 7.7 L, Hct 24.0 L, MCV 96.0, MCH 30.8, MCHC 32.1, RDW Std Deviation 54.4 H, RDW Coeff of Cherise 15.9 H, Plt Count 217, MPV 9.2, Immature Gran % (Auto) 1.500 H, Neut % (Auto) 57.6, Lymph % (Auto) 25.4, [place] % (Auto) 12.8 H, Eos % (Auto) 1.9, Baso % (Auto) 0.8, Absolute Neuts (auto) 3.1, Absolute Lymphs (auto) 1.35, Nucleated RBC % 0.4, Sodium 135 L, Potassium 4.3, Chloride 102, Carbon Dioxide 24.0, Anion Gap 9, BUN 29 H, Creatinine 1.90 H, Est GFR (MDRD) Af Amer 33 L, Est GFR (MDRD) Non-Af 27 L, BUN/Creatinine Ratio 15.3, Glucose 179 H, Calcium 9.1, Magnesium 1.4 L 07/27/23 05:38: WBC 4.6, RBC 2.53 L, Hgb 7.6 L, Hct 24.3 L, MCV 96.0, MCH 30.0, MCHC 31.3 L, RDW Std Deviation 54.0 H, RDW Coeff of Cherise 15.8 H, Plt Count 227, MPV 9.2, Immature Gran % (Auto) 0.400, Neut % (Auto) 55.4, Lymph % (Auto) 28.8, [place] % (Auto) 12.7 H, Eos % (Auto) 2.0, Baso % (Auto) 0.7, Absolute Neuts (auto) 2.5, Absolute Lymphs (auto) 1.31, Nucleated RBC % 0, Sodium 135 L, Potassium 3.9, Chloride 103, Carbon Dioxide 24.0, Anion Gap 8, BUN 28 H, Creatinine 1.77 H, Estim Creat Clear Calc 28.20, Est GFR (MDRD) Af Amer 36 L, Est GFR (MDRD) Non-Af 30 L, BUN/Creatinine Ratio 15.8, Glucose 176 H, Calcium 9.2, Total Bilirubin 0.80, AST 18, ALT 19, Alkaline Phosphatase 101, Total Protein 6.2 L, Albumin 2.6 L, Globulin 3.6, Albumin/Globulin Ratio 0.7 L 07/27/23 07:20: POC Glucose 159 H
[2023-07-27 16:16] LABS: Bedside Glucose 174 mg/dL (74-106)
[2023-07-27 16:45] LABS: Bedside Glucose 153 mg/dL (74-106)
[2023-07-27] MEDS: Rivaroxaban 20 MG Tablet PO (17:49)
[2023-07-27 22:37] LABS: Bedside Glucose 171 mg/dL (74-106)
[2023-07-28 03:46] VITALS: BMI 26.9
[2023-07-28 04:00] VITALS: BP 125/75; PULSE 86; RESP 15; TEMP 36.5; O2SAT 96
[2023-07-28 06:59] VITALS: O2SAT 94
[2023-07-28] MEDS: oxyCODONE 5 MG Tablet 10 MG PO ×2 (07:01→12:53)
[2023-07-28 07:04] LABS: Absolute Lymphocyte Count 1.13 X10^3/uL (0.83-4.51); Absolute Neutrophil Count 2.4 X10^3/uL (2.0-7.7); Basophil# 0.03 X10^3/uL; Basophil% 0.7 % (0-1); Eosinophils% 2.4 % (0-5); Hematocrit 25.3 % (37-47); Hemoglobin 7.9 g/dL (12.0-15.0); Lymphocyte # 1.13 X10^3/ul (0.83-4.51); Lymphocyte % 26.8 % (19-41); Mean Corp Hgb Conc 31.2 g/dL (32-36); Mean Corpuscular Volume 96.2 fL (81-99); Mean Platelet Vol. 9.2 fl (6.2-12.0); Monocyte# 0.54 X10^3/uL; Monocyte% 12.8 % (0-10); NRBC Flagged by Analyzer 0 % (0-5); Neutrophil # 2.41 X10^3/uL (2.7-7.7); Neutrophil % 57.1 % (47-70); Platelet Count 238 K/mm3 (150-450); RBC Distribution Width CV 15.9 % (11.6-14.6); RBC Distribution Width SD 54.8 fl (35.1-43.9); Red Blood Count 2.63 M/mm3 (4.2-5.4); White Blood Count 4.2 K/mm3 (4.4-11.0)
[2023-07-28 07:24] LABS: Bedside Glucose 153 mg/dL (74-106)
[2023-07-28 07:35] LABS: Anion Gap 5 (5-15); BUN 28 mg/dL (7-18); BUN/Creat Ratio 16.5 RATIO (10-20); Calcium,Total 9.1 mg/dL (8.5-10.1); Chloride 102 mmol/L (98-107); EST Glomerular Filtration Rate 31 mL/min (>60); Est Glom Filt Rate - Afr Amer 38 mL/min (>60); Estimated Creatinine Clearance 29.31 ml/min; Glucose 172 mg/dL (74-106); Magnesium 1.8 mg/dL (1.6-2.6); Phosphorus 3.4 mg/dL (2.5-4.9); Potassium 4.4 mmol/L (3.5-5.1); Sodium Level 134 mmol/L (136-145)
[2023-07-28] MEDS: PARoxetine 10 MG Tablet 30 MG PO (08:39)
[2023-07-28] MEDS: Pantoprazole Sodium 20 MG Tablet PO (08:39)
[2023-07-28] MEDS: Clopidogrel Bisulfate 75 MG Tablet PO (08:39)
[2023-07-28] MEDS: Cilostazol 50 MG Tablet 100 MG PO (08:39)
--- NOTE | 2023-07-28 09:15 | PCM.PN.HOSP ---
Subjective Subjective Resting comfortably Objective Data Objective Data Vital Signs: Vital Signs Temp Pulse Resp BP Pulse Ox O2 Del Method 97.7 F L 86 15 125/75 H 94 Room Air 07/28/23 04:00 07/28/23 04:00 07/28/23 04:00 07/28/23 04:00 07/28/23 06:59 07/28/23 06:59 Oxygen Delivery Method Room Air Weight: 167 lb 5.294 oz Body Mass Index (BMI) 26.9 Intake & Output: Intake and Output for Last 24 Hours 07/27/23 07/28/23 07/29/23 03:59 03:59 03:59 Intake Total 900 / 900 Balance 900 / 900 Lab / Micro Data 07/28/23 06:19 07/28/23 06:19 Labs: Laboratory Results - last 24 hr 07/27/23 11:17: POC Glucose 174 H 07/27/23 16:20: POC Glucose 153 H 07/27/23 22:00: POC Glucose 171 H 07/28/23 06:19: WBC 4.2 L, RBC 2.63 L, Hgb 7.9 L, Hct 25.3 L, MCV 96.2, MCH 30.0, MCHC 31.2 L, RDW Std Deviation 54.8 H, RDW Coeff of Cherise 15.9 H, Plt Count 238, MPV 9.2, Immature Gran % (Auto) 0.200, Neut % (Auto) 57.1, Lymph % (Auto) 26.8, [place] % (Auto) 12.8 H, Eos % (Auto) 2.4, Baso % (Auto) 0.7, Absolute Neuts (auto) 2.4, Absolute Lymphs (auto) 1.13, Nucleated RBC % 0, Sodium 134 L, Potassium 4.4, Chloride 102, Carbon Dioxide 27.0, Anion Gap 5, BUN 28 H, Creatinine 1.70 H, Estim Creat Clear Calc 29.31, Est GFR (MDRD) Af Amer 38 L, Est GFR (MDRD) Non-Af 31 L, BUN/Creatinine Ratio 16.5, Glucose 172 H, Calcium 9.1, Phosphorus 3.4, Magnesium 1.8 07/28/23 07:04: POC Glucose 153 H Physical Exam Narrative General: Alert, Oriented x3, Cooperative, No apparent distress HEENT: Atraumatic, PERRLA, EOMI, Normocephalic Oral: Moist Mucosa Neck: Supple, No JVD Lungs: Diminished, Normal air movement, No rhonchi, No wheeze, No rales Cardiovascular: Regular rate, Regular Rhythm, Normal S1, Normal S2, No murmurs Abdomen: Soft, Non Tender, Non-Distended, No Hepato-splenomegaly Extremities: No edema, Capillary Refill Less than 3 Seconds Skin: No rashes, No breakdown, dressing CDI Musculoskeletal: No Tenderness to Palpation of Joints or Extremities Neurological: No focal neurological deficits, Motor Exam 5/5 strength throughout, left lower extremity limited due to recent surgery, Sensory exam intact to light touch and pain Psych/Mental Status: Normal Affect, Appropriate Assessment & Plan Assessment/Plan (1) Post-operative pain: PLAN: Plan 1. Intractable pain in the left lower extremity status post recent left common femoral endarterectomy for PAD on 07/22/2023 ? Appreciate vascular surgery's assistance ? Continue with pain management ? plan to return to SNF ? Her concern is that the intervals between her narcotic dosages at the senior care ? Continue with Xarelto 2. Essential HTN/HLD ? Continue with her home blood pressure medications ? We will monitor make adjustments as necessary ? Blood pressures are currently stable ? Unclear as to why she is not on a statin while having peripheral artery disease, it is not listed as an allergy 3. DM2 with CKD 4 ? Renal function down to baseline ? Hold her home therapy ? Accu-Cheks ACHS ? Continue sliding scale insulin ? Will monitor and make adjustments as necessary 4. Anxiety/depression ? Stable ? Continue with her home medications 5. GERD ? Stable ? Continue with PPI DVT: Xarelto Charges/Coding Visit Charges Inpatient E&M: 34686 Subs Hosp L2
[2023-07-28 09:17] VITALS: BP 123/64; PULSE 91; RESP 16; TEMP 36.9; O2SAT 96
--- NOTE | 2023-07-28 10:05 | CASEMGMT ---
Met with patient to complete GONCALVES form. GONCALVES form explained to patient who voiced understanding and signed form. Original form placed in pt?s chart and copy provided to patient. Ashley Delvalle, Discharge Planning Asst
--- NOTE | 2023-07-28 10:26 | CASEMGMT ---
Discharge Planning A list of?SNF providers including quality and resource use data and consistent with the patient's preferred geographic region, medical needs, and insurance network was created in [facility] Guide.? This list was provided to the SW. Ashley Delvalle Discharge Planning Asst.
[2023-07-28] MEDS: Acetaminophen 325 MG Tablet 650 MG PO ×2 (11:17→16:27)
[2023-07-28 11:30] VITALS: BP 134/69; PULSE 94; RESP 16; TEMP 36.9; O2SAT 97
[2023-07-28 11:41] LABS: Bedside Glucose 189 mg/dL (74-106)
--- NOTE | 2023-07-28 13:29 | CASEMGMT ---
Addendum entered by Olivia Gaona 07/28/23 13:51: Pt has previous skilled inpt stay within the previous 30 days from 07/21-07/24. Pt is seeking placement under that qualifying stay and does not need a new length of stay. TCU updated. EDEL Marlow Original Note: Social Work- A list of SNF providers including quality and resource use data and consistent with the patient?s preferred geographic region, medical needs, and insurance network were provided from the [facility] Guide. Pt FOC is TCU. Referral made to TCU. EDEL Marlow
[2023-07-28 15:21] VITALS: BP 114/74; PULSE 99; RESP 16; TEMP 36.9; O2SAT 99
--- NOTE | 2023-07-28 16:06 | TREXTCAR_ITS ---
Diet Diet Order/Speech Therapy: 07/27/23 04:11 Diet: Consistent Carb - Calorie Controlled Food consistency:: Regular Liquid Consistency:: Regular/Thin How many daily calories?: 1800 calorie Routine Orders/Code Status Routine Lab Work: CBC and BMP Code Status: Full Code Wound(s) left leg: Wound Type: Surgical Incision Therapies Weight Bearing: Weight bearing as tolerated Physical Therapy: Eval and Treat Occupational Therapy: Eval and Treat Problem/Diagnosis (1) Post-operative pain: Status: Acute Code(s): G89.18 - Other acute postprocedural pain Plan 1. Intractable pain in the left lower extremity status post recent left common femoral endarterectomy for PAD on 07/22/2023 ? Appreciate vascular surgery's assistance ? Continue with pain management ? plan to return to SNF ? Her concern is that the intervals between her narcotic dosages at the [facility] ? Continue with Xarelto 2. Essential HTN/HLD ? Continue with her home blood pressure medications ? We will monitor make adjustments as necessary ? Blood pressures are currently stable ? Unclear as to why she is not on a statin while having peripheral artery disease, it is not listed as an allergy 3. DM2 with CKD 4 ? Renal function down to baseline ? Hold her home therapy ? Accu-Cheks ACHS ? Continue sliding scale insulin ? Will monitor and make adjustments as necessary 4. Anxiety/depression ? Stable ? Continue with her home medications 5. GERD ? Stable ? Continue with PPI DVT: Xarelto Allergies/Procedures Done in Hospital Allergies Iodinated Contrast Media (Iodinated Contrast- Oral and IV Dye) Allergy (Severe, Verified 07/26/23 23:29) tongue swelled Procedures: None Type of Care/Length of Stay Estimated LOS: Convalescent Care Less Than 30 days Type of Care Needed: Skilled Rehab Potential: Good Prognosis: Good Additional Orders/Day of Discharge Day of Discharge: 07/28/23 Discharge Plan Admission Admit Date/Time: 07/27/23 02:07 Attending Provider: Gilles Archibald Primary Care Provider: Tavo Strange Consulting Providers: Kenzie Hernandez Instructions Patient Instructions: ED Post Op Wound Check, Pain Discharge Orders/Prescriptions Prescriptions: Continued (DME) blood sugar diagnostic Strip See Rx Instructions .ROUTE .MEDSUPPLY Qty: 50 2RF Rx Instructions: USE DIRECTED TO CHECK BLOOD GLUCOSE ONCE DAILY FOR TYPE 2 DM (DME) blood-glucose meter Misc See Rx Instructions .ROUTE .MEDSUPPLY Qty: 1 0RF Rx Instructions: USE TO CHECK BLOOD GLUCOSE ONCE DAILY FOR TYPE 2 DM (DME) disability placard 0 .Route .MEDSUPPLY Qty: 1 0RF Rx Instructions: Duration 5 years. cilostazol 100 mg tablet 100 mg PO BID Qty: 60 1RF lisinopril 20 mg tablet 20 mg PO DAILY PRN PRN (Reason: HTN) acetaminophen 500 mg capsule 500 mg PO Q6H PRN PRN (Reason: pain) Xarelto 20 mg tablet 20 mg PO QHS Rx Instructions: must administer with evening meal docusate sodium 100 mg Capsule 100 mg PO BID 7 Days Qty: 0 0RF oxycodone 5 mg Tablet 10 mg PO Q8H PRN PRN (Reason: Pain Score 4-10) 4 Days Qty: 24 0RF Rx Instructions: Take 1-2 tablets every 8 hours as needed for pain. paroxetine HCl [Paxil] 30 mg tablet 30 mg PO QAM Qty: 90 3RF triamterene-hydrochlorothiazid 37.5-25 mg capsule 1 cap PO DAILY Qty: 90 3RF metformin 500 mg tablet 500 mg PO QDAY Qty: 90 1RF omeprazole 20 mg capsule,delayed release(DR/EC) 20 mg PO DAILY Qty: 90 1RF amlodipine 5 mg tablet 5 mg PO DAILY Qty: 90 1RF clopidogrel [Plavix] 75 mg tablet 75 mg PO DAILY Qty: 90 3RF Referrals / Follow Up: Tavo Strange DO [Primary Care Provider] - Dallin Knutson MD [[facility] Staff - Active Staff] - Keep Stanton appointment Disposition Disposition (needs filled in before D/C Order can be placed): [facility] Facility
--- NOTE | 2023-07-28 16:08 | CHAPLAIN ---
Type of Pastoral Visit _x__ Initial Visit ___ Follow-up Visit ___ On-call Visit ___ General Patient Visit ___ Spiritual Assessment ___ Family Conference ___ Bereavement ___ Rapid Response ___ Code Blue ___ Other (describe below) Pastoral Care Referral From _x__ Patient ___ Family ___ Nurse ___ Physician ___ Database Coordinator ___ [employer] Architect ___ Other (describe below) Sacrament/Intervention _x__ Active listening ___ Anointing ___ Christian ___ Bereavement ___ Communion ___ Kina exploration ___ ___ Life review _x__ Prayer ___ Reconciliation ___ Sacrament of Sick _x__ Supportive presence ___ Wedding ___ Other (describe below) Pastoral Comments patient has been seen before and she gives updates and review of her health since the last visit with her; pt has had concerns but is very pleased about this latest care and medical attention given; pt is feeling better and is now optimistic; pt is planning to move to [place] with her daughter once she is better and cleared for that; pt welcomes presence and prayer for support today
--- NOTE | 2023-07-28 16:23 | DS.PCM_ITS ---
Providers Date of Admission: 07/27/23 Primary Care Physician: Dr. Tavo Strange, DO Reason For Visit: INTRACTABLE PAIN, ADULT FTT Diagnosis Discharge Diagnosis (1) Post-operative pain: Status: Acute Code(s): G89.18 - Other acute postprocedural pain Medications at Discharge Home Medications blood sugar diagnostic #50 ea 05/30/21 blood-glucose meter #1 ea 05/30/21 paroxetine HCl 30 mg tablet (Paxil) 30 mg PO QAM ANXIETY #90 tabs 06/07/22 triamterene 37.5 mg-hydrochlorothiazide 25 mg capsule 1 cap PO DAILY HTN #90 caps 06/07/22 disability placard ##1 08/13/22 metformin 500 mg tablet 500 mg PO QDAY DIABETES #90 tabs 12/11/22 omeprazole 20 mg capsule,delayed release 20 mg PO DAILY GERD #90 caps 12/11/22 amlodipine 5 mg tablet 5 mg PO DAILY HEART #90 tabs 02/25/23 cilostazol 100 mg tablet 100 mg PO BID ANTIPLATELET #60 tabs 05/06/23 clopidogrel 75 mg tablet (Plavix) 75 mg PO DAILY BLOOD THINNER #90 tabs 07/02/23 acetaminophen 500 mg capsule 500 mg PO Q6H PRN PRN pain 07/07/23 lisinopril 20 mg tablet 20 mg PO DAILY PRN PRN HTN 07/07/23 rivaroxaban 20 mg tablet (Xarelto) 20 mg PO QHS PVD 07/07/23 docusate sodium 100 mg capsule 100 mg PO BID 7 days #0 caps 07/25/23 oxycodone 5 mg tablet 10 mg (2 x 5 mg) PO Q8H PRN PRN Pain Score 4-10 4 days #24 tabs 07/25/23 Hospital Course Operations None Procedures None Summary of Care Provided Minutes Spent on Discharge: 34 Hospital Course: Per HPI: The patient is a 77 y/o F w/ PMHx: Anxiety and Depression, GERD w/ Hx gastric ulcer, Former tobacco use, Hx Kaden, IBS, HTN, HLD, Diabetes mellitus type II, PAD status post previous right femoral peroneal bypass with nonreversed GSV and now s/p recent 07/22/23 left common femoral endarterectomy, left femoral- above knee popliteal bypass with reversed great saphenous vein left sartorius flap per Dr. Knutson who presents to the [facility] ED on 07/27/23 with history of intractable left lower extremity pain following recent intervention primarily secondary to not receiving appropriate pain regimen at her skilled facility per her and her family reports noting that despite several discussions the pain medication was never changed and given this family brought to the ED for evaluation. Patient was given at her skilled facility finally she notes just prior to her transition to the ED for evaluation oxycodone 10 mg p.o. x 1 and following this her pain did improve significantly. Discussed the situation at length and at this point patient has been signed out of the recent skilled facility therefore planned admission to [facility] but she is not averse to going back to that facility as long as the oral pain regimen remains the same as in the hospital. She notes that the pain following this most recent procedure was initially more tolerable over the first 2 days however it is now been severe with altered pain regimen upon transition to the skilled facility which is less than previous. She rates the pain 10 out of 10 with dull aching, throbbing and sharp stabbing when it is not being treated appropriately. Workup in the ED included T97.6, heart 92, BP 107/59, respiratory rate 17, 98% on room air, CBC with WBC 5.3, hemoglobin 7.7, MCV 96, platelet 217 with increased immature granulocytes, BMP with sodium 135, BUN/creatinine 29/1.90, GFR 27, glucose 179. ED discussed case with her surgeon Dr. Knutson and her postoperative pain was discussed at length and given pain control on appropriate now increased dose of oxycodone plan had been to transition back to the facility unfortunately patient had as noted signed out AMA from the [facility] thus requested she be admitted for placement. Hospital Course: 1. Intractable pain and left lower extremity status post recent left common femoral endarterectomy for PAD on 07/22/2023?77-year-old female who was recently operated on discharge to a fci presented back to the hospital with intractable pain. She states that the fci she was at refused to give her more pain meds despite having increased pain level. We were able to get her pain under control with the discharged narcotic prescriptions that should been sent to the fci with and she is feeling much better today. I discussed with her the plan for discharge to a different fci and she expressed understanding of the risk and benefits of going and would like to go today. Will continue with all of her home medications without any change. She will need to follow-up with vascular surgery as previously scheduled. 2. Essential hypertension, hyperlipidemia, type 2 diabetes, chronic kidney disease stage IV, anxiety, depression, GERD are all chronic medical conditions which complicate her care. Her home medications were continued where appropriate Physical Exam Narrative General: Alert, Oriented x3, Cooperative, No apparent distress HEENT: Atraumatic, PERRLA, EOMI, Normocephalic Oral: Moist Mucosa Neck: Supple, No JVD Lungs: Diminished, Normal air movement, No rhonchi, No wheeze, No rales Cardiovascular: Regular rate, Regular Rhythm, Normal S1, Normal S2, No murmurs Abdomen: Soft, Non Tender, Non-Distended, No Hepato-splenomegaly Extremities: No edema, Capillary Refill Less than 3 Seconds Skin: No rashes, No breakdown, dressing CDI Musculoskeletal: No Tenderness to Palpation of Joints or Extremities Neurological: No focal neurological deficits, Motor Exam 5/5 strength throughout, left lower extremity limited due to recent surgery, Sensory exam intact to light touch and pain Psych/Mental Status: Normal Affect, Appropriate Weight / BMI Weight Weight: 167 lb 5.294 oz Body Mass Index (BMI) 26.9 ABG / Lab / Microbiology Data 07/28/23 06:19 07/28/23 06:19 Laboratory: Laboratory Results - last 24 hr 07/27/23 16:20: POC Glucose 153 H 07/27/23 22:00: POC Glucose 171 H 07/28/23 06:19: WBC 4.2 L, RBC 2.63 L, Hgb 7.9 L, Hct 25.3 L, MCV 96.2, MCH 30.0, MCHC 31.2 L, RDW Std Deviation 54.8 H, RDW Coeff of Cherise 15.9 H, Plt Count 238, MPV 9.2, Immature Gran % (Auto) 0.200, Neut % (Auto) 57.1, Lymph % (Auto) 26.8, Faulkner % (Auto) 12.8 H, Eos % (Auto) 2.4, Baso % (Auto) 0.7, Absolute Neuts (auto) 2.4, Absolute Lymphs (auto) 1.13, Nucleated RBC % 0, Sodium 134 L, Potassium 4.4, Chloride 102, Carbon Dioxide 27.0, Anion Gap 5, BUN 28 H, C reatinine 1.70 H, Estim Creat Clear Calc 29.31, Est GFR (MDRD) Af Amer 38 L, Est GFR (MDRD) Non-Af 31 L, BUN/Creatinine Ratio 16.5, Glucose 172 H, Calcium 9.1, Phosphorus 3.4, Magnesium 1.8 07/28/23 07:04: POC Glucose 153 H 07/28/23 11:20: POC Glucose 189 H Meaningful Use Info Meaningful Use Meaningful Use Diagnoses (Choose all that apply): None applicable Ischemic Stroke Statin Dosing Therapy Reference: STATIN DOSE THERAPY REFERENCE: * Patients > 75 years receive moderate or high dose statin therapy. * Patients 75 years or YOUNGER should receive HIGH intensity statin dose unless contraindicated. You will be required to document reason for non-treatment if statin daily dose does not meet guidelines. HIGH DOSE STATIN THERAPY DAILY Atorvastatin > than or = to 40 mg Rosuvastatin > than or = to 20 mg Amlodipine + Atorvastatin > than or = to 2.5/40 mg Ezetimibe + Simvastatin 10/80 mg Simvastatin 80mg Discharge Plan Admission Admit Date/Time: 07/27/23 02:07 Attending Provider: Gilles Archibald Primary Care Provider: Tavo Strange Consulting Providers: Kenzie Hernandez Instructions Patient Instructions: ED Post Op Wound Check, Pain Discharge Orders/Prescriptions Prescriptions: Continued (DME) blood sugar diagnostic Strip See Rx Instructions .ROUTE .MEDSUPPLY Qty: 50 2RF Rx Instructions: USE DIRECTED TO CHECK BLOOD GLUCOSE ONCE DAILY FOR TYPE 2 DM (DME) blood-glucose meter [facility] See Rx Instructions .ROUTE .MEDSUPPLY Qty: 1 0RF Rx Instructions: USE TO CHECK BLOOD GLUCOSE ONCE DAILY FOR TYPE 2 DM (DME) disability placard 0 .Route .MEDSUPPLY Qty: 1 0RF Rx Instructions: Duration 5 years. cilostazol 100 mg tablet 100 mg PO BID Qty: 60 1RF lisinopril 20 mg tablet 20 mg PO DAILY PRN PRN (Reason: HTN) acetaminophen 500 mg capsule 500 mg PO Q6H PRN PRN (Reason: pain) Xarelto 20 mg tablet 20 mg PO QHS Rx Instructions: must administer with evening meal docusate sodium 100 mg Capsule 100 mg PO BID 7 Days Qty: 0 0RF oxycodone 5 mg Tablet 10 mg PO Q8H PRN PRN (Reason: Pain Score 4-10) 4 Days Qty: 24 0RF Rx Instructions: Take 1-2 tablets every 8 hours as needed for pain. paroxetine HCl [Paxil] 30 mg tablet 30 mg PO QAM Qty: 90 3RF triamterene-hydrochlorothiazid 37.5-25 mg capsule 1 cap PO DAILY Qty: 90 3RF metformin 500 mg tablet 500 mg PO QDAY Qty: 90 1RF omeprazole 20 mg capsule,delayed release(DR/EC) 20 mg PO DAILY Qty: 90 1RF amlodipine 5 mg tablet 5 mg PO DAILY Qty: 90 1RF clopidogrel [Plavix] 75 mg tablet 75 mg PO DAILY Qty: 90 3RF Referrals / Follow Up: Tavo Strange DO [Primary Care Provider] - Dallin Knutson MD [Med Staff - Active Staff] - Keep Stanton appointment Disposition Disposition (needs filled in before D/C Order can be placed): [facility]way Facility Charges/Coding Visit Charges Inpatient E&M: 17161 Disch Hosp >30min
[2023-07-28] MEDS: Rivaroxaban 20 MG Tablet PO (16:26)
--- NOTE | 2023-07-28 16:35 | CASEMGMT ---
Social Work- SW received notice of TCU acceptance. Pt medically ready for d/c. Med list and transfer summary faxed to TCU. TCU and bedside nurse advised of d/c. Pt advised of d/c. EDEL Marlow
== END 2023-07-28 16:50 | disposition skilled nursing facility (03) ==
LOC: ED 07-27 02:02 → MS3 07-27 02:23
PROVIDERS: Admitting Provider Family Medicine; Emergency Provider Emergency Medicine; PCP Family Medicine; Visit Provider Family Medicine
DX: G89.18 Other acute postprocedural pain (principal); N18.4 Chronic kidney disease, stage 4 (severe); E11.51 Type 2 diabetes mellitus with diabetic peripheral angiopathy without gangrene; E11.22 Type 2 diabetes mellitus with diabetic chronic kidney disease; F41.9 Anxiety disorder, unspecified; I12.9 Hypertensive chronic kidney disease with stage 1 through stage 4 chronic kidney disease, or unspecified chronic kidney disease; Z79.02 Long term (current) use of antithrombotics/antiplatelets; M79.605 Pain in left leg; Z87.891 Personal history of nicotine dependence; D64.9 Anemia, unspecified; E78.5 Hyperlipidemia, unspecified; Z79.01 Long term (current) use of anticoagulants; Z79.899 Other long term (current) drug therapy; Z79.84 Long term (current) use of oral hypoglycemic drugs; K21.9 Gastro-esophageal reflux disease without esophagitis; Z98.890 Other specified postprocedural states; F32.A Depression, unspecified
CPT/HCPCS: 36415; 80048; 80053; 82962; 83735; 84100; 85025; 94668; 97116; 97161; 97166; 99221; 99283; 99406; A4216; G0378

== ENCOUNTER 2023-07-28 17:07 | Inpatient (IN) | payer MEDICARE, OTHER, SELFPAY ==
[2023-07-28 17:59] VITALS: BP 118/71; PULSE 95; RESP 16; TEMP 36.1; O2SAT 100
[2023-07-28] MEDS: oxyCODONE 5 MG Tablet 10 MG PO (19:02)
--- NOTE | 2023-07-28 20:26 | HP.PCM_ITS ---
HPI - General General Date of Admission: 07/28/23 Date of Service: 07/28/23 Chief Complaint: Here for rehabilitation. HPI Narrative 07/26/2023 ROSEMARY HELMS, is a 77 Female who presents to [facility] ED with lower extremity injury. POD #4, Dr. Knutson performed left femoral endarterectomy, sartorius flap, Left fem-pop bypass, patient at [facility] for rehabilitation. Burning left lower extremity pain, concern for DVT, pain improved with oxycodone. Hemoglobin 7.7, WBC 5.3, DVT unlikely, already on Xarelto, Plavix, Pletal. Patient signed out AMA from [facility] because she felt her pain was not adequately controlled. Admit for placement. 07/27/2023 Admit [facility]. Pain control, PT/OT, left lower extremity pain. 07/27/2023 Dr. Knutson, pain controlled with oxycodone 10mg q6. Pain over left patella, less pain along incisions. 07/28/2023 Resting comfortably. PT/OT SNF. ? Not on statin. 07/28/2023 Admit to TCU with debility, here for rehabilitation, strengthening, prior to discharge home alone. [facility] Medical History Wears dentures Post-menopausal Anxiety Alcohol use Ingrowing nail, right great toe Diabetes Back pain History of ulceration Gastric reflux Former smoker Hoarseness Leg cramps History of pain when walking History of edema History of echocardiogram History of stress test Polio Retinal tear of left eye Cataracts, bilateral Syncope and collapse Ruptured cervical disc Neck pain Limb weakness Diarrhea Migraines Fatigue Shoulder pain History of stomach ulcers IBS (irritable bowel syndrome) Hypertension Type 2 diabetes mellitus Pain in left leg Home Medications ?Medication ?Instructions ?Recorded ?Last Taken ?Type blood sugar diagnostic #50 ea 05/30/21 Unknown Rx blood-glucose meter #1 ea 05/30/21 Unknown Rx paroxetine HCl 30 mg tablet (Paxil) 30 mg PO QAM ANXIETY #90 tabs 06/07/22 07/22/23 Rx triamterene 37.5 1 cap PO DAILY HTN #90 caps 06/07/22 07/22/23 04:30 Rx mg-hydrochlorothiazide 25 mg capsule disability placard ##1 08/13/22 Unknown Rx metformin 500 mg tablet 500 mg PO QDAY DIABETES #90 tabs 12/11/22 06/16/23 Rx omeprazole 20 mg capsule,delayed 20 mg PO DAILY GERD #90 caps 12/11/22 07/22/23 Rx release amlodipine 5 mg tablet 5 mg PO DAILY HEART #90 tabs 02/25/23 07/22/23 04:30 Rx cilostazol 100 mg tablet 100 mg PO BID ANTIPLATELET #60 tabs 05/06/23 07/21/23 Rx clopidogrel 75 mg tablet (Plavix) 75 mg PO DAILY BLOOD THINNER #90 07/02/23 07/21/23 Rx tabs acetaminophen 500 mg capsule 500 mg PO Q6H PRN PRN pain 07/07/23 Unknown History lisinopril 20 mg tablet 20 mg PO DAILY PRN PRN HTN 07/07/23 Unknown History rivaroxaban 20 mg tablet (Xarelto) 20 mg PO QHS PVD 07/07/23 07/21/23 History docusate sodium 100 mg capsule 100 mg PO BID Constipation 7 days 07/25/23 Unknown Rx #0 caps oxycodone 5 mg tablet 10 mg (2 x 5 mg) PO Q8H PRN PRN 07/25/23 Unknown Rx Pain Score 4-10 4 days #24 tabs Allergy/AdvReac Type Severity Reaction Status Date / Time Iodinated Contrast Media Allergy Severe tongue Verified 07/26/23 23:29 (Iodinated Contrast- Oral swelled and IV Dye) Surgical History Hx of endarterectomy History of cholecystectomy Social History household members: none Smoking Status: Former smoker alcohol intake: never substance use type: does not use what type of physical activity do you participate in: walking frequency: daily ROS Constitutional Constitutional: Denies chills, fever(s) or weight gain ENT HEENT: Denies headache(s), nasal congestion or nasal discharge Cardiovascular Cardiovascular: Denies chest pain or palpitations Respiratory/Chest Respiratory/Chest: Denies cough, excessive phlegm production or shortness of breath with exertion Gastrointestinal Gastrointestinal: Denies abdominal pain, nausea or vomiting Genitourinary Genitourinary: Denies dysuria Musculoskeletal Musculoskeletal: Reports other Details: Pain in left lower extremity. ; Denies joint pain or joint swelling Integumentary Integumentary: Reports wounds and other Details: Left medical incisional wound with wound VAC. ; Denies rash Neurologic Neurologic: Denies focal weakness, numbness or tingling Psychiatric Psychiatric: Denies anxiety, auditory hallucinations, depression, homicidal ideation or suicidal ideation Vital Signs Vital Signs Vital Signs: 07/28/23 17:59 07/28/23 17:59 Temperature 97 F L Temperature Source Temporal Pulse Rate 95 95 Pulse Rhythm Regular Pulse Strength Normal (2+) Respiratory Rate 16 16 Respiratory Effort Normal Non-Labored Respiratory Depth Normal Respiratory Pattern Normal Blood Pressure 118/71 Blood Pressure Mean 86 Blood Pressure Source Monitor Blood Pressure Position Sitting Blood Pressure Location Left Arm Pulse Ox 100 100 Oxygen Delivery Method Room Air Room Air Weight Weight: 75.098 kg Assessment & Plan Assessment/Plan (1) Debility: (2) Acute pain of left lower extremity: (3) Peripheral arterial occlusive disease: (4) Post-operative pain: (5) Depression: (6) Essential (primary) hypertension: (7) GERD (gastroesophageal reflux disease): PLAN: Plan 77 year old female with below past medical history status post left common femoral endarterectomy left femoral-above knee popliteal bypass with reversed great saphenous vein left sartorius flap 07/22/[address] Knutson, hospitalized for left leg pain, admitted to TCU with debility, here for rehabilitation, s [facility], prior to discharge home alone. * Debility - PT/OT. * Pain - Tylenol 1000mg q6 prn pain (1-3), Oxycocone 10mg q4 prn pain (4-10). * Bowel - senna/colace 2 tablets bid, Magnesium citrate 300ml daily prn. * Adult immunization - Administer pneumonia vaccine, covid vaccine, flu vaccine as appropriate. * DVT prophylaxis - on Xarelto. * Hypertension - Lisinopril 20mg daily, Amlodipine 5mg daily, Maxzide 37.5mg/25mg 1 tablet daily. * PAOD s/p left fem pop bypass - Pletal 100mg daily, Plavix 75mg daily, Xarelto 20mg daily. * Nutrition - Glucerna Shake 120ml tidcm. * Diabetes Mellitus II - Metformin 500mg daily. * GERD - Pantoprazole 20mg daily. * Depression - Paroxetine 30mg daily, stable chronic [facility] use, GDR not recommended.
[2023-07-28] MEDS: 0.9% Saline Lock 10 ML Syringe IV (21:50)
[2023-07-29 06:09] LABS: Absolute Neutrophil Count 2.5 X10^3/uL (2.0-7.7); Basophil# 0.03 X10^3/uL; Basophil% 0.7 % (0-1); Eosinophil# 0.06 X10^3/uL; Eosinophils% 1.4 % (0-5); Lymphocyte % 27.1 % (19-41); Mean Corpuscular Hgb 30.9 pg (27.0-32.0); Mean Corpuscular Volume 96.5 fL (81-99); Mean Platelet Vol. 8.9 fl (6.2-12.0); Monocyte# 0.58 X10^3/uL; Monocyte% 13.1 % (0-10); NRBC Flagged by Analyzer 0 % (0-5); Neutrophil # 2.54 X10^3/uL (2.7-7.7); Neutrophil % 57.2 % (47-70); Platelet Count 253 K/mm3 (150-450); RBC Distribution Width CV 15.9 % (11.6-14.6); RBC Distribution Width SD 54.9 fl (35.1-43.9); Red Blood Count 2.59 M/mm3 (4.2-5.4); White Blood Count 4.4 K/mm3 (4.4-11.0)
[2023-07-29] MEDS: Cilostazol 50 MG Tablet 100 MG PO ×2 (06:17→17:50)
[2023-07-29 06:19] LABS: Bedside Glucose 159 mg/dL (74-106)
[2023-07-29 06:28] LABS: Anion Gap 6 (5-15); BUN 30 mg/dL (7-18); BUN/Creat Ratio 16.7 RATIO (10-20); Calcium,Total 9.2 mg/dL (8.5-10.1); Chloride 102 mmol/L (98-107); EST Glomerular Filtration Rate 29 mL/min (>60); Est Glom Filt Rate - Afr Amer 35 mL/min (>60); Estimated Creatinine Clearance 27.54 ml/min; Glucose 191 mg/dL (74-106); Potassium 4.7 mmol/L (3.5-5.1); Sodium Level 135 mmol/L (136-145)
[2023-07-29 07:58] LABS: Iron 57 ug/dL (50-170); Iron Binding Capacity,Total 298 ug/dL (250-450); PERCENT IRON SATURATION 19.1 % (15.0-55.0)
[2023-07-29] MEDS: Ascorbic Acid 500 MG Tablet PO (08:07)
[2023-07-29] MEDS: Iron Polysaccharide Complex 150 MG CAPSULE PO (08:07)
[2023-07-29] MEDS: oxyCODONE 5 MG Tablet 10 MG PO ×4 (08:07→21:08)
[2023-07-29] MEDS: metFORMIN HCl 500 MG Tablet PO (08:08)
[2023-07-29] MEDS: Paroxetine 20 MG Tablet 30 MG PO (08:08)
[2023-07-29] MEDS: Triamterene 37.5MG/Hctz 25MG Capsule 1 CAP PO (08:08)
[2023-07-29] MEDS: Clopidogrel Bisulfate 75 MG Tablet PO (08:09)
[2023-07-29] MEDS: amLODIPine 5 MG Tablet PO (08:09)
[2023-07-29] MEDS: Pantoprazole Sodium 20 MG Tablet PO (08:09)
[2023-07-29 08:15] VITALS: BP 116/61; PULSE 92; RESP 16; TEMP 36.5; O2SAT 97
[2023-07-29] MEDS: 0.9% Saline Lock 10 ML Syringe IV (08:17)
[2023-07-29 09:04] VITALS: BMI 26.7
[2023-07-29] MEDS: Tuberculin,Purif.prot.deriv. 50 TU/ML Vial 0.1 ML ID (10:20)
--- NOTE | 2023-07-29 13:23 | NURSING ---
LT groin wound vac removed & 2 surgical dressing removed from LT inner thigh/leg incisions, surgical glue noted. no drng noted from any sites. Covered groin w/dry dressing- small unapproximated area noted to medial incision at groin. cleansed with NS applied x2 gauze and tape. Wound nurse to assess incisions later. pt resting in bed, so glad to have wound vac off.
[2023-07-29 13:40] VITALS: RESP 17; O2SAT 98
--- NOTE | 2023-07-29 14:35 | WOUNDNOTE ---
wound photo: left leg
--- NOTE | 2023-07-29 14:36 | WOUNDNOTE ---
wound photo: left groin
--- NOTE | 2023-07-29 15:22 | PCM.PN.DRR ---
Documented by User: Shonda Kauffman 07/29/23 15:55 TCU RX Drug Regimen Review Subjective/Objective Subjective/Objective: Subjective: TCU Admission. 77 YOF presented to ER from [facility] with lower extremity pain (status post left common femoral endarterectomy left femoral-above knee popliteal bypass with reversed great saphenous vein left sartorius flap 07/22/[address] Knutson). Hospitalized for left leg pain. Admitted to TCU with debility for strengthening and rehabilitation. Objective: Allergies Iodinated Contrast Media (Iodinated Contrast- Oral and IV Dye) Allergy (Severe, Verified 07/26/23 23:29) tongue swelled Current Medications Generic Name Dose Route Start Last Admin Trade Name Freq PRN Reason Stop Dose Admin Acetaminophen 1,000 mg 07/28/23 20:42 Acetaminophen 500 Mg Tablet PO Q6H PRN PRN Pain Score 1-3 Amlodipine Besylate 5 mg 07/29/23 10:00 07/29/23 08:09 Amlodipine 5 Mg Tablet PO 5 mg DAILY KHUSHI Administration Protocol Ascorbic Acid 500 mg 07/29/23 10:00 07/29/23 08:07 Ascorbic Acid 500 Mg Tablet PO 500 mg 1000 KHUSHI Administration Cilostazol 100 mg 07/29/23 07:00 07/29/23 06:17 Cilostazol 50 Mg Tablet PO 100 mg BIDAC KHUSHI Administration Clopidogrel Bisulfate 75 mg 07/29/23 10:00 07/29/23 08:09 Clopidogrel Bisulfate 75 Mg Tablet PO 75 mg DAILY KHUSHI Administration Lisinopril 20 mg 07/28/23 17:41 Lisinopril 20 Mg Tablet PO DAILY PRN PRN HTN Protocol Magnesium Citrate 300 ml 07/28/23 20:41 Magnesium Citrate 300 Ml PO DAILY PRN Constipation Metformin HCl 500 mg 07/29/23 08:00 07/29/23 08:08 Metformin Hcl 500 Mg Tablet PO 500 mg DAILYCM KHUSHI Administration Oxycodone HCl 10 mg 07/28/23 20:42 07/29/23 12:12 Oxycodone 5 Mg Tablet PO 10 mg Q4H PRN PRN Administration Pain Score 4-10 or Pre PT/OT Pantoprazole Sodium 20 mg 07/29/23 10:00 07/29/23 08:09 Pantoprazole Sodium 20 Mg Tablet PO 20 mg DAILY KHUSHI Administration Paroxetine HCl 30 mg 07/29/23 10:00 07/29/23 08:08 Paroxetine 20 Mg Tablet PO 30 mg QAM KHUSHI Administration Polysaccharide Iron Complex 150 mg 07/29/23 10:00 07/29/23 08:07 Iron Polysaccharide Complex 150 Mg Capsule PO 150 mg 1000 KHUSHI Administration Rivaroxaban 20 mg 07/29/23 17:00 Rivaroxaban 20 Mg Tablet PO DINNER KHUSHI Senna/Docusate Sodium 2 tablet 07/28/23 22:00 07/29/23 08:05 Senna/Docusate Sodium 1 Tablet PO Not Given BID KHUSHI Sodium Chloride 10 - 40 ml 07/28/23 18:08 07/29/23 08:17 0.9% Saline Lock 10 Ml Syringe IV 10 ml UD PRN Administration SALINE FLUSH Triamterene/Hydrochlorothiazide 1 cap 07/29/23 10:00 07/29/23 08:08 Triamterene 37.5mg/Hctz 25mg Capsule PO 1 cap DAILY KHUSHI Administration Protocol Tuberculin PPD 0.1 ml 08/05/23 10:00 Tuberculin,Purif.Prot.Deriv. 50 Tu/Ml Vial ID 08/05/23 10:01 X1 ONE Problem List GERD (gastroesophageal reflux disease) (Acute) Essential (primary) hypertension (Acute) Depression (Acute) Peripheral arterial occlusive disease (Acute) Acute pain of left lower extremity (Acute) Debility (Acute) Post-operative pain (Acute) Vital Signs Temp Pulse Resp BP Pulse Ox O2 Del Method 97.7 F L 92 16 116/61 97 Room Air 07/29/23 08:15 07/29/23 08:15 07/29/23 08:15 07/29/23 08:15 07/29/23 08:15 07/29/23 08:15 Oxygen Delivery Method Room Air Weight: 75.251 kg Body Mass Index (BMI) 26.7 Sodium 135 mmol/L (136-145) L 07/29/23 05:55 Potassium 4.7 mmol/L (3.5-5.1) 07/29/23 05:55 Chloride 102 mmol/L (98-107) 07/29/23 05:55 Carbon Dioxide 27.0 mmol/L (21.0-32.0) 07/29/23 05:55 Anion Gap 6 (5-15) 07/29/23 05:55 BUN 30 mg/dL (7-18) H 07/29/23 05:55 Creatinine 1.80 mg/dL (0.55-1.02) H 07/29/23 05:55 Est GFR (MDRD) Af Amer 35 mL/min (>60) L 07/29/23 05:55 Est GFR (MDRD) Non-Af 29 mL/min (>60) L 07/29/23 05:55 BUN/Creatinine Ratio 16.7 RATIO (10-20) 07/29/23 05:55 Glucose 191 mg/dL (74-106) H 07/29/23 05:55 Assessment/Plan: 1. Pain: acetaminophen 1000mg PO Q6H PRN pain 1-3 and oxycodone 10mg PO Q4H PRN pain 4-10. Resident has had 2 doses of oxycodone for pain scores of 8 and 10 in the knee/thigh/hip. Resident has not had any doses of acetaminophen. Please continue to monitor for increased pain, PRN usage, confusion, respiratory depression and constipation. 2. Bowel: senna/docusate 2T PO BID and magnesium citrate 300mL PO daily PRN constipation. Please continue to monitor for constipation and PRN usage. Resident has not had any doses of magnesium citrate. Last documented bowel movement was 07/27. Resident has refused 2/2 doses of senna/docusate at this time. 3. Hypertension: lisinopril 20mg PO daily PRN SBP >160, amlodipine 5mg PO daily, Maxide 37.5mg/25mg 1T PO daily. Please continue to monitor BP (last 116/61), PRN usage, swelling, potassium (last 4.7mmol/L), sodium (last 135mmo/L), renal function (last SCr 1.8mg/dL). 4. PAOD s/p left fem pop bypass/DVT prophylaxis: cilostazol 100mg PO daily, clopidogrel 75mg PO daily and rivaroxaban 20mg PO dinner. Please continue to monitor for S/S of bleeding/DVT, hemoglobin (last 8g/dL) and renal function (CrCl 27mL/min, dose does not need adjusted when using for vascular disease). 5. Diabetes mellitus II: metformin 500mg PO DAILYCM. Please consider holding dose as it is contraindicated for eGFR <30 mL/min, current eGFR is 29 mL/min. Thanks. Please continue to monitor for diarrhea, glucose (last 159mg/dL), hemoglobin A1c (last 7.4% 06/16/23) and GFR. 6. GERD: pantoprazole 20mg PO daily. Please continue to monitor for S/S of GERD and diarrhea (BEERs medication). 7. Iron deficiency (based on hemoglobin of 8g/dL): Ferrex 150mg PO daily and ascorbic acid 500mg PO daily. Please continue to monitor hemoglobin, dark stools, constipation iron studies (last 07/29/23). Assessment/Plan for indications treated with psychotropic medications: 1. Depression: paroxetine 30mg PO daily. Please see physician note regarding GDR. Please continue to monitor for falls/fractures (BEERs medication), sodium, dementia/delirium (BEERs medication), suicidal ideation (black box warning) and anticholinergic side effects (BEERs medication). Medical chart and medication regimen reviewed. The following medication irregularities or issues were identified: 1. Metformin 500mg PO DAILYCM. Please consider holding dose as it is contraindicated for eGFR <30 mL/min, current eGFR is 29 mL/min. Thanks. Date Date of Note:: 07/29/23 Documented by User: Dr. Kevin Camarillo MD 07/29/23 15:34 TCU RX Drug Regimen Review Provider Comments Provider responsibility Provider Comments to Recommendations by Pharmacy: Agree
[2023-07-29] MEDS: Rivaroxaban 20 MG Tablet PO (17:50)
[2023-07-29] MEDS: Acetaminophen 500 MG Tablet 1000 MG PO (17:52)
[2023-07-30] MEDS: oxyCODONE 5 MG Tablet 10 MG PO ×4 (06:14→20:32)
[2023-07-30] MEDS: 0.9% Saline Lock 10 ML Syringe IV ×3 (06:15→20:33)
[2023-07-30] MEDS: Cilostazol 50 MG Tablet 100 MG PO ×2 (06:15→16:28)
[2023-07-30 06:31] LABS: Bedside Glucose 157 mg/dL (74-106)
[2023-07-30] MEDS: Iron Polysaccharide Complex 150 MG CAPSULE PO (08:52)
[2023-07-30] MEDS: metFORMIN HCl 500 MG Tablet PO (08:52)
[2023-07-30] MEDS: Pantoprazole Sodium 20 MG Tablet PO (08:52)
[2023-07-30] MEDS: Paroxetine 20 MG Tablet 30 MG PO (08:52)
[2023-07-30] MEDS: Ascorbic Acid 500 MG Tablet PO (08:52)
[2023-07-30] MEDS: Clopidogrel Bisulfate 75 MG Tablet PO (08:52)
[2023-07-30] MEDS: Triamterene 37.5MG/Hctz 25MG Capsule 1 CAP PO (08:53)
[2023-07-30 09:15] VITALS: BP 115/55; PULSE 99
--- NOTE | 2023-07-30 12:18 | NURSING ---
Landscaping Specialist Note; Activity Asset: Ranjit rBock is independent in her choice of daily activities. She has her own coloring stuff and will coloring through out the day. She ill watch tv, read and visit w/family and friends. Staff will remind her of weekly activities, encourage group interaction and respect her right to say no.
[2023-07-30] MEDS: Calcium Carbonate 500 MG Tablet PO (13:44)
[2023-07-30 14:52] VITALS: BP 105/66; PULSE 104; RESP 17; TEMP 36.9; O2SAT 97
[2023-07-30] MEDS: Rivaroxaban 20 MG Tablet PO (16:28)
[2023-07-30] MEDS: Juven (unflavored) Packet 1 PACKET PO (17:13)
[2023-07-30 20:30] VITALS: RESP 16
[2023-07-31] MEDS: Cilostazol 50 MG Tablet 100 MG PO ×2 (06:11→17:05)
[2023-07-31 06:31] LABS: Bedside Glucose 168 mg/dL (74-106)
[2023-07-31] MEDS: Iron Polysaccharide Complex 150 MG CAPSULE PO (08:49)
[2023-07-31] MEDS: Triamterene 37.5MG/Hctz 25MG Capsule 1 CAP PO (08:49)
[2023-07-31] MEDS: Clopidogrel Bisulfate 75 MG Tablet PO (08:49)
[2023-07-31] MEDS: Pantoprazole Sodium 20 MG Tablet PO (08:49)
[2023-07-31] MEDS: Juven (unflavored) Packet 1 PACKET PO ×2 (08:50→17:05)
[2023-07-31] MEDS: metFORMIN HCl 500 MG Tablet PO (08:50)
[2023-07-31] MEDS: Ascorbic Acid 500 MG Tablet PO (08:50)
[2023-07-31] MEDS: Paroxetine 20 MG Tablet 30 MG PO (08:50)
[2023-07-31] MEDS: oxyCODONE 5 MG Tablet 10 MG PO ×3 (08:53→20:28)
--- NOTE | 2023-07-31 11:15 | CASEMGMT ---
Social Work- TCU Admit Note SW met with patient at bedside to complete initial intake assessment. SW introduced self and role. Patient verified demographics and contact information. Patient informed SW that prior to admission, she was at [facility] for 2 days and left AMA due to poor medication management at facility. Patient reported that prior to procedure she was residing in home alone and independent to complete ADLS and IADLS. Patient informed SW that she is currently moving out of counts include [facility] beds at the [facility] to [place] to live with her daughter, Myesha. Patient informed SW that daughters are currently working to move patients' belongings while she is in acute care. Patient confirmed code status as full code. Patient was notified of Medicare Coverage and benefits. Patient informed SW that her goal is to discharge from TCU after completion of ultrasound and a few more days of therapy. Patient plans to leave state with daughter post discharge. SW will continue to follow to support discharge planning DONA León
[2023-07-31] MEDS: 0.9% Saline Lock 10 ML Syringe IV (13:05)
[2023-07-31 15:30] VITALS: BP 134/65; PULSE 109; RESP 17; TEMP 36.8; O2SAT 97
[2023-07-31] MEDS: Rivaroxaban 20 MG Tablet PO (17:05)
[2023-08-01 06:20] LABS: Bedside Glucose 179 mg/dL (74-106)
[2023-08-01] MEDS: Cilostazol 50 MG Tablet 100 MG PO ×2 (06:41→16:21)
[2023-08-01] MEDS: metFORMIN HCl 500 MG Tablet PO (08:46)
[2023-08-01] MEDS: Juven (unflavored) Packet 1 PACKET PO ×2 (08:46→16:21)
[2023-08-01] MEDS: amLODIPine 5 MG Tablet PO (08:47)
[2023-08-01] MEDS: Triamterene 37.5MG/Hctz 25MG Capsule 1 CAP PO (08:47)
[2023-08-01] MEDS: Iron Polysaccharide Complex 150 MG CAPSULE PO (08:47)
[2023-08-01] MEDS: Paroxetine 20 MG Tablet 30 MG PO (08:48)
[2023-08-01] MEDS: Pantoprazole Sodium 20 MG Tablet PO (08:48)
[2023-08-01] MEDS: Ascorbic Acid 500 MG Tablet PO (08:48)
[2023-08-01] MEDS: Clopidogrel Bisulfate 75 MG Tablet PO (08:48)
[2023-08-01] MEDS: oxyCODONE 5 MG Tablet 10 MG PO ×3 (08:52→18:44)
[2023-08-01 10:00] VITALS: RESP 16
--- NOTE | 2023-08-01 13:05 | NURSING ---
Updated that a patient on the unit tested positive for covid. Patient does not want family called.
--- NOTE | 2023-08-01 14:52 | CHAPLAIN ---
Type of Pastoral Visit ___ Initial Visit ___ Follow-up Visit ___ On-call Visit ___ General Patient Visit ___ Spiritual Assessment ___ Family Conference ___ Bereavement ___ Rapid Response ___ Code Blue ___ Other (describe below) Pastoral Care Referral From ___ Patient ___ Family ___ Nurse ___ Physician ___ Air Gun Operator ___ Casino Dealer ___ Other (describe below) Sacrament/Intervention ___ Active listening ___ Anointing ___ Voodoo ___ Bereavement ___ Communion ___ Kina exploration ___ ___ Life review ___ Prayer ___ Reconciliation ___ Sacrament of Sick ___ Supportive presence ___ Wedding ___ Other (describe below) Pastoral Comments at first attempt the patient was busy with AUTHORIZATION NURSE; at second visit the patient was sleeping and not disturbed
[2023-08-01 15:54] VITALS: BP 116/69; PULSE 105; RESP 16; TEMP 36; O2SAT 97
[2023-08-01] MEDS: Rivaroxaban 20 MG Tablet PO (16:22)
[2023-08-02] MEDS: Cilostazol 50 MG Tablet 100 MG PO ×2 (06:05→17:00)
[2023-08-02 06:59] LABS: Hematocrit 25.5 % (37-47); Hemoglobin 8.2 g/dL (12.0-15.0)
[2023-08-02 07:01] LABS: Bedside Glucose 161 mg/dL (74-106)
[2023-08-02] MEDS: Juven (unflavored) Packet 1 PACKET PO ×2 (08:23→17:00)
[2023-08-02] MEDS: Pantoprazole Sodium 20 MG Tablet PO (08:25)
[2023-08-02] MEDS: oxyCODONE 5 MG Tablet 10 MG PO ×3 (08:25→22:17)
[2023-08-02] MEDS: Ascorbic Acid 500 MG Tablet PO (08:25)
[2023-08-02] MEDS: amLODIPine 5 MG Tablet PO (08:26)
[2023-08-02] MEDS: Triamterene 37.5MG/Hctz 25MG Capsule 1 CAP PO (08:26)
[2023-08-02] MEDS: metFORMIN HCl 500 MG Tablet PO (08:26)
[2023-08-02] MEDS: Iron Polysaccharide Complex 150 MG CAPSULE PO (08:26)
[2023-08-02] MEDS: Clopidogrel Bisulfate 75 MG Tablet PO (08:26)
[2023-08-02] MEDS: Paroxetine 20 MG Tablet 30 MG PO (08:26)
[2023-08-02 10:00] VITALS: PULSE 100; RESP 16
[2023-08-02 12:48] VITALS: BP 139/63; PULSE 100; RESP 18; TEMP 36.2; O2SAT 92
[2023-08-02] MEDS: Rivaroxaban 20 MG Tablet PO (17:02)
[2023-08-02] MEDS: 0.9% Saline Lock 10 ML Syringe IV (18:51)
[2023-08-02] MEDS: Acetaminophen 500 MG Tablet 1000 MG PO (19:56)
[2023-08-03 06:12] LABS: Bedside Glucose 157 mg/dL (74-106)
[2023-08-03] MEDS: Cilostazol 50 MG Tablet 100 MG PO ×2 (06:14→08:14)
[2023-08-03] MEDS: oxyCODONE 5 MG Tablet 10 MG PO ×2 (06:19→22:16)
[2023-08-03 08:08] VITALS: BP 115/57; PULSE 112; RESP 16; TEMP 37.1; O2SAT 95
[2023-08-03] MEDS: metFORMIN HCl 500 MG Tablet PO (08:10)
[2023-08-03] MEDS: Juven (unflavored) Packet 1 PACKET PO ×2 (08:11→17:02)
[2023-08-03] MEDS: amLODIPine 5 MG Tablet PO (08:12)
[2023-08-03] MEDS: Iron Polysaccharide Complex 150 MG CAPSULE PO (08:12)
[2023-08-03] MEDS: Triamterene 37.5MG/Hctz 25MG Capsule 1 CAP PO (08:12)
[2023-08-03] MEDS: Paroxetine 20 MG Tablet 30 MG PO (08:13)
[2023-08-03] MEDS: Pantoprazole Sodium 20 MG Tablet PO (08:13)
[2023-08-03] MEDS: Clopidogrel Bisulfate 75 MG Tablet PO (08:13)
[2023-08-03] MEDS: Ascorbic Acid 500 MG Tablet PO (08:14)
[2023-08-03] MEDS: Rivaroxaban 20 MG Tablet PO (17:02)
[2023-08-04] MEDS: Cilostazol 50 MG Tablet 100 MG PO ×2 (06:08→16:23)
[2023-08-04 06:09] LABS: Bedside Glucose 160 mg/dL (74-106)
[2023-08-04] MEDS: oxyCODONE 5 MG Tablet 10 MG PO ×3 (06:09→19:46)
[2023-08-04 06:14] VITALS: BP 142/67; PULSE 92
[2023-08-04] MEDS: metFORMIN HCl 500 MG Tablet PO (08:35)
[2023-08-04] MEDS: Juven (unflavored) Packet 1 PACKET PO (08:35)
[2023-08-04] MEDS: Iron Polysaccharide Complex 150 MG CAPSULE PO (08:36)
[2023-08-04] MEDS: Triamterene 37.5MG/Hctz 25MG Capsule 1 CAP PO (08:36)
[2023-08-04] MEDS: amLODIPine 5 MG Tablet PO (08:36)
[2023-08-04] MEDS: Ascorbic Acid 500 MG Tablet PO (08:37)
[2023-08-04] MEDS: Pantoprazole Sodium 20 MG Tablet PO (08:37)
[2023-08-04] MEDS: Clopidogrel Bisulfate 75 MG Tablet PO (08:37)
[2023-08-04] MEDS: Paroxetine 20 MG Tablet 30 MG PO (08:37)
--- NOTE | 2023-08-04 09:02 | NURSING ---
Plastic Tool Maker Note; MDS for 08/04/2023 Complete
--- NOTE | 2023-08-04 11:32 | NURSING ---
Offered covid vaccine, VIS provided. Patient refuses at this time.
--- NOTE | 2023-08-04 15:25 | CHAPLAIN ---
Type of Pastoral Visit ___ Initial Visit ___ Follow-up Visit ___ On-call Visit ___ General Patient Visit ___ Spiritual Assessment ___ Family Conference ___ Bereavement ___ Rapid Response ___ Code Blue ___ Other (describe below) Pastoral Care Referral From ___ Patient ___ Family ___ Nurse ___ Physician ___ Clinical Psychologist ___ Spark Tester ___ Other (describe below) Sacrament/Intervention ___ Active listening ___ Anointing ___ Judaism ___ Bereavement ___ Communion ___ Kina exploration ___ ___ Life review ___ Prayer ___ Reconciliation ___ Sacrament of Sick ___ Supportive presence ___ Wedding ___ Other (describe below) Pastoral Comments patient was lying down in bed but awake; pt stated that her therapy will be in 30 minutes and she was wanting to nap until then; offered to return for visit another time and pt agreed to that
[2023-08-04 15:29] VITALS: BP 137/88; PULSE 103; RESP 18; TEMP 36.8; O2SAT 96
--- NOTE | 2023-08-04 17:00 | CASEMGMT ---
Social Work SW met with patient at bedside to complete MDS. Patient BIM () and PhQ-2 (00) Patient informed SW that she would like to discharge on 08/06/2023. Patient informed SW that she would like to get back home to finish moving. Patient informed SW that she will have her daughter, Elizabeth at home to help. Patient informed SW that she is going to discuss discharge with her daughter and confirm in the AM. Anticipate Discharge on 08/06/2023- Home [facility]
[2023-08-04] MEDS: Rivaroxaban 20 MG Tablet PO (18:31)
--- NOTE | 2023-08-04 20:05 | DS.PCM_ITS ---
Providers Date of Admission: 07/28/23 Primary Care Physician: Dr. Tavo Strange, DO Consultations 07/28/23 19:25 Consult: Onc/Wound/tank officer Routine Comment: Reason for Consult:: Pocket wound vac, surgical incisions Reason For Visit: LLE PAIN Diagnosis Discharge Diagnosis (1) Debility: Status: Acute Code(s): R53.81 - Other malaise (2) Acute pain of left lower extremity: Status: Acute Code(s): M79.605 - Pain in left leg (3) Peripheral arterial occlusive disease: Status: Acute Code(s): I77.9 - Disorder of arteries and arterioles, unspecified (4) Post-operative pain: Status: Acute Code(s): G89.18 - Other acute postprocedural pain (5) Depression: Status: Acute Code(s): F32.A - Depression, unspecified (6) Essential (primary) hypertension: Status: Acute Code(s): I10 - Essential (primary) hypertension (7) GERD (gastroesophageal reflux disease): Status: Acute Code(s): K21.9 - Gastro-esophageal reflux disease without esophagitis Plan 77 year old female with below past medical history status post left common femoral endarterectomy left femoral-above knee popliteal bypass with reversed great saphenous vein left sartorius flap 07/22/[address] Knutson, hospitalized for left leg pain, admitted to TCU with debility, here for rehabilitation, strengthening, prior to discharge home alone. * Debility - PT/OT. * Pain - Tylenol 1000mg q6 prn pain (1-3), Oxycocone 10mg q4 prn pain (4-10). * Bowel - senna/colace 2 tablets bid, Magnesium citrate 300ml daily prn. * Adult immunization - Administer pneumonia vaccine, covid vaccine, flu vaccine as appropriate. * DVT prophylaxis - on Xarelto. * Hypertension - Lisinopril 20mg daily, Amlodipine 5mg daily, Maxzide 37.5mg/25mg 1 tablet daily. * PAOD s/p left fem pop bypass - Pletal 100mg daily, Plavix 75mg daily, Xarelto 20mg daily. * Nutrition - Glucerna Shake 120ml tidcm. * Diabetes Mellitus II - Metformin 500mg daily. * GERD - Pantoprazole 20mg daily. * Depression - Paroxetine 30mg daily, stable chronic intermediate use, GDR not recommended. Medications at Discharge Home Medications blood sugar diagnostic #50 ea 05/30/21 blood-glucose meter #1 ea 05/30/21 paroxetine HCl 30 mg tablet (Paxil) 30 mg PO QAM ANXIETY #90 tabs 06/07/22 triamterene 37.5 mg-hydrochlorothiazide 25 mg capsule 1 cap PO DAILY HTN #90 caps 06/07/22 disability placard ##1 08/13/22 metformin 500 mg tablet 500 mg PO QDAY DIABETES #90 tabs 12/11/22 omeprazole 20 mg capsule,delayed release 20 mg PO DAILY GERD #90 caps 12/11/22 amlodipine 5 mg tablet 5 mg PO DAILY HEART #90 tabs 02/25/23 cilostazol 100 mg tablet 100 mg PO BID ANTIPLATELET #60 tabs 05/06/23 clopidogrel 75 mg tablet (Plavix) 75 mg PO DAILY BLOOD THINNER #90 tabs 07/02/23 lisinopril 20 mg tablet 20 mg PO DAILY PRN PRN HTN 07/07/23 rivaroxaban 20 mg tablet (Xarelto) 20 mg PO QHS PVD 07/07/23 acetaminophen 500 mg tablet 1,000 mg (2 x 500 mg) PO Q6H PRN PRN Pain Score 1-3 #0 tabs 08/04/23 arginine 7 gram-glutam 7 gram-CaHMB 1.5 [id number]-min oral pwd pkt (Antonio (with collagen)) 1 packet PO BIDCM 30 days #60 ea 08/04/23 ascorbic acid (vitamin C) 500 mg tablet 500 mg PO 1000 #0 tabs 08/04/23 calcium carbonate 500 mg (2.5 x 200 mg calcium (500 mg)) PO Q4H PRN PRN Indigestion #0 tabs 08/04/23 oxycodone 5 mg tablet 10 mg (2 x 5 mg) PO Q4H PRN PRN Pain Score 4-10 Or Pre Pt/Ot 7 days #84 tabs 08/04/23 polysaccharide iron complex 150 mg iron capsule (Ferrex) 150 mg PO 1000 30 days #30 caps 08/04/23 Hospital Course Operations - (See below.) Procedures None Summary of Care Provided Minutes Spent on Discharge: 35 Hospital Course: 77 year old female with below past medical history status post left common femoral endarterectomy left femoral-above knee popliteal bypass with reversed great saphenous vein left sartorius flap 07/22/[address] Knutson, hospitalized for left leg pain, admitted to TCU with debility, here for rehabilitation, strengthening, prior to discharge home alone. Discharge home alone 08/06/2023. Physical Exam Const alert General Appearance: cooperative HEENT normocephalic Eyes PERRL and EOMs intact bilaterally Neck supple, no JVD and no carotid bruits Resp normal respiratory effort, normal air movement and clear to auscultation bilaterally Cardio regular rate and regular rhythm GI normal to inspection, nondistended, normoactive bowel sounds, non-tender and non-distended Extremity normal capillary refill General Extremity: Negative for edema Skin no rashes or lesions noted General Skin Exam: no breakdown Psych affect normal Appearance: appropriate Weight / BMI Weight Weight: 75.251 kg Body Mass Index (BMI) 26.7 ABG / Lab / Microbiology Data 08/02/23 06:54 07/29/23 05:55 Laboratory: Laboratory Results - last 24 hr 08/04/23 05:43: POC Glucose 160 H Microbiology: Microbiology 08/01/23 10:44 Nasal Secretion SARS-CoV-2 Antigen (Rapid) - Final D/C Instructions Discharge Diet: No restrictions Discharge Activity: Return to Normal Activity, May Shower and Use Walker Weight Bearing Status: Weight bearing as tolerated Call your doctor if you observe: Fever of 101 or Higher, Inability to urinate, Inability to have a bowel movement, Shortness of breath, Dizziness, Fainting spells, Swelling in the ankles, Chest pain and Uncontrolled pain Additional Instructions: Discharge home alone 08/06/2023. Please Follow Up With: Nelda Mancilla PA When: As scheduled. Meaningful Use Info Meaningful Use Meaningful Use Diagnoses (Choose all that apply): None applicable Ischemic Stroke Statin Dosing Therapy Reference: STATIN DOSE THERAPY REFERENCE: * Patients > 75 years receive moderate or high dose statin therapy. * Patients 75 years or YOUNGER should receive HIGH intensity statin dose unless contraindicated. You will be required to document reason for non-treatment if statin daily dose does not meet guidelines. HIGH DOSE STATIN THERAPY DAILY Atorvastatin > than or = to 40 mg Rosuvastatin > than or = to 20 mg Amlodipine + Atorvastatin > than or = to 2.5/40 mg Ezetimibe + Simvastatin 10/80 mg Simvastatin 80mg Discharge Plan Admission Admit Date/Time: 07/28/23 17:07 Primary Reason for Your Visit: Debility. Attending Provider: Kevin Camarillo Chi Primary Care Provider: Tavo Strange Instructions Additional Instructions / Restrictions: Discharge home alone 08/06/2023. Discharge Orders/Prescriptions Prescriptions: New polysaccharide iron complex [Ferrex 150] 150 mg iron Capsule 150 mg PO 1000 30 Days Qty: 30 0RF acetaminophen 500 mg Tablet 1,000 mg PO Q6H PRN PRN (Reason: Pain Score 1-3) Qty: 0 0RF ascorbic acid (vitamin C) 500 mg Tablet 500 mg PO 1000 Qty: 0 0RF calcium carbonate 200 mg calcium (500 mg) Tablet,Chewable 500 mg PO Q4H PRN PRN (Reason: Indigestion) Qty: 0 0RF oxycodone 5 mg Tablet 10 mg PO Q4H PRN PRN (Reason: Pain Score 4-10 Or Pre Pt/Ot) 7 Days Qty: 84 0RF Antonio (with collagen) 7-7-1.5 gram Powder In Packet 1 packet PO BIDCM 30 Days Qty: 60 0RF Continued cilostazol 100 mg tablet 100 mg PO BID Qty: 60 1RF lisinopril 20 mg tablet 20 mg PO DAILY PRN PRN (Reason: HTN) Xarelto 20 mg tablet 20 mg PO QHS Rx Instructions: must administer with evening meal paroxetine HCl [Paxil] 30 mg tablet 30 mg PO QAM Qty: 90 3RF triamterene-hydrochlorothiazid 37.5-25 mg capsule 1 cap PO DAILY Qty: 90 3RF metformin 500 mg tablet 500 mg PO QDAY Qty: 90 1RF omeprazole 20 mg capsule,delayed release(DR/EC) 20 mg PO DAILY Qty: 90 1RF amlodipine 5 mg tablet 5 mg PO DAILY Qty: 90 1RF clopidogrel [Plavix] 75 mg tablet 75 mg PO DAILY Qty: 90 3RF Discontinued acetaminophen 500 mg capsule 500 mg PO Q6H PRN PRN (Reason: pain) docusate sodium 100 mg Capsule 100 mg PO BID 7 Days Qty: 0 0RF oxycodone 5 mg Tablet 10 mg PO Q8H PRN PRN (Reason: Pain Score 4-10) 4 Days Qty: 24 0RF Patient Comments: Per MD, 10mg q4h prn po Rx Instructions: Take 1-2 tablets every 8 hours as needed for pain. No Action (DME) blood sugar diagnostic Strip See Rx Instructions .ROUTE .MEDSUPPLY Qty: 50 2RF Rx Instructions: USE DIRECTED TO CHECK BLOOD GLUCOSE ONCE DAILY FOR TYPE 2 DM (DME) blood-glucose meter Misc See Rx Instructions .ROUTE .MEDSUPPLY Qty: 1 0RF Rx Instructions: USE TO CHECK BLOOD GLUCOSE ONCE DAILY FOR TYPE 2 DM (DME) disability placard 0 .Route .MEDSUPPLY Qty: 1 0RF Rx Instructions: Duration 5 years. Referrals / Follow Up: Tavo Strange DO [Primary Care Provider] - Dallin Knutson MD [Med Staff - Active Staff] - Disposition Disposition (needs filled in before D/C Order can be placed): Home, Self Care
[2023-08-04 20:12] VITALS: PULSE 102; RESP 16; O2SAT 98
--- NOTE | 2023-08-05 03:08 | NURSING ---
Patient activated call light, states I need a bandaid, I bumped my elbow when I was going to the bathroom. Skin tear observed to left elbow, 1cm L x 1cm W x 0.1 cm D, small amount red drainage. Site cleansed, bandaid applied per patient preference. Denies pain. No distress observed or reported. Denies further requests. Call light in room.
[2023-08-05 05:39] LABS: Absolute Neutrophil Count 1.9 X10^3/uL (2.0-7.7); Basophil# 0.02 X10^3/uL; Basophil% 0.6 % (0-1); Eosinophil# 0.01 X10^3/uL; Eosinophils% 0.3 % (0-5); Hematocrit 26.9 % (37-47); Hemoglobin 8.8 g/dL (12.0-15.0); Lymphocyte % 26.6 % (19-41); Mean Corp Hgb Conc 32.7 g/dL (32-36); Mean Corpuscular Hgb 30.4 pg (27.0-32.0); Mean Corpuscular Volume 93.1 fL (81-99); Mean Platelet Vol. 8.7 fl (6.2-12.0); Monocyte# 0.49 X10^3/uL; Monocyte% 14.5 % (0-10); NRBC Flagged by Analyzer 0 % (0-5); Neutrophil # 1.94 X10^3/uL (2.7-7.7); Neutrophil % 57.4 % (47-70); Platelet Count 282 K/mm3 (150-450); RBC Distribution Width CV 15.6 % (11.6-14.6); RBC Distribution Width SD 53.2 fl (35.1-43.9); Red Blood Count 2.89 M/mm3 (4.2-5.4); White Blood Count 3.4 K/mm3 (4.4-11.0)
[2023-08-05] MEDS: Cilostazol 50 MG Tablet 100 MG PO ×2 (06:17→16:26)
[2023-08-05] MEDS: oxyCODONE 5 MG Tablet 10 MG PO (06:20)
[2023-08-05 06:36] LABS: Anion Gap 7 (5-15); BUN 38 mg/dL (7-18); BUN/Creat Ratio 21.3 RATIO (10-20); Chloride 95 mmol/L (98-107); Creatinine, Serum 1.78 mg/dL (0.55-1.02); EST Glomerular Filtration Rate 29 mL/min (>60); Est Glom Filt Rate - Afr Amer 36 mL/min (>60); Estimated Creatinine Clearance 27.88 ml/min; Glucose 165 mg/dL (74-106); Potassium 3.5 mmol/L (3.5-5.1); Sodium Level 130 mmol/L (136-145)
[2023-08-05 06:38] LABS: Bedside Glucose 162 mg/dL (74-106)
[2023-08-05 09:00] VITALS: BMI 25.4
[2023-08-05] MEDS: Pantoprazole Sodium 20 MG Tablet PO (09:06)
[2023-08-05] MEDS: metFORMIN HCl 500 MG Tablet PO (09:07)
[2023-08-05] MEDS: Clopidogrel Bisulfate 75 MG Tablet PO (09:07)
[2023-08-05] MEDS: Paroxetine 20 MG Tablet 30 MG PO (09:07)
[2023-08-05] MEDS: amLODIPine 5 MG Tablet PO (09:07)
[2023-08-05] MEDS: Triamterene 37.5MG/Hctz 25MG Capsule 1 CAP PO (09:07)
[2023-08-05] MEDS: Iron Polysaccharide Complex 150 MG CAPSULE PO (09:07)
[2023-08-05] MEDS: Ascorbic Acid 500 MG Tablet PO (09:07)
--- NOTE | 2023-08-05 11:41 | NURSING ---
Patient complaining of a sore throat and cough x2 days. Updated Dr. Camarillo, order for covid swab.
--- NOTE | 2023-08-05 12:21 | NURSING ---
Pt notified she tested positive for COVID. Placed in Enhanced precautions with door closed.
--- NOTE | 2023-08-05 15:32 | CHAPLAIN ---
Type of Pastoral Visit ___ Initial Visit ___ Follow-up Visit ___ On-call Visit ___ General Patient Visit ___ Spiritual Assessment ___ Family Conference ___ Bereavement ___ Rapid Response ___ Code Blue ___ Other (describe below) Pastoral Care Referral From ___ Patient ___ Family ___ Nurse ___ Physician ___ Associate Professor Of Counseling ___ Flying Squad Salesperson ___ Other (describe below) Sacrament/Intervention ___ Active listening ___ Anointing ___ Shinto ___ Bereavement ___ Communion ___ Kina exploration ___ ___ Life review ___ Prayer ___ Reconciliation ___ Sacrament of Sick ___ Supportive presence ___ Wedding ___ Other (describe below) Pastoral Comments patient is now in Covid isolation and a visit here was postponed
--- NOTE | 2023-08-05 15:36 | CHAPLAIN ---
Type of Pastoral Visit ___ Initial Visit ___ Follow-up Visit ___ On-call Visit ___ General Patient Visit ___ Spiritual Assessment ___ Family Conference ___ Bereavement ___ Rapid Response ___ Code Blue ___ Other (describe below) Pastoral Care Referral From ___ Patient ___ Family ___ Nurse ___ Physician ___ Line Runner ___ Bench Scientist ___ Other (describe below) Sacrament/Intervention ___ Active listening ___ Anointing ___ Shinto ___ Bereavement ___ Communion ___ Kina exploration ___ ___ Life review ___ Prayer ___ Reconciliation ___ Sacrament of Sick ___ Supportive presence ___ Wedding ___ Other (describe below) Pastoral Comments
[2023-08-05 16:00] VITALS: BP 138/70; PULSE 100; RESP 16; TEMP 38.1; O2SAT 94
[2023-08-05] MEDS: Rivaroxaban 20 MG Tablet PO (16:26)
--- NOTE | 2023-08-05 16:40 | CASEMGMT ---
Social Work JAZLYN received notification that the patient's daughter, Elizabeth would like to speak with JAZLYN to discuss discharge concerns. Patient tested positive for COVID 08/05/2023. JAZLYN contacted Elizabeth via phone to address any concerns regarding discharge. Elizabeth inquired about patient medical stability to discharge after testing positive for COVID. Elizabeth informed JAZLYN that the patient informed her that she could remain on TCU for 10 more days. JAZLYN informed Elizabeth that the patient requested to discharge prior to COVID diagnosis and signed NOMNC on 08/05/2023. Patient is currently asymptomatic. JAZLYN informed Elizabeth that a nurse can provide updates regarding current symptoms and stability. Elizabeth informed JAZLYN that she is concerned that the patient will discharge home without any support for outpatient care. JAZLYN informed Elizabeth that patient declined home health or outpatient therapy at this time and requested to return home. Elizabeth informed JAZLYN on previous occasions, the patient declined services and functional declined at home due to lack of motivation. JAZLYN informed Elizabeth that the patient would not be able to obtain outpatient therapy until after COVID isolation, if the patient is agreeable to services. JAZLYN discussed patient progress with therapy. Patient has been independent to ambulate without DME and requires little assistance for ADLS. Patient is functionally safe to discharge home. Elizabeth informed JAZLYN that she will discuss outpatient therapy with her mother to convince her to obtain services. Elizabeth informed JAZLYN that she will provide transportation for patient to discharge home at [facility] Elizabeth spoke with patient's nurse regarding patient current medical condition. Discharge: Home [facility]
--- NOTE | 2023-08-05 17:12 | NURSING ---
Received phone call from pt's daughter regarding pt's covid status and concerns with pt going home tomorrow. Updated Daughter that we are just monitoring pt and treating symptoms at this time. Pt only c/o at this time is sore throat and just feeling unwell. Pt refused Tylenol for painful sore throat. Denies additional needs at this time.
[2023-08-05 19:47] VITALS: RESP 15; O2SAT 98
[2023-08-05] MEDS: Calcium Carbonate 500 MG Tablet PO (20:11)
[2023-08-06] MEDS: Cilostazol 50 MG Tablet 100 MG PO (05:56)
[2023-08-06 06:07] VITALS: RESP 15
[2023-08-06 06:14] LABS: Bedside Glucose 147 mg/dL (74-106)
[2023-08-06] MEDS: Pantoprazole Sodium 20 MG Tablet PO (09:14)
[2023-08-06] MEDS: Ascorbic Acid 500 MG Tablet PO (09:14)
[2023-08-06] MEDS: Triamterene 37.5MG/Hctz 25MG Capsule 1 CAP PO (09:14)
[2023-08-06] MEDS: oxyCODONE 5 MG Tablet 10 MG PO (09:14)
[2023-08-06] MEDS: Iron Polysaccharide Complex 150 MG CAPSULE PO (09:14)
[2023-08-06] MEDS: metFORMIN HCl 500 MG Tablet PO (09:15)
[2023-08-06] MEDS: Paroxetine 20 MG Tablet 30 MG PO (09:15)
[2023-08-06] MEDS: Clopidogrel Bisulfate 75 MG Tablet PO (09:15)
[2023-08-06 09:25] VITALS: BP 105/55; PULSE 99; RESP 20; TEMP 37.1; O2SAT 97
--- NOTE | 2023-08-06 09:55 | CASEMGMT ---
Social Work SW met with patient at bedside to inquire about outpatient therapy. Patient continues to decline outpatient therapy at this time. Patient informed SW that she is feeling nauseous, but she would like tums or sofya yohan. Patient informed SW that she has a scratchy throat, but she feels she is doing better. Patient anticipates discharge home on 08/06/2023. Discharge:Home [facility]
--- NOTE | 2023-08-07 10:00 | MDS.RN ---
Information for the MDS was obtained from review of the clinical record, interview of resident, staff, and direct observation of resident?s care.
== END 2023-08-06 10:36 | disposition home or self-care (01) | DRG 949 ==
PROVIDERS: Admitting Provider Family Medicine Geriatric Medicine; PCP Family Medicine; Visit Provider Family Medicine Geriatric Medicine
DX: Z48.812 Encounter for surgical aftercare following surgery on the circulatory system (principal); U07.1 COVID-19; E11.51 Type 2 diabetes mellitus with diabetic peripheral angiopathy without gangrene; I10 Essential (primary) hypertension; F32.A Depression, unspecified; K21.9 Gastro-esophageal reflux disease without esophagitis; M79.605 Pain in left leg; Z79.84 Long term (current) use of oral hypoglycemic drugs; G89.18 Other acute postprocedural pain; Z79.02 Long term (current) use of antithrombotics/antiplatelets; Z87.891 Personal history of nicotine dependence; Z79.899 Other long term (current) drug therapy
CPT/HCPCS: 36415; 80048; 82962; 83540; 83550; 85014; 85018; 85025; 87811; 97110; 97116; 97162; 97166; 97530; 97535; 97802; A4216

== ENCOUNTER → 2023-08-04 | Outpatient (CLI) | payer MEDICARE, OTHER, SELFPAY ==
--- NOTE | 2023-08-04 09:57 | ADUL_ITS ---
Reason For Study: s/p Rt Fem-Mckayla Bypass with reversed GSV Right Velocities Ext. Iliac Artery, dist = 274 cm./sec. Common Femoral Artery, mid = 158 cm./sec. Rt Fem-PeroA Bypass Prox Anast: 79cm/s Prox graft: 81cm/s Mid graft: 51cm/s Distal graft: 96cm/s Distal Anast: 195cm/s. Profunda Femoral Artery = 121 cm./sec. Popliteal Artery, mid = 22 cm./sec. Post. Tibial Artery, prox = 0 cm./sec. Post. Tibial Artery, mid = 56 cm./sec. Post. Tibial Artery, dist = 15 cm./sec. Peroneal Artery, prox = 140 cm./sec. Peroneal Artery, mid = 121 cm./sec. Peroneal Artery,dist = 153 cm./sec. Ant. Tibial Artery, prox = 60 cm./sec. Ant. Tibial Artery, mid = 36 cm./sec. Ant. Tibial Artery, dist = 123 cm./sec. Retrograde flow noted Rt William. Procedure Exam performed in department. /US Art Duplex Unilat Lower Ext Interpretation Summary Patent right femoral-peroneal bypass with normal velocities and no evidence of stenosis. Posterior tibial artery occlusion Ordering Physician: Nelda Mancilla Referring Physician: Tavo Strange Performed By: Vandana Alicea, RDCS, RVT
--- NOTE | 2023-08-04 09:57 | ART_ITS ---
Reason For Study: PVD Procedure A bilateral lower extremity continuous wave Doppler with analog waveform analysis and ankle brachial indexes. Left Segmental Pressures Left brachial= 157mmHg. Left posterior tibial artery = 95mmHg. Left dorsalis pedis artery = 122mmHg. Left digit = 65 mmHg. Right Segmental Pressures Right brachial= 150mmHg. Right posterior tibial artery = 164mmHg. Right dorsalis pedis artery = 176mmHg. Right digit = 76 mmHg. Indices The right ankle brachial index by the posterior tibial artery is 1.04. The right ankle brachial index by the dorsalis pedis is 1.12. The right digital-brachial index is 0.48. The left ankle brachial index by the posterior tibial artery is 0.61. The left ankle brachial index by the dorsalis pedis is 0.78. The left digital-brachial index is 0.41. VL/Ankle Brachial Index Interpretation Summary Right HUBERT 1.12, normal. Doppler/PVR waveforms of the right ankle normal at rest . TBI diminished, pedal/digit disease vs spasm Left HUBERT 0.78, moderate arterial insufficiency. Doppler/PVR waveforms of the le ft ankle moderately diminished at rest. Ordering Physician: Nelda Mancilla Referring Physician: Tavo Strange Performed By: Vandana Alicea RDCS/RVT
== END | disposition home or self-care (01) ==
LOC: CVS 09:57
PROVIDERS: PCP Family Medicine; Visit Provider Physician Assistant
DX: Z48.812 Encounter for surgical aftercare following surgery on the circulatory system (principal); I70.221 Atherosclerosis of native arteries of extremities with rest pain, right leg
CPT/HCPCS: 93922; 93926

== ENCOUNTER → 2023-08-14 | Outpatient (CLI) | payer MEDICARE, OTHER, SELFPAY ==
--- NOTE | 2023-08-14 12:43 | VDLE_ITS ---
Reason For Study: RLE SWELLING RIGHT CFV is compressible, spontaneous, phasic, competent and demonstrates normal augmentation. FV is compressible, spontaneous, phasic, competent and demonstrates normal augmentation. POP V is compressible, spontaneous, phasic, competent and demonstrates normal augmentation. T/P Trunk is compressible. PTV is compressible. RT PerV is compressible. GSV proximal at SFJ is NONCOMPRESSIBLE AND occluded and has been harvested for BPG. Procedure This is a venous duplex using B-mode, color flow and spectral Doppler. Exam performed in department. A preliminary report was called and/or faxed to Nelda Mancilla @ [phone] @ 13:05. VL/Venous Duplex US, Unilateral Interpretation Summary Deep veins of the right lower extremity are patent and compressible segmentally . There is no evidence of right lower extremity deep vein thrombosis. Right great saphenous vein harvested. Saphenofemoral junction occluded/ligated. Ordering Physician: Nelda Mancilla Referring Physician: Tavo Strange Performed By: Christen Ace, ISHA, RVT
== END | disposition home or self-care (01) ==
PROVIDERS: PCP Family Medicine; Referring Provider Physician Assistant; Visit Provider Physician Assistant
DX: M79.604 Pain in right leg (principal)
CPT/HCPCS: 93971

== ENCOUNTER → 2023-08-14 | Outpatient (CLI) | payer MEDICARE, OTHER, SELFPAY ==
[2023-08-14 16:41] LABS: Absolute Lymphocyte Count 1.07 X10^3/uL (0.83-4.51); Basophil# 0.02 X10^3/uL; Basophil% 0.3 % (0-1); Eosinophil# 0.01 X10^3/uL; Eosinophils% 0.1 % (0-5); Hematocrit 31.4 % (37-47); Hemoglobin 10.2 g/dL (12.0-15.0); Lymphocyte # 1.07 X10^3/ul (0.83-4.51); Lymphocyte % 15.1 % (19-41); Mean Corp Hgb Conc 32.5 g/dL (32-36); Mean Corpuscular Hgb 29.6 pg (27.0-32.0); Mean Platelet Vol. 9.7 fl (6.2-12.0); Monocyte# 0.96 X10^3/uL; Monocyte% 13.6 % (0-10); NRBC Flagged by Analyzer 0 % (0-5); Neutrophil # 4.99 X10^3/uL (2.7-7.7); Neutrophil % 70.6 % (47-70); Platelet Count 277 K/mm3 (150-450); RBC Distribution Width CV 14.8 % (11.6-14.6); RBC Distribution Width SD 49.7 fl (35.1-43.9); Red Blood Count 3.45 M/mm3 (4.2-5.4); White Blood Count 7.1 K/mm3 (4.4-11.0)
[2023-08-14 16:58] LABS: Hemoglobin A1c 6.1 % (3.8-5.6)
[2023-08-14 17:02] LABS: ALB/GLOB Ratio 0.7 RATIO (0.9-2.4); AST(SGOT) 18 U/L (15-37); Alanine Aminotransfer ALT/SGPT 12 U/L (13-56); Albumin, Serum 3.3 g/dL (3.2-5.0); Alkaline Phosphatase 102 U/L (45-117); Anion Gap 7 (5-15); BUN 19 mg/dL (7-18); BUN/Creat Ratio 10.1 RATIO (10-20); Calcium,Total 9.3 mg/dL (8.5-10.1); Chloride 94 mmol/L (98-107); Creatinine, Serum 1.88 mg/dL (0.55-1.02); EST Glomerular Filtration Rate 28 mL/min (>60); Est Glom Filt Rate - Afr Amer 33 mL/min (>60); Globulin 4.7 g/dL (2.2-4.2); Glucose 187 mg/dL (74-106); Potassium 3.3 mmol/L (3.5-5.1); Sodium Level 128 mmol/L (136-145); Uric Acid 6.4 mg/dL (2.6-6.0)
== END | disposition home or self-care (01) ==
LOC: BIMLAB 14:56
PROVIDERS: Physician Assistant; PCP Family Medicine; Referring Provider Physician Assistant; Visit Provider Family Medicine
DX: D64.9 Anemia, unspecified (principal); E11.9 Type 2 diabetes mellitus without complications; M25.571 Pain in right ankle and joints of right foot; M25.471 Effusion, right ankle
CPT/HCPCS: 36415; 80053; 83036; 84550; 85025; 86140

== ENCOUNTER → 2023-09-02 | Outpatient (CLI) | payer MEDICARE, OTHER, SELFPAY ==
--- NOTE | 2023-09-02 08:03 | ADUL_ITS ---
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 Iliac Artery, dist = 59.4 cm./sec. Common Femoral Artery, mid = 309.5 cm./sec. Supf Femoral Artery, prox = 38.4 cm./sec. Profunda Femoral Artery = 46.5 cm./sec Mid SFA appears occluded. Dist SFA retrograde flow noted. TOY ASSEMBLY SUPERVISOR/POP A BPG noted at TOY ASSEMBLY SUPERVISOR Prox Anastomosis - 235.6 cm/s Prox Graft - 65.0 cm/s Mid Graft - 48.3 cm/s Dist Graft - 49.3 cm/s Dist Anastomosis - 55.9 cm/s. Popliteal Artery, prox. = 70.2 cm./sec. Popliteal Artery, dist = 71.3 cm./sec. Post. Tibial Artery, prox = 74.6 cm./sec. Post. Tibial Artery, mid = 34.0 cm./sec. Post. Tibial Artery, dist = 28.5 cm./sec. Peroneal Artery, prox = 46.1 cm./sec. Collateralization notedat mid Mckayla A. No flow visualized at Dist Mckayla A. Ant. Tibial Artery, prox = 63.6 cm./sec. Ant. Tibial Artery, mid = 111.2 cm./sec. Ant. Tibial Artery, dist = 65.6 cm./sec. /US Art Duplex Unilat Lower Ext Interpretation Summary Left femoral-popliteal bypass patent with normal velocities throughout. Common femoral artery with stenosis. Ordering Physician: Nelda Mancilla Referring Physician: Addison Strange M.D. Performed By: Parish Holly RVT and Student
== END | disposition home or self-care (01) ==
LOC: CVS 08:02
PROVIDERS: PCP Family Medicine; Referring Provider Physician Assistant; Visit Provider Physician Assistant
DX: I70.222 Atherosclerosis of native arteries of extremities with rest pain, left leg (principal)
CPT/HCPCS: 93926